=== PATIENT | male | born 1950 | race Caucasian/White ===

== ENCOUNTER → 2025-04-18 | Outpatient (CLI) | payer MEDICARE, MEDICAID, SELFPAY ==
--- NOTE | 2025-04-18 09:42 | MRI_ITS ---
PROCEDURE: BRAIN W/WO CONTRAST 04/18/2025 REASON FOR EXAM: SMALL LESION SEEN ON CT SIM Head neck neoplasm. TECHNIQUE: Procedure Code: [id number] Modality: MR Procedure: BRAIN W/WO CONTRAST Multiplanar and multisequence images were obtained. CONTRAST: Clariscan VOLUME: 15 mL COMPARISON: Prior PET-CT. FINDINGS: Diffusion-weighted images:Negative. ADC map: Negative. Gradient images: Negative. Cerebrum: Moderate loss of cerebral volume. Negative for mass the frontal, parietal, temporal and occipital lobes otherwise negative. White matter: Moderate periventricular white matter changes. Occasional T2 lesions in the centrum semiovale and licona radiata. Cerebellum: Negative for acute infarction. Otherwise negative cerebellum. CSF pathways and ventricles: Negative. Negative for ventricular dilatation or obstruction. 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 Brainstem: Ischemic changes in the eliceo. Midbrain, eliceo and medulla otherwise negative. Midline structures: The corpus callosum, pituitary fossa and cerebellar tonsils are negative. Limbic system: Medial temporal lobes and limbic system negative. Extra-axial spaces: Negative. Negative for subarachnoid, subdural or epidural hemorrhage. Orbital structures: Globes negative. Extraocular muscles negative. Paranasal sinuses: Slight mucosal disease in the ethmoid sinuses. Remainder of the sinuses negative. Vascular structures: Normal intracranial flow voids including the superior sagittal sinus. Other: No abnormal enhancement. Remainder of exam negative. 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 Atrophy and small-vessel disease upper limits of normal for age. Negative for intracranial metastatic disease. Reading Location: [id number]
== END | disposition home or self-care (01) ==
LOC: MRI 09:36
PROVIDERS: PCP Family Medicine; Referring Provider Student in an Organized Health Care Education/Training Program; Visit Provider Student in an Organized Health Care Education/Training Program
DX: C32.1 Malignant neoplasm of supraglottis (principal)
CPT/HCPCS: 70553; A9575; A4216

== ENCOUNTER 2025-04-25 07:49 | Day surgery (SDC) | payer MEDICARE, MEDICAID, SELFPAY ==
--- NOTE | 2025-04-17 18:09 | PAT.ANESEVAL ---
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 When Was Last Pacemaker Check QUESTION #4 FULL TEXT: You/Your Family Experience fever (hyperthermia) with Anesthesia Last Oral Intake Last Oral intake: Last Oral Intake NPO since Meds taken in AM with sips of water? Meds patient instructed to take am of surgery PONV PONV - fiscal accounting clerk: PONV - fiscal accounting clerk Female No 04/17/25 11:01 HX of Motion Sickness No 04/17/25 11:01 HX of N/V After Surgery No 04/17/25 11:01 Non-Smoker No 04/17/25 11:01 Duration of Surgery greater No 04/17/25 11:01 than 60 minutes Number of Risk Factors PONV Score Height & Weight Height & Weight: Anesthesia: Height & Weight Height 5 ft 9 in 04/15/25 14:43 Respiratory Assessment Respiratory Assessment - fiscal accounting clerk: Respiratory Tract Infection Hx - fiscal accounting clerk Hx Respiratory Tract Infection No 04/17/25 11:01 STOP Sleep Apnea STOP Sleep Apnea - fiscal accounting clerk: STOP Sleep Apnea - fiscal accounting clerk Hx Hypertension Yes: CONTROLLED WITH MED 04/17/25 11:01 Hx Sleep Apnea No 04/17/25 11:01 CPAP BIPAP Do you snore loudly (louder No 04/17/25 11:01 than talking or can be heard Do you often feel tired/ No 04/17/25 11:01 fatigued/ sleepy during daytime? Has anyone observed you stop No 04/17/25 11:01 breathing during sleep? STOP Results Negative 04/17/25 11:01 QUESTION #5 FULL TEXT : Do you snore loudly (louder than talking or can be heard through closed doors)? 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 Specify any problems Hx of Preganancy in last 3 N/A 04/17/25 11:01 Months Nurse Filling Out Transfusion NBUCHER 04/17/25 11:01 & Questions: Date: 04/17/25 04/17/25 11:01 Time: 11:03 04/17/25 11:01 Patient unable to answer at this time (ie. confused, unrespo /Reproduction History /Reproductive History - fiscal accounting clerk: /Reproductive Hx- fiscal accounting clerk Hx Now No 04/17/25 11:01 Gestational Age (in weeks): EDC: Hx Hx Para Hx Section SAB No 04/17/25 11:01 [facility] Medical History (Updated 04/17/25 @ 11:30 by Erin Marquez) Type 2 diabetes mellitus PVD (peripheral vascular disease) History of pleural effusion Depression CKD stage 3 due to type 2 diabetes mellitus CAD (coronary artery disease) Wears glasses Wears dentures Cancer Marijuana use Arthritis Difficulty swallowing Heartburn Gastric reflux Shortness of breath on exertion Chronic cough Smoker Cardiology follow-up encounter COPD (chronic obstructive pulmonary disease) Acid reflux High cholesterol Hypertension Diabetes Blindness of right eye Home Medications ?Medication ?Instructions ?Recorded ?Last Taken ?Type amlodipine 5 mg tablet 5 mg PO QDAY 04/07/25 Unknown History atorvastatin 40 mg tablet (Lipitor) 40 mg PO QHS 04/07/25 Unknown History brimonidine 0.2 % eye drops 1 drp ophthalmic (eye) TID 04/07/25 Unknown History carvedilol 25 mg tablet 25 mg PO BID 04/07/25 Unknown History dorzolamide 22.3 mg-timolol 6.8 1 drp ophthalmic (eye) BID 04/07/25 Unknown History mg/mL eye drops (Cosopt) famotidine 20 mg tablet 20 mg PO QDAY 04/07/25 Unknown History losartan 50 mg tablet 50 mg PO BID 04/07/25 Unknown History metformin 500 mg tablet 500 mg PO BID 04/07/25 Unknown History umeclidinium 62.5 mcg-vilanterol 1 inh inhalation QDAY 04/07/25 Unknown History 25 mcg/actuation powdr for inhalation (Anoro Ellipta) Allergy/AdvReac Type Severity Reaction Status Date / Time No Known Allergies Allergy Verified 04/17/25 10:57 Family History Mother Diabetes Father Cirrhosis Brother COPD (chronic obstructive pulmonary disease) Surgical History (Updated 04/17/25 @ 11:30 by Erin Marquez) History of colonoscopy History of vascular surgery History of cardiac catheterization History of artificial lens replacement History of coronary artery bypass graft x 3 S/P triple vessel bypass Social History Smoking Status: Current every day smoker tobacco type: cigarettes Tobacco: How many years used: 40 alcohol intake: never substance use type: marijuana Audit: Pertinent Findings Pertinent Findings EKG Perinent findings: 08/30/2021 sinus rhythm. LVH. Echo (EF%) pertinent findings: EF is 65 to 70%. Peak gradient of 22 mmHg with Valsalva and outflow and mid LV. No obvious evidence of HCM. Heart catheterization pertinent findings: 08/23/2021. Severe CAD. Left main has 70% stenosis at the bifurcation. Prior stent in the proximal LAD is patent. Mild disease in the mid to distal LAD. Left circumflex has 80% stenosis at the bifurcation. Proximally there is a 70% stenosis. RCA has mild diffuse disease. EF of 40 to 45%. Consult pertinent findings: 09/05/2023. [employer]. 1. Lower extremity edema?stable. 2. CAD in [place] arteries?stable. Status post CABG on 08/26/2021 with TENA to the LAD and SVG to the obtuse marginal and mid posterior descending artery. No angina symptoms noted. Continue current meds. 3. Hypertension?controlled Recommendation Anesthesia Recommendation Anesthesia recommendation: OPTIMIZED for anesthesia
[2025-04-25] VITALS (12 sets, daily range): BP systolic 182–227; BP diastolic 66–87; PULSE 66–74; RESP 16–20; TEMP 35.8–37.2; O2SAT 93–98; BMI 29.6
--- OUTSIDE RECORDS SUMMARY | 2025-04-25 08:01 | XMS RPT_ITS | CCD ---
Author Organization [facility] Care Team Providers Care Crnp Name Role Phone REBECCA DO, DR FRANKLIN A Primary Care Physician [phone] SYED DALLAS, RACHAEL Mendez Attending Unavail able REBECCA DO, DR NOEMI Tidwell Primary Care Unavailabl e REBECCA DO, DR NOEMI Tidwell Attending Unavailabl e REBECCA DO, DR NOEMI Tidwell Primary Care Unavailabl e REBECCA DO, DR NOEMI Tidwell Attending Unavailabl e REBECCA DO, DR NOEMI Tidwell Primary Care Unavailabl e Unavailable Primary Care Provider Unavailabl e JUD, GLENDY Referring Unavailable JUD, GLENDY Attending Unavailable SELF Referring Unavailable JUD, GLENDY Attending Unavailable Unavailable Primary Care Provider Unavailabl e REBECCA DO, DR NOEMI Tidwell Primary Care Unavailabl e YANET YAÑEZ MD Attending Unavailable REBECCA DO, DR NOEMI Tidwell Primary Care Unavailabl e RIDER DO, DR RANDAL Reardon Attending Unavailable PROVIDER, UNKNOWN Admitting Unavailable PROVIDER, UNKNOWN Attending Unavailable JOSEPHINE GUERRERO Referring Unavailable TENISHA, MARGARITA Admitting Unavailable TENISHA, MARGARITA Attending Unavailable TENISHA, MARGARITA Referring Unavailable CLEVELAND LI Referring Unavailable PROVIDER, UNKNOWN Admitting Unavailable TENISHA, MARGARITA Attending Unavailable PROVIDER, UNKNOWN Admitting Unavailable PROVIDER, UNKNOWN Attending Unavailable PROVIDER, UNKNOWN Admitting Unavailable ERNESTINA LEE Attending Unavailable TENISHA, MARGARITA Referring Unavailable PROVIDER, UNKNOWN Admitting Unavailable TENISHA, MARGARITA Attending Unavailable Howie Perez Attending Unavailable Rebecca, Noemi Primary Care Unavailable Howie Perez Attending Unavailable Rebecca, Noemi Primary Care Unavailable Rebecca, Noemi Referring Unavailable Tenisha, Margarita Referring Unavailable Rebecca, Noemi Primary Care Unavailable Anshul Pereira Attending Unavailable Rebecca, Noemi Primary Care Unavailable Anshul Preeira Attending Unavailable Lisbeth Sapp Attending Unavailable Rebecca, Noemi Primary Care Unavailable Anshul Pereira Referring Unavailable Stevie Dallas Attending Unavailable Noemi Fernandez Primary Care Unavailable Margarita Steven Attending Unavailable Tenisha, Margarita Referring Unavailable Noemi Fernandez Primary Care Unavailable Anshul Pereira Attending Unavailable Anshul Pereira Referring Unavailable Rebecca, Noemi Primary Care Unavailable Anshul Pereira Referring Unavailable Noemi Fernandez Primary Care Unavailable Anshul Pereira Attending Unavailable Rebecca SEYMOUR, Dr. Franklin Primary Care Physician Lisbeth Sapp LPN Attending Physician Unavaila ble Kelli SEYMOUR, Dr. Landers Attending Physician Dr. Margarita Steven MD Referring Provider Rebecca SEYMOUR, Dr. Franklin Referring Provider [phone] Dr. Howie Perez MD Attending Physician Burt DALLAS, Dr. Hubbard Attending Physician Kelli SEYMOUR, Dr. Landers Referring Provider Allergies Allergy Classification Reported Allergen(s) Allergy Type Date of Onset Reaction(s) Facility (16 sources) hydroCHLOROthiaz daya; Translations: [hydrochlorothia zide] Drug Allergy 5 Other: See Comments, [facility] (16 sources) Lisinopril; Translations: [lisinopril] Drug Allergy 5 [facility] (1 source) Unable to Assess Drug allergy (disorder) 5 [facility] Repository Medications Current Medications Medication Drug Class(es) Dates Sig (Normalized) Sig (Original) acetaminophen 650 mg oral tablet (11 sources) Start: 08-31-2021 acetaminophen Dose : 650 mg = 2 tab(s), Oral, q4h, PRN Pain, scale 1-3, 0 Refill(s) Start Date: 08/31/21 Status: Ordered Repeat number: 1 [id number] 200 actuat albuterol 0.09 mg/actuat metered dose inhaler (6 sources) beta2-Adrenergic Agonist Start: 07-18-2024 take 2 puff(s) by inhalation every four hours as needed for wheezing ProAir HFA MDI (90 mcg/inh) inhalation aerosol 2 puff(s), Inhalation, q4h, PRN as needed for wheezing, # 8.5 gram(s), 0 Refill(s), Pharmacy: [facility], COPD (chronic obstructive pulmonary disease), 174, cm, 03/22/24 9:19:00 EDT, Height, kg, 03/22/24 9:19:00 EDT, Dosing Weight Start Date: 07/18/24 Status: Ordered Quantity: 8.5 Unit: g Repeat number: 1 Indications: Chronic obstructive pulmonary disease, unspecified; Start: 11-14-2022 take 2 puff(s) by in halation every four hours as needed for wheezing ProAir HFA MDI (90 mcg/inh) inhalation aerosol 2 puff(s), Inhalation, q4h, PRN as needed for wheezing, # 8.5 gram(s), 0 Refill(s), Pharmacy: [facility]/pharmacy #[id number], COPD (chronic obstructive pulmonary disease), 173, cm, 11/14/22 10:58:00 EDT, Height Start Date: 11/14/22 Status: Ordered amLODIPine 5 mg oral tablet (13 sources) Dihydropyridine Calcium Channel Ni Start: 04-07-2025 take 1 tablet by mouth once daily Start: 08-09-2023 take 1 tablet by tami th once daily amLODIPine (NORVASC) 5 mg tablet Take 5 mg by mouth once daily. 08/09/2023 Active Start: 08-09-2023 amLODIPine 5 m g oral tablet 1 tab(s), Oral, BID, Due for office vist with Mainor Xiao. Please call office to schedule, additional refills will be given at office visit., # 60 tab(s), 1 Refill(s), Pharmacy: [facility]/pharmacy #[id number], 172.3, cm, 02/24/23 15:32:00 EDT, Height, kg, 02/24/23 15:32:00 EDT, Dosing Weight Start Date: 08/09/23 Status: Ordered Quantity: 60.0 Unit: tab(s) Repeat number: 2 Start: 08-16-2022 Norvasc 5 mg o ral tablet Dose : 5 mg = 1 tab(s), Oral, BID, # 180 tab(s), 0 Refill(s), [id number], 175.3, cm, 11/17/21 14:16:00 EDT, Height, kg, 11/17/21 14:16:00 EDT, Dosing Weight Start Date: 08/16/22 Status: Ordered Start: 08-31-2021 Norvasc 5 mg o ral tablet Dose : 5 mg = 1 tab(s), Oral, BID, # 60 tab(s), 1 Refill(s), [id number], 175.3, cm, 08/23/21 6:48:00 EST, Height, kg, 08/31/21 4:27:00 EST, Dosing Weight Start Date: 08/31/21 Status: Ordered Anoro Ellipta 62.5 mcg-25 mcg/inh inhalation powder (12 sources) Start: 04-23-2024 take 1 dose by inhalation once daily Anoro Ellipta 62.5 mcg-25 mcg/inh inhalation powder Dose = 1 puff(s), Inhalation, qDay, # 30 EA, 11 Refill(s), Pharmacy: [facility], COPD (chronic obstructive pulmonary disease), 174, cm, 03/22/24 9:19:00 EDT, Height, kg, 03/22/24 9:19:00 EDT, Dosing Weight Start Date: 04/23/24 Status: Ordered Quantity: 30.0 Unit: EA Repeat number: 12 Indications: Chronic obstructive pulmonary disease, unspecified; Start: 11-14-2022 take 1 dose by inhal ation once daily Anoro Ellipta 62.5 mcg-25 mcg/inh inhalation powder Dose = 1 puff(s), Inhalation, qDay, # 30 EA, 11 Refill(s), Pharmacy: [facility]/pharmacy #[id number], COPD (chronic obstructive pulmonary disease), 173, cm, 11/14/22 10:58:00 EDT, Height, kg, 11/14/22 10:58:00 EDT, Dosing Weight Start Date: 11/14/22 Status: Ordered Start: 08-05-2021 take 1 dose by inhal ation once daily Anoro Ellipta 62.5 mcg-25 mcg/inh inhalation powder Dose = 1 puff(s), Inhalation, qDay, # 30 EA, 11 Refill(s), Pharmacy: [facility]/pharmacy #[id number], COPD (chronic obstructive pulmonary disease), 173, cm, 08/05/21 13:14:00 EST, Height, kg, 08/05/21 13:14:00 EST, Dosing Weight Start Date: 08/05/21 Status: Ordered aspirin 81 mg delayed release oral tablet (11 sources) Platelet Aggregation Inhibitor, Nonsteroidal Anti-inflammatory Drug Start: 08-31-2021 aspirin 81 mg ora l delayed release tablet Dose : 81 mg = 1 tab(s), Oral, qDayM, 0 Refill(s) Start Date: 08/31/21 Status: Ordered Repeat number: 1 Start: 08-31-2021 aspirin 81 mg oral delayed release tablet Dose : 81 mg = 1 tab(s), Oral, qDayM, 0 Refill(s) Start Date: 08/31/21 Status: Ordered atorvastatin 40 mg oral tablet (11 sources) HMG-CoA Reductase Inhibitor Start: 04-07-2025 take 1 tablet by mouth at bedtime Start: 11-28-2024 atorvastatin 4 0 mg oral tablet Dose : 40 mg = 1 tab(s), Oral, qDay, # 90 tab(s), 3 Refill(s), Pharmacy: [facility], CAD IN [place], 173.4, cm, 11/07/24 10:01:00 EDT, Height, kg, 11/07/24 10:01:00 EDT, Dosing Weight Start Date: 11/28/24 Status: Ordered Quantity: 90.0 Unit: tab(s) Repeat number: 4 Indications: Atherosclerotic heart disease of habematolel coronary artery without angina pectoris; Start: 08-31-2023 take 1 tablet by tami th once daily atorvastatin 40 mg oral tablet 1 tab(s), Oral, qDay, # 90 tab(s), 1 Refill(s), Pharmacy: [facility]/pharmacy #[id number], 173, cm, 08/31/23 8:06:00 EST, Height, kg, 08/31/23 8:06:00 EST, Dosing Weight Start Date: 08/31/23 Status: Ordered Start: 08-16-2022 atorvastatin 4 0 mg oral tablet Dose : 40 mg = 1 tab(s), Oral, qDay, # 90 tab(s), 0 Refill(s), [id number], 175.3, cm, 11/17/21 14:16:00 EDT, Height, kg, 11/17/21 14:16:00 EDT, Dosing Weight Start Date: 08/16/22 Status: Ordered Start: 08-31-2021 atorvastatin 4 0 mg oral tablet Dose : 40 mg = 1 tab(s), Oral, qDay, # 30 tab(s), 2 Refill(s), [id number], 175.3, cm, 08/23/21 6:48:00 EST, Height, kg, 08/31/21 4:27:00 EST, Dosing Weight Start Date: 08/31/21 Status: Ordered benoxinate hydrochloride 4 mg/ml / fluorescein sodium 3 mg/ml ophthalmic solution (2 sources) Diagnostic Dye Start: 01-14-2025 End: 01-15-2025 fluorescein-benoxinate 0.3-0.4 % 1 drop (FLURESS) Start: 12-13-2024 End: 12-14-2024 fluorescein-benoxinate 0.3-0 .4 % 1 drop (FLURESS) bimatoprost 0.1 mg/ml ophthalmic solution (6 sources) Prostaglandin Analog Start: 08-25-2021 Lumigan 0 .01% ophthalmic solution Dose = 1 drop(s), Eyes, both, qHS, 0 Refill(s) Start Date: 08/25/21 Status: Ordered Start: 08-25-2021 Lumigan 0.01% ophthalmic solution Dose = 1 drop(s), Eyes, both, qHS, 0 Refill(s) Start Date: 08/25/21 Status: Ordered Start: 06-22-2019 Lumigan 0.01% ophthalmic solution Dose = 1 drop(s), Eyes, both, qDay, 0 Refill(s) Start Date: 06/22/19 Status: Ordered brimonidine tartrate 2 mg/ml ophthalmic solution (3 sources) alpha-Adrenergic Agonist Start: 04-07-2025 Start: 12-12-2024 take 1 drop(s) into the eye(s) twice daily brimonidine (ALPHAGAN) 0.2 % ophthalmic solution Use 1 drop in the left eye two times a day. 12/12/2024 Active bromfenac 0.75 mg/ml ophthalmic solution (1 source) Nonsteroidal Anti-inflammatory Drug Start: 09-20-2022 BromSite 0.075% ophthalmic solution 0 Refill(s) Start Date: 09/20/22 Status: Ordered carvedilol 25 mg oral tablet (9 sources) alpha-Adrenergic Ni, beta-Adrenergic Ni Start: 04-07-2025 take 1 tablet by mouth twice daily at mealtime Start: 11-28-2024 carvedilol 25 mg oral tablet Dose : 25 mg = 1 tab(s), Oral, BID, # 180 tab(s), 0 Refill(s) Start Date: 01/27/25 Status: Ordered Quantity: 180.0 Unit: tab(s) Repeat number: 1 Start: 08-31-2023 take 1 tablet by tami th twice daily carvedilol 25 mg oral tablet 1 tab(s), Oral, BID, # 180 tab(s), 0 Refill(s), [id number], 173, cm, 08/31/23 8:06:00 EST, Height, kg, 08/31/23 8:06:00 EST, Dosing Weight Start Date: 08/31/23 Status: Ordered Start: 10-12-2022 take 1 tablet by tami twice daily carvedilol 25 mg oral tablet 1 tab(s), Oral, BID, # 60 tab(s), 3 Refill(s), Pharmacy: [facility] [id number], 175.3, cm, 09/20/22 12:54:00 EST, Height, kg, 09/20/22 12:54:00 EST, Dosing Weight Start Date: 10/12/22 Status: Ordered Start: 09-20-2022 carvedilol 25 mg oral tablet Dose : 25 mg = 1 tab(s), Oral, BID, # 60 tab(s), 3 Refill(s), Pharmacy: [facility]/pharmacy #[id number], 175.3, cm, 09/20/22 12:54:00 EST, Height Start Date: 09/20/22 Status: Ordered Cepacol Sore Throat Max Numb mucous membrane lozenge (1 source) Start: 02-15-2025 End: 02-20-2025 take 1 dose by mouth every two hours as needed Cepacol Sore Throat Max Numb mucous membrane lozenge Dose = 1 lozenge(s), Oral, q2h, PRN Sore throat, X 5 day(s), # 50 lozenge(s), 0 Refill(s) Start Date: 02/15/25 Stop Date: 02/20/25 Status: Ordered Quantity: 50.0 Unit: lozenge(s) Repeat number: 1 cetirizine hydrochloride 10 mg oral tablet (2 sources) Histamine-1 Receptor Antagonist Start: 08-31-2023 cetirizine 10 mg oral tablet Dose : 10 mg = 1 tab(s), Oral, qDay, # 30 tab(s), 0 Refill(s), Pharmacy: [facility]/pharmacy #[id number], 173, cm, 08/31/23 8:06:00 EST, Height, kg, 08/31/23 8:06:00 EST, Dosing Weight Start Date: 08/31/23 Status: Ordered dorzolamide 20 mg/ml ophthalmic solution (12 sources) Carbonic Anhydrase Inhibitor Start: 04-07-2025 End: 04-17-2025 Dorzolamide 2 % drops Discontinued 1 NMA OPHTHALMIC TWICE A DAY April 07, 2025 12:00am April 17, 2025 10:58am Start: 11-06-2023 take 1 drop(s) into the eye(s) twice daily dorzolamide (TRUSOPT) 2 % ophthalmic solution Use 1 drop in the left eye two times a day. 11/06/2023 Active Start: 11-06-2023 take 1 dose into the eye(s) twice daily dorzolamide 2% ophthalmic solution Dose = 1 drop(s), Eyes, both, BID, 0 Refill(s) Start Date: 11/06/23 Status: Ordered Repeat number: 1 Start: 08-25-2021 take 1 dose into the eye(s) twice daily dorzolamide 2% ophthalmic solution Dose = 1 drop(s), Eyes, both, BID, # 10 mL, 0 Refill(s) Start Date: 08/25/21 Status: Ordered Start: 08-25-2021 take 1 dose into the eye(s) twice daily dorzolamide 2% ophthalmic solution Dose = 1 drop(s), Eyes, both, BID, # 10 mL, 0 Refill(s) Start Date: 08/25/21 Status: Ordered dorzolamide 20 mg/ml / timol ol 5 mg/ml ophthalmic solution (2 sources) Carbonic Anhydrase Inhibitor, beta-Adrenergic Ni Start: 04-07-2025 Start: 01-14-2025 take 1 drop(s) into the eye(s) twice daily dorzolamide-timolol (COSOPT) 22.3-6.8 mg/mL ophthalmic solution Use 1 drop in both eyes two times a day. 10 mL 5 01/14/2025 Active famotidine 20 mg oral tablet (13 sources) Histamine-2 Receptor Antagonist Start: 04-07-2025 take 1 tablet by mouth once daily Start: 04-23-2024 Pepcid 20 mg o ral tablet Dose : 20 mg = 1 tab(s), Oral, BID, # 180 tab(s), 11 Refill(s), Pharmacy: [facility], Constipation Abdominal pain, 174, cm, 03/22/24 9:19:00 EDT, Height, kg, 03/22/24 9:19:00 EDT, Dosing Weight Start Date: 04/23/24 Status: Ordered Quantity: 180.0 Unit: tab(s) Repeat number: 12 Indications: Unspecified abdominal pain; Constipation, unspecified; Start: 08-31-2023 Pepcid 20 mg o ral tablet Dose : 20 mg = 1 tab(s), Oral, BID, # 180 tab(s), 11 Refill(s), Pharmacy: [facility]/pharmacy #[id number], Abdominal pain Constipation, 173, cm, 08/31/23 8:06:00 EST, Height, kg, 08/31/23 8:06:00 EST, Dosing Weight Start Date: 08/31/23 Status: Ordered Start: 08-05-2021 Pepcid 20 mg o ral tablet Dose : 20 mg = 1 tab(s), Oral, qHS, # 30 tab(s), 11 Refill(s), Pharmacy: [facility]/pharmacy #[id number], Abdominal pain Constipation, 173, cm, 08/05/21 13:14:00 EST, Height, kg, 08/05/21 13:14:00 EST, Dosing Weight Start Date: 08/05/21 Status: Ordered fluticasone propionate 0.05 mg/actuat metered dose nasal spray (2 sources) Corticosteroid Start: 08-31-2023 take 50 ug nasal route twice daily fluticasone proprionate NASAL 50 mcg/ spray 50 mcg Dose = 1 spray(s), Nostril, each, BID, # 16 gram(s), 0 Refill(s), [id number], 173, cm, 08/31/23 8:06:00 EST, Height, kg, 08/31/23 8:06:00 EST, Dosing Weight Start Date: 08/31/23 Status: Ordered furosemide 20 mg oral tablet (2 sources) Loop Diuretic Start: 09-07-2021 End: 09-14-2021 Lasix 20 mg oral tablet Dose : 20 mg = 1 tab(s), Oral, qDay, # 14 tab(s), 0 Refill(s), [id number], 175.3, cm, 09/07/21 8:47:00 EST, Height, kg, 09/07/21 8:47:00 EST, Dosing Weight Start Date: 09/07/21 Stop Date: 09/14/21 Status: Ordered 24 hr isosorbide mononitrate 30 mg extended release oral tablet (1 source) Nitrate Vasodilator Start: 08-04-2021 isosorbide mononitrate 30 mg oral tablet, extended release Dose : 30 mg = 1 tab(s), Oral, qAM, # 30 tab(s), 1 Refill(s), [id number], 173, cm, 08/04/21 14:55:00 EST, Height, kg, 08/04/21 14:55:00 EST, Dosing Weight Start Date: 08/04/21 Status: Ordered losartan potassium 50 mg oral tablet (14 sources) Angiotensin 2 Receptor Ni Start: 04-07-2025 take 1 tablet by mouth twice daily Start: 08-31-2021 take 1 tablet by tami th twice daily losartan 50 mg oral tablet 1 tab(s), Oral, BID, # 180 tab(s), 3 Refill(s), Pharmacy: [facility], 173.4, cm, 11/07/24 10:01:00 EDT, Height, kg, 11/07/24 10:01:00 EDT, Dosing Weight Start Date: 12/04/24 Status: Ordered Quantity: 180.0 Unit: tab(s) Repeat number: 4 metFORMIN hydrochloride 500 mg oral tablet (13 sources) Biguanide Start: 04-07-2025 take 1 tablet by tami th twice daily Start: 04-23-2024 metFORMIN 500 mg oral tablet (IR) Dose : 500 mg = 1 tab(s), Oral, BID, # 180 tab(s), 11 Refill(s), Pharmacy: [facility], 174, cm, 03/22/24 9:19:00 EDT, Height, kg, 03/22/24 9:19:00 EDT, Dosing Weight Start Date: 04/23/24 Status: Ordered Quantity: 180.0 Unit: tab(s) Repeat number: 12 Start: 08-31-2023 metFORMIN 500 mg oral tablet (IR) Dose : 500 mg = 1 tab(s), Oral, BID, # 180 tab(s), 11 Refill(s), [id number], 173, cm, 08/31/23 8:06:00 EST, Height, kg, 08/31/23 8:06:00 EST, Dosing Weight Start Date: 08/31/23 Status: Ordered Start: 09-20-2022 metFORMIN 500 mg oral tablet (IR) Dose : 500 mg = 1 tab(s), Oral, BID, # 60 tab(s), 11 Refill(s), [id number], 175.3, cm, 09/20/22 12:54:00 EST, Height, kg, 09/20/22 12:54:00 EST, Dosing Weight Start Date: 09/20/22 Status: Ordered Start: 08-05-2021 metFORMIN 500 mg oral tablet (IR) Dose : 500 mg = 1 tab(s), Oral, BID, # 60 tab(s), 11 Refill(s), Pharmacy: [facility]/pharmacy #[id number], 173, cm, 08/05/21 13:14:00 EST, Height, kg, 08/05/21 13:14:00 EST, Dosing Weight Start Date: 08/05/21 Status: Ordered metoprolol tartrate 100 mg oral tablet (5 sources) beta-Adrenergic Ni Start: 08-31-2021 Lopres sor 100 mg oral tablet Dose : 100 mg = 1 tab(s), Oral, BIDM, # 60 tab(s), 2 Refill(s), Pharmacy: [facility]/pharmacy #[id number], 175.3, cm, 08/23/21 6:48:00 EST, Height, kg, 08/31/21 4:27:00 EST, Dosing Weight Start Date: 08/31/21 Status: Ordered Start: 08-04-2021 metoprolol tar trate 50 mg oral tablet Dose : 50 mg = 1 tab(s), Oral, BID, # 60 tab(s), 3 Refill(s), Pharmacy: [facility]/pharmacy #[id number], 173, cm, 08/04/21 14:55:00 EST, Height, kg, 08/04/21 14:55:00 EST, Dosing Weight Start Date: 08/04/21 Status: Ordered Multivitamin preparation (12 sources) Start: 07-04-2016 take 1 tablet by mouth once daily Multivitamin Dose = 1 tab(s), Oral, Daily, 0 Refill(s) Start Date: 07/04/16 Status: Ordered Repeat number: 1 Start: 07-04-2016 [facility]amin Dose = 1 tab(s), Oral, Daily, 0 Refill(s) Start Date: 07/04/16 Status: Ordered ofloxacin 3 mg/ml ophthalmic solution (2 sources) Quinolone Antimicrobial Start: 09-20-2022 ofloxacin 0.3% ophthalmic solution 0 Refill(s) Start Date: 09/20/22 Status: Ordered Lizella-3 oral capsule (12 sources) Start: 07-04-2016 take 1 capsule by mouth once daily Lizella-3 oral capsule 1,200 mg, Oral, Daily, 0 Refill(s) Start Date: 07/04/16 Status: Ordered Repeat number: 1 Start: 07-04-2016 take 1 capsule by [facility] once daily Lizella-3 oral capsule 1,200 mg, Oral, Daily, 0 Refill(s) Start Date: 07/04/16 Status: Ordered prednisoLONE acetate 10 mg/ml ophthalmic suspension (4 sources) Corticosteroid Start: 09-20-2022 take 1 drop(s) into the eye(s) four times daily prednisoLONE acetate 1% ophthalmic suspension 1 drop in right eye 4 times daily, 0 Refill(s) Start Date: 09/20/22 Status: Ordered Start: 09-20-2022 prednisoLONE a cetate 1% ophthalmic suspension 0 Refill(s) Start Date: 09/20/22 Status: Ordered traMADol hydrochloride 50 mg oral tablet (2 sources) Opioid Agonist Start: 04-07-2025 End: 04-17-2025 take 1 tablet by mouth every six hours as needed Tramadol 50 mg tablet Discontinued 50 mg PO EVERY 6 HOURS as needed April 07, 2025 12:00am April 17, 2025 11:00am Start: 03-19-2024 End: 03-24-2024 take 1 tablet by mouth once daily traMADol 25 mg oral tablet Dose : 25 mg = 1 tab(s), Oral, q8h, PRN as needed for pain, not to exceed 400 mg/day, X 5 day(s), # 18 tab(s), 0 Refill(s), 03/24/24 5:26:00 PM EDT, Injury of shoulder region, 95.5 Start Date: 03/19/24 Stop Date: 03/24/24 Status: Ordered Umeclidinium-Vilanterol (1 source) Anticholinergic, beta2-Adrenergic Agonist Start: 04-07-2025 Completed/Discontinued Medications Medication Drug Class(es) Dates Sig (Normalized) Sig (Original) acetaminophen 325 mg / HYDROcodone bitartrate 5 mg oral tablet (2 sources) Opioid Agonist Start: 04-07-2025 End: 04-10-2025 Hydrocodone-Acetami nophen 5-325 mg tablet Discontinued 1 {tbl} PO THREE TIMES A DAY 0 April 07, 2025 12:00am April 10, 2025 2:41pm Start: 02-15-2025 End: 02-18-2025 take 1 tablet by mouth three times daily Weston 325- 5 mg oral tablet Dose = 1 tab(s), Oral, TID, X 3 day(s), # 9 tab(s), 0 Refill(s), Throat cancer, 97.2 Start Date: 02/15/25 Stop Date: 02/18/25 Status: Ordered Quantity: 9.0 Unit: tab(s) Repeat number: 1 Indications: Malignant neoplasm of pharynx, unspecified; 12 hr timolol 5 mg/ml ophthalmic solution (1 source) beta-Adrenergic Ni Start: 04-07-2025 End: 04-10-2025 take 0.5 drop(s) into the eye(s) twice daily Timolol 0.5 % drops Discontinued 1 NMA OPHTHALMIC TWICE A DAY April 07, 2025 12:00am April 10, 2025 2:41pm left eye Problems Problem Classification Problem Date Documented Date Episodic/Chronic Cancer of head and neck (14 sources) Malignant tumor of pharynx; 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 Chemotherapy can be with Weekly Cisplatin or weekly Taxol and Carboplatin. Cataract (3 sources) Nuclear senile cataract; Translations: [Age-related nuclear cataract, bilateral] Onset: 01-14-2025 12-18-2024 Chronic Chronic kidney disease (2 sources) Chronic kidney disease stage 3A 11-07-2024 Chronic Chronic obstructive pulmonary disease and bronchiectasis (12 sources) Chronic obstructive lung disease 04-25-2019 Chronic Coronary atherosclerosis and other heart disease (15 sources) Coronary arteriosclerosis; Translations: [Coronary atherosclerosis] 04-25-2019 Chronic Comment on above: 2014 in [place] : Normal LV function. EF 65%. No regional wall motion abnormality. No mitral regurgitation. CAD as noted: left main 0% stenosis; LAD proximal 0%; mid - 90%. circumflex 0%. RCA(dominant) 0%. The patient presents with unstable coronary syndrome, class III a ngina and obvious culprit lesion in the mid LAD. Successful PCI for treatment of symptomatic CAD Diabetes mellitus with complications (14 sources) Chronic kidney disease stage 3 due to type 2 diabetes mellitus; Translations: [Hyperlipidemia due to type 2 diabetes mellitus] Onset: 03-13-2025 02-24-2023 Chronic Diabetes mellitus without complication (12 sources) Type 2 diabetes mellitus 08-05-2021 Chronic Disorders of lipid metabolism (15 sources) Hyperlipidemia 08-02-2021 Chronic Esophageal disorders (12 sources) Gastroesophageal reflux disease without esophagitis 08-05-2021 Chronic Essential hypertension (15 sources) Benign essential hypertension; Translations: [Hypertensive disorder] 04-25-2019 Chronic Glaucoma (4 sources) Primary open-angle glaucoma, left eye, indeterminate stage; Translations: [Primary open angle glaucoma] Onset: 12-13-2024 12-13-2024 Chronic Mood disorders (12 sources) Recurrent major depression in full remission 08-05-2021 Chronic Nonspecific chest pain (15 sources) Chest pain 08-02-2021 Episodic Osteoarthritis (12 sources) Osteoarthritis 07-07-2016 Chronic Other injuries and conditions due to external causes (1 source) Injury of upper extremity; Translations: [Unspecified injury of shoulder and upper arm, unspecified arm, initial encounter] Onset: 03-19-2024 Episodic Other nutritional; endocrine; and metabolic disorders (12 sources) Body mass index 30+ - obesity 08-02-2021 Chronic Other nutritional; endocrine; and metabolic disorders (1 source) Body mass index (BMI) 29.0-29.9, adult; Translations: [Body mass index (BMI) 29.0-29.9, adult] Onset: 03-13-2025 Episodic Other skin disorders (2 sources) Lesion of larynx; Translations: [Other diseases of larynx] 01-27-2025 Episodic Other upper respiratory disease (5 sources) Seasonal allergic rhinitis 08-31-2023 Chronic Other upper respiratory disease (1 source) Disorder of the larynx; Translations: [Other diseases of larynx] Onset: 01-21-2025 Episodic Other upper respiratory disease (2 sources) Other diseases of larynx; Translations: [Other diseases of larynx] Onset: 01-21-2025 Episodic Peripheral and visceral atherosclerosis (12 sources) Peripheral vascular disease 08-02-2021 Chronic Comment on above: s/p Bilateral CEA 20 11 Pleurisy; pneumothorax; pulmonary collapse (11 sources) Pleural effusion 09-07-2021 Episodic Residual codes; unclassified (12 sources) Sign 08-02-2021 Episodic Retinal detachments; defects; vascular occlusion; and retinopathy (4 sources) Bilateral epiretinal membrane of eyes; Translations: [Puckering of macula, bilateral] Onset: 12-13-2024 12-13-2024 Chronic Rheumatoid arthritis and related disease (7 sources) Rheumatoid arthritis 08-02-2021 Chronic Spondylosis; intervertebral disc disorders; other back problems (5 sources) Cervical spondylosis 11-25-2022 Chronic Unclassified (4 sources) 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 Noemi Fernandez DO Status: REG CLI Study: Brain W/WO Contrast Date of Exam: 04/18/25 Exam# [id number] Ordering Dr: Anshul Pereira DO PROCEDURE: BRAIN W/WO CONTRAST 04/18/2025 REASON FOR EXAM: SMALL LESION SEEN ON CT SIM Head neck neoplasm. TECHNIQUE: Procedure Code: MRIBRWW Modality: MR Procedure: BRAIN W/WO CONTRAST Multiplanar and multisequence images were obtained. CONTRAST: Clariscan VOLUME: 15 mL COMPARISON: Prior PET-CT. FINDINGS: Diffusion-weighted images:Negative. ADC map: Negative. Gradient images: Negative. Cerebrum: Moderate loss of cerebral volume. Negative for mass the frontal, parietal, temporal and occipital lobes otherwise negative. White matter: Moderate periventricular white matter changes. Occasional T2 lesions in the centrum semiovale and licona radiata. Cerebellum: Negative for acute infarction. Otherwise negative cerebellum. CSF pathways and ventricles: Negative. Negative for ventricular dilatation or obstruction. 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 Brainstem: Ischemic changes in the eliceo. Midbrain, eliceo and medulla otherwise negative. Midline structures: The corpus callosum, pituitary fossa and cerebellar tonsils are negative. Limbic system: Medial temporal lobes and limbic system negative. Extra-axial spaces: Negative. Negative for subarachnoid, subdural or epidural hemorrhage. Orbital structures: Globes negative. Extraocular muscles negative. Paranasal sinuses: Slight mucosal disease in the ethmoid sinuses. Remainder of the sinuses negative. Vascular structures: Normal intracranial flow voids including the superior sagittal sinus. Other: No abnormal enhancement. Remainder of exam negative. 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 Atrophy and small-vessel disease upper limits of normal for age. Negative for intracranial metastatic disease. Reading Location: [facility] CC: Dr. Noemi Fernandez, DO; Dr. Anshul Pereira, DO Communications Controller: Signed Normal [facility] Absolute lymphocyte countOrd ered By: Stevie Armendariz on 04-17-2025 Lymphocytes Auto (Unsp spec) [#/Vol] 1.48 10*3/uL 0.83-4.51 [facility] Absolute neutrophil countOrd ered By: [facility] on 04-17-2025 Neutrophils (Bld) [#/Vol] 5.2 10*3/uL 2.0-7.7 [facility] Anion gap in Serum or Plasma Ordered By: [facility] on 04-17-2025 Anion gap [Moles/Vol] 10 mmol/L 5- [facility] Automated lymphocyte count a s percentage of total leukocytesOrdered By: [facility] on 04-17-2025 Lymphocytes/100 WBC Auto (Unsp spec) 19.7 % 19- [facility] BUN/creatinine ratioOrdered By: [facility] on 04-17-2025 Urea nitrogen/Creatinine [Mass ratio] 17.2 mg/mg 10-20 [facility] Basophil percentageOrdered B y: [facility] on 04-17-2025 Basophils/100 WBC (Bld) 0.7 % 0-1 [facility] Bilirubin, totalOrdered By: [facility] on 04-17-2025 Bilirubin [Mass/Vol] 0.25 mg/dL 0.00-1.30 [facility] CBC W/Diff, Automatedon 03-25 Absolute Lymph 1.48 X10 3/uL Normal 0.83-4.51 [facility] Comment on above: Performed By: #### L 501.9520, L504.2610, L500.4050, L506.0400, L100.0100 #### [facility] [address] [place], [address] Absolute Neut 5.2 X10 3/uL Normal 2.0-7.7 [facility] Comment on above: Performed By: #### L [id number], L504.2610, L500.4050, L506.0400, L100.0100 #### [facility] [address] [place], [address] Basophils/100 WBC (Bld) 0.7 % Normal 0-1 [facility] Comment on above: Performed By: #### L [id number], L504.2610, L500.4050, L506.0400, L100.0100 #### [facility] [address] [place], [address] Eosinophils/100 WBC (Bld) 2.7 % Normal 0-5 [facility] Comment on above: Performed By: #### L 501.9520, L504.2610, L500.4050, L506.0400, L100.0100 #### [facility] [address] [place], [address] Erythrocyte distribution width (RBC) [Ratio] 13.4 % Normal 11.6-14.6 [facility] Comment on above: Performed By: #### L 501.9520, L504.2610, L500.4050, L506.0400, L100.0100 #### [facility] [address] [place], [address] Hematocrit (Bld) [Volume fraction] 40.8 % Normal 40-54 [facility] Comment on above: Performed By: #### L 501.9520, L504.2610, L500.4050, L506.0400, L100.0100 #### [facility] [address] [place], [address] Hemoglobin (Bld) [Mass/Vol] 13.9 g/dL Normal 13.0-16.5 [facility] Comment on above: Performed By: #### L 501.9520, L504.2610, L500.4050, L506.0400, L100.0100 #### [facility] [address] [place], [address] IG% 0.300 Normal 0.0-0.9 [facility] Comment on above: Result Comment: IG% - Immature Granulocytes (promyelocytes, myelocytes and metamyelocytes) > 1% indicates that a LEFT SHIFT is Present. Performed By: #### L 501.9520, L504.2610, L500.4050, L506.0400, L100.0100 #### [facility] [address] [place], [address] Lymphocytes/100 WBC (Bld) 19.7 % Normal 19-41 [facility] Comment on above: Performed By: #### L 501.9520, L504.2610, L500.4050, L506.0400, L100.0100 #### [facility] [address] [place], [address] MCH (RBC) [Entitic mass] 29.0 pg Normal 27.0-32.0 [facility] Comment on above: Performed By: #### L 501.9520, L504.2610, L500.4050, L506.0400, L100.0100 #### [facility] [address] [place], [address] MCHC (RBC) [Mass/Vol] 34.1 g/dL Normal 32-36 [facility] Comment on above: Performed By: #### L 501.9520, L504.2610, L500.4050, L506.0400, L100.0100 #### [facility] [address] [place], [address] MCV (RBC) [Entitic vol] 85.2 fL Normal 80-94 [facility] Comment on above: Performed By: #### L 501.9520, L504.2610, L500.4050, L506.0400, L100.0100 #### [facility] [address] [place], [address] Monocytes/100 WBC (Bld) 7.5 % Normal 0-10 [facility] Comment on above: Performed By: #### L 501.9520, L504.2610, L500.4050, L506.0400, L100.0100 #### [facility] [address] [place], [address] Neutrophils/100 WBC (Bld) 69.1 % Normal 47-70 [facility] Comment on above: Performed By: #### L 501.9520, L504.2610, L500.4050, L506.0400, L100.0100 #### [facility] [address] [place], [address] Nucleated RBC (Bld) [#/Vol] 0 10*3/uL Normal 0-5 [facility] Comment on above: Performed By: #### L 501.9520, L504.2610, L500.4050, L506.0400, L100.0100 #### [facility] [address] [place], [address] Platelet mean volume (Bld) [Entitic vol] 11.5 fL Normal 6.2-12.0 [facility] Comment on above: Performed By: #### L 501.9520, L504.2610, L500.4050, L506.0400, L100.0100 #### [facility] [address] [place], [address] Platelets (Bld) [#/Vol] 170 10*3/uL Normal 150-450 [facility] Comment on above: Performed By: #### L 501.9520, L504.2610, L500.4050, L506.0400, L100.0100 #### [facility] [address] [place], [address] RBC (Bld) [#/Vol] 4.79 10*6/uL Normal 4.6-6.2 [facility] Comment on above: Performed By: #### L 501.9520, L504.2610, L500.4050, L506.0400, L100.0100 #### [facility] [address] [place], [address] RDW SD 42.0 fl Normal 35.1-43.9 [facility] Comment on above: Performed By: #### L 501.9520, L504.2610, L500.4050, L506.0400, L100.0100 #### [facility] [address] [place], [address] WBC (Bld) [#/Vol] 7.5 10*3/uL Normal 4.4-11.0 [facility] Comment on above: Performed By: #### L 501.9520, L504.2610, L500.4050, L506.0400, L100.0100 #### [facility] [address] [place], [address] CREATININE FINGERSTICKon Creatinine [Mass/Vol] 1.4 mg/dL High 0.70-1.30 [facility] Comment on above: Performed By: #### L 9100.0200 #### [facility] [address] [place], [address] GFR/1.73 sq M.predicted among non-blacks MDRD (S/P/Bld) [Vol rate/Area] 52.0000 mL/min/{1.73_m2} Low >60 [facility] Comment on above: Performed By: #### L 9100.0200 #### [facility] [address] [place], [address] Carbon dioxide, total [Moles /volume] in Central venous bloodOrdered By: Stevie Dallas on 04-17-2025 CO2 [Moles/Vol] 23.0 mmol/L 21.0-32.0 [facility] Chloride assayOrdered By: Fina Dallas on 04-17-2025 Chloride [Moles/Vol] 102 mmol/L 98-108 [facility] Comprehensive Metabolic Prof ilon 04-17-2025 Albumin [Mass/Vol] 4.1 g/dL Normal 3.4-4.8 [facility] Comment on above: Performed By: #### L 501.9520, L504.2610, L500.4050, L506.0400, L100.0100 #### [facility] [address] [place], [address] Albumin/Globulin [Mass ratio] 1.6 {ratio} Normal 0.9-2.4 [facility] Comment on above: Performed By: #### L 501.9520, L504.2610, L500.4050, L506.0400, L100.0100 #### [facility] [address] [place], [address] ALK PHOS 83 U/L Normal 40-129 [facility] Comment on above: Performed By: #### L 501.9520, L504.2610, L500.4050, L506.0400, L100.0100 #### [facility] [address] [place], [address] ALT [Catalytic activity/Vol] 15 U/L Normal <=46 [facility] Comment on above: Performed By: #### L 501.9520, L504.2610, L500.4050, L506.0400, L100.0100 #### [facility] [address] [place], [address] AST [Catalytic activity/Vol] 22 U/L Normal <=37 [facility] Comment on above: Performed By: #### L 501.9520, L504.2610, L500.4050, L506.0400, L100.0100 #### [facility] [address] [place], [address] Bilirubin [Mass/Vol] 0.25 mg/dL Normal 0.00-1.30 [facility] Comment on above: Performed By: #### L 501.9520, L504.2610, L500.4050, L506.0400, L100.0100 #### [facility] [address] [place], [address] BUN/CRE 17.2 RATIO Normal 10-20 [facility] Comment on above: Performed By: #### L 501.9520, L504.2610, L500.4050, L506.0400, L100.0100 #### [facility] [address] [place], [address] Calcium [Mass/Vol] 9.3 mg/dL Normal 7.6-11.0 [facility] Comment on above: Performed By: #### L 501.9520, L504.2610, L500.4050, L506.0400, L100.0100 #### [facility] [address] [place], [address] Chloride [Moles/Vol] 102 mmol/L Normal 98-108 [facility] Comment on above: Performed By: #### L 501.9520, L504.2610, L500.4050, L506.0400, L100.0100 #### [facility] [address] [place], [address] CO2 [Moles/Vol] 23.0 mmol/L Normal 21.0-32.0 [facility] Comment on above: Performed By: #### L 501.9520, L504.2610, L500.4050, L506.0400, L100.0100 #### [facility] [address] [place], [address] Creatinine [Mass/Vol] 1.11 mg/dL Normal 0.70-1.20 [facility] Comment on above: Performed By: #### L 501.9520, L504.2610, L500.4050, L506.0400, L100.0100 #### [facility] [address] [place], [address] GAP 10 Normal 5-15 [facility] Comment on above: Performed By: #### L 501.9520, L504.2610, L500.4050, L506.0400, L100.0100 #### [facility] [address] [place], [address] GFR/1.73 sq M.predicted among non-blacks MDRD (S/P/Bld) [Vol rate/Area] 70 mL/min/{1.73_m2} Normal >60 [facility] Comment on above: Result Comment: mL/m in/1.73m2 CKD-EPI Creatinine Equation (2020) Performed By: #### L 501.9520, L504.2610, L500.4050, L506.0400, L100.0100 #### [facility] [address] [place], [address] Globulin (S) [Mass/Vol] 2.5 g/dL Normal 2.2-4.2 [facility] Comment on above: Performed By: #### L 501.9520, L504.2610, L500.4050, L506.0400, L100.0100 #### [facility] [address] [place], [address] Glucose [Mass/Vol] 207 mg/dL High 70-99 [facility] Comment on above: Performed By: #### L 501.9520, L504.2610, L500.4050, L506.0400, L100.0100 #### [facility] [address] [place], [address] Potassium [Moles/Vol] 4.1 mmol/L Normal 3.3-5.1 [facility] Comment on above: Performed By: #### L 501.9520, L504.2610, L500.4050, L506.0400, L100.0100 #### [facility] [address] [place], [address] Sodium [Moles/Vol] 135 mmol/L Normal 133-145 [facility] Comment on above: Performed By: #### L 501.9520, L504.2610, L500.4050, L506.0400, L100.0100 #### [facility] [address] [place], [address] T PROT 6.6 g/dL Normal 5.9-8.4 [facility] Comment on above: Performed By: #### L 501.9520, L504.2610, L500.4050, L506.0400, L100.0100 #### [facility] [address] [place], [address] Urea nitrogen [Mass/Vol] 19 mg/dL Normal 4-19 [facility] Comment on above: Performed By: #### L 501.9520, L504.2610, L500.4050, L506.0400, L100.0100 #### [facility] [address] [place], [address] Creatinine measurement at dsideOrdered By: Anshul Pereira on 04-17-2025 Creatinine [Mass/Vol] 1.4 mg/dL High 0.70-1.30 [facility] EGFROrdered By: Anshul king on 04-17-2025 GFR/1.73 sq M.predicted among non-blacks MDRD (S/P/Bld) [Vol rate/Area] 52.0000 mL/min/{1.73_m2} Low >60 [facility] Eosinophil percentageOrdered By: Stevie Dallas on 04-17-2025 Eosinophils/100 WBC (Bld) 2.7 % 0-5 [facility] Erythrocyte distribution wid th ratioOrdered By: Stevie Dallas on 04-17-2025 Erythrocyte distribution width (RBC) [Ratio] 13.4 % 11.6-14.6 [facility] Erythrocyte distribution wid th standard deviationOrdered By: Stevie Dallas on 04-17-2025 Erythrocyte distribution width (RBC) [Ratio] 42.0 fl 35.1-43.9 [facility] Glomerular filtration rate ( GFR) estimation/1.73 sq m using serum, plasma, or whole bOrdered By: Stevie Dallas on 04-17-2025 GFR/1.73 sq M.predicted among non-blacks MDRD (S/P/Bld) [Vol rate/Area] 70 mL/min/{1.73_m2} >60 [facility] Comment on above: mL/min/1.73m2 CKD-EP I Creatinine Equation (2020) Hematocrit Auto (Bld) [Volum e fraction]Ordered By: Stevie Dallas on 04-17-2025 Hematocrit (Bld) [Volume fraction] 40.8 % 40-54 [facility] Hemoglobin measurementOrdere d By: Stevie Dallas on 04-17-2025 Hemoglobin (Bld) [Mass/Vol] 13.9 g/dL 13.0-16.5 [facility] Immature granulocytes/100 WB C Auto (Bld)Ordered By: Stevie Dallas on 04-17-2025 Immature granulocytes/100 WBC (Bld) 0.300 % 0.0-0.9 [facility] Comment on above: IG% - Immature Granu locytes (promyelocytes, myelocytes and metamyelocytes) > 1% indicates that a LEFT SHIFT is Present. LDHon 04-17-2025 LDH 161 U/L Normal 87-241 [facility] Comment on above: Order Comment: 1 Performed By: #### L 501.9520, L504.2610, L500.4050, L506.0400, L100.0100 #### [facility] [address] [place], [address] Laboratory - Chemistry and C hemistry - challengeOrdered By: Stevie Dallas on 04-17-2025 AST [Catalytic activity/Vol] 22 U/L <38 [facility] Lactate dehydrogenase (LDH) measurementOrdered By: Stevie Dallas on 04-17-2025 LDH [Catalytic activity/Vol] 161 U/L 87-241 [facility] MCV (mean corpuscular volume ) determinationOrdered By: Stevie Dallas on 04-17-2025 MCV (RBC) [Entitic vol] 85.2 fL 80-94 [facility] MR/PAT.ANEon 04-17-2025 MR/PAT.ANE [facility] Medical Records Department [address] [place] [address] PAT - Anesthesia 04/17/25 1809 MR#: [id number] Acct: [id number] Name: BERNARD MERAZ Rep #: [id number] : 1950 74 From: Harvey Montgomery MD PCP: Dr. Noemi Feranndez, DO Status:PRE SDC Y Race: C Location: [place] Pre-Assessment Diagnosis/Proposed Procedure Planned Operative Procedure(s): (L) Insertion, Vascular Port PEG tube placement in OR Anesthesia History Anesthesia History - process lead: Anesthesia History - process lead Hx Hospitalization No 04/17/25 11:01 Any Problems With Anesthesia No 04/17/25 11:01 Cholinesterase deficiency No 04/17/25 11:01 You/Your Family Experience No 04/17/25 11:01 fever (hyperthermia) with Relationship Recent Exposure to Contagious Disease Does patient have nerve No 04/17/25 11:01 stimulator Patient instructed to have device shut off --Does patient have Pacemaker or ICD? When Was Last Pacemaker Check QUESTION #4 FULL TEXT: You/Your Family Experience fever (hyperthermia) with Anesthesia Last Oral Intake Last Oral intake: Last Oral Intake NPO since Meds taken in AM with sips of water? Meds patient instructed to take am of surgery PONV PONV - process lead: PONV - process lead Female No 04/17/25 11:01 HX of Motion Sickness No 04/17/25 11:01 HX of N/V After Surgery No 04/17/25 11:01 Non-Smoker No 04/17/25 11:01 Duration of Surgery greater No 04/17/25 11:01 than 60 minutes Number of Risk Factors PONV Score Height Weight Height Weight: Anesthesia: Height Weight Height 5 ft 9 in 04/15/25 14:43 Respiratory Assessment Respiratory Assessment - process lead: Respiratory Tract Infection Hx - process lead Hx Respiratory Tract Infection No 04/17/25 11:01 STOP Sleep Apnea STOP Sleep Apnea - process lead: STOP Sleep Apnea - process lead Hx Hypertension Yes: CONTROLLED WITH MED 04/17/25 11:01 Hx Sleep Apnea No 04/17/25 11:01 CPAP BIPAP Do you snore loudly (louder No 04/17/25 11:01 than talking or can be heard Do you often feel tired/ No 04/17/25 11:01 fatigued/ sleepy during daytime? Has anyone observed you stop No 04/17/25 11:01 breathing during sleep? STOP Results Negative 04/17/25 11:01 QUESTION #5 FULL TEXT : Do you snore loudly (louder than talking or can be heard through closed doors)? 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 Specify any problems Hx of Preganancy in last 3 N/A 04/17/25 11:01 Months Nurse Filling Out Transfusion NBUCHER 04/17/25 11:01 Questions: Date: 04/17/25 04/17/25 11:01 Time: 11:03 04/17/25 11:01 Patient unable to answer at this time (ie. confused, unrespo /Reproduction History /Reproductive History - process lead: /Reproductive Hx- process lead Hx Now No 04/17/25 11:01 Gestational Age (in weeks): EDC: Hx Hx Para Hx Section SAB No 04/17/25 11:01 PFSH Medical History (Updated 04/17/25 @ 11:30 by Erin Marquez) Type 2 diabetes mellitus PVD (peripheral vascular disease) History of pleural effusion Depression CKD stage 3 due to type 2 diabetes mellitus CAD (coronary artery disease) Wears glasses Wears dentures Cancer Marijuana use Arthritis Difficulty swallowing Heartburn Gastric reflux Shortness of breath on exertion Chronic cough Smoker Cardiology follow-up encounter COPD (chronic obstructive pulmonary disease) Acid reflux High cholesterol Hypertension Diabetes Blindness of right eye Home Medications ???Medication ???Instructions ???Recorded ???Last Taken ???Type amlodipine 5 mg tablet 5 mg PO QDAY 04/07/25 Unknown Hist ory atorvastatin 40 mg tablet (Lipitor) 40 mg PO QHS 04/07/25 Unknown H istory brimonidine 0.2 % eye drops 1 drp ophthalmic (eye) TID 5 Unknown History carvedilol 25 mg tablet 25 mg PO BID 04/07 (more content not included)... Normal [facility] Mean corpuscular hemoglobin (MCH) determinationOrdered By: Stevie Dallas on 04-17-2025 MCH (RBC) [Entitic mass] 29.0 pg 27.0-32.0 [facility] Mean corpuscular hemoglobin concentration (MCHC) determinationOrdered By: Stevie Dallas on 04-17-2025 MCHC (RBC) [Mass/Vol] 34.1 g/dL 32-36 [facility] Mean platelet volume determi nationOrdered By: Stevie Dallas on 04-17-2025 Platelet mean volume (Bld) [Entitic vol] 11.5 fL 6.2-12.0 [facility] Monocyte percentageOrdered B y: Stevie Dallas on 04-17-2025 Monocytes/100 WBC (Bld) 7.5 % 0-10 [facility] Neutrophil percentageOrdered By: Stevie Dallas on 04-17-2025 Neutrophils/100 WBC (Bld) 69.1 % 47-70 [facility] Nucleated red blood cell per centageOrdered By: Stevie Dallas on 04-17-2025 Nucleated RBC/100 WBC (Bld) [Ratio] 0 % 0-5 [facility] Platelet countOrdered By: Fina Dallas on 04-17-2025 Platelets (Bld) [#/Vol] 170 10*3/uL 150-450 [facility] Potassium measurement (mass/ volume)Ordered By: Stevie Dallas on 04-17-2025 Potassium (Unsp spec) [Mass/Vol] 4.1 mmol/L 3.3-5.1 [facility] RBC Auto (Bld) [#/Vol]Ordere d By: Stevie Dallas on 04-17-2025 RBC (Bld) [#/Vol] 4.79 10*6/uL 4.6-6.2 [facility] Serum creatinine measurement (mass/volume)Ordered By: Stevie Dallas on 04-17-2025 Creatinine [Mass/Vol] 1.11 mg/dL 0.70-1.20 [facility] Serum globulin measurementOr dered By: Stevie Dallas on 04-17-2025 Globulin (S) [Mass/Vol] 2.5 g/dL 2.2-4.2 [facility] Serum glucose measurement (m ass/volume)Ordered By: Stevie Dallas on 04-17-2025 Glucose [Mass/Vol] 207 mg/dL High 70-99 [facility] Serum or plasma alanine simpson otransferase (ALT) measurementOrdered By: Stevie Dallas on 04-17-2025 ALT [Catalytic activity/Vol] 15 U/L <47 [facility] Serum or plasma albumin ishan urement (mass/volume)Ordered By: Stevie Dallas on 04-17-2025 Albumin [Mass/Vol] 4.1 g/dL 3.4-4.8 [facility] Serum or plasma albumin/glob ulin mass ratioOrdered By: Stevie Dallas on 04-17-2025 Albumin/Globulin [Mass ratio] 1.6 {ratio} 0.9-2.4 [facility] Serum or plasma alkaline rubio sphatase measurementOrdered By: Stevie Dallas on 04-17-2025 ALP [Catalytic activity/Vol] 83 U/L 40-129 [facility] Serum or plasma calcium ishan urement (mass/volume)Ordered By: Stevie Dallas on 04-17-2025 Calcium [Mass/Vol] 9.3 mg/dL 7.6-11.0 [facility] Serum or plasma urea nitroge n measurement (mass/volume)Ordered By: Stevie Dallas on 04-17-2025 Urea nitrogen [Mass/Vol] 19 mg/dL 4-19 [facility] Sodium levelOrdered By: Justo Dallas on 04-17-2025 Sodium [Moles/Vol] 135 mmol/L 133-145 [facility] T4 Free Directon 04-17-2025 T4 FREE DIRECT 1.20 ng/dL Normal 0.76-1.46 [facility] Comment on above: Performed By: #### L 501.9520, L504.2610, L500.4050, L506.0400, L100.0100 ####[facility] [id number] [place], [address] T4 freeOrdered By: Stevie andrews on 04-17-2025 Free T4 [Mass/Vol] 1.20 ng/dL 0.76-1.46 [facility] TSH DL <= 0.005 mIU/L QnOrde red By: Stevie Dallas on 04-17-2025 TSH Qn 1.690 uIU/mL 0.300-4.20 0 [facility] Thyroid Stim Hormone (TSH)on 04-17-2025 TSH 1.690 uIU/mL Normal 0.300-4.20 0 [facility] Comment on above: Performed By: #### L 501.9520, L504.2610, L500.4050, L506.0400, L100.0100 #### [facility] [address] [place], [address] Total proteinOrdered By: Tushar Dallas on 04-17-2025 Protein [Mass/Vol] 6.6 g/dL 5.9-8.4 [facility] White blood cell (WBC) count Ordered By: Stevie Dallas on 04-17-2025 WBC (Bld) [#/Vol] 7.5 10*3/uL 4.4-11.0 [facility] PET/CT Tumor Base -Thigh Ini ton 04-15-2025 PET/CT Tumor Base -Thigh Init [facility] Imaging Services [address] [place] [address] PET/CT Tumor Base -Thigh Init MR#: [id number] Acct: [id number] Name: BERNARD MERAZ Rep #: [id number] : 1950 M 74 From: Samuel Pretty MD PCP: Dr. 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 The noncontrast helical CT imaging was performed without breath hold, for attenuation correction of PET images and anatomic correlation, but not for primary interpretation, as it is not of the standard diagnostic quality. Images were reviewed in the axial, coronal and sagittal planes. RADIATION DOSE SUMMARY: Effective Dose: Approximately 7 mSv for a standard whole-body PET scan Organ Doses: Varies by organ, with higher doses typically to the bladder, liver, and brain CTDI: 9.72 mGy. DLP: 1088.66 mGy cm. COMPARISON: COMPARISON FROM CT, PET OR OTHER PERTINENT EXAMS: None. FINDINGS: Physiologic uptake: There may be expected metabolic uptake within the brain, tongue and floor of the mouth and larynx/vocal cords, heart, velasquez (many normal individuals have hilar uptake in less than 3 nodes with mildly avid hilar nodes less than 2.7 SUV), liver and spleen, system, and GI tract and symmetric muscle uptake. FDG AVID AND NON-AVID LESIONS. Reported avid SUV values (g/mL) are maximum SUV. Head and neck: There is a supraglottic mass measuring 3.7 x 2.9 x 2.2 cm, demonstrating hypermetabolic activity, max SUV 11.6. The mass extends from the epiglottis and aryepiglottic folds inferiorly to the level of the true vocal folds at the anterior commissure. There is a photopenic area in the right frontal lobe, at the vertex, which may be a calcified meningioma. There is a normal distribution of FDG activity in the remaining brain parenchyma. There is calcific vascular disease of the intracranial portion of both internal carotid arteries. There is calcific vascular disease of both carotid bifurcations. Chest: There is no abnormal activity in the pulmonary parenchyma. There are no pleural effusions. The heart size is normal. There is no pericardial effusion. There is significant calcific vascular disease of the coronary arteries and thoracic aorta. Status post CABG surgery. There is no hypermetabolic mediastinal, hilar or axillary lymphadenopathy. There is bilateral gynecomastia. Abdomen and pelvis: There is calcific vascular disease of the abdominal aorta. There are benign cortical cysts in both kidneys. There is a normal distribution of FDG activity within the gastrointestinal and genitourinary tract. There is no hypermetabolic lymphadenopathy identified. Musculoskeletal: Status post median sternotomy. There are no suspicious hypermetabolic osteolytic or osteosclerotic lesions. Uptake time: 60 minutes. Mediastinal blood pool: Max SUV, 2.9 Blood glucose (mg/dL): 126 BMI: 35.9 PET/PET/CT Tumor Base -Thigh Init IMPRESSION: 1. Hypermetabolic mass extending from the supraglottic airway inferiorly to the level of the true vocal folds, as described. 2. There is no evidence of lymphatic metastatic disease or direct invasion through the laryngeal cartilages. 3. Other findings as noted. Reading Location: [id number] CC: Margarita Steven MD; Dr. Noemi Fernandez DO Communications Controller: Signed Normal [facility] Surgery Visit Reporton 04-15 Surgery Visit Report [facility] [address] [place] [address] OFFICE VISIT Date of Service: 04/15/25 MR#: [id number] Acct: [id number] Name: BERNARD MERAZ Rep #: [id number] : 1950 Provider: Dr. Howie sharp MD Age/Sex: 74/M Location: [facility] Status: Signed Intake Vital Signs 04/10/25 14:48 04/15/25 14:43 Height 5 ft 9 in 5 ft 9 in Weight: 199 lb 3 oz 198 lb 8 oz BMI 29.4 29.2 BP 130/74 H 165/82 H Blood Pressure Location Rt brachial Rt brachial Position Sitting Sitting Respiration 18 18 Pulse 63 84 Pulse Source Monitor Monitor Temp 97.1 F L 97.8 F Temp Source Temporal Pulse Oximetry (%) 94 96 Oxygen Delivery Method room air room air Intake Visit Reasons: PORT AND PEG Chief Complaint: Port and peg Accompanied by: Son Is patient in pain?: Yes Allergies No Known Allergies Allergy (Unverified 04/15/25 14:45) Medications ???Medication ???Instructions ???Recorded ???Confirmed ???Type amlodipine 5 mg tablet 5 mg PO QDAY 04/07/25 04/15/25 His tory atorvastatin 40 mg tablet (Lipitor) 40 mg PO QHS 04/07/25 04/15/25 History brimonidine 0.2 % eye drops 1 drp ophthalmic (eye) TID 5 04/15/25 History carvedilol 25 mg tablet 25 mg PO BID 04/07/25 04/15/25 His tory dorzolamide 2 % eye drops 1 drp ophthalmic (eye) BID 5 04/15/25 History dorzolamide 22.3 mg-timolol 6.8 1 drp ophthalmic (eye) BID 5 04/15/25 History mg/mL eye drops (Cosopt) famotidine 20 mg tablet 20 mg PO QDAY 04/07/25 04/15/25 Hi story losartan 50 mg tablet 50 mg PO BID 04/07/25 04/15/25 His tory metformin 500 mg tablet 500 mg PO BID 04/07/25 04/15/25 Hi story tramadol 50 mg tablet 50 mg PO Q6H PRN 04/07/25 04/15/25 History umeclidinium 62.5 mcg-vilanterol 1 inh inhalation QDAY 04/07/25 History 25 mcg/actuation powdr for inhalation (Anoro Ellipta) Have you fallen in the past year?: No PFSH Medical History COPD (chronic obstructive pulmonary disease) Acid reflux High cholesterol Hypertension Diabetes Blindness of right eye Surgical History S/P triple vessel bypass Family History Mother Diabetes Father Cirrhosis Brother COPD (chronic obstructive pulmonary disease) Social History (Updated 04/15/25 @ 14:43 by Flor Toscano LPN) Smoking Status: Current every day smoker tobacco type: cigarettes Smoking packs per day: 1 Smoking cigarettes per day: 20.0 Tobacco: How many years used: 40 alcohol intake: never substance use type: marijuana HPI HPI HPI: The patient is a 74-year-old male who is being seen today to schedule a port placement and PEG tube placement. He was recently diagnosed with head neck cancer. He is scheduled to undergo chemotherapy and radiation therapy in the near future. His treating oncologist have recommended port and PEG placement. ROS General General: Yes weight change (loss) and fatigue; No appetite, colon cancer, breast cancer or weakness HEENT HEENT: Yes difficulty swallowing and eye surgery; No eye injury, swollen glands or hoarseness Endo Endocrine: Yes diabetes mellitus; No thyroid disease, thyroid cancer, Hair loss, heat intolerance or cold intolerance Skin Skin: No rash or changing moles Musc Musculoskeletal: Yes arthritis; No back problems, rheumatoid arthritis, gout or joint pain Cardio Cardiovascular: Yes heart disease and heart stent; No murmur, pacemaker, atrial fibrillation, high blood pressure, heart attack, palpitations, shortness of breath with exertion or chest pain Psych Psychiatric: Yes depression; No anxiety or hearing voices Resp Respiratory: Yes shortness of breath, No sleep apnea, Yes cough, Yes COPD, No asthma, No emphysema and No wheezing Gastro Gastrointestinal: No abdominal pain, No nausea or vomiting, No diarrhea, No constipation, No blood in stool, Yes acid reflux, No hemorrhoids, No ulcers, No gallbladder problem and No black,tarry stools Gamaliel Hematologic: No blood thinners, No blood disorders, No bleeding, No anemia and No blood clots Neuro Neurologic: No numbness, No tingling and No weakness Exam Const General: cooperative HENMT Head: normal to inspection Eyes General: appearance normal, both eyes and all related structures Neck Neck: normal visual inspection Resp Effort Inspection: normal respiratory effort Assessment and Plan Assessment and Plan (1) Squamous cell carcinoma of larynx: Status: Acute Plan: The patient is a 74-year-old male with a head neck cancer. I have offered him [facility] (more content not included)... Normal [facility] Radiation Oncology Visiton 0 04-10-2025 Radiation Oncology Visit [facility] [address] [place] [address] OFFICE VISIT Date of Service: 04/10/25 1427 MR#: [id number] Acct: [id number] Name: BERNARD MERAZ Rep #: [id number] : 1950 From: Anshul Pereira DO Age/Sex: 74/M Location: [facility] Status: Signed Intake Vital Signs 04/10/25 14:48 Height 5 ft 9 in Weight: 199 lb 3 oz BMI 29.4 BP 130/74 H Blood Pressure Location Rt brachial Position Sitting Respiration 18 Pulse 63 Pulse Source Monitor Temp 97.1 F L Temperature Source Temporal Artery Pulse Oximetry (%) 94 Oxygen Delivery Method room air Intake Is patient in pain?: Yes Allergies Unable to Assess Allergy (Unverified 04/10/25 14:38) Medications ???Medication ???Instructions ???Recorded ???Confirmed ???Type amlodipine 5 mg tablet 5 mg PO QDAY 04/07/25 04/10/25 His tory atorvastatin 40 mg tablet (Lipitor) 40 mg PO QHS 04/07/25 04/10/25 History brimonidine 0.2 % eye drops 1 drp ophthalmic (eye) TID 5 04/10/25 History carvedilol 25 mg tablet 25 mg PO BID 04/07/25 04/10/25 His tory dorzolamide 2 % eye drops 1 drp ophthalmic (eye) BID 5 04/10/25 History dorzolamide 22.3 mg-timolol 6.8 1 drp ophthalmic (eye) BID 5 04/10/25 History mg/mL eye drops (Cosopt) famotidine 20 mg tablet 20 mg PO QDAY 04/07/25 04/10/25 Hi story losartan 50 mg tablet 50 mg PO BID 04/07/25 04/10/25 His tory metformin 500 mg tablet 500 mg PO BID 04/07/25 04/10/25 Hi story tramadol 50 mg tablet 50 mg PO Q6H PRN 04/07/25 04/10/25 History umeclidinium 62.5 mcg-vilanterol 1 inh inhalation QDAY 04/07/25 History 25 mcg/actuation powdr for inhalation (Anoro Ellipta) Have you fallen in the past year?: No PFSH PFSH Medical History (Updated 04/10/25 @ 14:47 by Lidia Pereira LPN) COPD (chronic obstructive pulmonary disease) Acid reflux High cholesterol Hypertension Diabetes Blindness of right eye Home Medications ???Medication ???Instructions ???Recorded ???Last Taken ???Type amlodipine 5 mg tablet 5 mg PO QDAY 04/07/25 Unknown Hist ory atorvastatin 40 mg tablet (Lipitor) 40 mg PO QHS 04/07/25 Unknown H istory brimonidine 0.2 % eye drops 1 drp ophthalmic (eye) TID 5 Unknown History carvedilol 25 mg tablet 25 mg PO BID 04/07/25 Unknown Hist ory dorzolamide 2 % eye drops 1 drp ophthalmic (eye) BID 5 Unknown History dorzolamide 22.3 mg-timolol 6.8 1 drp ophthalmic (eye) BID 5 Unknown History mg/mL eye drops (Cosopt) famotidine 20 mg tablet 20 mg PO QDAY 04/07/25 Unknown His tory losartan 50 mg tablet 50 mg PO BID 04/07/25 Unknown Hist ory metformin 500 mg tablet 500 mg PO BID 04/07/25 Unknown His tory tramadol 50 mg tablet 50 mg PO Q6H PRN 04/07/25 Unknown History umeclidinium 62.5 mcg-vilanterol 1 inh inhalation QDAY 04/07/25 Unk nown History 25 mcg/actuation powdr for inhalation (Anoro Ellipta) Allergy/AdvReac Type Severity Reaction Status Date / Time Unable to Assess Allergy Unverified 04/10/25 14:38 Family History (Updated 04/10/25 @ 14:47 by Lidia Pereira LPN) Mother Diabetes Father Cirrhosis Brother COPD (chronic obstructive pulmonary disease) Surgical History (Updated 04/10/25 @ 14:43 by Lidia Pereira LPN) S/P triple vessel bypass Social History (Updated 04/10/25 @ 14:48 by Lidia Pereira LPN) Smoking Status: Current every day smoker Tobacco: How many years used: 40 alcohol intake: never substance use type: marijuana Referring Provider: Margarita Steven MD Diagnosis: Bernard Meraz is a 74 year-old male diagnosed with clinical stage III (cT3 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 History of Present Illness: 01/21/2025: Patient completed CT neck with contrast.??? This demonstrated avidly enhancing supraglottic mass measuring 2.1 x 3.6 x 3.8 cm involving the epiglottis, AE folds, bilateral false cords, anterior commissure, and anterior most bilateral vocal cords.??? No significant airway narrowing is noted.??? There is prominence of the central and right central nasopharyngeal soft tissues without discrete mass probably lymphoid hypertrophy.??? No enlarged lymph nodes were noted.??? No evidence of metastatic disease is appreciated. 03/17/2025: Patient completed direct laryngoscopy with biopsy.??? This demonstrated right asymmetric submucosal fullness within the nasopharynx, no ulceration granularity or exophytic appearance.??? Biopsy was performed.??? There is a slightly exophyt (more content not included)... Normal [facility] Addendum Noteon 04-03-2025 Accounting Officer Authentication Interface Message Text Addended by: MARGARITA STEVEN on: 04/03/2025 12:52 PM Modules accepted: Orders Normal [facility] Accounting Officer Authentication Interface Message Text Addended by: COLETTE PETE on: 04/03/2025 08:00 AM Modules accepted: Orders Normal [facility] Addendum Noteon 04-02-2025 Accounting Officer Authentication Interface Message Text Addended by: COLETTE PETE on: 04/02/2025 05:29 PM Modules accepted: Orders Normal [facility] Telephone Encounteron 2024 Accounting Officer Authentication Interface Message Text Updated PET order with ICD 10 codes faxed to [place] [facility] ([place]'s PET provider). Colette Pete RN Normal [facility] Telephone Encounteron 2024 Accounting Officer Authentication Interface Message Text Bisnhu from [facility] called to say that the patients PET scan needs a medicare approved diagnosis code. The original document did not meet this requirement. Please update and resend the paperwork. Thank you. Phone [phone] option 2 Normal [facility] Addendum Noteon 03-31-2025 Accounting Officer Authentication Interface Message Text Addended by: COLETTE PETE on: 03/31/2025 10:35 AM Modules accepted: Orders Normal [facility] Telephone Encounteron 2024 Accounting Officer Authentication Interface Message Text Brief ENT Telephone Note Called patient to discuss recent biopsy results, which showed invasive squamous cell carcinoma of the supraglottis. This information was not available at the time of his visit. I was unable to reach him by phone but discussed with his niece who is 1 of his healthcare proxies. I reviewed the treatment plan with her and have already reached out to Dr. Pereira (radiation oncology in [place]). All questions answered and pt verbalized understanding of the plan. Margarita Steven MD Otolaryngology - Head and Neck Surgery [facility] Pager: [phone] Normal [facility] Progress Noteson 03-28-2025 Accounting Officer Authentication Interface Message Text Subjective The patient verbally consented to recording. Ambient listening technology generated portions of this note. History of Present Illness Bernard Meraz is a 74 year old male who presents for follow-up of a newly diagnosed supraglottic mass. He underwent a direct laryngoscopy with biopsy on March 17, 2025, and is currently awaiting final pathology results. A CT scan of the neck from January 21, 2025, showed an enhancing supraglottic mass with extension into the preepiglottic and paraglottic fat, but no evidence of cartilaginous erosion. He experiences significant pain and discomfort, particularly noting soreness in his ear and headaches following the biopsy. Initially, he felt better post-procedure, but symptoms have since worsened. He is able to eat and drink but experiences frequent choking, which he attributes to the tumor's interference with swallowing. No current breathing difficulties, but he is concerned about potential future complications. He is a current smoker, which is relevant to his condition. He has expressed a strong preference against undergoing surgery to remove the voice box, stating he would rather 'not do anything' than have the surgery. Objective Temp 97.3 ???F (36.3 ???C) (Temporal) Physical Exam HEENT: Oral cavity moist, no lesions or masses. Oropharynx clear. NECK: No cervical lymphadenopathy. No overlying skin changes. Larynx mobile. Results RADIOLOGY CT neck: Enhancing supraglottic mass along the laryngeal surface of the epiglottis with extension into the preepiglottic and paraglottic fat. No evidence of cartilaginous erosion. (01/21/2025) Final Diagnosis A. Nasopharynx, Biopsy: Polypoid fragment of respiratory mucosa with stromal marked chronic inflammation, hemorrhage, and fibrosis. Negative for malignancy. B. Mouth, Supraglottic mass, Biopsy: INVASIVE MODERATELY DIFFERENTIATED SQUAMOUS CELL CARCINOMA in a background of squamous epithelial dysplasia. Detached fragments of necrotic cartilage identified. 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 Meraz has laryngeal carcinoma involving supraglottic region which I would stage as T3N0 lesion based on radiographic findings of pre-epiglottic invasion. I discussed options: surgery vs primary chemoradiotherapy vs palliative treatment/no treatment. I do not think his condition is amenable to endoscopic management or partial laryngectomy. Surgery hence, if elected, would likely involve total laryngectomy. I described the impact of this with permanent breathing stoma as well as loss of natural voice although swallowing is typically quite good and vocal rehabilitation can be accomplished in a large majority via TE speech although again this is not guaranteed. Additional risks and outcomes relating to total laryngectomy were reviewed potential for salivary fistula, swallowing dysfunction, pharyngeal/esophageal stricture and potential for inability to achieve vocal rehabilitation via measures such as tracheoesophageal speech. Referral to radiation oncology and medical oncology was offered should he wish to be considered for non-surgical measures (i.e. chemoradiation) which would also be a reasonable oncologic option which may allow for organ preservation although oncologic/functional outcome is not guaranteed. I would defer feasibility and specifics of this type of management to medical/radiation oncology. Finally, I discussed the option of no treatment, however I did not recommend this and explained the risks of no treatment including likelihood of disease progression, increasing symptoms, and ultimately even life-threatening consequences including . I explained and Mr. Pinto understands that no matter which treatment type, outcome from an oncologic, cosmetic and functional perspective is not guaranteed. After review of the various options, Mr. Meraz has opted against surgical measures (i.e. laryngectomy). He would prefer to be evaluated for non-surgical measures which is not unreasonable for his condition. I believe that Mr. Meraz has a good understanding of the issues involved and I answered all of his questions. -The case was discussed at a multidisciplinary tumor board, and the recommendation was for chemotherapy and radiation, given his preference to avoid surgical intervention. - Refer to medical and radiation oncology in [place], [place]. - Order PET scan to assess for metastasis. - Will coordinate with Dr. Pereira for treatment planning in [place] - Discuss potential placement of a temporary feeding tube with him. - We discussed potential role for tracheostomy tube if needed during treatment but would like to avoid Will plan follow up in 4 months with me Margarita Steven MD Acid Conditioner, Head AND Neck Oncology and Microvascular Reconstructive Surgery Department of Otolaryngology - Head and Neck [place] (more content not included)... Normal [facility] Tumor Board Noteon Accounting Officer Authentication Interface Message Text Cancer Type: General Tumor Board Note Provided by Ty Rogers MD on 03/18/2025 Diagnosis: [id number] if SCC - PATH PENDING Tumor Board Type: ENT Brief Clinical Summary: 74 yo M who was referred to ENT with a several month history of neck pain, cough, and hemoptysis in the setting of significant weight loss. (Current smoker). Exam did not reveal any palpable LAD, but there was a sessile lesion (2.1x3cm) along the laryngeal surface of the epiglottis towards the petiole and false cord without extension onto the TVC. Vocal fold motion intact bilaterally. There was noted to also be an area of asymmetric fullness in within the nasopharynx. CTN with supraglottic mass along the laryngeal surface of the epiglottis with extension into the pre-epiglottic and paraglottic fat. He went to the OR on 03/17 for DL with biopsy, nasal endoscopy, and esophagoscopy (findings below). Pathology pending OR 03/17 INTRAOPERATIVE FINDINGS: 1. Right asymmetric submucosal fullness within the nasopharynx. No ulceration, granularity or exophytic appearance Soft to palpation. Biopsy performed and copious thick murky cystic contents obtained. Cultures and biopsies performed 2. Slightly exophytic, granular, friable mass of supraglottis involving laryngeal surface of epiglottis, petiole, bilateral AE folds, and right false cord. Not obstructive No involvement of ventricle, true cords, arytenoids, lingual surface of the epiglottis, vallecula pyriforms. Biopsies performed and mild debulking 3. Normal rigid endoscopy General Information Patient name Bernard Meraz Date of / Age 904/20/1950 74 year old Staging Information Clinical Staging Discussed Yes Pathologic Staging Discussed Yes Genetics Genetics Referral: No Genetic Testing Eligibility: Not applicable Treatment Recommendations Plan Surgery No Chemotherapy Yes Radiation Therapy Yes Options and Eligibility for Supportive Care Services Discussed Yes [employer] Clinical Trial Eligibility Discussed NA Treatment Plan CXRT Multidisciplinary Team in Attendance at Tumor Board Radiology - Yes Medical Oncology- Yes Pathology- Yes Radiation Oncology- Yes Surgery- Yes Tumor Board Recommendations Surgery (TL) vs CXRT (favored by patient) NCCN Requirement NCCN Requirement Fulfilled? Yes The above recommendations were based on NCCN guidelines, as well as consideration of current national standards and review of the literature. Normal [facility] AEROBIC WOUND CULTUREon 02-22 AEROBIC WOUND CULTURE C PYOG: Normal Oral teto isolated GRAM STAIN: 3+ Polymorphonuclear Leukocytes No Squamous Epithelial Cells seen No organisms seen Normal [facility] Comment on above: Performed By: #### C PYOG ####[facility] [id number] [facility] [place], [place] ANAEROBIC CULTURE, MISCon ANAEROBIC CULTURE, MISC C ANRBC: No Anaerobes isolated Normal [facility] Comment on above: Performed By: #### C ANRBC #### [facility] [address] [facility] [place], [place] [address] Anesthesia Postprocedure Rosalie luationon 03-17-2025 Accounting Officer Authentication Interface Message Text Anesthesia Postoperative Assessment: Vital Signs (most recent): BP 147/76 (BP Location: right arm) Pulse 72 Temp 37.1 ???C (98.7 ???F) (Oral) Resp 18 SpO2 93% Anesthesia Post Evaluation Level of consciousness: awake Post-procedure exam normal. Body temperature, hydration status, PONV and pain evaluated and addressed. Pain management: adequate Hydration status: normal PONV:No nausea/vomiting reported Cardiopulmonary status stable Respiratory status: acceptable Cardiovascular status: acceptable ANESTHESIA NOTABLE EVENTS: No notable events documented. Normal [facility] Anesthesia Preprocedure Esmer painter 03-17-2025 Accounting Officer Authentication Interface Message Text -- Attestation signed by Noman Colin DO at 03/21/2025 3:26 PM Teaching Physician Note: I saw and evaluated the patient. I personally obtained the west and critical portions of the history and physical exam. I reviewed the resident's documentation and discussed the patient with the resident. I agree with the resident's medical decision making as documented in the resident's note. Noman Colin DO -- ASA: 3 No history of anesthetic complications NPO status: Greater than 8 hours Past Medical History and Review of Systems Pulmonary (+) COPD, a smoker (- smoker: 1/ ppd * 50yrs) Dental Endo (+) diabetes mellitus (A1c 7) type 2 well controlled, obesity Neuro/Psych (+) CVA (TIA around 2009) Comment: - glaucoma, R eye blindness, - Yamilex HL (Yamilex hearing aids) Cardiovascular (+) exercise intolerance 4-10 METs, hypertension, CAD, coronary artery bypass graft (CABG 2021), Surgical risk: intermediate; Cardiac condition: stable, hyperlipidemia ECG reviewed Comment: - EKG: NSR, no echo GI/Hepatic/Renal (+) renal disease (CKD (Cr 1.33, eGFR 56)) CRI Heme/Other Other ROS: * neck CT: 2.1*3.6*3.8 supraglottic mass involving epiglotism aryerpiglottic folds, Yamilex false cords, ant commissure and ant Yamilex vocal cords - s/p bilateral carotid endarterectomy - no airway hx available Physical Exam Airway Mallampati: II TM distance: Adequate Micrognathia: Not present Jaw opening: Adequate Neck flexion: Adequate Dental PE (+) edentulous Pulmonary Decreased breath sounds Cardiovascular - cardiovascular exam normal Comment: RRR with S1S2; no murmurs, gallops, or rubs Neuro - neurological exam normal Comment: Awake, alert, oriented, No motor deficits and sensation grossly intact Plan Anesthesia plan: general; (ETT) Anesthesia risks / alternatives discussed pre-op Questions answered / anesthesia plan accepted Past medical history, surgical history, allergies, and medications reviewed. Pertinent laboratory tests, EKG, imaging, and consults reviewed and I have personally seen and evaluated the patient, repeating west portions of the history and physical examination. Attestation: Anesthesia options were discussed with the patient and/or legal sales representatives. The risks, benefits and alternatives were reviewed. Questions regarding anesthesia were answered. Patient and/or legal sales representatives knows such anesthetics and procedures may be performed by Resident physicians, Certified Anesthesiologist Assistants, or Certified Nurse Anesthetists under the supervision of a physician. The patient /or the patient's legal sales representatives agree with the plan for anesthesia. MHPATFORM Normal [facility] Anesthesia Transfer Of Careo n 03-17-2025 Accounting Officer Authentication Interface Message Text Patient taken to PACU. Patient was awake, comfortable, and stable on arrival. Anesthesia Transfer of Care Note Past Medical History: Medical History[1] Sleep Apnea/Positive STOP-BANG: Yes Problem List: Problem List[2] Past Surgical History: Review of patient's past surgical history indicates: CORONARY ARTERY BYPASS GRAFT, 3 VESSEL (2021) [place], [place] Allergies: Hydrochlorothiazide and Lisinopril Basic Operating Room Facts: Surgeon(s): Margarita Steven MD Anesthesiologist: Noman Colin DO Water Pollution Scientist: Chip Gayle MD; Diego Phillips DO LARYNGOSCOPY, DIRECT (Mouth) ESOPHAGOSCOPY RIGID (Mouth) ENDOSCOPY, NASAL with possible bioopsy (Mouth) Intraoperative Events: Hypertension ASA: 3 EBL: Not documented Urine Not documented Lactated Ringers and NaCl 0.9%: Fluid Totals (Filter: LR and NaCl 0.9% Medications Shown) Medication Calculated Total Lactated Ringers 0 mL / 1 bag Cell Saver: Not documented Blood Volume Values: Blood Products None MTP Blood: MTP PRBC: Not documented MTP FFP: Not documented MTP PLT: Not documented MTP Cryo: Not documented MTP Whole Blood: Not documented Current Vasoactive Medications: {Vasoactive Medications: None Lines, Drains, Airways Peripheral IV Access: 03/17/25 18 gauge Posterior;Right Hand (Active) Site Assessment WNL;Dressing intact 03/17/251457 Infusion Status Port #1 Patent;Positive blood return 03/17/25 1458 Airway Insertion Details [REMOVED] Advanced Airway: ETT, Oral;Cuffed #6.5 (Removed) 03/17/25 1630 Pre-Oxygenation/ Induction: Mask Rapid Sequence Induction?: Mask Ventilation: Difficult;Two-person;w/ora l airway Blade Type: Hyperangulated Blade Size: 4 Visualization: Airway Type: ETT, Oral;Cuffed Airway Size: #6.5 Post Insertion Assessment: Confirmation: Equal bilateral breath sounds, CO2 confirmed # Attempts >1: Special Equipment: Glidescope Present on Admission?: Previously Removed / Not Present: Removal Reason: Not Removed at Discharge: Removed 03/17/25 1738 Location (cm) 22 03/17/25 1647 Measured from: Lower Lip 03/17/25 1647 Secured via: Taped 03/17/25 1647 All non-working IVs have been removed: N/A Laboratory Data: CBC (last 3 years, up to 8 values) 03/13/2025 8:48 AM WBC 8.0 RBC 4.89 Hgb 14.1 Hct 42.5 MCV 87 RDW 15.4 Plt 166 BMP (last 3 years, up to 8 values) 03/13/2025 8:48 AM Na 141 K 4.8 Cl 105 CO2 26 Gap 15 Glu 104 BUN 21 Cr 1.33 Ca 9.2 eGFR 56 Basic Metabolic Panel No lab values to display. No results found for: INR No result for BNP LFT's (last 3 years, up to 8 values) No lab values to display. Arterial Blood Gases None Hand off Completed: Yes 1. The patient was identified. 2. Pertinent medical history was relayed. 3. A brief discussion was had about any pertinent surgical/ procedural issues. 4. Intraoperative/ anesthetic management issue and concerns were discussed. 5. Plans for the early post-operative period relayed. 6. An opportunity for questions and acknowledgment of understanding of the report was received. Diego Phillips DO [1] No past medical history on file. 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 The risks, benefits and alternatives were reviewed. Questions regarding blood transfusions were answered. The patient /or the patient's legal sales representatives agree with the plan for transfusion of blood and/or blood components. Normal [facility] FUNGAL CULTURE AND ERASTO PREPo n 03-17-2025 FUNGAL CULTURE AND ERASTO PREP C FUNGUS: No Growth ERASTO KARINA: No Yeast Or Fungal Elements Seen Normal [facility] Comment on above: Performed By: #### C FUNGUS #### [facility] [address] [place] [address] [place], [place] [address] GLUCOSE, FINGERSTICK-IN OFFI CEon 03-17-2025 Glucose [Mass/Vol] 133 mg/dL High 74-109 [facility] Comment on above: Performed By: #### 8 2948 #### NURSING GLUCOSE PROGRAM [address] [place] [address], [address] Glucose [Mass/Vol] 116 mg/dL High 74-109 [facility] Comment on above: Performed By: #### 8 2948 #### NURSING GLUCOSE PROGRAM [address] [place], [place] [address], [address] H AND Gabriel 03-17-2025 Accounting Officer Authentication Interface Message Text OTOLARYNGOLOGY HEAD AND NECK SURGERY FOLLOW UP PATIENT NOTE History of Present Illness 74 year old male here today for surgery. Patient reports no changes since last appointment on 03/07/25 10-point review of systems is otherwise negative. Past Medical History Medical History[1] Past Surgical History Review of patient's past surgical history indicates: CORONARY ARTERY BYPASS GRAFT, 3 VESSEL (2021) [place], [place] Family History Family History[2] Social History Social History Tobacco Use Smoking status: Every Day Types: Cigarettes Smokeless tobacco: Never Tobacco comments: 1 pack/ 3-4 days Substance Use Topics Alcohol use: Not Currently Medications Allergies Allergies[3] Physical Exam BP 147/76 (BP Location: right arm) Pulse 72 Temp 98.7 ???F (37.1 ???C) (Oral) Resp 18 SpO2 93% General: Lying in bed NAD, conversant, A AND Ox3 HEENT: Normocephalic and atraumatic without mass or lesion Respiratory: Equal inspiration and expiration without stridor Oral Cavity: Mucous membranes moist, no lesions. Relevant Labs Temperature: [98.7 ???F (37.1 ???C)] 98.7 ???F (37.1 ???C) Heart Rate: [72] 72 Respiratory Rate: [18] 18 BP: (147)/(76) 147/76 @[id number])@ Fluid Management (24hrs): Intake/Output last 3 shifts: @[id number]@ @CBCROUNDS@ @LYTESROUNDS@ @CHEMROUNDS@ Assessment and Plan Mr. Meraz is a 74 year old male - OR today for DLE with biopsy and nasal endoscopy with possible biopsy Margarita Steven MD [1] No past medical history on file. [2] No family history on file. [3] Allergies Allergen Reactions Hydrochlorothiazide Swelling Other Reaction(s): Other: See Comments Lisinopril Swelling Normal [facility] OP Noteon 03-17-2025 Accounting Officer Authentication Interface Message Text Operative Report DATE OF SERVICE: 03/17/25 PATIENT: Bernard Meraz PREOPERATIVE DIAGNOSIS: 1. Laryngeal mass 2. Nasopharyngeal asymmetry/fullness POSTOPERATIVE DIAGNOSIS: 1. Laryngeal mass 2. Nasopharyngeal asymmetry/fullnes PROCEDURE: Direct laryngoscopy with biopsy, CPT 23613 Rigid esophagoscopy, CPT 23915 Nasal endoscopy CPT 60106 SURGEON: Margarita Steven MD DATABASE MARKETING MANAGER: Cecilia Castellano MD ANESTHESIA: General ESTIMATED BLOOD LOSS: Minimal COMPLICATIONS: None SPECIMENS: 1. ID Type Source Tests Collected by Time Destination 1 : nasopharynx biopsy Tissue Pharynx SPECIMEN FOR SURGICAL PATH Margarita Steven MD 03/17/2025 1717 2 : supraglottic mass Tissue Mouth SPECIMEN FOR SURGICAL PATH Margarita Steven MD 03/17/2025 1704 A : nasal pharynx #2 Aspirate Pharynx TISSUE CULTURE, AEROBIC, ANAEROBIC CULTURE, MISC, FUNGAL CULTURE AND ERASTO PREP Margarita Steven MD 03/17/2025 1650 INTRAOPERATIVE FINDINGS: 1. Right asymmetric submucosal fullness within the nasopharynx. No ulceration, granularity or exophytic appearance Soft to palpation. Biopsy performed and copious thick murky cystic contents obtained. Cultures and biopsies performed 2. Slightly exophytic, granular, friable mass of supraglottis involving laryngeal surface of epiglottis, petiole, bilateral AE folds, and right false cord. Not obstructive No involvement of ventricle, true cords, arytenoids, lingual surface of the epiglottis, vallecula pyriforms. Biopsies performed and mild debulking 3. Normal rigid endoscopy INDICATIONS AND CONSENT: Bernard Meraz is a 74 year old male who presents with supraglottic mass with dysphagia and dysphonia and fullness of nasopharynx on imaging and scope. They were therefore offered the aforementioned procedures. After the risks, benefits, indications and alternatives were discussed with the patient, they elected to proceed. Informed consent was obtained DESCRIPTION OF PROCEDURE: On 03/17/25, the patient was identified in the preoperative area, consent confirmed, and transported to the OR. They were transferred to the OR table in a supine position. After induction of general anesthesia, a surgeon initiated time out was performed. The bed was rotated 90 degrees. The patient was then draped appropriately. The eyes were protected. Afrin soaked pledgets were placed in the bilateral nares. The 0 degree nasal endoscope was then used to examine the nasal cavity. The was noted to be fullness that was soft to palpation in the nasopharynx. A cups forceps was used to take a biopsy of the mass. There was thick acosta murky, cystic fluid within the structure. This was collected in the suction trap and sent for culture. The nasopharynx was then irrigated. We then proceeded with rigid esophagoscopy. The esophagoscope was atraumatically inserted to examine the entire length of the cervical esophagus. Examination revealed no evidence of masses, lesions, tears, injury or perforation. Then the oral cavity was examined and palpated. The laryngoscope was then atraumatically inserted into the oral cavity and examination of the oral cavity, oropharynx, hypopharynx and larynx was performed in a sequential manner at that time. Examination of these areas revealed mass of the supraglottis as described above. This was biopsied and sent for pathologic analysis. Cups forceps were used to debulk the tumor. Afrin soaked pledget was applied for hemostasis and removed prior to extubation. This concluded our procedure. The patient tolerated the procedure well without any apparent immediate post operative complications. The patient was rotated back to their original position, gently awakened from general anesthesia and taken to the PACU in stable condition. Dr. Steven was present for all critical portions of the procedure Cecilia Castellano MD Normal [facility] Telephone Encounteron 2024 Accounting Officer Authentication Interface Message Text Pt called and asked what time to be here on Monday at [facility]. I explained that his arrival time is 330pm and his surgery is located at [facility] off of . Pt verbalized understanding and that he would be here. Normal [facility] BASIC METABOLIC PANELon 02-22 Anion gap [Moles/Vol] 15 mmol/L Normal 10-20 [facility] Comment on above: Performed By: #### C H8 ####[facility] PATHOLOGY [id number] [place], [place], Calcium [Mass/Vol] 9.2 mg/dL Normal 8.6-10.3 [facility] Comment on above: Performed By: #### C H8 ####S PATHOLOGY [id number] [place], [place], Chloride [Moles/Vol] 105 mmol/L Normal 98-107 [facility] Comment on above: Performed By: #### C H8 ####S PATHOLOGY [id number] [place], [place], CO2 [Moles/Vol] 26 mmol/L Normal 21-31 [facility] Comment on above: Performed By: #### C H8 ####[facility] [id number] [place], [place], Creatinine [Mass/Vol] 1.33 mg/dL High 0.70-1.30 [facility] Comment on above: Performed By: #### C H8 ####[facility] PATHOLOGY [id number] [place], [place], ESTIMATED GFR (CKD-EPI) 56 mL/min/1.73sqm Low >=60 [facility] Comment on above: Result Comment: 2020 CKD EPI Equation using Creatinine without Race Comment: Estimated glomerular filtration rate (eGFR) is calculated without a race coefficient. Values should be interpreted in the context of the patient's full clinical presentation. Reference: 1. Juan Manuel C, Latosha M, Dee JUAREZ, et al.. A Unifying Approach for GFR Estimation: Recommendations of the NKF-ASN Task Force on Reassessing the Inclusion of Race in Diagnosing Kidney Disease. [place] Journal of Kidney Diseases 2021;79(2):268-88.e1. 2. N Engl J Med 1 Vol. 385 Issue 19 Pages 2315-0872 Performed By: #### C H8 ####[facility] PATHOLOGY [id number] [place], [place], Glucose [Mass/Vol] 104 mg/dL Normal 74-109 [facility] Comment on above: Performed By: #### C H8 ####S PATHOLOGY [id number] [place], [place], Potassium [Moles/Vol] 4.8 mmol/L Normal 3.5-5.0 [facility] Comment on above: Performed By: #### C H8 ####S PATHOLOGY [id number] [place], [place], Sodium [Moles/Vol] 141 mmol/L Normal 136-145 [facility] Comment on above: Performed By: #### C H8 ####S PATHOLOGY [id number] [place], [place], Urea nitrogen [Mass/Vol] 21 mg/dL Normal 7-25 [facility] Comment on above: Performed By: #### Domingo H8 ####S PATHOLOGY [id number] [place], [place], COMPLETE BLOOD COUNTon 03-13 Erythrocyte distribution width (RBC) [Ratio] 15.4 % High 11.5-14.5 [facility] Comment on above: Performed By: #### C BC #### [facility] PATHOLOGY LABORATORY [address] [place] [address], Hematocrit (Bld) [Volume fraction] 42.5 % Normal 41.0-53.0 [facility] Comment on above: Performed By: #### C BC #### [facility] PATHOLOGY LABORATORY [address] [place] [address], Hemoglobin (Bld) [Mass/Vol] 14.1 g/dL Normal 13.9-16.3 [facility] Comment on above: Performed By: #### C BC #### [facility] PATHOLOGY LABORATORY [address] [place] [address], MCH (RBC) [Entitic mass] 28.9 pg Normal 26.0-34.0 [facility] Comment on above: Performed By: #### C BC #### [facility] PATH[facility]Y LABORATORY [address] [place] [address], MCHC (RBC) [Mass/Vol] 33.2 g/dL Normal 32.0-35.9 [facility] Comment on above: Performed By: #### C BC #### [facility]Y LAB[facility]ORY [address] [place] [address], MCV (RBC) [Entitic vol] 87 fL Normal 80-100 [facility] Comment on above: Performed By: #### C BC #### [facility] PATHOLOGY LABORATORY [address] [place] [address], Platelet mean volume (Bld) [Entitic vol] 9.9 fL Normal 7.5-11.2 [facility] Comment on above: Performed By: #### C BC #### [facility] PATHOLOGY LABORATORY [address] [place] [address], Platelets (Bld) [#/Vol] 166 10*3/uL Normal 150-400 [facility] Comment on above: Performed By: #### C BC #### [facility] PATHOLOG[facility] LABORATORY [address] [place] [address], RBC (Bld) [#/Vol] 4.89 10*6/uL Normal 4.50-5.90 [facility] Comment on above: Performed By: #### C BC #### S PATHOLOGY LABORATORY [address] [place], [place], WBC (Bld) [#/Vol] 8.0 10*3/uL Normal 4.5-11.5 [facility] Comment on above: Performed By: #### C BC #### S PATHOLOGY LABORATORY [address] [place], [place], GLUCOSE, FINGERSTICK-IN OFFI CEon 03-13-2025 Glucose [Mass/Vol] 120 mg/dL High 74-109 [facility] Comment on above: Performed By: #### 8 2948 #### NURSING GLUCOSE PROGRAM [address] [place] [address], [address] HEMOGLOBIN A1Con 03-13-2025 Glucose [Mass/Vol] 154 mg/dL Normal [facility] Comment on above: Performed By: #### H B A1C #### [facility] LABORATORY [address] [place], [address] HbA1c (Bld) [Mass fraction] 7.0 % High 4.0-5.6 [facility] Comment on above: Performed By: #### H B A1C #### [facility] PATH[facility] LABORATORY [address] [place], [address] Patient Instructionson 03-13 Accounting Officer Authentication Interface Message Text On the morning of your surgery, please take only the following medications, with a small sip of water: famotidine (PEPCID) 20 MG tablet Anoro Ellipta 62.5-25 MCG/ACT AEPB inhalation powder dorzolamide-timolol (COSOPT) 22.3-6.8 mg/mL ophthalmic solution CARvedilol (COREG) 25 MG tablet dorzolamide (TRUSOPT) 2 % ophthalmic solution atorvastatin (LIPITOR) 40 mg tablet brimonidine (ALPHAGAN) 0.2 % ophthalmic solution Do not take any Aspirin 7 days before surgery Do not take any Ibuprofen, Aleve, or Motrin,Diclofenac, Naprosyn, Meloxicam, Indomethacin and any other NSAIDS after 3 days before surgery. May take over the counter Acetaminophen (Tylenol) as needed for pain Please hold all multivitamins, Vitamin E and herbal supplements e.g. Fish Oil,Lizella-3, CoQ10, Ginseng, Gingko Biloba, Turmeric)for 1 week prior to surgery. Do not take Losartan on the morning of surgery. Don't take any metformin the evening before and the morning of surgery. Do not take any diabetes medication on the morning of the surgery Please use this CHECKLIST to prepare for your surgery/procedure: Assume that any lab or testing done during your Pre-admission testing appointment is within normal limits unless otherwise contacted. Expect a call from [facility] one business day prior to surgery for surgery arrival time and location. Please plan to restart your medications the day after surgery unless otherwise explicitly instructed. Please contact your surgeon's/proceduralist's office for any surgical or recovery types of questions. CANCELLING YOUR SURGERY/PROCEDURE: If you get a cold, are not feeling well, or become , please call your surgeon's office as soon as possible. Refer to your Preparing for Your Surgery/Procedure booklet or [email or web address] if you have questions. Contact the Pre-Admission Testing department at [phone] or your surgeon's office with any questions that are not answered. Eating and drinking before surgery: Adult Patients: Plain water withOUT additives is acceptable up to 2 hours prior to surgery arrival time. No food or any other type of liquids for at least 8 hours prior to surgery arrival time. A sip of water with morning medications is acceptable. Enhanced Recovery After Surgery (ERAS), bariatric, and endoscopy/colonoscopy patients should follow their surgeon's/proceduralist's instructions for clear fluids prior to surgery. Pediatric Patients (under the age of 1212 years old): ??? Patients are not to have solid food for 8 hours prior to coming for surgery. ??? Patients can have infant formula or non-human milk (skim, 2%, whole, nut-milks, soy, etc.) 6 hours prior to coming for surgery. ??? Patients can have breast milk up to 4 hours prior to coming for surgery. ??? Patients can have clear liquids (water, flavored lester, Pedialyte) up to 2 hours prior to coming for surgery. ON THE DAY OF SURGERY: DO bring your ID, insurance card, medication list, and a small amount of gallo for filling prescriptions and any medical co-pays. Do NOT wear any jewelry including rings, earrings, or mouth, tongue, or body piercings. Metal jewelry could cause constriction, amputation, or swenson. Loose or bulky things in your mouth can be unsafe and result in breathing problems. DO bring glasses if you wear contacts and other assistance items such as oxygen, inhaler, cane, walker, etc. Do NOT bring valuables, credit cards, or large amounts of gallo. Do NOT wear lotion or strong-smelling fragrance (perfume, cologne, cream or lotion). ARRANGE FOR A RIDE: If you are scheduled to go home the same day of surgery, a responsible adult MUST drive or accompany you home in a car, cab, shared ride service, or Metro-van. You will not be allowed to drive yourself home or travel home alone. Your surgery may be cancelled if you do not have a ride. A responsible adult must stay with you after surgery. Please call [facility] if you need transportation assistance or have concerns about going home [phone]. PEDIATRIC or ADOLESCENTS: Parents or a legal guardian must remain at the hospital during surgery. You will need to make childcare arrangements for your other small children to remain at home or bring an adult with you who can supervise them in the waiting area while you are with your child. Please bring legal guardianship papers with you if applicable. Patients whose assigned sex at was female, and are starting puberty or beyond, will be urine tested for per hospital policy. SLEEP APNEA PATIENTS: Bring your sleep apnea machine and mask. PLEASE BE ON TIME. A late arrival may result in the cancellation/ delay of your surgery. A risk of anesthesia is nausea and/or vomiting (PONV). Certain patients are at higher risk than others. Talk to (more content not included)... Normal [facility] Telephone Encounteron 2024 Accounting Officer Authentication Interface Message Text What is the need: Situation: pt returning missed call Background: appt scheduled for 03/13/25 Assessment: n/a Recommendation: pt advised the call was reminding him of his appt on 03/13/25. Pt verbalized understanding. Abby Freed RN Normal [facility] Accounting Officer Authentication Interface Message Text Called patient to reschedule PAT no ans unable to LVM Needs in-person PAT Normal [facility] Progress Noteson 03-07-2025 Accounting Officer Authentication Interface Message Text Patient notified that provider is running behind Miley Khalil, VICKI Normal [facility] Accounting Officer Authentication Interface Message Text OTOLARYNGOLOGY - HEAD AND NECK SURGERY CLINIC NOTE CHIEF COMPLAINT: Chief Complaint Patient presents with New patient, to establish relationship Throat dryness, abnormal scan of throat HPI: Bernard Meraz is a 74 year old male with PMH significant for COPD, DMII, HTN, s/p CABG (3 yrs ago) who presents today, 03/07/2025, at [facility] at the request of Referring Provider: Cleveland Li for my opinion and further evaluation of supraglottic mass. Today, pt reports neck pain and soreness over the past couple months. Associated with coughing and hemoptysis. Reports difficulty swallowing and frequent choking. Reports significant voice changes for the past 1.5 months. . Denies fevers, chills, unintentionalweight loss, night sweats, or new lesions/masses. Associated about 35 lb loss. Denies history of radiation or previous of head/neck surgery s/p bilateral carotid endarterectomy. Denies history of cardiac or pulmonary issues. Able to walk/up downstairs without issues. Not currently on any anticoagulation or antiplatelet therapy. Current smoker (/ ppd x 50 yrs). Denies history of significant alcohol use. All other systems are negative except for that listed in the HPI. Past Medical/Surgical History: He has no past medical history on file. His has no past surgical history on file. Past Family/Social History: His family history is not on file. He reports that he has been smoking cigarettes. He has never used smokeless tobacco. Medications/Allergies/Immu nizations: His current medication(s) include: @CMEDLISTP@ Allergies: Hydrochlorothiazide and Lisinopril, Immunizations: There is no immunization history on file for this patient. PHYSICAL EXAM: Vital Signs: BP 153/59 (BP Location: left arm, BP position: sitting, Cuff Size: large adult ) Pulse 64 Temp 97.3 ???F (36.3 ???C) (Temporal) Wt 202 lb 9.6 oz (91.9 kg) SpO2 94% General: Well-developed, well-nourished. In no acute distress. Communication and Voice: Hoarse, raspy voice Respiratory effort: Equal inspiration and expiration without stridor Neuro: Appropriate mood and affect; Cranial nerves II-XII are intact Head and Face Inspection: Normocephalic and atraumatic without mass or lesion Palpation: Facial skeleton intact without bony stepoffs Facial Strength: Facial motility symmetric and full bilaterally Eyes: No nystagmus with normal extraocular motion bilaterally ENT External nose: No scar or anatomic deformity TMJ: No pain to palpation with full mobility Salivary Glands: No mass or tenderness Lips: No lesion. Oral cavity: Edentulous Moist mucosa. No mass or lesion. Oropharynx: No mass or lesion. Tonsillar fossa symmetric. Base of tongue soft without mass or induration on palpation Larynx: Unable to fully visualize larynx on indirect mirror laryngoscopy due to gag reflex Neck Trachea: Midline trachea. Thyroid: No mass or nodularity. Lymphatics: No palpable cervical lymphadenopathy. Procedure: Procedure: Flexible fiberoptic nasopharyngolaryngoscopy Indications: Need for detailed exam, hyperactive gag reflex, inadequate mirror visualization Surgeon: Margarita Steven MD was present for the entirety of the procedure Procedure: After informed discussion of the risks, benefits, and alternatives, fiberoptic nasopharyngolaryngsocopy was recommended for the above indications, and the patient consented without further questions. Next, a flexible scope was easily advanced into the naris. Nasal cavities were unremarkable. Nasopharynx including Eustachian tubes AND fossae of Rosenmuller was unremarkable except for moderate fullness and submucosal asymmetry in the left nasopharynx Oropharynx including base of tongue AND vallecula was unremarkable. There was a granular, sessile lesion (2.1 x 3 cm) along the laryngeal surface of the epiglottis extending towards the petiole and false folds but no direct extension onto thetrue vocal cords bilaterally. No evidence of vallecular or tongue base invasion. Hypopharynx clear Airway was patent AND vocal folds were mobile bilaterally. The scope was withdrawn atraumatically. The patient tolerated the procedure well without complications. Pathologic Review: N/a Radiologic Review: CT Neck from [facility], 01/21/25, personally reviewed today. Enhancing supraglottic mass along the laryngeal surface of the epiglottis with extension into the pre-epiglottic and paraglottic fat. 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 I discussed options: surgery vs primary ch (more content not included)... Normal [facility] .Auto Diffon 02-15-2025 Basophil, Absolute 0.0 10 3/mcL Normal 0.0-0.3 [facility] Comment on above: Performed By: #### A DIFF, ANEU, CBC, GFR, MDW, TROPHS, BMP #### [address] [address] Basophils/100 WBC (Bld) 0.4 % Normal 0.0-2.5 [facility] Comment on above: Performed By: #### A DIFF, ANEU, CBC, GFR, MDW, TROPHS, BMP #### [address] [place], [place] [address] Eosinophil, Absolute 0.3 10 3/mcL Normal 0.0-0.7 [facility] Comment on above: Performed By: #### A DIFF, ANEU, CBC, GFR, MDW, TROPHS, BMP #### [address] [place], [place] [address] Eosinophils/100 WBC (Bld) 3.0 % Normal 0.0-6.0 [facility] Comment on above: Performed By: #### A DIFF, ANEU, CBC, GFR, MDW, TROPHS, BMP #### [address] [address] Lymphocyte, Absolute 2.0 10 3/mcL Normal 0.9-4.3 [facility] Comment on above: Performed By: #### A DIFF, ANEU, CBC, GFR, MDW, TROPHS, BMP #### [address] [address] Lymphocytes/100 WBC (Bld) 23.0 % Normal 20.0-40.0 [facility] Comment on above: Performed By: #### A DIFF, ANEU, CBC, GFR, MDW, TROPHS, BMP #### [address] [address] Monocyte, Absolute 0.7 10 3/mcL Normal 0.1-1.4 [facility] Comment on above: Performed By: #### A DIFF, ANEU, CBC, GFR, MDW, TROPHS, BMP #### [address] [address] Monocytes/100 WBC (Bld) 7.6 % Normal 2.0-13.0 [facility] Comment on above: Performed By: #### A DIFF, ANEU, CBC, GFR, MDW, TROPHS, BMP #### [address] [address] Neutrophils/100 WBC (Bld) 66.0 % Normal 50.0-75.0 [facility] Comment on above: Performed By: #### A DIFF, ANEU, CBC, GFR, MDW, TROPHS, BMP #### [address] [address] .GFRon 02-15-2025 Estimated Glomerular Filtration Rate 67 ml/min/1.73sqm Normal [facility] Comment on above: Result Comment: Stages of Chronic Kidney Disease (CKD) Stage Description eGFR(ml/min/1.73 sq.m.) CKD 1 Normal kidney function or >=90 normal kindney function with possible kidney damage (ex. Proteinuria) CKD 2 Kidney damage with mild loss 60-89 of kidney function CKD 3a Mild to moderate loss of kidney 45-59 function CKD 3b Moderate to severe loss of 30-44 of kindey function CKD 4 Severe loss of kidney function 15-29 CKD 5 Kidney failure <15 Note: (go live 2024) the eGFR calculation was updated to the 2020 CKD-EPI creatinine equation without a race factor to calculate the eGFR results. Performed By: #### A DIFF, ANEU, CBC, GFR, MDW, TROPHS, BMP #### [address] [address] .MDWon 02-15-2025 Monocyte Distribution Width 24.40 High 0.00-20.00 [facility] Comment on above: Result Comment: For adults in ED, MDW>20.0 may be associated with a higher risk of sepsis during the first 12hrs of hospital admission Performed By: #### A DIFF, ANEU, CBC, GFR, MDW, TROPHS, BMP #### [address] [address] .NEUABSon 02-15-2025 Neutrophil, Absolute 5.8 10 3/mcL Normal 2.3-8.1 [facility] Comment on above: Performed By: #### A DIFF, ANEU, CBC, GFR, MDW, TROPHS, BMP #### [address] [address] BMPon 02-15-2025 BUN/Creatinine Ratio 25 ratio Normal 7-27 [facility] Comment on above: Performed By: #### A DIFF, ANEU, CBC, GFR, MDW, TROPHS, BMP #### [address] [address] Calcium [Mass/Vol] 9.3 mg/dL Normal 8.4-10.2 [facility] Comment on above: Performed By: #### A DIFF, ANEU, CBC, GFR, MDW, TROPHS, BMP #### [address] [address] Chloride [Moles/Vol] 104 mmol/L Normal 98-107 [facility] Comment on above: Performed By: #### A DIFF, ANEU, CBC, GFR, MDW, TROPHS, BMP #### [address] [address] CO2 [Moles/Vol] 28 mmol/L Normal 23-31 [facility] Comment on above: Performed By: #### A DIFF, ANEU, CBC, GFR, MDW, TROPHS, BMP #### [address] [address] Creatinine [Mass/Vol] 1.15 mg/dL Normal 0.67-1.17 [facility] Comment on above: Performed By: #### A DIFF, ANEU, CBC, GFR, MDW, TROPHS, BMP #### [address] [address] Electrolyte Balance 8.0 mEq/L Normal 4.0-15.0 [facility] Comment on above: Performed By: #### A DIFF, ANEU, CBC, GFR, MDW, TROPHS, BMP #### [address] [address] Glucose [Mass/Vol] 135 mg/dL High 83-110 [facility] Comment on above: Performed By: #### A DIFF, ANEU, CBC, GFR, MDW, TROPHS, BMP #### [address] [address] Potassium [Moles/Vol] 4.7 mmol/L Normal 3.5-5.1 [facility] Comment on above: Performed By: #### A DIFF, ANEU, CBC, GFR, MDW, TROPHS, BMP #### [address] [address] Sodium [Moles/Vol] 140 mmol/L Normal 136-145 [facility] Comment on above: Performed By: #### A DIFF, ANEU, CBC, GFR, MDW, TROPHS, BMP #### [address] [address] Urea nitrogen [Mass/Vol] 29 mg/dL High 7-18 [facility] Comment on above: Performed By: #### A DIFF, ANEU, CBC, GFR, MDW, TROPHS, BMP #### [address] [address] CBCon 02-15-2025 Erythrocyte distribution width (RBC) [Ratio] 14.9 % Normal 11.5-15.5 [facility] Comment on above: Performed By: #### A DIFF, ANEU, CBC, GFR, MDW, TROPHS, BMP #### [address] [address] Hematocrit (Bld) [Volume fraction] 44.3 % Normal 40.0-52.0 [facility] Comment on above: Performed By: #### A DIFF, ANEU, CBC, GFR, MDW, TROPHS, BMP #### [address] [address] Hgb 14.8 G/dL Normal 13.0-17.5 [facility] Comment on above: Performed By: #### A DIFF, ANEU, CBC, GFR, MDW, TROPHS, BMP #### [address] [address] MCH (RBC) [Entitic mass] 28.4 pg Normal 27.0-33.0 [facility] Comment on above: Performed By: #### A DIFF, ANEU, CBC, GFR, MDW, TROPHS, BMP #### [address] [address] MCHC 33.4 G/dL Normal 32.0-36.0 [facility] Comment on above: Performed By: #### A DIFF, ANEU, CBC, GFR, MDW, TROPHS, BMP #### [address] [address] MCV (RBC) [Entitic vol] 84.9 fL Normal 81.0-100.0 [facility] Comment on above: Performed By: #### A DIFF, ANEU, CBC, GFR, MDW, TROPHS, BMP #### [address] [address] Platelet 152 10 3/mcL Normal 150-450 [facility] Comment on above: Performed By: #### A DIFF, ANEU, CBC, GFR, MDW, TROPHS, BMP #### [address] [place], [place] [address] Platelet mean volume (Bld) [Entitic vol] 9.7 fL Normal 6.4-10.5 [facility] Comment on above: Performed By: #### A DIFF, ANEU, CBC, GFR, MDW, TROPHS, BMP #### [address] [address] RBC 5.22 10 6/mcL Normal 4.50-6.00 [facility] Comment on above: Performed By: #### A DIFF, ANEU, CBC, GFR, MDW, TROPHS, BMP #### [address] [place], [place] [address] WBC 8.7 10 3/mcL Normal 4.5-10.8 [facility] Comment on above: Performed By: #### A DIFF, ANEU, CBC, GFR, MDW, TROPHS, BMP #### [address] [address] LABORATORYOrdered By: SYSTEM SYSTEM on 02-15-2025 Basophils (Bld) [#/Vol] 0.0 103/mcL Normal 0.0 - 0.3 10^3/mcL AO Workflow SS Basophils/100 WBC (Bld) 0.4 % Normal 0.0 - 2.5 % AO Workflow SS Calcium [Mass/Vol] 9.3 mg/dL Normal 8.4 - 10. 2 mg/dL AO ADM SS Chloride [Moles/Vol] 104 mmol/L Normal 98 - 10 7 mmol/L AO ADM SS CO2 [Moles/Vol] 28 mmol/L Normal 23 - 31 mmol/L AO ADM SS Creatinine [Mass/Vol] 1.15 mg/dL Normal 0.67 - 1.17 mg/dL AO ADM SS Electrolyte Balance 8.0 mEq/L Normal 4.0 - 15 .0 mEq/L AO ADM SS Eosinophil, Absolute 0.3 103/mcL Normal 0.0 - 0 .7 10^3/mcL AO Workflow SS Eosinophils/100 WBC (Bld) 3.0 % Normal 0.0 - 6.0 % AO Workflow SS Erythrocyte distribution width (RBC) [Ratio] 14.9 % Normal 11.5 - 15.5 % AO Workflow SS Estimated Glomerular Filtration Rate 67 ml/min/1.73sqm Invalid Interpretation Code AO Chemistry S Comment on above: Interpretive Data: Stages of Chronic Kidney Disease (CKD) Stage Description eGFR(ml/min/1.73 sq.m.) CKD 1 Normal kidney function or >=90 normal kindney function with possible kidney damage (ex. Proteinuria) CKD 2 Kidney damage with mild loss 60-89 of kidney function CKD 3a Mild to moderate loss of kidney 45-59 function CKD 3b Moderate to severe loss of 30-44 of kindey function CKD 4 Severe loss of kidney function 15-29 CKD 5 Kidney failure <15 Note: (go live 2024) the eGFR calculation was updated to the 2020 CKD-EPI creatinine equation without a race factor to calculate the eGFR results. Glucose [Mass/Vol] 135 mg/dL High 83 - 110 mg/dL AO ADM SS Hematocrit (Bld) [Volume fraction] 44.3 % Normal 40.0 - 52.0 % AO Workflow SS Hemoglobin (Bld) [Mass/Vol] 14.8 G/dL Normal 13.0 - 17.5 G/dL AO Workflow SS Lymphocytes (Bld) [#/Vol] 2.0 103/mcL Normal 0.9 - 4.3 10^3/mcL AO Workflow SS Lymphocytes/100 WBC (Bld) 23.0 % Normal 20.0 - 40.0 % AO Workflow SS MCH (RBC) [Entitic mass] 28.4 pg Normal 27.0 - 33.0 pg AO Workflow SS MCHC 33.4 G/dL Normal 32.0 - 36.0 G/dL AO Workflow SS MCV (RBC) [Entitic vol] 84.9 fL Normal 81.0 - 100.0 fL AO Workflow SS Monocyte distribution width Auto (Bld) [Entitic vol] 24.40 1 High 0.00 - 20.00 AO Workflow SS Comment on above: Result Comment: For adults in ED, MDW>20.0 may be associated with a higher risk of sepsis during the first 12hrs of hospital admission Monocytes (Bld) [#/Vol] 0.7 103/mcL Normal 0.1 - 1.4 10^3/mcL AO Workflow SS Monocytes/100 WBC (Bld) 7.6 % Normal 2.0 - 13.0 % AO Workflow SS Neutrophils (Bld) [#/Vol] 5.8 103/mcL Normal 2.3 - 8.1 10^3/mcL AO Workflow SS Neutrophils/100 WBC (Bld) 66.0 % Normal 50.0 - 75.0 % AO Workflow SS Platelet mean volume (Bld) [Entitic vol] 9.7 fL Normal 6.4 - 10.5 fL AO Workflow SS Platelets (Bld) [#/Vol] 152 103/mcL Normal 150 - 450 10^3/mcL AO Workflow SS Potassium [Moles/Vol] 4.7 mmol/L Normal 3.5 - 5.1 mmol/L AO ADM SS RBC (Bld) [#/Vol] 5.22 106/mcL Normal 4.50 - 6.00 10^6/mcL AO Workflow SS Sodium [Moles/Vol] 140 mmol/L Normal 136 - 145 mmol/L AO ADM SS Troponin I.cardiac DL <= 0.01 ng/mL [Mass/Vol] 17 ng/L Normal 0 - 76 ng/L AO ADM SS Comment on above: Interpretive Data: H igh Sensitive Troponin I Reference Ranges: Female: 0-51 ng/L Male: 0-76 ng/L Testing performed on [employer] using a homogeneous sandwich chemiluminescent immunoassay based on Re-APP technology. Urea nitrogen [Mass/Vol] 29 mg/dL High 7 - 18 mg/dL AO ADM SS Urea nitrogen/Creatinine [Mass ratio] 25 ratio Normal 7 - 27 ratio AO ADM SS WBC (Bld) [#/Vol] 8.7 103/mcL Normal 4.5 - 10.8 10^3/mcL AO Workflow SS TROPHSon 02-15-2025 High Sensitivity Troponin I 17 ng/L Normal 0-76 [facility] Comment on above: Result Comment: High Sensitive Troponin I Reference Ranges: Female: 0-51 ng/L Male: 0-76 ng/L Testing performed on [employer] using a homogeneous sandwich chemiluminescent immunoassay based on Re-APP technology. Performed By: #### A DIFF, ANEU, CBC, GFR, MDW, TROPHS, BMP #### [address] [place], [place] [address] XR CHEST 2 VIEWSon XR CHEST 2 VIEWS ORIGINAL EXAMINATION: TWO XRAY VIEWS OF THE CHEST02/15/2025 1:30 pm COMPARISON: Chest radiograph 09/21/2021, 09/07/2021 HISTORY: ORDERING SYSTEM PROVIDED HISTORY: Reason for Exam: SOB, cough FINDINGS: Suboptimal evaluation due to positioning of lateral images. Stable cardiomediastinal silhouette. Trace left pleural effusion. No focal consolidation or significant pulmonary edema. No pneumothorax or pleural effusion. No acute bony abnormalities. Sternotomy wires. IMPRESSION: Trace left pleural effusion. Preliminary Report was Dictated by a Resident Interpreted by: Marvin Calderón Preliminary Report By: Radha Ford Electronically signed By Marvin Calderón Dictated Date: 02/15/2025 1:45:53 PM Prelim Date: 02/15/2025 1:48:35 PM Sign Date: 02/15/2025 2:04:47 PM Ordering Provider: RANDAL Dumont [facility] Telephone Encounteron 2024 Accounting Officer Authentication Interface Message Text Called again no answer unable to LVM. Also called [facility] for another phone # and they dont have any other # Normal [facility] Telephone Encounteron 2024 Accounting Officer Authentication Interface Message Text Called multiple times day no answer. Unable to LVM Normal [facility] .GFRon 01-21-2025 Estimated Glomerular Filtration Rate 60 ml/min/1.73sqm Normal [facility] Comment on above: Result Comment: Stages of Chronic Kidney Disease (CKD) Stage Description eGFR(ml/min/1.73 sq.m.) CKD 1 Normal kidney function or >=90 normal kindney function with possible kidney damage (ex. Proteinuria) CKD 2 Kidney damage with mild loss 60-89 of kidney function CKD 3a Mild to moderate loss of kidney 45-59 function CKD 3b Moderate to severe loss of 30-44 of kindey function CKD 4 Severe loss of kidney function 15-29 CKD 5 Kidney failure <15 Note: (go live 2024) the eGFR calculation was updated to the 2020 CKD-EPI creatinine equation without a race factor to calculate the eGFR results. Performed By: #### G , [facility] #### [address] [address]Brenden Ramos 01-21-2025 BUN/Creatinine Ratio 18 ratio Normal 7-27 [facility] Comment on above: Performed By: #### Subha SAGE, BMP ####[address] [place], [place] [address] Calcium [Mass/Vol] 9.0 mg/dL Normal 8.4-10.2 [facility] Comment on above: Performed By: #### Subha SAGE, BMP ####[address] [place], [place] [address] Chloride [Moles/Vol] 105 mmol/L Normal 98-107 [facility] Comment on above: Performed By: #### Subha SAGE, BMP ####[address] [place], [place] [address] CO2 [Moles/Vol] 31 mmol/L Normal 23-31 [facility] Comment on above: Performed By: #### Subha SAGE, BMP ####[address] [place], [place] [address] Creatinine [Mass/Vol] 1.25 mg/dL High 0.67-1.17 [facility] Comment on above: Performed By: #### Subha SAGE, BMP ####[address] [place], [place] [address] Electrolyte Balance 4.0 mEq/L Normal 4.0-15.0 [facility] Comment on above: Performed By: #### Subha SAGE, BMP ####[address] [place], [place] [address] Glucose [Mass/Vol] 214 mg/dL High 83-110 [facility] Comment on above: Performed By: #### Subha SAGE, BMP ####[address] [place], [place] [address] Potassium [Moles/Vol] 4.6 mmol/L Normal 3.5-5.1 [facility] Comment on above: Performed By: #### Subha SAGE, BMP ####[address] [place], [place] [address] Sodium [Moles/Vol] 140 mmol/L Normal 136-145 [facility] Comment on above: Performed By: #### G , BMP ####[address] [place], [place] [address] Urea nitrogen [Mass/Vol] 23 mg/dL High 7-18 [facility] Comment on above: Performed By: #### G , BMP ####[address] [place], [place] [address] CT SOFT TISSUE NECK W/ CONTR Daniela 01-21-2025 CT SOFT TISSUE NECK W/ CONTRAST ORIGINAL EXAMINATION: CT neck with intravenous contrast TECHNIQUE: CT of the neck was performed following the uneventful administration of intravenous contrast. Axial images were obtained through the neck with multiplanar reformats. Low dose CT acquisition technique included one of the following options: 1. Automated exposure control, 2. Adjustment of the MA and/or KV according to patient size, or 3. Use of iterative reconstruction. DICOM images are available. COMPARISON: None. HISTORY: ORDERING SYSTEM PROVIDED HISTORY: Reason for Exam: Pharyngitis FINDINGS: Soft tissues: No abscess or drainable fluid collection. Aerodigestive tract: The central and right central nasopharyngeal soft tissues are prominent measuring 16 mm in AP diameter without a discrete mass. The oropharynx is unremarkable. An avidly enhancing supraglottic mass measures 2.1 x 3.6 x 3.8 cm (AP X TRV X CC), involves the epiglottis, aryepiglottic folds, bilateral false cords, anterior commissure, and anterior-most bilateral vocal cords. No significant narrowing of the airway is present. The upper trachea is unremarkable. Salivary glands: Unremarkable. Thyroid: Unremarkable. Lymph nodes : There are non-specific scattered sub-centimeter lymph nodes in the neck bilaterally. No pathologically enlarged or morphologically suspicious adenopathy. Vessels: Unremarkable. Bones: No acute osseous pathology or aggressive osseous lesion. Severe spondylotic change involves C6-C7, C7-T1 and to a lesser extent C5-C6. Visualized lung apices: Clear. Visualized brain parenchyma: No acute pathology. Paranasal sinuses: Mild opacification of the bilateral ethmoid sinuses. IMPRESSION: 1. 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 No significant narrowing of the airway. Findings are favored to represent malignancy. Direct visualization is advised. 2. Prominence of the central and right central nasopharyngeal soft tissues without a discrete mass probably on the basis of lymphoid hypertrophy. 3. No pathologically enlarged or morphologically suspicious adenopathy. 4. Severe spondylotic change involves C6-C7, C7-T1 and to a lesser extent C5-C6. Interpreted by: Crow Hudson MD Preliminary Report By: Crow Hudson MD Electronically signed By Crow Hudson MD Dictated Date: 01/21/2025 3:41:34 PM Prelim Date: 01/21/2025 3:51:41 PM Sign Date: 01/21/2025 3:51:41 PM Ordering Provider: YANET YAÑEZ Interpreted by: Crow Hudson MD Preliminary Report By: Crow Hudson MD Electronically signed By Crow Hudson MD Dictated Date: 01/21/2025 3:41:34 PM Prelim Date: 01/21/2025 3:51:41 PM Sign Date: 01/21/2025 3:51:41 PM Ordering Provider: YANET YAÑEZ Normal [facility] LABORATORYOrdered By: SYSTEM SYSTEM on 01-21-2025 Calcium [Mass/Vol] 9.0 mg/dL Normal 8.4 - 10. 2 mg/dL AO ADM SS Chloride [Moles/Vol] 105 mmol/L Normal 98 - 10 7 mmol/L AO ADM SS CO2 [Moles/Vol] 31 mmol/L Normal 23 - 31 mmol/L AO ADM SS Creatinine [Mass/Vol] 1.25 mg/dL High 0.67 - 1.17 mg/dL AO ADM SS Electrolyte Balance 4.0 mEq/L Normal 4.0 - 15 .0 mEq/L AO ADM SS Estimated Glomerular Filtration Rate 60 ml/min/1.73sqm Invalid Interpretation Code AO Chemistry S Comment on above: Interpretive Data: Stages of Chronic Kidney Disease (CKD) Stage Description eGFR(ml/min/1.73 sq.m.) CKD 1 Normal kidney function or >=90 normal kindney function with possible kidney damage (ex. Proteinuria) CKD 2 Kidney damage with mild loss 60-89 of kidney function CKD 3a Mild to moderate loss of kidney 45-59 function CKD 3b Moderate to severe loss of 30-44 of kindey function CKD 4 Severe loss of kidney function 15-29 CKD 5 Kidney failure <15 Note: (go live 2024) the eGFR calculation was updated to the 2020 CKD-EPI creatinine equation without a race factor to calculate the eGFR results. Glucose [Mass/Vol] 214 mg/dL High 83 - 110 mg/dL AO ADM SS Potassium [Moles/Vol] 4.6 mmol/L Normal 3.5 - 5.1 mmol/L AO ADM SS Sodium [Moles/Vol] 140 mmol/L Normal 136 - 145 mmol/L AO ADM SS Urea nitrogen [Mass/Vol] 23 mg/dL High 7 - 18 mg/dL AO ADM SS LABORATORYOrdered By: Jerilyn Paige on 01-21-2025 Urea nitrogen/Creatinine [Mass ratio] 18 ratio Normal 7 - 27 ratio AO Chemistry S VISUAL FIELD 24-2 OS (LEFT E YE)on 01-14-2025 [facility] Radiology Study observation (narrative) [facility] OCT MACULA CIRRUS OU (BOTH E YES)on 12-27-2024 [facility] OCT OPTIC NERVE CIRRUS OU (B OTH EYES)on 12-27-2024 [facility] OCT MACULA CIRRUS OU (BOTH E YES)on 12-13-2024 Radiology Study observation (narrative) [facility] OCT OPTIC NERVE CIRRUS OU (B OTH EYES)on 12-13-2024 Radiology Study observation (narrative) [facility] XR SHOULDER MINIMUM 2 VIEWS LEFTon 03-19-2024 XR SHOULDER MINIMUM 2 VIEWS LEFT ORIGINAL EXAMINATION: TWO XRAY VIEWS OF THE LEFT SHOULDER03/19/2024 5:04 pm COMPARISON: Left shoulder radiographs 11/15/2022 HISTORY: ORDERING SYSTEM PROVIDED HISTORY: Reason for Exam: fall FINDINGS: No acute fracture, dislocation, or suspicious osseous lesion. There are overall mild degenerative changes of the shoulder joint. Acromioclavicular and coracoclavicular relationships appear maintained. The included thoracic structures are unremarkable. Prior sternotomy noted. IMPRESSION: No acute osseous abnormality. I have personally reviewed the images of this examination and agree with the resident's findings and interpretation. Interpreted by: Matt Rivera Preliminary Report By: Juan Alberto Langford Electronically signed By Matt Rivera Dictated Date: 03/19/2024 5:19:17 PM Prelim Date: 03/19/2024 5:22:41 PM Sign Date: 03/19/2024 5:24:50 PM Ordering Provider: RACHAEL LYNCH Normal [facility] ([place] PSAFon 10-25-2023 % Free PSA 26.0 % Normal [facility] ([place]) Comment on above: Result Comment: The table below lists the probability of prostate cancer for men with non-suspicious MANUEL results and total PSA between 4 and 10 ng/mL, by patient age (Erasmo et al, MONICA 1998, 279:[id number]). % Free PSA 50-64 yr 65-75 yr 0.00-10.00% 56% 55% 10.01-15.00% 24% 35% 15.01-20.00% 17% 23% 20.01-25.00% 10% 20% >25.00% 5% 9% Please note: Erasmo et al did not make specific recommendations regarding the use of percent free PSA for any other population of men. Performed At: [address] [id number] Carolyn Le PhD Ph:[phone] Performed By: #### [id number] #### [place] [address] PSA Free 0.52 ng/mL Normal N/A [facility] ([place]) Comment on above: Result Comment: Sherly PRESTON methodology. Performed By: #### [id number] #### [place] [address] .GFRon 09-01-2023 GFR 59 ml/min/1.73sqm Normal [facility] ([place]) Comment on above: Result Comment: GFR Population mean for , Non- Americans Ages 20-29 = 116 mL/min/1.73 sq.m. Ages 30-39 = 107 mL/min/1.73 sq.m. Ages 40-49 = 99 mL/min/1.73 sq.m. Ages 50-59 = 93 mL/min/1.73 sq.m. Ages 60-69 = 85 mL/min/1.73 sq.m. Ages 70+ = 75 mL/min/1.73 sq.m. Chronic Kidney Disease: Less than 60 mL/min/1.73 square meters End Stage Renal Disease: Less than 15 mL/min/1.73 square meters Performed By: #### L IPID, A1C, GFR, CMP, PSA #### [address] [address] GFR Non- 48 ml/min/1.73sqm Normal [facility] ([place]) Comment on above: Result Comment: GFR Population mean for , Non- Americans Ages 20-29 = 116 mL/min/1.73 sq.m. Ages 30-39 = 107 mL/min/1.73 sq.m. Ages 40-49 = 99 mL/min/1.73 sq.m. Ages 50-59 = 93 mL/min/1.73 sq.m. Ages 60-69 = 85 mL/min/1.73 sq.m. Ages 70+ = 75 mL/min/1.73 sq.m. Chronic Kidney Disease: Less than 60 mL/min/1.73 square meters End Stage Renal Disease: Less than 15 mL/min/1.73 square meters Performed By: #### L IPID, A1C, GFR, CMP, PSA #### [address] [address] A1Con 09-01-2023 HbA1c (Bld) [Mass fraction] 6.3 % Normal 4.3-6.4 [facility] ([place]) Comment on above: Performed By: #### L IPID, A1C, GFR, CMP, PSA #### [address] [address] CMPon 09-01-2023 Albumin Level 3.2 G/dL Low 3.4-4.8 [facility] ([place]) Comment on above: Performed By: #### L IPID, A1C, GFR, CMP, PSA #### [address] [address] Albumin/Globulin [Mass ratio] 1.0 {ratio} Low 1.1-2.5 [facility] ([place]) Comment on above: Performed By: #### L IPID, A1C, GFR, CMP, PSA #### [address] [address] ALP [Catalytic activity/Vol] 119 U/L Normal 40-135 [facility] ([place]) Comment on above: Performed By: #### L IPID, A1C, GFR, CMP, PSA #### [address] [address] ALT [Catalytic activity/Vol] 18 U/L Normal 16-63 [facility] ([place]) Comment on above: Performed By: #### L IPID, A1C, GFR, CMP, PSA #### [address] [address] AST [Catalytic activity/Vol] 13 U/L Normal 10-40 [facility] ([place]) Comment on above: Performed By: #### L IPID, A1C, GFR, CMP, PSA #### [address] [address] Bili Total 0.2 mg/dL Normal 0.2-1.0 [facility] ([place]) Comment on above: Result Comment: Use of this assay is not recommended for patients undergoing treatment with eltrombopag due to the potential for falsely elevated results. Performed By: #### L IPID, A1C, GFR, CMP, PSA #### [address] [address] BUN/Creatinine Ratio 14 ratio Normal 7-27 [facility] ([place]) Comment on above: Performed By: #### L IPID, A1C, GFR, CMP, PSA #### [address] [address] Calcium [Mass/Vol] 9.9 mg/dL Normal 8.4-10.2 [facility] ([place]) Comment on above: Performed By: #### L IPID, A1C, GFR, CMP, PSA #### [address] [address] Chloride [Moles/Vol] 103 mmol/L Normal 98-107 [facility] ([place]) Comment on above: Performed By: #### L IPID, A1C, GFR, CMP, PSA #### [address] [address] CO2 [Moles/Vol] 33 mmol/L High 23-31 [facility] ([place]) Comment on above: Performed By: #### L IPID, A1C, GFR, CMP, PSA #### [address] [address] Creatinine [Mass/Vol] 1.43 mg/dL High 0.70-1.30 [facility] ([place]) Comment on above: Performed By: #### L IPID, A1C, GFR, CMP, PSA #### [address] [address] Electrolyte Balance 9.0 mEq/L Normal 4.0-15.0 [facility] ([place]) Comment on above: Performed By: #### L IPID, A1C, GFR, CMP, PSA #### [address] [address] Globulin 3.3 G/dL Normal [facility] ([place]) Comment on above: Performed By: #### L IPID, A1C, GFR, CMP, PSA #### [address] [address] Glucose [Mass/Vol] 194 mg/dL High 83-110 [facility] ([place]) Comment on above: Performed By: #### L IPID, A1C, GFR, CMP, PSA #### [address] [address] Potassium [Moles/Vol] 5.4 mmol/L High 3.5-5.1 [facility] ([place]) Comment on above: Performed By: #### L IPID, A1C, GFR, CMP, PSA #### [address] [address] Sodium [Moles/Vol] 145 mmol/L Normal 136-145 [facility] ([place]) Comment on above: Performed By: #### L IPID, A1C, GFR, CMP, PSA #### [address] [address] Total Protein 6.5 G/dL Normal 6.4-8.2 [facility] ([place]) Comment on above: Performed By: #### L IPID, A1C, GFR, CMP, PSA #### [facility] [address] [place], [place] [address] Urea nitrogen [Mass/Vol] 20 mg/dL High 7-18 [facility] ([place]) Comment on above: Performed By: #### L IPID, A1C, GFR, CMP, PSA #### [facility] [address] [place], [place] [address] LABORATORYOrdered By: SYSTEM SYSTEM on 09-01-2023 Albumin BCP dye [Mass/Vol] 3.2 G/dL Low 3.4 - 4.8 G/dL AO ADM SS Albumin/Globulin [Mass ratio] 1.0 {ratio} Low 1.1 - 2.5 ratio AO ADM SS ALP [Catalytic activity/Vol] 119 U/L Normal 40 - 135 U/L AO ADM SS ALT With P-5'-P [Catalytic activity/Vol] 18 U/L Normal 16 - 63 U/L AO ADM SS AST With P-5'-P [Catalytic activity/Vol] 13 U/L Normal 10 - 40 U/L AO ADM SS Bilirubin [Mass/Vol] 0.2 mg/dL Normal 0.2 - 1 .0 mg/dL AO ADM SS Comment on above: Interpretive Data: U se of this assay is not recommended for patients undergoing treatment with eltrombopag due to the potential for falsely elevated results. Calcium [Mass/Vol] 9.9 mg/dL Normal 8.4 - 10. 2 mg/dL AO ADM SS Chloride [Moles/Vol] 103 mmol/L Normal 98 - 10 7 mmol/L AO ADM SS CO2 [Moles/Vol] 33 mmol/L High 23 - 31 mmol/L AO ADM SS Creatinine [Mass/Vol] 1.43 mg/dL High 0.70 - 1.30 mg/dL AO ADM SS Electrolyte Balance 9.0 mEq/L Normal 4.0 - 15 .0 mEq/L AO ADM SS GFR/1.73 sq M.predicted among blacks MDRD (S/P/Bld) [Vol rate/Area] 59 ml/min/1.73sqm Invalid Interpretation Code AO Chemistry S Comment on above: Interpretive Data: GFR Population mean for , Non- Americans Ages 20-29 = 116 mL/min/1.73 sq.m. Ages 30-39 = 107 mL/min/1.73 sq.m. Ages 40-49 = 99 mL/min/1.73 sq.m. Ages 50-59 = 93 mL/min/1.73 sq.m. Ages 60-69 = 85 mL/min/1.73 sq.m. Ages 70+ = 75 mL/min/1.73 sq.m. Chronic Kidney Disease: Less than 60 mL/min/1.73 square meters End Stage Renal Disease: Less than 15 mL/min/1.73 square meters GFR/1.73 sq M.predicted among non-blacks MDRD (S/P/Bld) [Vol rate/Area] 48 ml/min/1.73sqm Invalid Interpretation Code AO Chemistry S Comment on above: Interpretive Data: GFR Population mean for , Non- Americans Ages 20-29 = 116 mL/min/1.73 sq.m. Ages 30-39 = 107 mL/min/1.73 sq.m. Ages 40-49 = 99 mL/min/1.73 sq.m. Ages 50-59 = 93 mL/min/1.73 sq.m. Ages 60-69 = 85 mL/min/1.73 sq.m. Ages 70+ = 75 mL/min/1.73 sq.m. Chronic Kidney Disease: Less than 60 mL/min/1.73 square meters End Stage Renal Disease: Less than 15 mL/min/1.73 square meters Globulin 3.3 G/dL Invalid Interpretation Code AO ADM SS Glucose [Mass/Vol] 194 mg/dL High 83 - 110 mg/dL AO ADM SS HbA1c (Bld) [Mass fraction] 6.3 % Normal 4.3 - 6.4 % AO ADM SS Potassium [Moles/Vol] 5.4 mmol/L High 3.5 - 5.1 mmol/L AO ADM SS Prostate specific Ag [Mass/Vol] 4.51 ng/mL High 0.00 - 4.00 ng/mL AO ADM SS Protein [Mass/Vol] 6.5 G/dL Normal 6.4 - 8.2 G/dL AO ADM SS Sodium [Moles/Vol] 145 mmol/L Normal 136 - 145 mmol/L AO ADM SS Urea nitrogen [Mass/Vol] 20 mg/dL High 7 - 18 mg/dL AO ADM SS Urea nitrogen/Creatinine [Mass ratio] 14 ratio Normal 7 - 27 ratio AO ADM SS LABORATORYOrdered By: Zackery Paris on 09-01-2023 Cholesterol [Mass/Vol] 135 mg/dL Normal 0 - 2 00 mg/dL AO ADM SS Comment on above: Interpretive Data: C holesterol Reference Interval: Less than 200 Desirable 200-239 Borderline high risk 240 and above High risk Cholesterol in HDL [Mass/Vol] 39 mg/dL Low 40 - 60 mg/dL AO ADM SS Cholesterol in LDL [Mass/Vol] 59 mg/dL Normal 0 - 130 mg/dL AO ADM SS Triglyceride [Mass/Vol] 185 mg/dL High 0 - 150 mg/dL AO ADM SS Comment on above: Interpretive Data: T riglyceride Reference Interval: Less than 150 Normal 150-199 Borderline high risk 200-499 High risk 500 or higher Very high risk LIPIDon 09-01-2023 Cholesterol [Mass/Vol] 135 mg/dL Normal 0-200 [facility] ([place]) Comment on above: Result Comment: Chol esterol Reference Interval: Less than 200 Desirable 200-239 Borderline high risk 240 and above High risk Performed By: #### L IPID, A1C, GFR, CMP, PSA #### [address] [address] Cholesterol in HDL [Mass/Vol] 39 mg/dL Low 40-60 [facility] ([place]) Comment on above: Performed By: #### L IPID, A1C, GFR, CMP, PSA #### [address] [address] Cholesterol in LDL [Mass/Vol] 59 mg/dL Normal 0-130 [facility] ([place]) Comment on above: Performed By: #### L IPID, A1C, GFR, CMP, PSA #### [address] [address] Triglyceride [Mass/Vol] 185 mg/dL High 0-150 [facility] ([place]) Comment on above: Result Comment: Trig lyceride Reference Interval: Less than 150 Normal 150-199 Borderline high risk 200-499 High risk 500 or higher Very high risk Performed By: #### L IPID, A1C, GFR, CMP, PSA #### [facility] [address] [place], [place] [address] PSAon 09-01-2023 Prostate Specific Antigen 4.51 ng/mL High 0.00-4.00 [facility] ([place]) Comment on above: Performed By: #### L IPID, A1C, GFR, CMP, PSA #### [facility] [address] [place], [place] [address] LABORATORYOrdered By: SYSTEM SYSTEM on 09-20-2022 Albumin BCP dye [Mass/Vol] 3.6 G/dL Invalid Interpretation Code 3.4 - 4.8 G/dL AO ADM SS Albumin/Globulin [Mass ratio] 1.2 {ratio} Invalid Interpretation Code 1.1 - 2.5 ratio AO ADM SS ALP [Catalytic activity/Vol] 106 U/L Invalid Interpretation Code 40 - 135 U/L AO ADM SS ALT With P-5'-P [Catalytic activity/Vol] 24 U/L Invalid Interpretation Code 16 - 63 U/L AO ADM SS AST With P-5'-P [Catalytic activity/Vol] 18 U/L Invalid Interpretation Code 10 - 40 U/L AO ADM SS Bilirubin [Mass/Vol] 0.3 mg/dL Invalid Interpretation Code 0.2 - 1.0 mg/dL AO ADM SS Calcium [Mass/Vol] 9.0 mg/dL Invalid Interpretation Code 8.4 - 10.2 mg/dL AO ADM SS Chloride [Moles/Vol] 105 mmol/L Invalid Interpretation Code 98 - 107 mmol/L AO ADM SS CO2 [Moles/Vol] 33 mmol/L Invalid Interpretation Code 23 - 31 mmol/L AO ADM SS Creatinine [Mass/Vol] 1.51 mg/dL Invalid Interpretation Code 0.70 - 1.30 mg/dL AO ADM SS Electrolyte Balance 5.0 mEq/L Invalid Interpretation Code 4.0 - 15.0 mEq/L AO ADM SS GFR 55 ml/min/1.73sqm Invalid Interpretation Code AO Chemistry S GFR Non- 46 ml/min/1.73sqm Invalid Interpretation Code AO Chemistry S Globulin 3.0 G/dL Invalid Interpretation Code AO ADM SS Glucose [Mass/Vol] 110 mg/dL Invalid Interpretation Code 83 - 110 mg/dL AO ADM SS Natriuretic peptide.B prohormone N-Terminal [Mass/Vol] 179 pg/mL Invalid Interpretation Code 0 - 125 pg/mL AO ADM SS Potassium [Moles/Vol] 4.7 mmol/L Invalid Interpretation Code 3.5 - 5.1 mmol/L AO ADM SS Protein [Mass/Vol] 6.6 G/dL Invalid Interpretation Code 6.4 - 8.2 G/dL AO ADM SS Sodium [Moles/Vol] 143 mmol/L Invalid Interpretation Code 136 - 145 mmol/L AO ADM SS Urea nitrogen [Mass/Vol] 18 mg/dL Invalid Interpretation Code 7 - 18 mg/dL AO ADM SS Urea nitrogen/Creatinine [Mass ratio] 12 ratio Invalid Interpretation Code 7 - 27 ratio AO ADM SS LABORATORYOrdered By: Carolina Larsen on 09-20-2022 Basophil, Absolute 0.0 103/mcL Invalid Interpretation Code 0.0 - 0.2 10^3/mcL AO Workflow SS Basophils/100 WBC (Bld) 0.5 % Invalid Interpretation Code 0.0 - 2.5 % AO Workflow SS Eosinophil, Absolute 0.2 103/mcL Invalid Interpretation Code 0.0 - 0.4 10^3/mcL AO Workflow SS Eosinophils/100 WBC (Bld) 2.2 % Invalid Interpretation Code 0.0 - 7.0 % AO Workflow SS Erythrocyte distribution width (RBC) [Ratio] 14.7 % Invalid Interpretation Code 11.5 - 14.5 % AO Workflow SS Hematocrit (Bld) [Volume fraction] 42.0 % Invalid Interpretation Code 42.0 - 52.0 % AO Workflow SS Hemoglobin (Bld) [Mass/Vol] 14.3 G/dL Invalid Interpretation Code 14.0 - 18.0 G/dL AO Workflow SS Lymphocyte, Absolute 1.5 103/mcL Invalid Interpretation Code 0.8 - 3.9 10^3/mcL AO Workflow SS Lymphocytes/100 WBC (Bld) 17.2 % Invalid Interpretation Code 10.0 - 50.0 % AO Workflow SS MCH (RBC) [Entitic mass] 29.9 pg Invalid Interpretation Code 27.0 - 31.2 pg AO Workflow SS MCHC 34.2 G/dL Invalid Interpretation Code 31.8 - 35.4 G/dL AO Workflow SS MCV (RBC) [Entitic vol] 87.5 fL Invalid Interpretation Code 80.0 - 94.0 fL AO Workflow SS Monocyte, Absolute 0.7 103/mcL Invalid Interpretation Code 0.2 - 1.0 10^3/mcL AO Workflow SS Monocytes/100 WBC (Bld) 7.7 % Invalid Interpretation Code 1.7 - 13.0 % AO Workflow SS Neutrophil, Absolute 6.3 103/mcL Invalid Interpretation Code 2.9 - 6.2 10^3/mcL AO Workflow SS Neutrophils/100 WBC (Bld) 72.4 % Invalid Interpretation Code 37.0 - 80.0 % AO Workflow SS Platelet mean volume (Bld) [Entitic vol] 9.3 fL Invalid Interpretation Code 7.4 - 10.4 fL AO Workflow SS Platelets (Bld) [#/Vol] 211 103/mcL Invalid Interpretation Code 130 - 400 10^3/mcL AO Workflow SS RBC (Bld) [#/Vol] 4.80 106/mcL Invalid Interpretation Code 4.04 - 6.13 10^6/mcL AO Workflow SS WBC (Bld) [#/Vol] 8.7 103/mcL Invalid Interpretation Code 4.6 - 10.8 10^3/mcL AO Workflow SS LABORATORYOrdered By: Samantha Solomon on 09-20-2022 Cholesterol [Mass/Vol] 142 mg/dL Invalid Interpretation Code 0 - 200 mg/dL AO ADM SS Cholesterol in HDL [Mass/Vol] 36 mg/dL Invalid Interpretation Code 40 - 60 mg/dL AO ADM SS Cholesterol in LDL [Mass/Vol] 45 mg/dL Invalid Interpretation Code 0 - 130 mg/dL AO ADM SS Triglyceride [Mass/Vol] 306 mg/dL Invalid Interpretation Code 0 - 150 mg/dL AO ADM SS LABORATORYOrdered By: Samantha Solomon on 09-20-2021 Calcium [Mass/Vol] 9.4 mg/dL Invalid Interpretation Code 8.4 - 10.2 mg/dL AO ADM SS Chloride [Moles/Vol] 105 mmol/L Invalid Interpretation Code 98 - 107 mmol/L AO ADM SS CO2 [Moles/Vol] 29 mmol/L Invalid Interpretation Code 23 - 31 mmol/L AO ADM SS Creatinine [Mass/Vol] 1.22 mg/dL Invalid Interpretation Code 0.70 - 1.30 mg/dL AO ADM SS Electrolyte Balance 8.0 mEq/L Invalid Interpretation Code 4.0 - 15.0 mEq/L AO ADM SS Glucose [Mass/Vol] 112 mg/dL Invalid Interpretation Code 83 - 110 mg/dL AO ADM SS Potassium [Moles/Vol] 5.2 mmol/L Invalid Interpretation Code 3.5 - 5.1 mmol/L AO ADM SS Sodium [Moles/Vol] 142 mmol/L Invalid Interpretation Code 136 - 145 mmol/L AO ADM SS Urea nitrogen [Mass/Vol] 21 mg/dL Invalid Interpretation Code 7 - 18 mg/dL AO ADM SS Urea nitrogen/Creatinine [Mass ratio] 17 ratio Invalid Interpretation Code 7 - 27 ratio AO ADM SS LABORATORYOrdered By: SYSTEM SYSTEM on 09-20-2021 GFR 71 ml/min/1.73sqm Invalid Interpretation Code AO Chemistry S GFR Non- 59 ml/min/1.73sqm Invalid Interpretation Code AO Chemistry S LABORATORYOrdered By: Zackery Paris on 09-06-2021 Calcium [Mass/Vol] 9.1 mg/dL Invalid Interpretation Code 8.4 - 10.2 mg/dL AO ADM SS Chloride [Moles/Vol] 101 mmol/L Invalid Interpretation Code 98 - 107 mmol/L AO ADM SS CO2 [Moles/Vol] 26 mmol/L Invalid Interpretation Code 23 - 31 mmol/L AO ADM SS Creatinine [Mass/Vol] 1.46 mg/dL Invalid Interpretation Code 0.70 - 1.30 mg/dL AO ADM SS Electrolyte Balance 12.0 mEq/L Invalid Interpretation Code 4.0 - 15.0 mEq/L AO ADM SS Glucose [Mass/Vol] 181 mg/dL Invalid Interpretation Code 83 - 110 mg/dL AO ADM SS Potassium [Moles/Vol] 5.4 mmol/L Invalid Interpretation Code 3.5 - 5.1 mmol/L AO ADM SS Sodium [Moles/Vol] 139 mmol/L Invalid Interpretation Code 136 - 145 mmol/L AO ADM SS Urea nitrogen [Mass/Vol] 27 mg/dL Invalid Interpretation Code 7 - 18 mg/dL AO ADM SS Urea nitrogen/Creatinine [Mass ratio] 18 ratio Invalid Interpretation Code 7 - 27 ratio AO ADM SS LABORATORYOrdered By: SYSTEM SYSTEM on 09-06-2021 GFR 58 ml/min/1.73sqm Invalid Interpretation Code AO Chemistry S GFR Non- 48 ml/min/1.73sqm Invalid Interpretation Code AO Chemistry S Vital Signs Date Time Vital Sign Value Performing Clinician Facility 04-17-2025 09:18-0400 Body height 175.[address] Noemi Fernandez DO Work Phone: [facility] 04-17-2025 09:18-0400 Body mass index (BMI) [Ratio] 29.1 kg/m2 Dr. Noemi Fernandez DO Work Phone: [facility] 04-17-2025 09:18-0400 Body temperature 96.8 [degF] Dr. Noemi Fernandez DO Work Phone: [facility] 04-17-2025 09:18-0400 Body weight 89.[address] Noemi Fernandez DO Work Phone: [facility] 04-17-2025 09:18-0400 Diastolic blood pressure 83 mm[Hg] Dr. Noemi Fernandez DO Work Phone: [facility] 04-17-2025 09:18-0400 Heart rate 81 /min Dr. Noemi Fernandez DO Work Phone: [facility] 04-17-2025 09:18-0400 Respiratory rate 18 /min Dr. Noemi Fernandez DO Work Phone: [facility] 04-17-2025 09:18-0400 SaO2% (BldA) [Mass fraction] 93 % Dr. Noemi Fernandez DO Work Phone: [facility] 04-17-2025 09:18-0400 Systolic blood pressure 157 mm[Hg] Dr. Noemi Fernandez DO Work Phone: [facility] 04-15-2025 14:43-0400 Body mass index (BMI) [Ratio] 29.2 kg/m2 Dr. Noemi Fernandez DO Work Phone: [facility] 04-15-2025 14:43-0400 Body temperature 97.8 [degF] Dr. Noemi Fernandez DO Work Phone: [facility] 04-15-2025 14:43-0400 Body weight 90.[address] Noemi Fernandez DO Work Phone: [facility] 04-15-2025 14:43-0400 Diastolic blood pressure 82 mm[Hg] Dr. Noemi Fernandez DO Work Phone: [facility] 04-15-2025 14:43-0400 Heart rate 84 /min Dr. Noemi Fernandez DO Work Phone: [facility] 04-15-2025 14:43-0400 Respiratory rate 18 /min Dr. Noemi Fernandez DO Work Phone: [facility] 04-15-2025 14:43-0400 SaO2% (BldA) [Mass fraction] 96 % Dr. Noemi Fernandez DO Work Phone: [facility] 04-15-2025 14:43-0400 Systolic blood pressure 165 mm[Hg] Dr. Noemi Fernandez DO Work Phone: [facility] 04-10-2025 14:48-0400 Body mass index (BMI) [Ratio] 29.4 kg/m2 Dr. Noemi Fernandez DO Work Phone: [facility] 04-10-2025 14:48-0400 Body temperature 97.1 [degF] Dr. Noemi Fernandez DO Work Phone: [facility] 04-10-2025 14:48-0400 Body weight 90.[address] Noemi Fernandez DO Work Phone: [facility] 04-10-2025 14:48-0400 Diastolic blood pressure 74 mm[Hg] Dr. Noemi Fernandez DO Work Phone: [facility] 04-10-2025 14:48-0400 Heart rate 63 /min Dr. Noemi Fernandez DO Work Phone: [facility] 04-10-2025 14:48-0400 Respiratory rate 18 /min Dr. Noemi Fernandez DO Work Phone: [facility] 04-10-2025 14:48-0400 SaO2% (BldA) [Mass fraction] 94 % Dr. Noemi Fernandez DO Work Phone: [facility] 04-10-2025 14:48-0400 Systolic blood pressure 130 mm[Hg] Dr. Noemi Fernandez DO Work Phone: [facility] 03-19-2024 16:13-0400 Blood Pressure Cuff Size RACHAEL LYNCH MD [facility] 03-19-2024 16:13-0400 Blood Pressure Location RACHAEL LYNCH MD [facility] 03-19-2024 16:13-0400 Blood Pressure Method RACHAEL LYNCH MD [facility] 03-19-2024 16:13-0400 Body height 162.6 cm RACHAEL LYNCH MD [facility] 03-19-2024 16:13-0400 Body temperature 97.16 [degF] RACHAEL LYNCH MD [facility] 03-19-2024 16:13-0400 Body weight 95.5 kg RACHAEL LYNCH MD [facility] 03-19-2024 16:13-0400 Diastolic Blood Pressure Non-Invasive 74 mm[Hg] RACHAEL LYNCH MD [facility] 03-19-2024 16:13-0400 Heart rate 64 /min RACHAEL LYNCH MD [facility] 03-19-2024 16:13-0400 Reason For Taking VItal Signs RACHAEL LYNCH MD [facility] 03-19-2024 16:13-0400 Respiratory rate 18 /min RACHAEL LYNCH MD [facility] 03-19-2024 16:13-0400 Systolic Blood Pressure Non-Invasive 132 mm[Hg] RACHAEL LYNCH MD [facility] Encounters Encounter Date Encounter Type Care Provider Facility Start: 04-25-2025 ambulatory Howie A Ana Facility :[facility] Start: 04-18-2025 ambulatory Anshul Kelli [facility]: [facility] [facility] Start: 04-17-2025 ambulatory Noemi Rebecca [facility] Start: 04-17-2025 End: 04-17-2025 ambulatory Anshul Kelli Facility:[facility] Start: 04-15-2025 End: 04-15-2025 ambulatory Howie Perez Facility:[facility] Start: 04-15-2025 ambulatory [facility] Facility:[facility] Start: 04-10-2025 End: 04-10-[address] Anshul Pereira DO -[facility] Work Phone: Start: 04-10-2025 End: 04-10-2025 ambulatory Margaritalaury Steven Facility:[facility] Start: 04-07-2025 Non-patient / Non-visit Lisbeth Drake liz [facility] Work Phone: Start: 04-07-2025 ambulatory Lisbeth Sapp Facility :[facility] Start: 03-28-2025 End: 03-28-2025 ambulatory UNKNOWN PROVIDER Facility:[facility] Start: 03-17-2025 End: 03-17-2025 ambulatory MARGARITA STEVEN Facility:[facility] Start: 03-13-2025 End: 03-15-2025 ambulatory UNKNOWN PROVIDER Facility:[facility] Start: 03-13-2025 Encounter for other preprocedural examination ERNESTINA LEE [facility] Start: 03-11-2025 ambulatory UNKNOWN PROVIDER Facili ty:[facility] Start: 03-07-2025 End: 03-07-2025 ambulatory CLEVELAND LI Facility:[facility] Start: 02-20-2025 End: 02-20-2025 ambulatory UNKNOWN PROVIDER Facility:[facility] Start: 02-15-2025 End: 02-15-2025 Emergency department patient visit DR RANDAL DOS SANTOS DO [facility] Start: 02-12-2025 End: 02-12-2025 Telephone encounter Josephine Guerrero MD Work Phone: [facility] Otolaryngology (ENT) Comment on above: ENT Appointment Start: 01-21-2025 End: 01-21-2025 Emergency department patient visit YANET YAÑEZ MD 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, left, severe stage (Primary Dx); Cataract, nuclear sclerotic senile, left; Blind hypertensive eye, right Start: 01-14-2025 End: 01-14-2025 ambulatory GLENDY RENNER Facility:[facility] Start: 12-13-2024 End: 12-13-2024 Patient encounter procedure Mylene Wood MD Work Phone: Ophthalmology Comment on above: Epiretinal membrane (ERM) of both eyes (Primary Dx); Primary open angle glaucoma (POAG) of left eye, indeterminate stage; Cataract, nuclear sclerotic senile, bilateral Start: 12-13-2024 End: 12-13-2024 ambulatory SELF Facility:[facility] Start: 03-19-2024 End: 03-19-2024 Emergency department patient visit RACHAEL LYNCH MD [facility] Start: 10-24-2023 End: 10-24-[address] NOEMI FERNANDEZ DO Facility:[facility] Start: 10-24-2023 End: 10-24-[address] NOEMI FERNANDEZ DO [facility] Start: 09-01-2023 End: 09-01-[address] NOEMI A REBECCA DO Facility:[facility] Start: 09-01-2023 End: 09-01-[address] NOEMI FERNANDEZ DO [facility] Start: 11-15-2022 End: 11-15-[address] NOEMI MALIKR DO [facility] Start: 09-20-2022 End: 09-20-2022 Patient encounter procedure JEWELL XIAO ACCOUNTS SPECIALIST-SALES DIRECTOR [facility] Start: 09-21-2021 End: 09-21-2021 Patient encounter procedure LANG Ghotra RACHELLE ACCOUNTS SPECIALIST-SALES DIRECTOR [facility] Start: 09-20-2021 End: 09-24-2021 Outreach Lab JOSEPHINE ECHOLS MD [facility] Start: 09-07-2021 End: 09-07-2021 Patient encounter procedure LANG Ghotra RACHELLE ACCOUNTS SPECIALIST-SALES DIRECTOR [facility] Start: 09-06-2021 End: 09-10-2021 Outreach Lab JOSEPHINE ECHOLS MD [facility] Start: 08-10-2021 End: 08-10-2021 Patient encounter procedure JEWELL XIAO ACCOUNTS SPECIALIST-SALES DIRECTOR [facility] Procedures Date Procedure Procedure Detail Performing Clinician Start: 01-14-2025 Visual field xm uni/ bi w/interp extended exam Glendy Renner MD Work Phone: Start: 12-13-2024 End: 12-13-2024 Computerized ophthalmic imaging retina Lana Palomo OD Work Phone: Start: 10-25-2023 PSA screening RACHALE WHALEN MD Comment on above: Result Comment: Sherly PRESTON methodology. According to the [employer], Serum PSA should decrease and remain at undetectable levels after radical prostatectomy. The AUA defines biochemical recurrence as an initial PSA value 0.2 ng/mL or greater followed by a subsequent confirmatory PSA value 0.2 ng/mL or greater. Values obtained with different assay methods or kits cannot be used interchangeably. Results cannot be interpreted as absolute evidence of the presence or absence of malignant disease. 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 ) LANG RACHELLE ACCOUNTS SPECIALISTVelti Removal implant superficial separate procedure JEWELL XIAO ACCOUNTS SPECIALISTVelti Vascular stent (phys ical object) JEWELL XIAO ACCOUNTS SPECIALISTVelti Plan of Treatment Date Care Activity Detail Author Start: 01-29-2026 End: 07-08-2026 CORNEAL TOPOGRAPHY ATLAS OU (BOTH EYES) CORNEAL TOPOGRAPHY ATLAS OU (BOTH EYES) [facility] Imaging Routine 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, left, severe stage Cataract, nuclear sclerotic senile, left Expected: 01/29/2026, Expires: 07/08/2026 [facility] Comment on above: Expected: 01/29/2026 , Expires: 07/08/2026 Start: 01-29-2026 End: 07-08-2026 IOL BIOMETRY W/ IOL CALC OU (BOTH EYES) IOL BIOMETRY W/ IOL CALC OU (BOTH EYES) [facility] Imaging Routine 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, left, severe stage Cataract, nuclear sclerotic senile, left Expected: 01/29/2026, Expires: 07/08/2026 [facility] Work Phone: Comment on above: Expected: 01/29/2026 , Expires: 07/08/2026 Start: 01-29-2026 End: 07-08-2026 OCT MACULA CIRRUS OU (BOTH EYES) OCT MACULA CIRRUS OU (BOTH EYES) [facility] Imaging Routine 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, left, severe stage Cataract, nuclear sclerotic senile, left Expected: 01/29/2026, Expires: 07/08/2026 [facility] Comment on above: Expected: 01/29/2026 , Expires: 07/08/2026 Start: 04-23-2025 Influenza vaccination Influenza Vacc ine (#1) [facility] Start: 2025 RSV Vaccine (1 - 1-dose 75+ series) RSV Vaccine (1 - 1-dose 75+ series) [facility] Start: 2025 RSV vaccine (adult) (1 - 1-dose 75+ series) RSV vaccine (adult) (1 - 1-dose 75+ series) [facility] Start: 04-18-2025 MRI of brain with contrast Brain W/WO Contrast [facility] Start: 04-18-2025 Patient encounter procedure Registered Clinical -MRI - [facility] Work Phone: Start: 04-17-2025 Non-patient / Non-visit Non-patient / Non-visit -[facility] Start: 04-17-2025 Registered Recurring Registered Recu rring -Radiation Oncology Start: 04-17-2025 End: 04-17-2025 Patient encounter procedure Cancer of supraglottis -[facility] Work Phone: Start: 04-15-2025 End: 04-15-2025 Patient encounter procedure Squamous cell carcinoma of larynx -[facility] Work Phone: Start: 04-15-2025 Positron emission tomography with computed tomography [facility] Start: 03-24-2025 Influenza vaccination Influenz a Vaccine (Season Ended) [facility] Start: 02-11-2025 End: 02-11-2025 Patient encounter procedure 02/11/2025 2:15 PM EDT Office Visit [facility] Ophthalmology [address] [address] Glendy Renner MD [address] [address] 4 wks Intraocular pressure check with Intraocular lens calcs MAY OVERBOOK OR PUT ON ANTHONY schedule on a Jud/ day. Ophthalmology Comment on above: 4 wks Intraocular pr essure check with Intraocular lens calcs MAY OVERBOOK OR PUT ON ANTHONY schedule on a Jud/ day. Start: 01-21-2025 Welcome to Medicare Visit (G0402) Welcome to Medicare Visit (G0402) [facility] Start: 01-14-2025 End: 01-14-2025 Patient encounter procedure 01/14/2025 12:45 PM EDT Office Visit [facility] Ophthalmology [address] [address] Glendy Renner MD [address] [address] Return to clinic [address] Renner [facility] Ophthalmology Comment on above: Return to clinic [address] Renner [facility] Start: 07-24-2024 Advance Directive Discussion Advance Directive Discussion [facility] Start: 07-24-2024 Medicare Advantage Annual Wellness Visit Medicare Advantage Annual Wellness Visit [facility] Start: 03-24-2024 COVID-19 Vaccine ( season) COVID-19 Vaccine ( season) [facility] Start: 03-24-2024 Covid-19 Vaccine ( season) Covid-19 Vaccine ( season) [facility] Start: 02-09-2021 Pneumococcal Vaccine : 50+ (3 of 3 - PCV20 or PCV21) Pneumococcal Vaccine: 50+ (3 of 3 - PCV20 or PCV21) [facility] Start: 09-18-2014 Shingrix Vaccine (2 of 3) Shingrix Vaccine (2 of 3) [facility] Start: 07-25-2013 Urine microalbumin profile DTaP,Tdap,Td Vaccine (1 - Tdap) [facility] Start: 2010 Hepatitis B (HBV) Vaccine (optional start 60+ years) Hepatitis B (HBV) Vaccine (optional start 60+ years) [facility] Start: 2000 Pneumococcal vaccination Pneumococcal Vaccine(s) (50+ yrs) (1 of 1 - PCV) [facility] Start: 2000 Shingles (RZV) Vacci ne (1 of 2) Shingles (RZV) Vaccine (1 of 2) [facility] Start: 1995 Diabetes Screening Diabetes Screenin g [facility] Start: 1995 Screening for malignant neoplasm of colon [facility] Start: 1985 Lipid panel [facility] Start: 1969 Hepatitis A (HAV) Vaccine (optional start 19+ years) Hepatitis A (HAV) Vaccine (optional start 19+ years) [facility] Start: 1968 Anxiety Screening Anxiety Screening [facility] Start: 1968 Depression Screening Depression Scre ening [facility] Start: 1968 Hepatitis C screening C [facility] Start: 1968 Tdap Booster Tdap Booster [facility] Start: 1950 Abdominal aortic aneurysm screening Abdominal Aortic Aneurysm Screening [facility] Start: 1950 Screening for malignant neoplasm of colon Colonoscopy [facility] Immunizations Immunization Date Immunization Notes Care Provider Geraldine martinez 03-04-2021 SARS-CoV-2 mRNA (tozinameran) vaccine JEWELL XIAO ACCOUNTS SPECIALIST-SALES DIRECTOR [facility] 02-05-2021 SARS-CoV-2 mRNA (tozinameran) vaccine JEWELL XIAO ACCOUNTS SPECIALIST-SALES DIRECTOR [facility] 04-30-2018 influenza virus vacc ine, unspecified formulation RACHAEL LYNCH MD [facility] 08-01-2017 influenza virus vacc ine, unspecified formulation RACHAEL LYNCH MD [facility] 05-16-2016 influenza virus vacc ine, unspecified formulation RACHAEL LYNCH MD [facility] 02-10-2016 pneumococcal conjuga te vaccine, 13 valent JEWELL XIAO ACCOUNTS SPECIALIST-SALES DIRECTOR [facility] 07-24-2014 pneumococcal polysaccharide vaccine, 23 valent JEWELL XIAO ACCOUNTS SPECIALIST-SALES DIRECTOR [facility] 07-24-2014 zoster vaccine, live JEWELL XIAO ACCOUNTS SPECIALIST-SALES DIRECTOR [facility] 07-24-2013 tetanus and diphther ia toxoids, adsorbed, preservative free, for adult use (5 Lf of tetanus toxoid and 2 Lf of diphtheria toxoid) JEWELL XIAO ACCOUNTS SPECIALIST-SALES DIRECTOR [facility] Payers Date Payer Category Payer Self-pay [id number] 2024 Medicare (Managed Care) [id number]. [id number] 2024 Unknown [id number] 2024 Medicaid [id number] 2024 Private Health Insurance [id number] 2023 Private Health Insurance [id number] 2023 Private Health Insurance [id number] 2023 Unknown [id number] 2022 Private Health Insurance [facility] [id number] 2021 Medicare [id number] 2016 Private Health Insurance [id number] 1950 Unknown [id number] 2.16.8 [id number] 1950 Unknown [id number] 2.16.8 40.1.131292.3.579.2.627 1950 Unknown [id number] 2.16.8 40.1.017446.3.579.2.627 1950 Unknown [id number] 2.16. 840.1.179463.3.579.2.627 1950 Unknown [id number] 2.16. 840.1.928165.3.579.2.627 1950 Unknown [id number] 2.16. 840.1.847246.3.579.2.732 1950 Unknown [id number] 2.16. 840.1.731128.3.579.2.732 1950 Unknown [id number] 2.16. 840.1.680860.3.579.2.732 1950 Unknown [id number] 2.16. 840.1.882940.3.579.2.732 1950 Unknown [id number] 2.16. 840.1.205414.3.579.2.732 1950 Unknown [id number] 2.16. 840.1.267380.3.579.2.732 Unknown [id number] 2.16.8 40.1.332033.3.579.2.462 Unknown [id number] 2.16.8 40.1.359847.3.579.2.462 Unknown [id number] 2.16.8 40.1.758816.3.579.2.462 Unknown [id number] 2.16.8 40.1.436663.3.579.2.462 Unknown [id number] 2.16.8 40.1.541635.3.579.2.462 Unknown [id number] 2.16.8 40.1.625340.3.579.2.462 Unknown [id number] 2.16.8 40.1.372582.3.579.2.462 Unknown [id number] 2.16.8 40.1.272635.3.579.2.462 Unknown [id number] 2.16.8 40.1.562183.3.579.2.462 Social History Date Type Detail Facility Start: 04-25-2019 End: 09-05-2023 Heavy tobacco smoker (finding) [facility] Comment on above: Daily Tobacco/Smoke Exposure Start: 1950 Sex Assigned At Male A [facility] Start: 11-06-2023 Tobacco smoking status Light t obacco smoker (finding) [facility] Comment on above: Daily Tobacco/Smoke Exposure Start: 12-13-2024 [facility]as[facility] tobacco smoker [facility] History of tobacco use Cigarette Smoker C [facility] Start: 12-13-2024 Tobacco use and exposure Former smokeless tobacco user [facility] Start: 12-17-2024 End: 01-14-2025 History of Social function [facility] Start: 12-17-2024 End: 01-14-2025 Tobacco use panel [facility] Start: 1950 Sex assigned at Not on file C [facility] National Score (1-10 0), lower number is lower risk 54 [facility] Sexual Orientation [facility] ospital [facility] Start: 01-16-2019 End: 02-12-2025 Sex Male (finding) [facility] Tobacco smoking consumption unknown [facility] Start: 04-17-2025 Tobacco [facility] Smokes tobacco daily (finding) [facility] Medical Equipment Procedure Code Equipment Code Equipment Origin al Text Equipment Identifier Dates See Instructions , check blood sugar once daily. E11.9. change to brand covered by insurance, # 50 EA, 11 Refill(s), Pharmacy: [facility], 173.4, cm, 11/07/24 10:01:00 EDT, Height, 95.2, kg, 11/07/24 10:01:00 EDT, Dosing Weight Start: 11-07-2024 See Instructions , check blood sugar once daily. E11.9. change to brand covered by insurance, # 100 EA, 3 Refill(s), Pharmacy: [facility], 173.4, cm, 11/07/24 10:01:00 EDT, Height, 95.2, kg, 11/07/24 10:01:00 EDT, Dosing Weight Start: 11-07-2024 See Instructions , check blood sugar once daily. E11.9. change to brand covered by insurance, # 50 EA, 11 Refill(s), Pharmacy: [facility], 173.4, cm, 11/07/24 10:01:00 EDT, Height, 95.2, kg, 11/07/24 10:01:00 EDT, Dosing Weight Start: 11-07-2024 See Instructions , check blood sugar once daily. E11.9. change to brand covered by insurance, # 100 EA, 3 Refill(s), Pharmacy: [facility], 173.4, cm, 11/07/24 10:01:00 EDT, Height, 95.2, kg, 11/07/24 10:01:00 EDT, Dosing Weight Start: 11-07-2024 Functional Status Date Assessment Result Facility 03-19-2024 Functional Status Awake, Resting [facility] Mental Status Date Assessment Result Facility 03-19-2024 Mental Status Orientation Oriented x 4 [facility] Clinical Notes 11-15-2022 to 04-10-2025 Note Date & Type Note Facility 04-10-2025 Progress note Note Date/Time April 10, 2025 3:44pm [facility] [address] [place], [place] [address] [address] OFFICE VISIT Date of Service: 04/10/25 1427 MR#: [id number] Acct: [id number] Name: BERNARD MERAZ #: [id number] : 1950 From: Anshul Tory king DO Age/Sex: 74/M Location[place] [facility] Status: Signed Intake Vital Signs 04/10/25 14:48 Height 5 ft 9 in Weight: 199 lb 3 oz BMI 29.4 BP 130/74 H Blood Pressure Location Rt brachial Position Sitting Respiration 18 Pulse 63 Pulse Source Monitor Temp 97.1 F L Temperature Source Temporal Artery Pulse Oximetry (%) 94 Oxygen Delivery Method room air Intake Is patient in pain?: Yes Allergies Unable to Assess Allergy (Unverified 04/10/25 14:38) Medications ?Medication ?Instructions ?Recorded ?Confirmed ?Type amlodipine 5 mg tablet 5 mg PO QDAY 04/07/25 History atorvastatin 40 mg tablet (Lipitor) 40 mg PO QHS 04/0704/10/25 History brimonidine 0.2 % eye drops 1 drp ophthalmic (eye) TID 04/07/25 04/10/25 History carvedilol 25 mg tablet 25 mg PO BID 04/07/25 History dorzolamide 2 % eye drops 1 drp ophthalmic (eye) BID 0 04/07/25 04/10/25 History dorzolamide 22.3 mg-timolol 6.8 1 drp ophthalmic (eye) BID 04/07/25 04/10/25 History mg/mL eye drops (Cosopt) famotidine 20 mg tablet 20 mg PO QDAY 04/07/2504/10 History losartan 50 mg tablet 50 mg PO BID 04/07/25 History metformin 500 mg tablet 500 mg PO BID 04/07/2504/10 History tramadol 50 mg tablet 50 mg PO Q6H PRN 04/07/25 History umeclidinium 62.5 mcg-vilanterol 1 inh inhalation QDAY 04/07/25 04/10/25 History 25 mcg/actuation powdr for inhalation (Anoro Ellipta) Have you fallen in the past year?: No PFSH PFSH Medical History (Updated 04/10/25 @ 14:47 by Lidia Pereira LPN) COPD (chronic obstructive pulmonary disease) Acid reflux High cholesterol Hypertension Diabetes Blindness of right eye Home Medications ?Medication ?Instructions ?Recorded ?Last Taken ?Type amlodipine 5 mg tablet 5 mg PO QDAY 04/07/25 Unknow n History atorvastatin 40 mg tablet (Lipitor) 40 mg PO QHS 04/07 Unknown History brimonidine 0.2 % eye drops 1 drp ophthalmic (eye) TID 04/07/25 Unknown History carvedilol 25 mg tablet 25 mg PO BID 04/07/25 Unknow n History dorzolamide 2 % eye drops 1 drp ophthalmic (eye) BID 0 04/07/25 Unknown History dorzolamide 22.3 mg-timolol 6.8 1 drp ophthalmic (eye) BID 04/07/25 Unknown History mg/mL eye drops (Cosopt) famotidine 20 mg tablet 20 mg PO QDAY 04/07/25 Unkno wn History losartan 50 mg tablet 50 mg PO BID 04/07/25 Unknow n History metformin 500 mg tablet 500 mg PO BID 04/07/25 Unkno wn History tramadol 50 mg tablet 50 mg PO Q6H PRN 04/07/25 Un known History umeclidinium 62.5 mcg-vilanterol 1 inh inhalation QDAY 04/07/25 Unknown History 25 mcg/actuation powdr for inhalation (Anoro Ellipta) Allergy/AdvReac Type Severity Reaction Status Date / Time Unable to Assess Allergy Unverified 04/10/25 14:38 Family History (Updated 04/10/25 @ 14:47 by Lidia Pereira LPN) Mother Diabetes Father Cirrhosis Brother COPD (chronic obstructive pulmonary disease) Surgical History (Updated 04/10/25 @ 14:43 by Lidia Pereira LPN) S/P triple vessel bypass Social History (Updated 04/10/25 @ 14:48 by Lidia Pereira LPN) Smoking Status: Current every day smoker Tobacco: How many years used: 40 alcohol intake: never substance use type: marijuana Referring Provider: Margarita Steven MD Diagnosis: Bernard Meraz is a 74 year-old male diagnosed with clinical stage III (cT3 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 History of Present Illness: 01/21/2025: Patient completed CT neck with contrast.? This demonstrated avidly enhancing supraglottic mass measuring 2.1 x 3.6 x 3.8 cm involving the epiglottis, AE folds, bilateral false cords, anterior commissure, and anterior most bilateral vocal cords.? No significant airway narrowing is noted.? There isprominence of the central and right central nasopharyngeal soft tissues without discrete mass probably lymphoid hypertrophy.? No enlarged lymph nodes were noted.? No evidence of metastatic disease is appreciated. 03/17/2025: Patient completed direct laryngoscopy with biopsy.? This demonstratedright asymmetric submucosal fullness within the nasopharynx, no ulceration granularity or exophytic appearance.? Biopsy was performed.? There is a slightlyexophytic, granular, friable mass of the supraglottis involving the laryngeal surface of the epiglottis, petiole, bilateral AE folds, right false cord.? No obstruction, no involvement of the ventricle, true cords, arytenoids, lingual surface of the epiglottis, vallecula.? Biopsies performed and mild debulking.? Pathology was consistent with invasive moderately differentiated squamous cell carcinoma.? Biopsy of the nasopharynx was negative for malignancy. 03/18/2025: Patient was reviewed by [facility] tumor board and recommended surgery versus chemoradiation. 03/28/2025: Patient was seen by ENT at [facility].? Discussed that he is clinically staged as a T3 N0 lesion based on radiographic findings of preepiglottic invasion, discussed surgery and chemoradiation.? Patient desired to proceed withchemoradiation. Radiation Treatment History: No prior history of radiation therapy. No pacemaker. No diagnosis of radiosensitizing comorbidity. Interval History: Patient presents for initial consultation. He does report symptoms including discomfort while swallowing which is mild to moderate. He has lost about 30 pounds over the last 6 months which he believes is related to less intake but hedoes think he has a good appetite. Over the last 2 months he has had some increased hoarseness which has progressively worsened as well as bilateral ear pain. He is edentulous without oral cavity pain or new problems. He denies drymouth or taste changes. He does have a history of about 20 to 30 years of 1 pack/day smoking and is now down to 1/4 pack/day trying to quit. 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 He does have some shortness of breath with exertion and uses an inhaler a couple times per week when he is out of breath, he denies daily inhaler use and does not use oxygen. He denies a cough or hemoptysis. He does report some difficulty with swallowing including some coughing or choking at times. He reports having low energy. He denies headache, nausea/vomiting, bone pain. He does live alone but his son lives next-door. He can complete ADLs without much difficulty and denies having otherproblems or concerns at this time. Review of Systems: A 12-point review of systems was completed and was negative except for what is noted in the HPI/Interval History and by the nurse. Physical Exam: Weight: 199 lbs 3 oz ECO KARNOFSKY SCORE: 60% CONSTITUTIONAL: Well-developed, well-nourished, and in no apparent distress. HEENT: Mucous membranes moist. No evidence of thrush or lesions within the visualized oropharynx or oral cavity. No trismus. Edentulous. Pupils are equal, round, and reactive to light and accommodation. Extraocular movements are intact. Sclerae are anicteric. NECK: Supple, no thyromegaly, and non-tender. Trachea midline. No cervical or supraclavicular adenopathy noted CARDIAC: Regular rate and rhythm. Normal S1, S2. No murmurs, rubs, or gallops. PULMONARY/CHEST: Lungs are clear to auscultation and percussion bilaterally. No wheezes, rhonchi, or crackles noted. No increased work of breathing. EXTREMITIES: Full range of motion in all four extremities. No evidence of edema. PSYCHIATRIC: Appropriate mood and affect for the clinical situation. Imaging: As per HPI Laboratory Data: None Assessment & Plan Assessment/Plan (1) Squamous cell carcinoma of larynx: PLAN: Plan Assessment: Bernard Meraz is a 74 year-old male diagnosed with clinical stage III (cT3 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 Plan: Patient presents for initial consultation. He does have a fairly good performance status but does also have multiple medical comorbidities. He has symptoms of disease including hoarseness, bilateral ear pain, weight loss, some difficulty with swallowing. We did review recommendation for smoking cessation which she is trying to do. I had a detailed discussion with the patient regarding the diagnosis of clinical stage III invasive moderately differentiatedsquamous cell carcinoma of the supraglottic larynx.? We reviewed the findings ofthe CT which demonstrated disease involving supraglottic region including the epiglottis, bilateral AE fold and right false cord, there is also preepiglottic fat space invasion.? No evidence of adenopathy.? Good vocalization.? We did review the use of definitive chemoradiation.? He was seen at ENT at [facility] [place] and also discussed at the [facility] [place] tumor board and recommendation was to proceed with chemoradiation.? PET scan will be completed next week to finalize staging.? We reviewed the need to have consultation with medical oncology to discuss concurrent chemotherapy, he is scheduled next week. We also reviewed the benefitof a port and PEG and will refer to surgery to discuss this further. We also reviewed the need to have a consultation with our speech therapist and dietitianduring treatment. I discussed the logistics of external beam radiation therapy including CT simulation for radiation therapy planning followed by daily treatment for approximately 6.5 weeks. I explained the importance of coming to all radiation appointments and not prolonging the course of therapy.? The risks, benefits, andalternatives to radiation therapy were reviewed and all questions were addressed.? I discussed potential toxicity from radiation therapy which includesbut is not limited to, acute side effects in the form of skin reactions (rednessor darkening or desquamation), irritation/sores in the mouth and throat causing pain while swallowing, loss of neck/facial hair, hoarseness, dryness of mouth, loss of taste sensation and late side effects in the form of persistent dryness of the mouth, loss of taste sensation, fibrosis/ thickening of the skin in the treated area, decrease in jaw mobility, damage to neck blood vessels, damage to brachial plexus resulting in arm weakness/numbness, radionecrosis, dental complications, difficulty healing after future surgery, hearing decrease and rare chance of spinal cord damage, were also explained to the patient. ?I reviewed use of a PEG tube to provide nutritional support and explained the prosand cons of inserting the PEG tube up front.? I would recommend PEG tube insertion given the disease location and likely toxicity precluding normal swallowing.? He was advised about toxicity management during treatment includinglotion use, recommended gargling solutions, avoidance of shaving, and hand outs were provided to further explain possible toxicity and management.? He was in agreement with my recommendations and did desire to proceed with chemoradiation.Will complete PET scan to ensure no metastatic disease and will have him return for CT simulation in the near future and he was instructed to call with any further questions or concerns in the interim. Thank you for allowing me to participate in the management and care of your patient. If I may answer any questions in the interim, please do not hesitate tocontact me at any time. Anshul Pereira DO, MS Acid Conditioner, Department of Radiation Oncology [facility] Coding Level of Care Code Off vis,new,level 5 Diagnoses Squamous cell carcinoma of larynx C32.9 04/10/25 1544 <Electronically signed by Anshul Pereira DO> Date _ [facility] Signature: Date (if applicable) CC: Margarita Steven MD; Dr. Noemi Fernandez DO ~ [facility] Work Phone: 1(390) 537-660309-18-2025 Evaluation note* Diagnosis Onset Date Resolution Status Admit Date Squamous cell carcinoma of larynx acute April 10, 2025 2:21pm Squamous cell carcinoma of larynx acute April 15, 2025 2:09pm Cancer of supraglottis acute 2024 9:14am [facility] Work Phone: 1(516) 942-301409-18-2025 [facility] [address] [place] [address] OFFICE VISIT Date of Service: 04/10/25 1427 MR#: [id number] Acct: [id number] Name: BERNARD MERAZ #: [id number] : 1950 From: Anshul king DO Age/Sex: 74/M Location[place] [facility] [place] Status: Signed Intake Vital Signs 04/10/25 14:48 Height 5 ft 9 in Weight: 199 lb 3 oz BMI 29.4 BP 130/74 H Blood Pressure Location Rt brachial Position Sitting Respiration 18 Pulse 63 Pulse Source Monitor Temp 97.1 F L Temperature Source Temporal Artery Pulse Oximetry (%) 94 Oxygen Delivery Method room air Intake Is patient in pain?: Yes Allergies Unable to Assess Allergy (Unverified 04/10/25 14:38) Medications ?Medication ?Instructions ?Recorded ?Confirmed ?Type amlodipine 5 mg tablet 5 mg PO QDAY 04/07/25 History atorvastatin 40 mg tablet (Lipitor) 40 mg PO QHS 04/0704/10/25 History brimonidine 0.2 % eye drops 1 drp ophthalmic (eye) TID 04/07/25 04/10/25 History carvedilol 25 mg tablet 25 mg PO BID 04/07/25 History dorzolamide 2 % eye drops 1 drp ophthalmic (eye) BID 0 04/07/25 04/10/25 History dorzolamide 22.3 mg-timolol 6.8 1 drp ophthalmic (eye) BID 04/07/25 04/10/25 History mg/mL eye drops (Cosopt) famotidine 20 mg tablet 20 mg PO QDAY 04/07/2504/10 History losartan 50 mg tablet 50 mg PO BID 04/07/25 History metformin 500 mg tablet 500 mg PO BID 04/07/2504/10 History tramadol 50 mg tablet 50 mg PO Q6H PRN 04/07/25 History umeclidinium 62.5 mcg-vilanterol 1 inh inhalation QDAY 04/07/25 04/10/25 History 25 mcg/actuation powdr for inhalation (Anoro Ellipta) Have you fallen in the past year?: No PFSH PFSH Medical History (Updated 04/10/25 @ 14:47 by Lidia Pereira LPN) COPD (chronic obstructive pulmonary disease) Acid reflux High cholesterol Hypertension Diabetes Blindness of right eye Home Medications ?Medication ?Instructions ?Recorded ?Last Taken ?Type amlodipine 5 mg tablet 5 mg PO QDAY 04/07/25 Unknow n History atorvastatin 40 mg tablet (Lipitor) 40 mg PO QHS 04/07 Unknown History brimonidine 0.2 % eye drops 1 drp ophthalmic (eye) TID 04/07/25 Unknown History carvedilol 25 mg tablet 25 mg PO BID 04/07/25 Unknow n History dorzolamide 2 % eye drops 1 drp ophthalmic (eye) BID 0 04/07/25 Unknown History dorzolamide 22.3 mg-timolol 6.8 1 drp ophthalmic (eye) BID 04/07/25 Unknown History mg/mL eye drops (Cosopt) famotidine 20 mg tablet 20 mg PO QDAY 04/07/25 Unkno wn History losartan 50 mg tablet 50 mg PO BID 04/07/25 Unknow n History metformin 500 mg tablet 500 mg PO BID 04/07/25 Unkno wn History tramadol 50 mg tablet 50 mg PO Q6H PRN 04/07/25 Un known History umeclidinium 62.5 mcg-vilanterol 1 inh inhalation QDAY 04/07/25 Unknown History 25 mcg/actuation powdr for inhalation (Anoro Ellipta) Allergy/AdvReac Type Severity Reaction Status Date / Time Unable to Assess Allergy Unverified 04/10/25 14:38 Family History (Updated 04/10/25 @ 14:47 by Lidia Pereira LPN) Mother Diabetes Father Cirrhosis Brother COPD (chronic obstructive pulmonary disease) Surgical History (Updated 04/10/25 @ 14:43 by Lidia Pereira LPN) S/P triple vessel bypass Social History (Updated 04/10/25 @ 14:48 by Lidia Pereira LPN) Smoking Status: Current every day smoker Tobacco: How many years used: 40 alcohol intake: never substance use type: marijuana Referring Provider: Margarita Steven MD Diagnosis: Bernard Meraz is a 74 year-old male diagnosed with clinical stage III (cT3 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 History of Present Illness: 01/21/2025: Patient completed CT neck with contrast.? This demonstrated avidly enhancing supraglotticmass measuring 2.1 x 3.6 x 3.8 cm involving the epiglottis, AE folds, bilateral false cords, anterior commissure, and anterior most bilateral vocal cords.? No significant airway narrowing is noted.? There isprominence of the central and right central nasopharyngeal soft tissues without discrete mass probably lymphoid hypertrophy.? No enlarged lymph nodes were noted.? No evidence of metastatic disease is appreciated. 03/17/2025: Patient completed direct laryngoscopy with biopsy.? This demonstratedright asymmetric submucosal fullness within the nasopharynx, no ulceration granularity or exophytic appearance.? Biopsywas performed.? There is a slightlyexophytic, granular, friable mass of the supraglottis involving the laryngeal surface of the epiglottis, petiole, bilateral AE folds, right false cord.? No obstruction, no involvement of the ventricle, true cords, arytenoids, lingual surface of the epiglottis, vallecula.? Biopsies performed and mild debulking.? Pathology was consistent with invasive moderately differentiated squamous cell carcinoma.? Biopsy of the nasopharynx was negative for malignancy. 03/18/2025: Patient was reviewed by [facility] [place] tumor board and recommended surgery versus chemoradiation. 03/28/2025: Patient was seen by ENT at [facility] [place].? Discussed that he is clinically staged as a T3 N0 lesion based on radiographic findings of preepiglottic invasion, discussed surgery and chemoradiation.? Patient desired to proceed withchemoradiation. Radiation Treatment History: No prior history of radiation therapy. No pacemaker. No diagnosis of radiosensitizing comorbidity. Interval History: Patient presents for initial consultation. He does report symptoms including discomfort while swallowing which is mild to moderate. He has lost about 30 pounds over the last 6 months which he believes is related to less intake but hedoes think he has a good appetite. Over the last 2 months he has had some increased hoarseness which has progressively worsened as well as bilateral ear pain. He is edentulous without oral cavity pain or new problems. He denies drymouth or taste changes. He does have a history of about 20 to 30 years of 1 pack/day smoking and is now down to 1/4 pack/day trying to quit. 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 He does have some shortness of breath with exertion and uses an inhaler a couple times per week when he is out of breath, he denies daily inhaler use and does not use oxygen. He denies a cough or hemoptysis. He does report some difficulty with swallowing including some coughing or choking at times. He reports having low energy. He denies headache, nausea/vomiting, bone pain. He does live alone but his son lives next-door. He can complete ADLswithout much difficulty and denies having otherproblems or concerns at this time. Review of Systems: A 12-point review of systems was completed and was negative except for what is noted in the HPI/Interval History and by the nurse. Physical Exam: Weight: 199 lbs 3 oz ECO KARNOFSKY SCORE: 60% CONSTITUTIONAL: Well-developed, well-nourished, and in no apparent distress. HEENT: Mucous membranes moist. No evidence of thrush or lesions within the visualized oropharynx ororal cavity. No trismus. Edentulous. Pupils are equal, round, and reactive to light and accommodation. Extraocular movements are intact. Sclerae are anicteric. NECK: Supple, no thyromegaly, and non-tender. Trachea midline. No cervical or supraclavicular adenopathy noted CARDIAC: Regular rate and rhythm. Normal S1, S2. No murmurs, rubs, or gallops. PULMONARY/CHEST: Lungs are clear to auscultation and percussion bilaterally. No wheezes, rhonchi, or crackles noted. No increased work of breathing. EXTREMITIES: Full range of motion in all four extremities. No evidence of edema. PSYCHIATRIC: Appropriate mood and affect for the clinical situation. Imaging: As per HPI Laboratory Data: None Assessment & Plan Assessment/Plan (1) Squamous cell carcinoma of larynx: PLAN: Plan Assessment: Bernard Meraz is a 74 year-old male diagnosed with clinical stage III (cT3 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 Plan: Patient presents for initial consultation. He does have a fairly good performance status but does also have multiple medical comorbidities. He has symptoms of disease including hoarseness, bilateral ear pain, weight loss, some difficulty with swallowing. We did review recommendation for smoking cessation which she is trying to do. I had a detailed discussion with the patient regarding the diagnosis of clinical stage III invasive moderately differentiatedsquamous cell carcinoma of the supraglottic larynx.? We reviewed the findings ofthe CT which demonstrated disease involving supraglottic region including the epiglottis, bilateral AE fold and right false cord, there is also preepiglottic fatspace invasion.? No evidence of adenopathy.? Good vocalization.? We did review the use of definitive chemoradiation.? He was seen at ENT at [facility] [place] and also discussed at the [facility] [place] tumor board and recommendation was to proceed with chemoradiation.? PET scan will be completed next week to finalize staging.? We reviewed the need to have consultation with medical oncology to discuss concurrent chemotherapy, he is scheduled next week. We also reviewed the benefitof a port and PEG and will refer to surgery to discuss this further. We also reviewed the need to have a consultation with our speech therap ist and dietitianduring treatment. I discussed the logistics of external beam radiation therapy including CT simulation for radiation therapy planning followed by daily treatment for approximately 6.5 weeks. I explained the importanceof coming to all radiation appointments and not prolonging the course of therapy.? The risks, benefits, andalternatives to radiation therapy were reviewed and all questions were addressed.? I discussed potential toxicity from radiation therapy which includesbut is not limited to, acute side effectsin the form of skin reactions (rednessor darkening or desquamation), irritation/sores in the mouth and throat causing pain while swallowing, loss of neck/facial hair, hoarseness, dryness of mouth, loss of taste sensation and late side effects in the form of persistent dryness of the mouth, loss of taste sensation, fibrosis/ thickening of the skin in the treated area, decrease in jaw mobility, damage to neck blood vessels, damage to brachial plexus resulting in arm weakness/numbness, radionecrosis, dental complications, difficulty healing after future surgery, hearing decrease and rare chance of spinal cord damage, were also explained to the patient. ?I reviewed use of a PEG tube to provide nutritional support and explained the prosand cons of inserting the PEG tube up front.? I would recommend PEG tube insertion given the disease location and likely toxicity precluding normal swallowing.? He was advised about toxicity management during treatment includinglotion use, recommended gargling solutions, avoidance of shaving, and hand outs were provided to further explain possible toxicityand management.? He was in agreement with my recommendations and did desire to proceed with chemorad iation.Will complete PET scan to ensure no metastatic disease and will have him return for CT simulation in the near future and he was instructed to call with any further questions or concerns in theinterim. Thank you for allowing me to participate in the management and care of your patient. If I may answer any questions in the interim, please do not hesitate tocontact me at any time. Anshul Pereira DO, MS Acid Conditioner, Department of Radiation Oncology [facility] Coding Level of Care Code Off vis,new,level 5 Diagnoses Squamous cell carcinoma of larynx C32.9 04/10/25 1544 DO> Date _ Anshul Pereira DO [facility] Signature: Date (if applicable) CC: Margarita Steven MD; Dr. Noemi Fernandez DO ~ [facility]09-09-2025 [facility] called to request referral [facility] [id number] NoteMedical Oncology, Radiation Oncology, and PET scan referral faxed to [facility]. Colette Pete RNThe [facility] NotePre-Admission Testing Consultation Bernard Meraz, [id number] 74 year old Male 03/14/2025 Consult placed to PAT by Dr. Steven due to significant PMH of COPD, DM II, HTN, CABG PAT Triage Risk Score Total Score: 5 3 Patient last BP greater than 160/110. 2 Patient is on more than 2 antihypertension medications. Bernard Meraz is scheduled for LARYNGOSCOPY, DIRECT, ESOPHAGOSCOPY RIGID, ENDOSCOPY, NASAL with possible bioopsy on 03/17/2025. Pre-Op diagnosis of: Pre-Op Diagnosis Codes: Supraglottic mass [J38.7] Tobacco use disorder [F17.200] HISTORY OF PRESENT ILLNESS: Bernard Meraz is a 74 year old male pt who presents with supraglottic mass and history of tobacco used disorder. Reports of neck pain and soreness over the pass couple months. Reports of coughing , hemoptysis, difficulty swallowing and frequent choking. Currently denies fever and chills, new cough, SOB or CP.Patient is here for pre-admission optimization and education prior to surgery. RECENT ILLNESS: Serious illness or hospitalization within the last six months. No STOP BANG: STOP-BANG Row Name 03/13/25 0915 History of sleep apnea? No Snoring No Tired/Fatigued No Observed Apnea No Pressure: Hypertension Yes BMI greater than 35 0 Age greater than 50 1 Neck circ greater than 40cm (15.75) No Gender male? 1 Score 3 The patient either has diagnosed sleep apnea or is a STOP-BANG score >/=3. If +STOP-BANG, the patient was educated that sleep apnea may mean that they do not breathe well when they sleep and that there is no way to know for sure without testing. The patient was educated in lay terms that there is an increased risk of hypertension, coronary artery disease, stroke, and with sleep apnea. They may also have decreased cognition, quality of life, and more motor vehicle and work accidents. They were encouraged to discuss the topic further with their primary care provider if they had one. Any patient questions were addressed ALLERGIES: Allergies[1] Problem List[2] SOCIAL HISTORY: reports current drug use. 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 Cardiovascular (+) 4-10 METs, hypertension, CAD, coronary artery bypass graft (CABG 2021), hyperlipidemia (-) angina, HOBSON, PND, orthopnea Comment: Denies chest pain, SOB, HOBSON, dizziness, syncope and palpitations. GI/Hepatic/Renal (+) GERD Comment: Nocturia- 4-5x Heme/Other - negative ROS (-) no DVT Other ROS: Supraglottic mass Glaucoma, right eye blindness Hearing deficit- wears bilateral hearing aids PREVIOUS ANESTHETIC COMPLICATIONS: no history of difficult intubation , adverse effects of anesthetic agents, or family history of anesthesia-related problems, nor malignant hyperthermia CURRENT MEDICATION LIST: Current Outpatient Medications Medication Sig Dispense Refill famotidine (PEPCID) 20 MG tablet 20 mg. Anoro Ellipta 62.5-25 MCG/ACT AEPB inhalation powder timolol (TIMOPTIC) 0.5 % ophthalmic solution INSTILL 1 DROP INTO LEFT EYE TWICE A DAY (Patient not taking: Reported on 03/13/2025) losartan (COZAAR) 50 MG tablet Take 50 mg by mouth 2 times daily. metFORMIN (GLUCOPHAGE) 500 MG tablet Take 500 mg by mouth 2 times daily. HYDROcodone-Acetaminophen (NORCO) 5-325 mg per tablet TAKE 1 TABLET BY MOUTH 3 TIMES A DAY FOR 3 DAYS dorzolamide-timolol (COSOPT) 22.3-6.8 mg/mL ophthalmic solution 1 Drop by Ophthalmic route 2 times daily. CARvedilol (COREG) 25 MG tablet Take 25 mg by mouth 2 times daily. dorzolamide (TRUSOPT) 2 % ophthalmic solution 1 Drop by Ophthalmic route 2 times daily. atorvastatin (LIPITOR) 40 mg tablet brimonidine (ALPHAGAN) 0.2 % ophthalmic solution INSTILL 1 DROP INTO LEFT EYE 3 TIMES A DAY amLODIPine (NORVASC) 5 MG tablet Take 5 mg by mouth daily. (Patient not taking: Reported on 03/13/2025) No current facility-administered medications for this visit. HEIGHT: 5' 9 WEIGHT: Weight was 91.9 kg on 03/07/2025 BMI: 29.59 VITAL SIGNS: BP 165/80 Comment: manual Pulse 74 Temp 97.9 ???F (36.6 ???C) (Temporal) Resp 18 Ht 1.753 m (5' 9) Wt 90.9 kg (200 lb 6.4 oz) SpO2 98% BMI 29.59 kg/m??? PAIN ASSESSMENT: Severity: 3 Location: neck AIRWAY EXAM: Mallampati score: 2 TMD: Adequate Neck Extension/ Flexion: Adequate Mouth Opening: Adequate Dentition: Partials and Missing teeth Micrognathia/Overbite: No FUNCTIONAL CAPACITY: > 4 mets, can wlak 1 block, can walk around the grocery store, does moderate housework PHYSICAL EXAM: Eyes: Wears glasses, right eye blindness ENT: Neck suppl (more content not included)...[employer]07-31-2025 NotePatient scheduled for 03/07 PARWILLY. [facility] Referral in Media.[employer] [facility]07-26-2025 Hospital Discharge instructions Patient Education 02/15/2025 14:23:02 Mouth and Throat Tumors Mouth and Throat Tumors Finding out you have a tumor is scary. You may wonder what effect it will have on your life. As youand your doctors decide on your treatment, some of your concerns will be resolved. And moving forward, your healthcare team can help you learn ways to help yourself. What is a tumor? A tumor is a mass of abnormal cells. It is either benign (slow growing, not cancerous) or malignant(fast growing, cancerous). Some tumors, especially cancerous ones, can be life-threatening. But most tumors can be treated. Risk factors for a cancerous tumor You are more likely to get a tumor of the mouth or throat if you: Smoke cigarettes, pipes, or cigars Use chewing tobacco or snuff Drink alcohol Take poor care of your teeth Are exposed to certain industrial chemicals Had a mouth or throat tumor in the past Have a human papillomavirus (HPV) infection Signs and symptoms of a tumor in the mouth If you have a mouth tumor, you or your doctor may have noticed one or more of the following: White or red patches on tissues or gums Pain that doesn t go away A sore that doesn t heal in a week or two Bleeding that doesn t stop after a few days A swelling or lump that doesn t go away Problems with your teeth, dentures, or chewing Signs and symptoms of a tumor in the throat If you have a throat tumor, you or your doctor may have noticed one or more of the following: Hoarseness that doesn t go away Trouble swallowing A lump in your neck Pain that doesn t go away Aching, pain, or pressure in your ear Persistent coughing with or without bloody sputum [id number] [employer] [place] [address]. All rights reserved. This information is not intended as a substitute for professional medical care. Always follow yourhealthcare professional's instructions. Follow Up Care 02/15/2025 12:29:57 With:NOEMI FERNANDEZ DO Address: [place] [address]- [phone] When:2-4 days [facility] 07-26-2025 Emergency department Discharge summary Discharge Instructions Thank you for allowing [facility] to assist you with your healthcare needs. The following is importantdischarge information regarding your hospital visit. Diagnosis from Today's Visit Throat cancer What to Do Next Instructions from Your Care Team No qualifying data available. Post Acute Orders No qualifying data available. You Need to Schedule the Following Appointments Follow Up with NOEMI FERNANDEZ DO When:Within 2-4 days Where:[place] [address]- [phone] Allergies hydroCHLOROthiazide Unknown lisinopril Medications Please ask your primary doctor or pharmacist before taking any other medication not listed, including over the counter drugs, herbal medications, vitamins and or supplements as they may interact withyour home medications. What How Much When Why Instructions Last Dose New acetaminophen-hydrocodone (Weston 325- 5 mg oral tablet) 1 tab(s) by mouth Three (3) times a day Throat cancer Duration: 3 Days Printed Prescription New menthol topical (Cepacol Sore Throat Max Numb mucous membrane lozenge) 1 lozenge(s) by mouth Every 2 hours as needed for Sore throat Duration: 5 Days Printed Prescription Unchanged acetaminophen 650 Milligram by mouth Every 4 hours as needed for Pain, scale 1-3 Unchanged albuterol (ProAir HFA MDI (90 mcg/ inh) inhalation aerosol) 2 puff(s) by inhalation Every 4 hours as needed for as needed for wheezing COPD (chronic obstructive pulmonary disease) Unchanged amLODIPine (amLODIPine 5 mg oral tablet) 1 tab(s) by mouth Two (2) times a day Due for office vist with Mainor Xiao. Please call office to schedule, additional refills will be given at office visit. Unchanged aspirin (aspirin 81 mg oral delayed release tablet) 1 tab(s) by mouth Once a day with a meal Unchanged atorvastatin (atorvastatin 40 mg oral tablet) 1 tab(s) by mouth Once a day CAD IN [place] ARTERY Unchanged carvedilol (carvedilol 25 mg oral tablet) 1 tab(s) by mouth Two (2) times a day Unchanged carvedilol (carvedilol 25 mg oral tablet) 1 tab(s) by mouth Two (2) times a day Unchanged DME (Blood Glucose Test Strips) See instructions check blood sugar once daily. E11.9. change to brand covered by insurance Unchanged DME (Lancets) See instructions check blood sugar once daily. E11.9. change to brand covered by insurance Unchanged dorzolamide ophthalmic (dorzolamide 2% ophthalmic solution) 1 Drops Both eyes Two (2) times a day Unchanged famotidine (Pepcid 20 mg oral tablet) 1 tab(s) by mouth Two (2) times a day Constipation Abdominal pain Unchanged losartan (losartan 50 mg oral tablet) 1 tab(s) by mouth Two (2) times a day Unchanged metFORMIN (metFORMIN 500 mg oral tablet (IR)) 1 tab(s) by mouth Two (2) times a day Unchanged multivitamin (Multivitamin) 1 tab(s) by mouth Every day Unchanged omega-3 polyunsaturated fatty acids (Lizella-3 oral capsule) 1,200 Milligram by mouth Every day Unchanged umeclidinium-vilanterol (Anoro Ellipta 62.5 mcg-25 mcg/ inh inhalation powder) 1 puff(s) by inhalation Once a day COPD (chronic obstructive pulmonary disease) Please take this list to your next doctor s visit. Bring all medications you take, including over the counter medications, herbals and other supplements with you to your doctor s visit. Patients and families are reminded to discard old lists and to update any records with all medication providers or retail pharmacies. Education Materials Mouth and Throat Tumors Finding out you have a tumor is scary. You may wonder what effect it will have on your life. As youand your doctors decide on your treatment, some of your concerns will be resolved. And moving forward, your healthcare team can help you learn ways to help yourself. What is a tumor? A tumor is a mass of abnormal cells. It is either benign (slow growing, not cancerous) or malignant(fast growing, cancerous). Some tumors, especially cancerous ones, can be life-threatening. But most tumors can be treated. Risk factors for a cancerous tumor You are more likely to get a tumor of the mouth or throat if you: Smoke cigarettes, pipes, or cigars Use chewing tobacco or snuff Drink alcohol Take poor care of your teeth Are exposed to certain industrial chemicals Had a mouth or throat tumor in the past Have a human papillomavirus (HPV) infection Signs and symptoms of a tumor in the mouth If you have a mouth tumor, you or your doctor may have noticed one or more of the following: White or red patches on tissues or gums Pain that doesn t go away A sore that doesn t heal in a week or two Bleeding that doesn t stop after a few days A swelling or lump that doesn t go away Problems with your teeth, dentures, or chewing Signs and symptoms of a tumor in the throat If you have a throat tumor, you or your doctor may have noticed one or more of the following: Hoarseness that doesn t go away Trouble swallowing A lump in your neck Pain that doesn t go away Aching, pain, or pressure in your ear Persistent coughing with or without bloody sputum [id number] [employer] [place] [address]. All rights reserved. This information is not intended as a substitute for professional medical care. Always follow yourhealthcare professional's instructions. Additional Information VACCINATE! IT SAVES LIVES! Members of the community who have not yet received the COVID-19 vaccine and would like to receive it can visit one of [facility] vaccine clinics. There are many vaccine clinic locations within the [facility]. For locations and available times, please visit www.gettheshot.coronavirus.[place].gov/. It is important to note that some COVID mobile vaccine clinics are held outdoors and may be canceled in rainy or stormy conditions. To learn more about pediatric vaccinations (ages 5-11), we invite you to visit the [facility] webpage. https://www.[facility].org/pages/7379-Uixmw-Kxqrxhggwka-Exzbhjiuyf-Bciob-Rig stions.htmlTo learn more about the COVID-19 vaccine, we invite you to visit the CDC website for a list of frequently asked questions. https://www.cdc.gov/coronavirus/2019-ncov/vaccines/faq.html [facility] Patient Portal Access Instructions: Stay connected with your healthcare team and access your personal medical information anytime with the [facility] Patient Portal. If you would like a full copy of your medical records please contact the [facility] Medical Records Department Monday through Monday between 8a.m. and 4:30p.m. Please follow the directions below to access the portal: 1.Access the email account you provided upon registration to the [facility].2.Look for an invitation email from [facility].3.Open the email and access the invitation link: Accept Invitation to [facility]4.Fill in the required jeffery to create your account. Sign into www.[employer] with your username and password that you created in the above steps to stay up to date. You can then view a summary of results, a summary of your visits, and the ability to download your summaries to your computer or send the information securely to a physician. Remember that your healthcare information is confidential, so carefully consider who you will allow to register on the [facility] Patient Portal for access to your information. You can also access the [facility] Patient Portal on the [employer]. Simply click on Health Records under [employer] and then click on the [employer] logo. HOW TO SAFELY DISPOSE OF PRESCRIPTION MEDICATIONS Please use one of the following methods to safely dispose of your unused medications. 1.Use a drug disposal kit: the drug disposal pouch allows you to safely discard your old and unuseddrugs. Ask your nurse to give you one when you are discharged.2.Visit a local take-back location: Many local pharmacies and police departments have programs that collect old and unwanted prescriptiondrugs. Call your local pharmacy or go to http://bit.Zipdial/6F5Nx4v to find one close to you.3.Make use of household items: Use cat litter or old coffee grounds to dispose medications if other options arenot available. Mix your drugs with these household products, seal them in an airtight container andthrow it into the garbage. Call [facility]: [phone] to be sure your drugs can be disposed of in this way. Some medicines may require a different approach.4.Never flush your medications down the toilet. IF YOU HAVE BEEN PRESCRIBED AN OPIOIDS FOR PAIN If you have been prescribed an opioid (such as hydrocodone, oxycodone or morphine), it is critical to understand the possible side effects and risks of opioid pain medications. Even when taken as directed, opioids can have several side effects including: Tolerance, meaning you might need to take more of a medication for the same pain relief. Nausea, vomiting and/or constipation. Sleepiness, dizziness, dry mouth, confusion, depression or itching. Physical dependence, meaning you have withdrawal symptoms when a medication is stopped ? this can develop within a few days. KNOW YOUR RESPONSIBILITIES It is important to know exactly how much and how often to take the opioid pain medications you are prescribed. Never take opioids in higher amounts or more often than prescribed. Do not combine opioids with alcohol or other drugs that cause drowsiness, such as benzodiazepines, also known as benzos,including diazepam and alprazolam, muscle relaxants or sleep aids. Never sell or share prescriptionopioids. This is illegal. Store opioids in a secure place and out of reach of others (including children, family, friends and visitors). The last page(s) of this document has been signed and retained as a CHART COPY Signatures Patient Education Materials Mouth and Throat Tumors Medication Leaflets My discharge plan and instructions have been reviewed and explained to me and IKT HENRY W understand my current condition and have read and understand these discharge instructions. I have received a written copy of the plan/instructions. If I have questions, I am aware that I should contact my doctor. Patient/Air [employer]ore Signature: Date/Time: Relationship to Patient: Witness Name/Signature: Date/Time: [facility]07-26-2025 Note* Exam Date Time Procedure Performing Provider Status 02/15/25 1:30 PM XR Chest 2 Views MARVIN CALDERÓN MD; [facility] (Verified) [id number] ORIGINAL EXAMINATION: TWO XRAY VIEWS OF THE CHEST02/15/2025 1:30 pm COMPARISON: Chest radiograph 09/21/2021, 09/07/2021 HISTORY: ORDERING SYSTEM PROVIDED HISTORY: Reason for Exam: SOB, cough FINDINGS: Suboptimal evaluation due to positioning of lateral images. Stable cardiomediastinal silhouette. Trace left pleural effusion. No focal consolidation or significant pulmonary edema. No pneumothorax or pleural effusion. No acute bony abnormalities. Sternotomy wires. IMPRESSION: Trace left pleural effusion. Preliminary Report was Dictated by a Resident Interpreted by: Marvin Calderón Preliminary Report By: Radha Ford Electronically signed By Marvin Calderón Dictated Date: 02/15/2025 1:45:53 PM Prelim Date: 02/15/2025 1:48:35 PM Sign Date: 02/15/2025 2:04:47 PM Ordering Provider: RANDAL DOS SANTOS [facility]07-26-2025 Note* Exam Date Time Procedure Performing Provider Status 02/15/25 1:09 PM EKG [ED [facility]] - CV RANDAL DOS SANTOS DO; [facility] (Verified) ECG Final Report Sinus rhythm Nonspecific T abnormalities, lateral leads Minimal ST elevation, anterior leads Electronic Signature: RANDAL DOS SANTOS DO 02/15/2025 13:45:43 [facility]07-24-2025 Telephone encounter Note* Telephone Encounter - Paige Whitaker - 02/13/2025 3:50 PM EDT Called again no answer unable to LVM. Also called [facility] for another phone # and they dont have any other # [id number] Miscellaneous Notes* Telephone Encounter - Paige Whitaker - 02/13/2025 3:50 PM EDT Called again no answer unable to LVM. Also called [facility] for another phone # and they dont have any other # * Telephone Encounter - Paige Whitaker - 02/12/2025 2:50 PM EDT Called multiple times day no answer. Unable to LVM * Telephone Encounter - Paige Whitaker - 02/12/2025 10:31 AM EDT Appointment With [facility]. Called patient to schedule an appointment with [facility], received referral from [facility]. Called patient no answer unable to LVM. documented in this [id number] Telephone encounter Note* Telephone Encounter - Paige Whitaker - 02/12/2025 2:50 PM EDT Called multiple times day no answer. Unable to LVM [id number] Miscellaneous Notes* Telephone Encounter - Paige Whitaker - 02/12/2025 2:50 PM EDT Called multiple times day no answer. Unable to LVM * Telephone Encounter - Paige Whitaker - 02/12/2025 10:31 AM EDT Appointment With [facility]. Called patient to schedule an appointment with [facility], received referral from [facility]. Called patient no answer unable to LVM. documented in this [id number] NoteAppointment With Viji. Called patient to schedule an appointment with [facility], received referral from [facility]. Called patient no answer [facility] LVM.[facility] [id number] Telephone encounter Note* Telephone Encounter - Sherman Paige - 02/12/2025 10:31 AM EDT Appointment With [facility]. Called patient to schedule an appointment with [facility], received referral from [facility]. Called patient no answer unable to LVM. [id number] Hospital Discharge instructions Patient Education 01/21/2025 16:14:57 Mouth and Throat Tumors Mouth and Throat Tumors Finding out you have a tumor is scary. You may wonder what effect it will have on your life. As youand your doctors decide on your treatment, some of your concerns will be resolved. And moving forward, your healthcare team can help you learn ways to help yourself. What is a tumor? A tumor is a mass of abnormal cells. It is either benign (slow growing, not cancerous) or malignant(fast growing, cancerous). Some tumors, especially cancerous ones, can be life-threatening. But most tumors can be treated. Risk factors for a cancerous tumor You are more likely to get a tumor of the mouth or throat if you: Smoke cigarettes, pipes, or cigars Use chewing tobacco or snuff Drink alcohol Take poor care of your teeth Are exposed to certain industrial chemicals Had a mouth or throat tumor in the past Have a human papillomavirus (HPV) infection Signs and symptoms of a tumor in the mouth If you have a mouth tumor, you or your doctor may have noticed one or more of the following: White or red patches on tissues or gums Pain that doesn t go away A sore that doesn t heal in a week or two Bleeding that doesn t stop after a few days A swelling or lump that doesn t go away Problems with your teeth, dentures, or chewing Signs and symptoms of a tumor in the throat If you have a throat tumor, you or your doctor may have noticed one or more of the following: Hoarseness that doesn t go away Trouble swallowing A lump in your neck Pain that doesn t go away Aching, pain, or pressure in your ear Persistent coughing with or without bloody sputum [id number] [employer]. [address] [place] [address]. All rights reserved. This information is not intended as a substitute for professional medical care. Always follow yourhealthcare professional's instructions. Follow Up Care 01/21/2025 13:10:25 With:HEATHER COLIN MD Address: [address] [place] [address]- When:2-4 days With:LAURA LEO DO Address: [address] [place] [phone] [phone] When:2-4 days [facility] 07-01-2025 Note Discharge Instructions Thank you for allowing [facility] to assist you with your healthcare needs. The following is importantdischarge information regarding your hospital visit. 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 Post Acute Orders No qualifying data available. You Need to Schedule the Following Appointments Follow Up with HEATHER COLIN MD When:Within 2-4 days Where:[address] [place] [address]- Follow Up with LAURA LEO DO When:Within 2-4 days [facility] [phone] Allergies hydroCHLOROthiazide Unknown lisinopril Medications Please ask your primary doctor or pharmacist before taking any other medication not listed, including over the counter drugs, herbal medications, vitamins and or supplements as they may interact withyour home medications. What How Much When Why Instructions Last Dose Unchanged acetaminophen 650 Milligram by mouth Every 4 hours as needed for Pain, scale 1-3 Unchanged albuterol (ProAir HFA MDI (90 mcg/ inh) inhalation aerosol) 2 puff(s) by inhalation Every 4 hours as needed for as needed for wheezing COPD (chronic obstructive pulmonary disease) Unchanged amLODIPine (amLODIPine 5 mg oral tablet) 1 tab(s) by mouth Two (2) times a day Due for office vist with [facility] Xiao. Please call office to schedule, additional refills will be given at office visit. Unchanged aspirin (aspirin 81 mg oral delayed release tablet) 1 tab(s) by mouth Once a day with a meal Unchanged atorvastatin (atorvastatin 40 mg oral tablet) 1 tab(s) by mouth Once a day CAD IN [place] ARTERY Unchanged carvedilol (carvedilol 25 mg oral tablet) 1 tab(s) by mouth Two (2) times a day Unchanged DME (Blood Glucose Test Strips) See instructions check blood sugar once daily. E11.9. change to brand covered by insurance Unchanged DME (Lancets) See instructions check blood sugar once daily. E11.9. change to brand covered by insurance Unchanged dorzolamide ophthalmic (dorzolamide 2% ophthalmic solution) 1 Drops Both eyes Two (2) times a day Unchanged famotidine (Pepcid 20 mg oral tablet) 1 tab(s) by mouth Two (2) times a day Constipation Abdominal pain Unchanged losartan (losartan 50 mg oral tablet) 1 tab(s) by mouth Two (2) times a day Unchanged metFORMIN (metFORMIN 500 mg oral tablet (IR)) 1 tab(s) by mouth Two (2) times a day Unchanged multivitamin (Multivitamin) 1 tab(s) by mouth Every day Unchanged omega-3 polyunsaturated fatty acids (Lizella-3 oral capsule) 1,200 Milligram by mouth Every day Unchanged umeclidinium-vilanterol (Anoro Ellipta 62.5 mcg-25 mcg/ inh inhalation powder) 1 puff(s) by inhalation Once a day COPD (chronic obstructive pulmonary disease) Please take this list to your next doctor s visit. Bring all medications you take, including over the counter medications, herbals and other supplements with you to your doctor s visit. Patients and families are reminded to discard old lists and to update any records with all medication providers or retail pharmacies. Education Materials Mouth and Throat Tumors Finding out you have a tumor is scary. You may wonder what effect it will have on your life. As youand your doctors decide on your treatment, some of your concerns will be resolved. And moving forward, your healthcare team can help you learn ways to help yourself. What is a tumor? A tumor is a mass of abnormal cells. It is either benign (slow growing, not cancerous) or malignant(fast growing, cancerous). Some tumors, especially cancerous ones, can be life-threatening. But most tumors can be treated. Risk factors for a cancerous tumor You are more likely to get a tumor of the mouth or throat if you: Smoke cigarettes, pipes, or cigars Use chewing tobacco or snuff Drink alcohol Take poor care of your teeth Are exposed to certain industrial chemicals Had a mouth or throat tumor in the past Have a human papillomavirus (HPV) infection Signs and symptoms of a tumor in the mouth If you have a mouth tumor, you or your doctor may have noticed one or more of the following: White or red patches on tissues or gums Pain that doesn t go away A sore that doesn t heal in a week or two Bleeding that doesn t stop after a few days A swelling or lump that doesn t go away Problems with your teeth, dentures, or chewing Signs and symptoms of a tumor in the throat If you have a throat tumor, you or your doctor may have noticed one or more of the following: Hoarseness that doesn t go away Trouble swallowing A lump in your neck Pain that doesn t go away Aching, pain, or pressure in your ear Persistent coughing with or without bloody sputum [phone] [employer] [place] [address]. All rights reserved. This information is not intended as a substitute for professional medical care. Always follow yourhealthcare professional's instructions. Additional Information VACCINATE! IT SAVES LIVES! Members of the community who have not yet received the COVID-19 vaccine and would like to receive it can visit one of [facility] vaccine clinics. There are many vaccine clinic locations within the [facility]. For locations and available times, please visit www.gettheshot.coronavirus.[place].gov/. It is important to note that some COVID mobile vaccine clinics are held outdoors and may be canceled in rainy or stormy conditions. To learn more about pediatric vaccinations (ages 5-11), we invite you to visit the [facility] webpage. https://www.[facility].org/pages/8424-Gqxlo-Xpcrxchclwi-Wwiwmzjkmm-Dbyxb-Ydf stions.htmlTo learn more about the COVID-19 vaccine, we invite you to visit the CDC website for a list of frequently asked questions. https://www.cdc.gov/coronavirus/2019-ncov/vaccines/faq.html [facility] Patient Portal Access Instructions: Stay connected with your healthcare team and access your personal medical information anytime with the [facility] Patient Portal. If you would like a full copy of your medical records please contact the [facility] Medical Records Department Monday through Monday between 8a.m. and 4:30p.m. Please follow the directions below to access the portal: 1.Access the email account you provided upon registration to the [facility].2.Look for an invitation email from [facility].3.Open the email and access the invitation link: Accept [facility]itation to [facility]4.Fill in the required jeffery to create your account. Sign into www.[employer] with your username and password that you created in the above steps to stay up to date. You can then view a summary of results, a summary of your visits, and the ability to download your summaries to your computer or send the information securely to a physician. Remember that your healthcare information is confidential, so carefully consider who you will allow to register on the [facility] Patient Portal for access to your information. You can also access the [facility] Patient Portal on the [employer]ba. Simply click on Health Records under [employer] and then click on the Ian logo. HOW TO SAFELY DISPOSE OF PRESCRIPTION MEDICATIONS Please use one of the following methods to safely dispose of your unused medications. 1.Use a drug disposal kit: the drug disposal pouch allows you to safely discard your old and unuseddrugs. Ask your nurse to give you one when you are discharged.2.Visit a local take-back location: Many local pharmacies and police departments have programs that collect old and unwanted prescriptiondrugs. Call your local pharmacy or go to [email or web address] Maps.Zipdial/2W8We4l to find one close to you.3.Make use of household items: Use cat litter or old coffee grounds to dispose medications if other options arenot available. Mix your drugs with these household products, seal them in an airtight container andthrow it into the garbage. Call [facility]: [phone] to be sure your drugs can be disposed of in this way. Some medicines may require a different approach.4.Never flush your medications down the toilet. IF YOU HAVE BEEN PRESCRIBED AN OPIOIDS FOR PAIN If you have been prescribed an opioid (such as hydrocodone, oxycodone or morphine), it is critical to understand the possible side effects and risks of opioid pain medications. Even when taken as directed, opioids can have several side effects including: Tolerance, meaning you might need to take more of a medication for the same pain relief. Nausea, vomiting and/or constipation. Sleepiness, dizziness, dry mouth, confusion, depression or itching. Physical dependence, meaning you have withdrawal symptoms when a medication is stopped ? this can develop within a few days. KNOW YOUR RESPONSIBILITIES It is important to know exactly how much and how often to take the opioid pain medications you are prescribed. Never take opioids in higher amounts or more often than prescribed. Do not combine opioids with alcohol or other drugs that cause drowsiness, such as benzodiazepines, also known as benzos,including diazepam and alprazolam, muscle relaxants or sleep aids. Never sell or share prescriptionopioids. This is illegal. Store opioids in a secure place and out of reach of others (including children, family, friends and visitors). The last page(s) of this document has been signed and retained as a CHART COPY Signatures Patient Education Materials Mouth and Throat Tumors Medication Leaflets My discharge plan and instructions have been reviewed and explained to me and I,BERNARD MERAZ understand my current condition and have read and understand these discharge instructions. I have received a written copy of the plan/instructions. If I have questions, I am aware that I should contact my doctor. 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 Axial images were obtained through the neck with multiplanar reformats. Low dose CT acquisition technique included one of the following options: 1. Automated exposure control, 2. Adjustment of the MA and/or KV according to patient size, or 3. Use of iterative reconstruction. DICOM images are available. COMPARISON: None. HISTORY: ORDERING SYSTEM PROVIDED HISTORY: Reason for Exam: Pharyngitis FINDINGS: Soft tissues: No abscess or drainable fluid collection. Aerodigestive tract: The central and right central nasopharyngeal soft tissues are prominent measuring 16 mm in AP diameter without a discrete mass. The oropharynx is unremarkable. An avidly enhancing supraglottic mass measures 2.1 x 3.6 x 3.8 cm (AP X TRV X CC), involves the epiglottis, aryepiglottic folds, bilateral false cords, anterior commissure, and anterior-most bilateral vocal cords. No significant narrowing of the airway is present. The upper trachea is unremarkable. Salivary glands: Unremarkable. Thyroid: Unremarkable. Lymph nodes : There are non-specific scattered sub-centimeter lymph nodes in the neck bilaterally. No pathologically enlarged or morphologically suspicious adenopathy. Vessels: Unremarkable. Bones: No acute osseous pathology or aggressive osseous lesion. Severe spondylotic change involves C6-C7, C7-T1 and to a lesser extent C5-C6. Visualized lung apices: Clear. Visualized brain parenchyma: No acute pathology. Paranasal sinuses: Mild opacification of the bilateral ethmoid sinuses. IMPRESSION: 1. 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 No significant narrowing of the airway. Findings are favored to represent malignancy. Direct visualization is advised. 2. Prominence of the central and right central nasopharyngeal soft tissues without a discrete mass probably on the basis of lymphoid hypertrophy. 3. No pathologically enlarged or morphologically suspicious adenopathy. 4. Severe spondylotic change involves C6-C7, C7-T1 and to a lesser extent C5-C6. Interpreted by: Crow Hudson MD Preliminary Report By: Crow Hudson MD Electronically signed By Crow Hudson MD Dictated Date: 01/21/2025 3:41:34 PM Prelim Date: 01/21/2025 3:51:41 PM Sign Date: 01/21/2025 3:51:41 PM Ordering Provider: YANET YAÑEZ Interpreted by: Crow Hudson MD Preliminary Report By: Crow Hudson MD Electronically signed By Crow Hudson MD Dictated Date: 01/21/2025 3:41:34 PM Prelim Date: 01/21/2025 3:51:41 PM Sign Date: 01/21/2025 3:51:41 PM Ordering Provider: YANET YAÑEZ [facility]06-24-2025 Instructions* Patient Instructions* Glendy Renner MD - 01/14/2025 2:29 PM EDT MEDICATION BREAKFAST LUNCH DINNER BEDTIME XALATAN/LATANOPROST/TRAVATAN LUMIGAN/ZIOPTAN Green/Blue Cap BOTH TIMOLOL/BETOPTIC/BETIMOL TIMOPTIC Yellow Cap AZOPT/TRUSOPT/DORZOLOAMIDE [place] Cap ALPHAGAN/BRIMONIDINE Purple Cap BOTH BOTH COMBIGAN Blue Cap COSOPT (DORZOLAMIDE/TIMOLOL) BLUE cap BOTH BOTH RHOPRESSA WHITE CAP PREDNISOLONE ACETATE/DUREZOL LOTEMAX PINK OR WHITE CAP KETOROLAC/PROLENSA MCKEE CAP LOWER THE EYELID AND PLACE ONE DROP IN THE POCKET THEN CLOSE EYE AND APPLY PRESSURE TO THE INNER CORNER OF THE EYE FOR ONE MINUTE. PLACE TISSUE UNDER LID WHILE APPLYING DROP TO AVOID CONTACT WITH LID. documented in [facility] NoteDate of Procedure 01/14/2025. Interpretation Depressed mean deviation, Arcuate defect, Defect within both hemifields. Interval Change Initial.[id number] NoteHNO ID: [id number] Author: GLENDY RENNER MD Service: ? 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 Lasers and Surgeries: OD: CEIOL ~2 years ago OS: Selected laser trabeculoplasty (SLT)? Ocular Medication Intol and Non-efficacy: N/A Current Ophthalmic Meds: Latanoprost at bedtime OU Brimonidine BID OU Cosopt BID OU Imaging: Fermin visual field 12/2024 dense IAD >> SAD -OCT RNFL 12/13/2024 OD: unable OS: vertical thinning -OCT Mac 12/13/2024 OD: unable OS: normal foveal contour Assessment and Plan: - History: - blind in the right eye for 2 years - FH: denies - Steroids: none - Trauma: none - Gonio: OD unable OS: Grade 2/3 light pigment - Pachy: OD: unable OS: 550 - Tmax: 37/27 - IOP today: 37/ - Plan: Poor compliance with drops Missed brimonidine today and latanoprost last night - Needs Bscan OU (for possible optic nerve drusen OS and to rule out any masses OD) RECOMMEND ALLOFLO WITH CANALOPLASTY AND Cataract extraction/Intraocular lens PT ON ANTI-COAG - will d/w cardiology ok to hold and length to hold Pt reluctant for surgery Stressed compliance with drops to prevent of progression of glaucoma with drops and need for close follow up. Stressed risk of blindness Son to help with drops Blind hypertensive eye Right eye - drops as above Cataract OS monocular Visually significant cataract Right eye < OS - Discussed R/B/I/A including not limited to bleeding, infection, RD, retinal complications, Cystoid macular edema, loss of vision possible need for further surgery. Pt understands and would like to proceed with surgery. Dilates well, no PXE/guttata/alpha-ni use Discussed option of mono/mulitfocal/toric lens - Will target for plano with monofocal lens. PT NERVOUS ABOUT SURGERY DUE TO MONOCULAR STATUS NEED OLD RECORDS, PER PT VISION DECLINE POST Cataract extraction/Intraocular lens Right eye GET Intraocular lens CALCS IN 4 WKS Cataract Presurgical Documentation Cataract: Left eye (OS) Current Visual Acuity: Left Eye Distance SC 20/40 Glare Testing: Left Eye Off 20/40 Left Eye Medium 20/60 Left Eye High 20/70 Visual Function: Bernard Meraz states that the decline in vision from the cataract impedes his abilities as listed in the HPI, as well as other activities of daily living. Bernard Meraz has confirmed that he is no longer able to function adequately on a day-to-day basis because of his current visual condition. Further, it is my medical opinion that the cataract is the primary cause, or at least a significantly contributory cause of his visual dysfunction. With uncomplicated cataract surgery and lens implantation, it is my expectation that his visual function and quality of life will improve, significantly. The risks, benefits, alternatives, personnel and complications of cataract surgery with lens implantation were discussed with Bernard Meraz in detail. he appeared to understand and asked that I proceed with plans for surgery. I have confirmed and edited as necessary the relevant HPI, ophthalmic history, ROS, and the neuro exam findings as obtained by others. I have seen and examined Bernard Meraz. I have discussed the case and the management of this patient's care with the Resident/Fellow, if applicable. 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 Lasers and Surgeries: OD: CEIOL ~2 years ago OS: Selected laser trabeculoplasty (SLT)? Ocular Medication Intol and Non-efficacy: N/A Current Ophthalmic Meds: Latanoprost at bedtime OU Brimonidine BID OU Cosopt BID OU Imaging: Fermin visual field 12/2024 dense IAD >> SAD -OCT RNFL 12/13/2024 OD: unable OS: vertical thinning -OCT Mac 12/13/2024 OD: unable OS: normal foveal contour Assessment and Plan: - History: - blind in the right eye for 2 years - FH: denies - Steroids: none - Trauma: none - Gonio: OD unable OS: Grade 2/3 light pigment - Pachy: OD: unable OS: 550 - Tmax: - IOP today: 37/27 - Plan: Poor compliance with drops Missed brimonidine today and latanoprost last night - Needs Bscan OU (for possible optic nerve drusen OS and to rule out any masses OD) RECOMMEND ALLOFLO WITH CANALOPLASTY AND Cataract extraction/Intraocular lens PT ON ANTI-COAG - will d/w cardiology ok to hold and length to hold Pt reluctant for surgery Stressed compliance with drops to prevent of progression of glaucoma with drops and need for close follow up. Stressed risk of blindness Son to help with drops Blind hypertensive eye Right eye - drops as above Cataract OS monocular Visually significant cataract Right eye < OS - Discussed R/B/I/A including not limited to bleeding, infection, RD, retinal complications, Cystoid macular edema, loss of vision possible need for further surgery. Pt understands and would like to proceed with surgery. Dilates well, no PXE/guttata/alpha-ni use Discussed option of mono/mulitfocal/toric lens - Will target for plano with monofocal lens. PT NERVOUS ABOUT SURGERY DUE TO MONOCULAR STATUS NEED OLD RECORDS, PER PT VISION DECLINE POST Cataract extraction/Intraocular lens Right eye GET Intraocular lens CALCS IN 4 WKS Cataract Presurgical Documentation Cataract: Left eye (OS) Current Visual Acuity: Left Eye Distance SC 20/40 Glare Testing: Left Eye Off 20/40 Left Eye Medium 20/60 Left Eye High 20/70 Visual Function: Bernard Meraz states that the decline in vision from the cataract impedes his abilities as listed in the HPI, as well as other activities of daily living. Bernard Meraz has confirmed that he is no longer able to function adequately on a day-to-day basis because of his current visual condition. Further, it is my medical opinion that the cataract is the primary cause, or at least a significantly contributory cause of his visual dysfunction. With uncomplicated cataract surgery and lens implantation, it is my expectation that his visual function and quality of life will improve, significantly. The risks, benefits, alternatives, personnel and complications of cataract surgery with lens implantation were discussed with Bernard Meraz in detail. he appeared to understand and asked that I proceed with plans for surgery. I have confirmed and edited as necessary the relevant HPI, ophthalmic history, ROS, and the neuro exam findings as obtained by others. I have seen and examined Bernard Meraz. I have discussed the case and the management of this patient's care with the Resident/Fellow, if applicable. I also have reviewed and agree with the assessment and plan as stated above and agree withall of its relevant components. documented in this encounterMer[facility] NoteDate of Procedure 12/13/2024. Oil Rigger Information Start time: 3:10 PM. OCT Macula Interpretation Left Eye Normal without fluid. Findings include Epiretinal membrane. Interval Change Left Eye Initial.[id number] NoteDate of Procedure 12/13/2024. Oil Rigger Information Start time: 3:10 PM. Quality Left Eye Borderline. NFL Interpretation Left Eye Superior loss, Inferior loss. Ganglion Cell Layer Thickness Left Eye Other ocular pathology influencing GCL interpretation. Interval Change Left Eye Initial. Notes Os: possible disc [id number] Instructions* Patient Instructions* Mylene Winn MD - 12/13/2024 4:13 PM EDT [address] [place] [address] (Planning to go 12/31/2024 in the morning for ultrasound in both eyes) Medication Eye # times daily Latanoprost (green cap) BOTH 1x daily (bedtime) Cosopt or dorzolamide + timolol (dark navy blue cap) BOTH 2x daily Brimonidine (purple cap) BOTH 2x daily *please remember to wait at least 3 minutes between different drops in the same eye. 12/13/24 documented in this encounterMer[facility]05-23-2025 NoteHNO ID: [id number] Author: MYLENE WINN MD Service: ? Author Type: Fellow Type: Progress Notes Filed: 12/27/2024 13:33 Note Text: Referred on 12/13/2024 for glaucoma evaluation. Lasers and Surgeries: OD: CEIOL ~2 years ago OS: Selected laser trabeculoplasty (SLT)? Ocular Medication Intol and Non-efficacy: N/A Current Ophthalmic Meds: Latanoprost at bedtime OU Brimonidine BID OU Cosopt BID OU Imaging: -OCT RNFL 12/13/2024 OD: unable OS: vertical thinning -OCT Mac 12/13/2024 OD: unable OS: normal foveal contour Assessment and Plan: #Primary open angle glaucoma, indeterminate stage, left eye (rule out optic disc drusen OS) - History: - blind in the right eye for 2 years - FH: denies - Steroids: none - Trauma: none - Gonio: OD unable OS: open superiorly rest appears closed. (Poor cooperation) - Pachy: OD: unable OS: 550 - Tmax: - IOP today: - Plan: - Start latanoprost at bedtime ou, brimonidine BID OU and cosopt BID OU (he has the drops but wasn't using for the past few months) - return to clinic 4 weeks for IOP check and fermin visual field (HVF) 24-2 - Needs Bscan OU (for possible optic nerve drusen OS and to rule out any masses OD) Address given [address] [facility] [place] [address] (Planning to go 12/31/2024) Return 4 weeks or sooner prn Patient was seen with fellow and left before evaluation with attending Cataract OS - possibly visually significant will evaluate next appointment I have confirmed and edited as necessary the relevant HPI, ophthalmic history, ROS, and the neuro exam findings as obtained by others. I have seen and examined Bernard Meraz. I have discussed the case and the management of this patient's care. I also have reviewed and agree with the assessment and plan as stated above and agree with all of its relevant components.[facility]05-[facility] History of Present illness Narrative* Mylene Winn MD - 12/13/2024 3:11 PM EDT Referred on 12/13/2024 for glaucoma evaluation. Lasers and Surgeries: OD: CEIOL ~2 years ago OS: Selected laser trabeculoplasty (SLT)? Ocular Medication Intol and Non-efficacy: N/A Current Ophthalmic Meds: Latanoprost at bedtime OU Brimonidine BID OU Cosopt BID OU Imaging: -OCT RNFL 12/13/2024 OD: unable OS: vertical thinning -OCT Mac 12/13/2024 OD: unable OS: normal foveal contour Assessment and Plan: #Primary open angle glaucoma, indeterminate stage, left eye (rule out optic disc drusen OS) - History: - blind in the right eye for 2 years - FH: denies - Steroids: none - Trauma: none - Gonio: OD unable OS: open superiorly rest appears closed. (Poor cooperation) - Pachy: OD: unable OS: 550 - Tmax: - IOP today: - Plan: - Start latanoprost at bedtime ou, brimonidine BID OU and cosopt BID OU (he has the drops but wasn't using for the past few months) - return to clinic 4 weeks for IOP check and fermin visual field (HVF) 24-2 - Needs Bscan OU (for possible optic nerve drusen OS and to rule out any masses OD) Address given [address] [facility] , [place] [id number] (Planning to go 12/31/2024) Return 4 weeks or sooner prn Patient was seen with fellow and left before evaluation with attending Cataract OS - possibly visually significant will evaluate next appointment I have confirmed and edited as necessary the relevant HPI, ophthalmic history, ROS, and the neuro exam findings as obtained by others. I have seen and examined Bernard Meraz. I have discussed the caseand the management of this patient's care. I also have reviewed and agree with the assessment and plan as stated above and agree with all of its relevant components. documented in this encounterMer[facility]04-17-2025 Evaluation + Plan note Future Scheduled Tests Laboratory* Prostate Specific Antigen 11/07/24 * Thyroid Stimulating Hormone 03/22/24 * A1C Hemoglobin 05/07/24 * Complete Blood Count 03/22/24 * Lipid Profile 03/22/24 * Lipid Profile 05/07/24 * Lipid Profile 11/07/24 * Albumin/Creatinine Ratio, Random Urine 11/07/24 * Complete Metabolic Panel 03/22/24 * Complete Metabolic Panel 05/07/24 * Complete Metabolic Panel 11/07/24 [facility] 08-27-2024 Hospital Discharge instructions Patient Education 03/19/2024 17:27:24 AC Joint Sprain (Adult) AC Joint Sprain (Adult) The AC or acromioclavicular joint is at the end of the collar bone, or clavicle, near the shoulder.The AC joint is made of 4 ligaments that hold the collar bone to the shoulder blade, or scapula. With an AC joint sprain, these ligaments may be partly or fully torn. In both cases, this causes pain and swelling at the end of the collar bone. If the ligaments are completely torn, the collar bone will rise up. AC joint sprains are given a grade depending on whether they are mild, moderate, or severe: Grade 1. A mild sprain, with minor damage to the ligaments. The collar bone stays in place. Grade 2. A moderate sprain. The ligaments are partly torn. The collar bone is moved out of place. The injured shoulder may look lower and flatter than the other shoulder. Grade 3. The most severe kind of sprain. The ligaments are completely torn. The collar bone is no longer joined to the shoulder blade. The collar bone rises up. This creates a bump on top of the shoulder. The ligaments heal in this position, so the bump does not go away. It is possible to have surgery to correct the bump. But normal shoulder function will usually return even without surgery. An AC sprain will take up to 6 weeks or longer to heal, depending on how severe it is. It is often treated with a sling. Or a sling and an elastic wrap around the chest may be used. Physical therapy may be needed to help the shoulder keep full range of motion. Once healed, you can usually expect full recovery of shoulder function. Home care Your provider may prescribe medicines for pain. Or you may use [id number]-[id number] pain medicines. Talk with your provider before taking medicines if you have chronic liver or kidney disease, or have ever had a stomach ulcer or gastrointestinal bleeding. Make an appointment right away to see your provider or an orthopedic or bone doctor, for further evaluation and treatment of the injury. Use the injured area as little as possible. This will help decrease pain and swelling and allow thearea to heal. Place an ice pack over the injured area for 15 minutes. Do this every 4 to 6 hours for the first 24to 48 hours, or as directed. Keep using ice packs to ease pain and swelling as directed by your provider or the orthopedic doctor. To make an ice pack, put ice cubes in a plastic bag that seals at the top. Wrap the bag in a clean,thin towel or cloth. Never put ice or an ice pack directly on the skin. The ice pack can be put right on the wrap or sling. As the ice melts, be careful to not get the wrap or sling wet. A sling alone is often enough. Sometime a sling and a wrap around the chest may be used to help ease pain, if needed. This also helps keep your injured arm from moving. Use these devices as advised until you are seen by your healthcare provider or the orthopedic doctor. Always ask when the wrap should be worn. Always ask when the wrap can be removed. Wear the sling while awake or as advised, until you are scheduled to see your healthcare provider or an orthopedic doctor. You may remove the sling to sleep. You may remove the sling to bathe. Make sure the sling is comfortable and keeps your arm raised, as advised by the provider. Follow the provider s instructions on how to use the sling. Always ask when you should wear the sling. Always ask when the sling can be removed. Shoulder joints become stiff if they are kept still for too long. Talk with your healthcare provider or the orthopedic doctor about range of motion exercises and possible physical therapy. Follow-up care Follow up with your healthcare provider, or as advised. Your provider may refer you to a specialistsuch as an orthopedic, or bone, doctor. If X-rays were taken, you will be told of any new findings that may affect your care. When to seek medical advice Call your healthcare provider right away if any of these occur: Your shoulder looks off-balance You have increased pain, swelling, or bruising You have increased pain even after using prescribed pain medicine You have continuing pain Your hand or arm becomes cold, blue, numb, or tingly You have trouble moving your shoulder, wrist, or elbow due to stiffness [id number] [employer]. [address] [place] [address], [place] [address]. All rights reserved. This information is not intended as a substitute for professional medical care. Always follow yourhealthcare professional's instructions. Follow Up Care 03/19/2024 16:12:52 With:NIURKA ROCKWELL MD, Orthopedic Address: [address] [place] [address], [address] [facility] [place] [address] [phone] When:2-4 days With:NOEMI FERNANDEZ DO Address: [address] [place] [address]- [phone] When:2-4 days [facility] 08-27-2024 Note Discharge Instructions Thank you for allowing [facility] to assist you with your healthcare needs. The following is importantdischarge information regarding your hospital visit. Diagnosis from Today's Visit Injury of shoulder region What to Do Next Instructions from Your Care Team No qualifying data available. Post Acute Orders No qualifying data available. You Need to Schedule the Following Appointments Follow Up with NIURKA ROCKWELL MD, Orthopedic When:Within 2-4 days Where:[facility] [address] [facility] [place], [place] [id number]- [phone] Follow Up with NOEMI FERNANDEZ DO When:Within 2-4 days Where:[address] [place] [address] [id number] Allergies hydroCHLOROthiazide Unknown lisinopril Medications Please ask your primary doctor or pharmacist before taking any other medication not listed, including over the counter drugs, herbal medications, vitamins and or supplements as they may interact withur home medications. What How Much When Why Instructions Last Dose New traMADol (traMADol 25 mg oral tablet) 1 tab(s) by mouth Every 8 hours as needed for as needed for pain Injury of shoulder region Duration: 5 Days not to exceed 400 mg/ day Printed Prescription Unchanged acetaminophen 650 Milligram by mouth Every 4 hours as needed for Pain, scale 1-3 Unchanged albuterol (ProAir HFA MDI (90 mcg/ inh) inhalation aerosol) 2 puff(s) by inhalation Every 4 hours as needed for as needed for wheezing COPD (chronic obstructive pulmonary disease) Unchanged amLODIPine (amLODIPine 5 mg oral tablet) 1 tab(s) by mouth Two (2) times a day Due for office vist with Main[facility] Xiao. Please call office to schedule, additional refills will be given at office visit. Unchanged aspirin (aspirin 81 mg oral delayed release tablet) 1 tab(s) by mouth Once a day with a meal Unchanged carvedilol (carvedilol 25 mg oral tablet) 1 tab(s) by mouth Two (2) times a day Unchanged dorzolamide ophthalmic (dorzolamide 2% ophthalmic solution) 1 Drops Both eyes Two (2) times a day Unchanged famotidine (Pepcid 20 mg oral tablet) 1 tab(s) by mouth Two (2) times a day Abdominal pain Constipation Unchanged losartan (losartan 50 mg oral tablet) 1 tab(s) by mouth Two (2) times a day Unchanged metFORMIN (metFORMIN 500 mg oral tablet (IR)) 1 tab(s) by mouth Two (2) times a day Unchanged multivitamin (Multivitamin) 1 tab(s) by mouth Every day Unchanged omega-3 polyunsaturated fatty acids (Lizella-3 oral capsule) 1,200 Milligram by mouth Every day Unchanged umeclidinium-vilanterol (Anoro Ellipta 62.5 mcg-25 mcg/ inh inhalation powder) 1 puff(s) by inhalation Once a day COPD (chronic obstructive pulmonary disease) Please take this list to your next doctor s visit. Bring all medications you take, including over the counter medications, herbals and other supplements with you to your doctor s visit. Patients and families are reminded to discard old lists and to update any records with all medication providers or retail pharmacies. Medication Leaflets tramadol (TRAM a dol) Nguyen, Qdolo, TraMADol Hydrochloride ER (Eqv-Ryzolt), TraMADol Hydrochloride ER (Eqv-Ultram ER), Ultram What is the most important information I should know about tramadol? MISUSE OF OPIOID MEDICINE CAN CAUSE ADDICTION, OVERDOSE, OR . Keep this medicine where others cannot get to it. Fatal side effects may occur if you use also use alcohol or other drugs that cause drowsiness or slow breathing. What is tramadol? Tramadol is used to treat moderate to severe pain. The extended-release form of tramadol is for [id number] treatment of severe pain and follows a daily dosing schedule. This form of tramadol is not for use on an as-needed basis. Tramadol may also be used for purposes not listed in this medication guide. What should I discuss with my healthcare provider before taking tramadol? You should not take tramadol if you are allergic to it, or if you have: severe asthma or breathing problems, a stomach or bowel obstruction (including paralytic ileus); if you have recently used alcohol, sedatives, tranquilizers, or narcotic medications; or if you have used an MAO inhibitor in the past 14 days, such as isocarboxazid, linezolid, methylene blue injection, phenelzine, or tranylcypromine. Tramadol should not be given to a child younger than 12 years old. Ultram ER should not be given toanyone younger than 18 years old. Do not give tramadol to anyone between 12 and 18 years old who have a risk of breathing problems such as obstructive sleep apnea, obesity, or lung problems. Do not give tramadol to anyone younger than 18 years old who recently had surgery to remove the tonsils or adenoids. Seizures have occurred in some people taking tramadol. Your seizure risk may be higher if you have ever had: depression, a mental illness, head injury, epilepsy or other seizure disorder; an opioid overdose, or a drug or alcohol addiction; or a metabolic disorder. Tell your doctor if you have or have ever had: urination, gallbladder, pancreas, or thyroid problems; a stomach disorder; breathing problems, sleep apnea, mental illness, or suicide attempt; or liver or kidney disease. May harm an unborn baby. Tell your doctor if you are or plan to become . If you use tramadol during , your baby could be born with life-threatening withdrawal symptoms, and may need medical treatment for several weeks. Do not breastfeed. Tramadol in breast milk can cause life-threatening side effects in a nursing baby. Long-term tramadol may affect fertility in men or women. could be harder to achieve whileeither parent is using this medicine. How should I take tramadol? Follow the directions on your prescription label and read all medication guides or instruction sheets. Never use tramadol in larger amounts, or for longer than prescribed. Tell your doctor if you feel an increased urge to use more of this medicine. Never share tramadol with another person, especially someone with a history of drug addiction. MISUSE CAN CAUSE ADDICTION, OVERDOSE, OR . Keep the medicine where others cannot get to it. Sellingor giving away this medicine is against the law. Do not change your dose or stop using tramadol without your doctor's advice. Ask a doctor before using any other opioid medications to treat or manage pain. Tramadol can be taken with or without food, but take it the same way each time. Swallow the capsule or tablet whole to avoid exposure to a potentially fatal overdose. Do not crush, chew, break, open, or dissolve. Measure liquid medicine with the supplied measuring device (not a kitchen spoon). Never crush or break a tramadol pill to inhale the powder or mix it into a liquid to inject the drug into your vein. This practice has resulted in . You may have withdrawal symptoms if you stop using tramadol suddenly. Ask your doctor before stopping the medicine. Store at room temperature away from moisture and heat. Keep your medicine in a place where no one can use it improperly. Do not keep leftover medicine. Just one dose can cause in someone using it accidentally or improperly. Ask your pharmacist about a drug take-back program. You may also mix the leftover medicinewith cat litter or coffee grounds in a sealed plastic bag and throw the bag in the trash. What happens if I miss a dose? Since tramadol is used for pain, you are not likely to miss a dose. Skip any missed dose if it is almost time for your next dose. Do not use two doses at one time. What happens if I overdose? Seek emergency medical attention or call the Poison Help line at . An overdose can befatal, especially in a child or other person using this medicine without a prescription. Overdose symptoms may include severe drowsiness, pinpoint pupils, slow breathing, or no breathing. Your doctor may recommend you get naloxone (a medicine to reverse an opioid overdose) and keep it with you at all times. A person caring for you can give the naloxone if you stop breathing or don't wake up. Your caregiver must still get emergency medical help and may need to perform CPR (cardiopulmonary resuscitation) on you while waiting for help to arrive. Anyone can buy naloxone from a pharmacy or local health department. Make sure any person caring foryou knows where you keep naloxone and how to use it. What should I avoid while taking tramadol? Do not drink alcohol or any products that contain alcohol. Dangerous side effects or could occur. Avoid driving or hazardous activity until you know how this medicine will affect you. Dizziness or drowsiness can cause falls, accidents, or severe injuries. Also avoid getting up too fast from a sitting or lying position, or you may feel dizzy. What are the possible side effects of tramadol? Get emergency medical help if you have signs of an allergic reaction (hives, difficult breathing, swelling in your face or throat) or a severe skin reaction (fever, sore throat, burning eyes, skin pain, red or purple skin rash with blistering and peeling). Tramadol can slow or stop your breathing, and may occur, especially if you drink alcohol or use other drugs that cause drowsiness or slow breathing. A person caring for you should give naloxoneand/or seek emergency medical attention if you have slow breathing with long pauses, blue colored lips, or if you are hard to wake up. Call your doctor at once if you have: headache, hunger, weakness, sweating, irritability, dizziness, fast heart rate, or feeling jittery; increased sensitivity to pain or if your pain gets worse; seizure (convulsions), confusion, problems with thinking or memory, weakness, feeling unsteady; noisy breathing, sighing, shallow breathing, breathing that stops during sleep, a slow heart rate or weak pulse, a light-headed feeling, like you might pass out; or low cortisol levels--nausea, vomiting, loss of appetite, dizziness, worsening tiredness or weakness. Serious breathing problems may be more likely in older adults and people who are debilitated or have wasting syndrome or chronic breathing disorders. Seek medical attention right away if you have symptoms of serotonin syndrome, such as: agitation, hallucinations, fever, sweating, shivering, fast heart rate, muscle stiffness, twitching, loss of coordination, nausea, vomiting, or diarrhea. Common side effects may include: itching, constipation, nausea, vomiting, stomach pain; or dizziness, drowsiness, tiredness, headache. This is not a complete list of side effects and others may occur. Call your doctor for medical advice about side effects. You may report side effects to FDA at 6-104-CHS-1736. What other drugs will affect tramadol? You may have breathing problems or withdrawal symptoms if you start or stop taking certain other medicines. Tell your doctor if you also use an antibiotic, antifungal medication, heart or blood pressure medication, seizure medication, or medicine to treat HIV or hepatitis C. Many other drugs can be dangerous when used with tramadol. Tell your doctor if you also use: medicine for allergies, asthma, blood pressure, motion sickness, irritable bowel, or overactive bladder; a benzodiazepine sedative like Valium, Klonopin, or Xanax; other opioid medicines, sleep medicine, muscle relaxers, or other drugs that make you drowsy; or drugs that affect serotonin, such as antidepressants, stimulants, or medicine for migraines or Parkinson's disease. This list is not complete. Many other drugs may affect tramadol. This includes prescription and iqqk-bvk-kvmkrux medicines, vitamins, and herbal products. Not all possible drug interactions are listed here. Where can I get more information? Your doctor or pharmacist can provide more information about tramadol. Remember, keep this and all other medicines out of the reach of children, never share your medicines with others, and use this medication only for the indication prescribed. Every effort has been made to ensure that the information provided by [employer]. ('[employer]') is accurate, up-to-date, and complete, but no guarantee is made to that effect. Drug information contained herein may be time sensitive. [employer] information has been compiled for use by healthcare practitioners and consumers in the [place] and therefore [employer] does not warrant that uses outside of the [place] are appropriate, unless specifically indicated otherwise. [employer] drug information does not endorse drugs, diagnose patients or recommend therapy. [employer] drug information isan informational resource designed to assist licensed healthcare practitioners in caring for their p atients and/or to serve consumers viewing this service as a supplement to, and not a substitute for, the expertise, skill, knowledge and judgment of healthcare practitioners. The absence of a warningfor a given drug or drug combination in no way should be construed to indicate that the drug or drug combination is safe, effective or appropriate for any given patient. [employer] does not assume any responsibility for any aspect of healthcare administered with the aid of information [employer] provides. The information contained herein is not intended to cover all possible uses, directions, precautions, warnings, drug interactions, allergic reactions, or adverse effects. If you have questions about the drugs you are taking, check with your doctor, nurse or pharmacist. Copyright 2920-1718 [employer] Version: 24.02. Revision Date: 08/28/2023. Education Materials AC Joint Sprain (Adult) The AC or acromioclavicular joint is at the end of the collar bone, or clavicle, near the shoulder.The AC joint is made of 4 ligaments that hold the collar bone to the shoulder blade, or scapula. With an AC joint sprain, these ligaments may be partly or fully torn. In both cases, this causes pain and swelling at the end of the collar bone. If the ligaments are completely torn, the collar bone will rise up. AC joint sprains are given a grade depending on whether they are mild, moderate, or severe: Grade 1. A mild sprain, with minor damage to the ligaments. The collar bone stays in place. Grade 2. A moderate sprain. The ligaments are partly torn. The collar bone is moved out of place. The injured shoulder may look lower and flatter than the other shoulder. Grade 3. The most severe kind of sprain. The ligaments are completely torn. The collar bone is no longer joined to the shoulder blade. The collar bone rises up. This creates a bump on top of the shoulder. The ligaments heal in this position, so the bump does not go away. It is possible to have surgery to correct the bump. But normal shoulder function will usually return even without surgery. An AC sprain will take up to 6 weeks or longer to heal, depending on how severe it is. It is often treated with a sling. Or a sling and an elastic wrap around the chest may be used. Physical therapy may be needed to help the shoulder keep full range of motion. Once healed, you can usually expect full recovery of shoulder function. Home care Your provider may prescribe medicines for pain. Or you may use pmmr-sqx-aheomtz pain medicines. Talk with your provider before taking medicines if you have chronic liver or kidney disease, or have ever had a stomach ulcer or gastrointestinal bleeding. Make an appointment right away to see your provider or an orthopedic or bone doctor, for further evaluation and treatment of the injury. Use the injured area as little as possible. This will help decrease pain and swelling and allow thearea to heal. Place an ice pack over the injured area for 15 minutes. Do this every 4 to 6 hours for the first 24to 48 hours, or as directed. Keep using ice packs to ease pain and swelling as directed by your provider or the orthopedic doctor. To make an ice pack, put ice cubes in a plastic bag that seals at the top. Wrap the bag in a clean,thin towel or cloth. Never put ice or an ice pack directly on the skin. The ice pack can be put right on the wrap or sling. As the ice melts, be careful to not get the wrap or sling wet. A sling alone is often enough. Sometime a sling and a wrap around the chest may be used to help ease pain, if needed. This also helps keep your injured arm from moving. Use these devices as advised until you are seen by your healthcare provider or the orthopedic doctor. Always ask when the wrap should be worn. Always ask when the wrap can be removed. Wear the sling while awake or as advised, until you are scheduled to see your healthcare provider or an orthopedic doctor. You may remove the sling to sleep. You may remove the sling to bathe. Make sure the sling is comfortable and keeps your arm raised, as advised by the provider. Follow the provider s instructions on how to use the sling. Always ask when you should wear the sling. Always ask when the sling can be removed. Shoulder joints become stiff if they are kept still for too long. Talk with your healthcare provider or the orthopedic doctor about range of motion exercises and possible physical therapy. Follow-up care Follow up with your healthcare provider, or as advised. Your provider may refer you to a specialistsuch as an orthopedic, or bone, doctor. If X-rays were taken, you will be told of any new findings that may affect your care. When to seek medical advice Call your healthcare provider right away if any of these occur: Your shoulder looks off-balance You have increased pain, swelling, or bruising You have increased pain even after using prescribed pain medicine You have continuing pain Your hand or arm becomes cold, blue, numb, or tingly You have trouble moving your shoulder, wrist, or elbow due to stiffness [id number] [employer]. [address] [place] [address], [place] [address]. All rights reserved. This information is not intended as a substitute for professional medical care. Always follow yourhealthcare professional's instructions. Additional Information VACCINATE! IT SAVES LIVES! Members of the community who have not yet received the COVID-19 vaccine and would like to receive it can visit one of [facility] vaccine clinics. There are many vaccine clinic locations within the [facility]. For locations and available times, please visit www.gettheshot.coronavirus.[place].gov/. It is important to note that some COVID mobile vaccine clinics are held outdoors and may be canceled in rainy or stormy conditions. To learn more about pediatric vaccinations (ages 5-11), we invite you to visit the [facility] webpage. https://www.[email or web address].org/pages/[email or web address]-Yavew-[email or web address]-Kbmhteiwdm-[email or web address]-Cbr stions.htmlTo learn more about the COVID-19 vaccine, we invite you to visit the CDC website for a list of frequently asked questions. https://www.cdc.gov/coronavirus/2019-ncov/vaccines/faq.html [facility] Patient Portal Access Instructions: Stay connected with your healthcare team and access your personal medical information anytime with the [facility] Patient Portal. If you would like a full copy of your medical records please contact the [facility] Medical Records Department Monday through Monday between 8a.m. and 4:30p.m. Please follow the directions below to access the portal: 1.Access the email account you provided upon registration to the [facility].2.Look for an invitation email from [facility].3.Open the email and access the invitation link: Accept Invitation to [facility]4.Fill in the required jeffery to create your account. Sign into www.[email or web address] with your username and password that you created in the above steps to stay up to date. You can then view a summary of results, a summary of your visits, and the ability to download your summaries to your computer or send the information securely to a physician. Remember that your healthcare information is confidential, so carefully consider who you will allow to register on the [facility] Patient Portal for access to your information. You can also access the [employer] Patient Portal on the [employer] sheba. Simply click on Health Records under [employer] and then click on the [employer] logo. HOW TO SAFELY DISPOSE OF PRESCRIPTION MEDICATIONS Please use one of the following methods to safely dispose of your unused medications. 1.Use a drug disposal kit: the drug disposal pouch allows you to safely discard your old and unuseddrugs. Ask your nurse to give you one when you are discharged.2.Visit a local take-back location: Many local pharmacies and police departments have programs that collect old and unwanted prescriptiondrugs. Call your local pharmacy or go to http://W[employer] Maps.Zipdial/8H0Ym0m to find one close to you.3.Make use of household items: Use cat litter or old coffee grounds to dispose medications if other options arenot available. Mix your drugs with these household products, seal them in an airtight container andthrow it into the garbage. Call [facility]: [phone] to be sure your drugs can be disposed of in this way. Some medicines may require a different approach.4.Never flush your medications down the toilet. IF YOU HAVE BEEN PRESCRIBED AN OPIOIDS FOR PAIN If you have been prescribed an opioid (such as hydrocodone, oxycodone or morphine), it is critical to understand the possible side effects and risks of opioid pain medications. Even when taken as directed, opioids can have several side effects including: Tolerance, meaning you might need to take more of a medication for the same pain relief. Nausea, vomiting and/or constipation. Sleepiness, dizziness, dry mouth, confusion, depression or itching. Physical dependence, meaning you have withdrawal symptoms when a medication is stopped ? this can develop within a few days. KNOW YOUR RESPONSIBILITIES It is important to know exactly how much and how often to take the opioid pain medications you are prescribed. Never take opioids in higher amounts or more often than prescribed. Do not combine opioids with alcohol or other drugs that cause drowsiness, such as benzodiazepines, also known as benzos,including diazepam and alprazolam, muscle relaxants or sleep aids. Never sell or share prescriptionopioids. This is illegal. Store opioids in a secure place and out of reach of others (including children, family, friends and visitors). The last page(s) of this document has been signed and retained as a CHART COPY Signatures Patient Education Materials AC Joint Sprain (Adult) Medication Leaflets tramadol My discharge plan and instructions have been reviewed and explained to me and I,BERNARD MERAZ understand my current condition and have read and understand these discharge instructions. I have received a written copy of the plan/instructions. If I have questions, I am aware that I should contact my doctor. Patient/[employer] Signature: Date/Time: Relationship to Patient: Witness Name/Signature: Date/Time: [facility]08-27-2024 Note ORIGINAL EXAMINATION: TWO XRAY VIEWS OF THE LEFT SHOULDER03/19/2024 5:04 pm COMPARISON: Left shoulder radiographs 11/15/2022 HISTORY: ORDERING SYSTEM PROVIDED HISTORY: Reason for Exam: fall FINDINGS: No acute fracture, dislocation, or suspicious osseous lesion. There are overall mild degenerative changes of the shoulder joint. Acromioclavicular and coracoclavicular relationships appear maintained. The included thoracic structures are unremarkable. Prior sternotomy noted. IMPRESSION: No acute osseous abnormality. I have personally reviewed the images of this examination and agree with the resident's findings and interpretation. Interpreted by: Matt Rivera Preliminary Report By: Juan Alberto Lanfgord Electronically signed By Matt Rivera Dictated Date: 03/19/2024 5:19:17 PM Prelim Date: 03/19/2024 5:22:41 PM Sign Date: 03/19/2024 5:24:50 PM [facility]ing [facility] Note ORIGINAL EXAMINATION: TWO XRAY VIEWS OF THE LEFT SHOULDER11/15/2022 12:37 pm SHOULDER 2 VIEWS LEFT XR left shoulder four views COMPARISON: None HISTORY: ORDERING SYSTEM PROVIDED HISTORY: Reason for Exam: left shoulder pain, FINDINGS: No acute fracture, dislocation, lytic process or periosteal reaction is seen in the visualized bones and joints. No erosive type of arthritis. There is some calcification superior to the greater tuberosity in the region of the rotator cuff. Subacromial space may be decreased. No significant degenerative change in the glenohumeral and AC joints. IMPRESSION: No acute skeletal abnormality is seen. . Rotator cuff calcific tendinitis. Interpreted by: Sudarshan Weiner MD Preliminary Report By: Sudarshan Weiner MD Electronically signed By Sudarshan Weiner MD Dictated Date: 11/16/2022 12:53:00 AM Prelim Date: 11/16/2022 12:54:08 AM Sign Date: 11/16/2022 12:54:08 AM Ordering Provider: NOEMI FERNANDEZ [facility]04-25-2023 Note ORIGINAL EXAMINATION: TWO XRAY VIEWS OF THE LEFT SHOULDER11/15/2022 12:37 pm SHOULDER 2 VIEWS LEFT XR left shoulder four views COMPARISON: None HISTORY: ORDERING SYSTEM PROVIDED HISTORY: Reason for Exam: left shoulder pain, FINDINGS: No acute fracture, dislocation, lytic process or periosteal reaction is seen in the visualized bones and joints. No erosive type of arthritis. There is some calcification superior to the greater tuberosity in the region of the rotator cuff. Subacromial space may be decreased. No significant degenerative change in the glenohumeral and AC joints. IMPRESSION: No acute skeletal abnormality is seen. . Rotator cuff calcific tendinitis. Interpreted by: Sudarshan Weiner MD Preliminary Report By: Sudarshan Weiner MD Electronically signed By Sudarshan Weiner MD Dictated Date: 11/16/2022 12:53:00 AM Prelim Date: 11/16/2022 12:54:08 AM Sign Date: 11/16/2022 12:54:08 AM [facility]ing [facility]ments Appointment Date:02/03/2022 10:30:00 AM Scheduled Provider:NOEMI FERNANDEZ DO Location:[facility] Appointment Type:PC Wellness Medicare Future Scheduled Tests Laboratory* Prostate Specific Antigen 02/02/22 * A1C Hemoglobin 02/02/22 * Lipid Profile 02/02/22 * Lipid Profile 10/05/20 * Complete Metabolic Panel 02/02/22 * Complete Metabolic Panel 10/05/20 [facility] Evaluation + Plan note Future Appointments Appointment Date:09/16/2021 03:00:00 PM Scheduled Provider:JEWELL XIAO Location:[facility] Appointment Type:CV OV Hospital Follow Up Appointment Date:09/21/2021 10:00:00 AM Scheduled Provider:LANG BUSH Location:[facility] Appointment Type:CTS OV Post Op Follow Up Appointment Date:02/03/2022 10:30:00 AM Scheduled Provider:NOEMI FERNANDEZ DO Location:[facility] Appointment Type: Wellness Medicare Future Scheduled Tests Laboratory* Basic Metabolic Panel 09/09/21 * Basic Metabolic Panel 09/06/21 * Prostate Specific Antigen 02/02/22 * A1C Hemoglobin 02/02/22 * Lipid Profile 02/02/22 * Lipid Profile 10/05/20 * Complete Metabolic Panel 02/02/22 * Complete Metabolic Panel 10/05/20 Radiology* XR Chest 2 Views (PA & Lateral) 09/21/21 [facility] Evaluation + Plan note Future Appointments Appointment Date:10/19/2021 10:30:00 AM Scheduled Provider:LANG BUSH Location:[facility] Appointment Type:CTS OV Post Op Follow Up Appointment Date:10/27/2021 02:15:00 PM Scheduled Provider:JEWELL XIAO Location:[facility] Appointment Type:CV OV Appointment Date:02/03/2022 10:30:00 AM Scheduled Provider:NOEMI FERNANDEZ DO Location:[facility] Appointment Type:PC Wellness Medicare Future Scheduled Tests Laboratory* Basic Metabolic Panel 09/09/21 * Basic Metabolic Panel 09/20/21 * Basic Metabolic Panel 09/06/21 * Prostate Specific Antigen 02/02/22 * A1C Hemoglobin 02/02/22 * Lipid Profile 02/02/22 * Lipid Profile 10/05/20 * Complete Metabolic Panel 02/02/22 * Complete Metabolic Panel 10/05/20 [facility] Evaluation + Plan note Future Appointments Appointment Date:09/29/2022 09:30:00 AM Scheduled Provider: Location:[facility] Appointment Type:CV Nurse BP Check Appointment Date:09/29/2022 10:00:00 AM Scheduled Provider: Location:[facility] Appointment Type:CV Procedure - AOH Echo Appointment Date:10/19/2022 10:30:00 AM Scheduled Provider:JEWELL XIAO Location:[facility] Appointment Type:CV OV Future Scheduled Tests Laboratory* Basic Metabolic Panel 09/20/21 * Prostate Specific Antigen 02/02/22 * A1C Hemoglobin 02/02/22 * Lipid Profile 02/02/22 * Complete Metabolic Panel 02/02/22 [facility] Evaluation + Plan note Future Appointments Appointment Date:11/25/2022 03:05:00 PM Scheduled Provider:NOEMI FERNANDEZ DO Location:[facility] Appointment Type:PC OV Future Scheduled Tests Laboratory* Prostate Specific Antigen 02/02/22 * A1C Hemoglobin 02/02/22 * Lipid Profile 02/02/22 * Complete Metabolic Panel 02/02/22 [facility] Evaluation + Plan note Future Appointments Appointment Date:09/05/2023 03:00:00 PM Scheduled Provider:JEWELL XIAO Location:[facility] Appointment Type:CV OV Appointment Date:02/29/2024 10:00:00 AM Scheduled Provider:NOEMI FERNANDEZ DO Location:[facility] Appointment Type:PC OV Future Scheduled Tests Laboratory* Prostate Specific Antigen 02/24/23 * Lipid Profile 02/24/23 * Complete Metabolic Panel 02/24/23 [facility] Evaluation + Plan note Future Appointments Appointment Date:11/03/2023 02:20:00 PM Scheduled Provider:NOEMI FERNANDEZ DO Location:[facility] Appointment Type:PC Wellness Medicare Appointment Date:02/29/2024 10:00:00 AM Scheduled Provider:NOEMI FERNANDEZ DO Location:[facility] Appointment Type:PC OV Appointment Date:09/05/2024 03:00:00 PM Scheduled Provider:JEWELL XIAO Location:[facility] Appointment Type:CV OV Diagnostic Tests Pending * PSA Total+% Free 10/24/23 Future Scheduled Tests Laboratory* Prostate Specific Antigen 02/24/23 * Lipid Profile 02/24/23 * Complete Metabolic Panel 02/24/23 [facility] Evaluation + Plan note Future Appointments Appointment Date:09/05/2024 03:00:00 PM Scheduled Provider:JEWELL XIAO Location:[facility] Appointment Type:CV OV Future Scheduled Tests Laboratory* A1C Hemoglobin 05/07/24 * Lipid Profile 05/07/24 * Complete Metabolic Panel 05/07/24 Radiology* CT Low Dose Lung Cancer Screening (LDCT) 11/06/23 * US Abdomen LTD/Aorta 11/06/23 [facility] Evaluation note* Diagnosis Epiretinal membrane (ERM) of both eyes- Primary Primary open angle glaucoma (POAG) of left eye, indeterminate stage Cataract, nuclear sclerotic senile, bilateral documented in this encounter [facility] note* Diagnosis 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, left, severe stage- Primary Cataract, nuclear sclerotic senile, left Blind hypertensive eye, right documented in this encounter [facility] course Narrative No data available for this section [facility] Hospital Discharge instructions No data available for this section [facility] Hospital Discharge instructionsAmbulatory Orders* General Surgery Location: None Selected * Nutrition Referral Location: None Selected * Oncology Location: None Selected * Speech Therapy Referral Location: None Selected [facility] Work Phone: Progress note No data available for this section [facility] Summary Purpose Family History Relationship Condition Age at Onset Recorded Date/T caridad mother Diabetes mellitus Unknown father Hepatic cirrhosis Unknown brother Chronic obstructive pulmonary disease Unk nown No Family History Records Found Advance Directives No Advanced Directives Records FoundNo Advanced Directives Records FoundNo Advanced Directives Records FoundNo Advanced Directives Records FoundNo Advanced Directives Records Found Chief Complaint and Reason for Visit Chief Complaint Admit Date Amb Documentation April 07, 2025 9:17am SUPRAGLOTTIC SQUAMOUS CELL March 2:21pm PORT AND PEG April 15, 2025 2:09pm SQUAMOUS CELL LARYNS April 17 9:14am . 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 Noemi Fernandez DO Primary care physician Active Team Status: Active Member Role/Relationship Status Dates Dr. Noemi Fernandez DO Primary care physician Active Start: April 07, 2025 Lisbeth Sapp LPN Attending physician Active Start: April 07, 2025 Team Status: Inactive Member Role/Relationship Status Dates Dr. Noemi Fernandez DO Primary care physician Active Start: April 10, 2025 End: April 10, 2025 Dr. Anshul Pereira DO Attending physician Active Start: April 10, 2025 End: April 10, 2025 Dr. Margarita Steven MD Referring Provider Active St art: April 10, 2025 End: April 10, 2025 Team Status: Inactive Member Role/Relationship Status Dates Dr. Noemi Fernandez DO Primary care physician Active Start: April 15, 2025 End: April 15, 2025 Dr. Noemi Fernandez DO Referring Provider Active Start: April 15, 2025 End: April 15, 2025 Dr. Howie Perez MD Attending physician Active Start: April 15, 2025 End: April 15, 2025 Team Status: Inactive Member Role/Relationship Status Dates Dr. Noemi Fernandez DO Primary care physician Active Start: April 17, 2025 End: April 17, 2025 Dr. Stevie Dallas MD Attending physician Active Start: April 17, 2025 End: April 17, 2025 Dr. Anshul Pereira DO Referring Provider Active Start: April 17, 2025 End: April 17, 2025 Team Status: Active Member Role/Relationship Status Dates Dr. Noemi Fernandez DO Primary care physician Active Start: April 17, 2025 Dr. Anshul Pereira DO Attending physician Active Start: April 17, 2025 Dr. Anshul Pereira DO Referring Provider Active Start: April 17, 2025 Team Status: Active Member Role/Relationship Status Dates Dr. Noemi Fernandez DO Primary care physician Active Start: April 17, 2025 Dr. Anshul Pereira DO Attending physician Active Start: April 17, 2025 Team Status: Active Member Role/Relationship Status Dates Dr. Noemi Fernandez DO Primary care physician Active Start: April 18, 2025 Dr. Anshul Pereira DO Attending physician Active Start: April 18, 2025 Dr. Anshul Pereira DO Referring Provider Active Start: April 18, 2025 (unrecognized sect ion and content) No Status Records FoundNo Status Records FoundNo Status Records FoundNo Status Records FoundNo Status Records Found INFORMATION SOURCE (unrecogn ized section and content) DATE CREATED AUTHOR 03/21/2024 [facility] ([place]) DATE CREATED AUTHOR AUTHOR'S ORGANIZ ATION 01/15/2025 [facility] DATE CREATED AUTHOR AUTHOR'S ORGANIZ ATION 02/23/2025 [facility] DATE CREATED AUTHOR AUTHOR'S ORGANIZ ATION 04/15/2025 [facility] DATE CREATED AUTHOR AUTHOR'S ORGANIZ ATION 04/18/2025 [facility] Source Comments (unrecognize d section and content) In the event this informatio n is protected by the Federal Confidentiality of Alcohol and Drug Abuse Patient Records regulations: The Federal rules restrict any use of the information to criminally investigate or prosecute any alcohol or drug abuse patient.[facility] the event this information is protected by the Federal Confidentiality of Alcohol and Drug Abuse Patient Records regulations: The Federal rules restrict any use of the information to criminally investigate or prosecute any alcohol or drug abuse patient.[facility] Reason for Visit (unrecogniz ed section and content) Reason Comments Glaucoma Follow Up Reason Comments Primary Open Angle Glaucoma Follow Up Reason Onset Date Comments ENT Appointment 02/12/2025 Goals (unrecognized section and content) Goals may be documented in a n alternate section FOR RECORDS PERTAINING TO PATIENTS WHO ARE OR HAVE BEEN ENROLLED IN A CHEMICAL DEPENDENCY/SUBSTANCEABUSE PROGRAM, SOME INFORMATION MAY BE OMITTED. This clinical summary was aggregated from multiple sources. Caution should be exercised in using it in the provision of clinical care. This summary normalizes information from multiple sources, and as a consequence, information in this document may materially change the coding, format and clinical context of patient data. In addition, data may be omitted in some cases. CLINICAL DECISIONS SHOULD BE BASED ON THE PRIMARY CLINICAL RECORDS. [employer] provides no warranty or guarantee of the accuracy or completeness of information in this document.
--- NOTE | 2025-04-25 08:13 | PCM.PRE.AN2 ---
ASA Classification* ASA Classification ASA Classification: 3 Assessment & Plan Anesthesia* Anesthesia Assessment Anesthesia Assessment: Discussed sedation and/or anesthesia options, risks, benefits, and alternatives with patient/parents/legal guardian/POA. Questions invited. The patient/parents/legal guardian/POA seems to understand and agrees to proceed with anesthesia plan. Reviewed the physical assessment, medical history, allergy history and patient home medications list prior to surgery/procedure/anesthetic and documented any changes. Performed airway and anesthesia risk assessments. Anesthesia Type Anesthesia Type: MAC Anesthesia Focused Assessment* Airway Assessment Mouth opens: >3 cm Mallampati Score: II Labs Anesthesia Preop lab: CBC WBC, (4.4-11.0) 7.5 K/mm3 04/17/25, 10:35 RBC, (4.6-6.2) 4.79 M/mm3 04/17/25, 10:35 Hgb, (13.0-16.5) 13.9 g/dL 04/17/25, 10:35 Hct, (40-54) 40.8 % 04/17/25, 10:35 Plt Count, (150-450) 170 K/mm3 04/17/25, 10:35 CHEMISTRY Potassium, (3.3-5.1) 4.1 mmol/L 04/17/25, 10:35 Sodium, (133-145) 135 mmol/L 04/17/25, 10:35 BUN, (4-19) 19 mg/dL 04/17/25, 10:35 Creatinine, (0.70-1.20) 1.11 mg/dL 04/17/25, 10:35 Glucose, (70-99) 207 mg/dL H 04/17/25, 10:35 TSH, (0.300-4.200) 1.690 uIU/mL 04/17/25, 10:35 COAG Pre-Assessment Diagnosis/Proposed Procedure Planned Operative Procedure(s): (L) Insertion, Vascular Port & PEG tube placement in OR Anesthesia History Anesthesia History - speech pathologist assistant: Anesthesia History - speech pathologist assistant Hx Hospitalization No 04/17/25 11:01 Any Problems With Anesthesia No 04/17/25 11:01 Cholinesterase deficiency No 04/17/25 11:01 You/Your Family Experience No 04/17/25 11:01 fever (hyperthermia) with Relationship Recent Exposure to Contagious Disease Does patient have nerve No 04/17/25 11:01 stimulator Patient instructed to have device shut off --Does patient have Pacemaker or ICD? When Was Last Pacemaker Check QUESTION #4 FULL TEXT: You/Your Family Experience fever (hyperthermia) with Anesthesia Last Oral Intake Last Oral intake: Last Oral Intake NPO since Meds taken in AM with sips of water? Meds patient instructed to take am of surgery PONV PONV - speech pathologist assistant: PONV - speech pathologist assistant Female No 04/17/25 11:01 HX of Motion Sickness No 04/17/25 11:01 HX of N/V After Surgery No 04/17/25 11:01 Non-Smoker No 04/17/25 11:01 Duration of Surgery greater No 04/17/25 11:01 than 60 minutes Number of Risk Factors PONV Score Height & Weight Height & Weight: Anesthesia: Height & Weight Height 5 ft 9 in 04/23/25 14:55 Respiratory Assessment Respiratory Assessment - speech pathologist assistant: Respiratory Tract Infection Hx - speech pathologist assistant Hx Respiratory Tract Infection No 04/17/25 11:01 STOP Sleep Apnea STOP Sleep Apnea - speech pathologist assistant: STOP Sleep Apnea - speech pathologist assistant Hx Hypertension Yes: CONTROLLED WITH MED 04/17/25 11:01 Hx Sleep Apnea No 04/17/25 11:01 CPAP BIPAP Do you snore loudly (louder No 04/17/25 11:01 than talking or can be heard Do you often feel tired/ No 04/17/25 11:01 fatigued/ sleepy during daytime? Has anyone observed you stop No 04/17/25 11:01 breathing during sleep? STOP Results Negative 04/17/25 11:01 QUESTION #5 FULL TEXT : Do you snore loudly (louder than talking or can be heard through closed doors)? Tobacco Use History Tobacco Use History - speech pathologist assistant: Tobacco Use History - speech pathologist assistant Tobacco Use Smoking Status Current every day smoker 04/17/25 11:01 Hx Tobacco Use Yes 04/17/25 11:01 Years Smoking Packs Smoked per Day 0.25 04/17/25 11:01 Smoking Cessation Date was within the last 15 years Hx Smoking Cessation Date Hx Smoking Cessation Counseling Hematologic Medial History Hematologic Hx - speech pathologist assistant: Hematologic Medical Hx - physician executive Hx of Blood Transfusion No 04/17/25 11:01 Hx of Transfusion in last 3 No 04/17/25 11:01 Months Date of Last Transfusion (if within last 3 months) Ever experience any problems No 04/17/25 11:01 with transfusion(s)? Specify any problems Hx of Preganancy in last 3 N/A 04/17/25 11:01 Months Nurse Filling Out Transfusion NBUCHER 04/17/25 11:01 & Questions: Date: 04/17/25 04/17/25 11:01 Time: 11:03 04/17/25 11:01 Patient unable to answer at this time (ie. confused, unrespo /Reproduction History /Reproductive History - speech pathologist assistant: /Reproductive Hx- speech pathologist assistant Hx Now No 04/17/25 11:01 Gestational Age (in weeks): EDC: Hx Hx Para Hx Section SAB No 04/17/25 11:01 Active Medications Active Medications: Current Medications Generic Name Dose Route Start Last Admin Trade Name Freq PRN Reason Stop Dose Admin Cefazolin Sodium 2 gm/ Sodium 110 mls @ 200 mls/hr 04/25/25 09:45 Chloride IV 04/25/25 10:17 INTRAOP ONE [facility] Medical History Cancer related pain Encounter for education Type 2 diabetes mellitus PVD (peripheral vascular disease) History of pleural effusion Depression CKD stage 3 due to type 2 diabetes mellitus CAD (coronary artery disease) Wears glasses Wears dentures Cancer Marijuana use Arthritis Difficulty swallowing Heartburn Gastric reflux Shortness of breath on exertion Chronic cough Smoker Cardiology follow-up encounter COPD (chronic obstructive pulmonary disease) Acid reflux High cholesterol Hypertension Diabetes Blindness of right eye Home Medications ?Medication ?Instructions ?Recorded ?Last Taken ?Type atorvastatin 40 mg tablet (Lipitor) 40 mg PO QHS 04/07/25 Unknown History brimonidine 0.2 % eye drops 1 drp ophthalmic (eye) TID 04/07/25 Unknown History carvedilol 25 mg tablet 25 mg PO BID 04/07/25 Unknown History dorzolamide 22.3 mg-timolol 6.8 1 drp ophthalmic (eye) BID 04/07/25 Unknown History mg/mL eye drops (Cosopt) famotidine 20 mg tablet 20 mg PO QDAY 04/07/25 Unknown History losartan 50 mg tablet 50 mg PO BID 04/07/25 Unknown History metformin 500 mg tablet 500 mg PO BID 04/07/25 Unknown History umeclidinium 62.5 mcg-vilanterol 1 inh inhalation QDAY 04/07/25 Unknown History 25 mcg/actuation powdr for inhalation (Anoro Ellipta) MAGIC MOUTH WASH (BMX) 180 mL 15 ml PO .Q6HR #180 mL 04/23/25 Unknown Rx suspension lidocaine-prilocaine 2.5 %-2.5 % 1 applic topical ONCE PRN port 04/23/25 Unknown Rx topical cream access 30 days #30 grams ondansetron 8 mg disintegrating 8 mg PO Q8H PRN nausea and 04/23/25 Unknown Rx tablet vomiting #30 tabs Allergy/AdvReac Type Severity Reaction Status Date / Time No Known Allergies Allergy Verified 04/23/25 14:54 Family History Mother Diabetes Father Cirrhosis Brother COPD (chronic obstructive pulmonary disease) Surgical History History of colonoscopy History of vascular surgery History of cardiac catheterization History of artificial lens replacement History of coronary artery bypass graft x 3 S/P triple vessel bypass Social History Smoking Status: Current every day smoker tobacco type: cigarettes Tobacco: How many years used: 40 alcohol intake: never substance use type: marijuana Review of Systems (Anesthesia) ROS Narrative System reviewed and no additional complaints, except as documented.
[2025-04-25] MEDS: Lactated Ringers 1,000 ML 15 ML IV (08:55)
--- NOTE | 2025-04-25 09:12 | PCM.HP.STD ---
HPI - General General Date of Admission: 04/25/25 Date of Service: 04/25/25 Chief Complaint: Head and neck cancer HPI Narrative VERNON MERAZ, is a 75 M who presents for PEG and port placement as treatment for head neck cancer. [facility] Medical History Cancer related pain Encounter for education Type 2 diabetes mellitus PVD (peripheral vascular disease) History of pleural effusion Depression CKD stage 3 due to type 2 diabetes mellitus CAD (coronary artery disease) Wears glasses Wears dentures Cancer Marijuana use Arthritis Difficulty swallowing Heartburn Gastric reflux Shortness of breath on exertion Chronic cough Smoker Cardiology follow-up encounter COPD (chronic obstructive pulmonary disease) Acid reflux High cholesterol Hypertension Diabetes Blindness of right eye Home Medications ?Medication ?Instructions ?Recorded ?Last Taken ?Type atorvastatin 40 mg tablet (Lipitor) 40 mg PO QHS 04/07/25 04/24/25 History brimonidine 0.2 % eye drops 1 drp ophthalmic (eye) TID 04/07/25 04/24/25 History carvedilol 25 mg tablet 25 mg PO BID 04/07/25 04/24/25 History dorzolamide 22.3 mg-timolol 6.8 1 drp ophthalmic (eye) BID 04/07/25 04/24/25 History mg/mL eye drops (Cosopt) famotidine 20 mg tablet 20 mg PO QDAY 04/07/25 04/24/25 History losartan 50 mg tablet 50 mg PO BID 04/07/25 Unknown History metformin 500 mg tablet 500 mg PO BID 04/07/25 04/24/25 History umeclidinium 62.5 mcg-vilanterol 1 inh inhalation QDAY 04/07/25 04/22/25 History 25 mcg/actuation powdr for inhalation (Anoro Ellipta) MAGIC MOUTH WASH (BMX) 180 mL 15 ml PO .Q6HR #180 mL 04/23/25 04/24/25 Rx suspension lidocaine-prilocaine 2.5 %-2.5 % 1 applic topical ONCE PRN port 04/23/25 Unknown Rx topical cream access 30 days #30 grams ondansetron 8 mg disintegrating 8 mg PO Q8H PRN nausea and 04/23/25 Unknown Rx tablet vomiting #30 tabs Allergy/AdvReac Type Severity Reaction Status Date / Time No Known Allergies Allergy Verified 04/25/25 08:27 Family History Mother Diabetes Father Cirrhosis Brother COPD (chronic obstructive pulmonary disease) Surgical History History of colonoscopy History of vascular surgery History of cardiac catheterization History of artificial lens replacement History of coronary artery bypass graft x 3 S/P triple vessel bypass Social History Smoking Status: Current every day smoker tobacco type: cigarettes Tobacco: How many years used: 40 alcohol intake: never substance use type: marijuana Vital Signs Vital Signs Vital Signs: 04/25/25 08:30 04/25/25 08:30 Temperature 98.9 F Temperature Source Temporal Pulse Rate 66 Respiratory Rate 20 H Respiratory Pattern Normal Blood Pressure 182/66 H Blood Pressure Mean 104 Blood Pressure Source Monitor Blood Pressure Position Semi-Fowlers Blood Pressure Location Left Arm Pulse Ox 97 Oxygen Delivery Method Room Air Weight Weight: 200 lb 9.93 oz Body Mass Index (BMI) 29.6 Physical Exam Const alert, oriented x3 and no apparent distress Results Lab / Micro Data Labs: Laboratory Results - last 24 hr 04/25/25 08:33: POC Glucose 110 H Assessment & Plan Assessment/Plan (1) Cancer of supraglottis: PLAN: Plan PEG and port placement today
[2025-04-25] MEDS: Midazolam 2 MG/2 ML Syringe IV (10:54)
[2025-04-25] MEDS: Cefazolin 1 GM/5 ML Vial 2 GM IV (10:56)
[2025-04-25] MEDS: Lidocaine 1% /Epi 1:100 (20ml) 20 ML Vial (11:42)
[2025-04-25] MEDS: Lidocaine 1% (5 ml sdv) 5 ML Vial IV (11:54)
--- NOTE | 2025-04-25 12:15 | DCINST_ITS ---
Discharge Instructions Diet Discharge Diet: Light diet - advance as tolerated Activity Discharge Activity: Return to Normal Activity May shower in (days): 1 Dressing / Incision Call your doctor if your incision/area has: Continuous Slow Oozing, Sudden Increased Bleeding, Increased Pain/ Swelling, Increased Redness, Foul Smelling Discharge and Swelling at the incision site Call your doctor if you observe: Fever of 101 or Higher Remove Dressing in: 3 days Cleanse incision/area with: Soap & Water Follow Up Care Please Follow Up With: Howie Perez MD When: As needed. Please call office with any questions or concerns Test Results: Test results from this visit will be discussed in further detail at your follow- up appointment, if applicable. Discharge Plan Admission Primary Reason for Your Visit: Port and PEG insertion Attending Provider: Howie Perez Primary Care Provider: Pramod Fernandez Instructions Print Language: Yoruba Discharge Orders/Prescriptions Prescriptions: New oxycodone 5 mg tablet 5 mg PO Q8H PRN (Reason: pain) 3 Days Qty: 7 0RF Continued atorvastatin [Lipitor] 40 mg tablet 40 mg PO QHS brimonidine 0.2 % drops 1 drp ophthalmic (eye) TID Rx Instructions: left eye carvedilol 25 mg tablet 25 mg PO BID Rx Instructions: must administer with a meal/food dorzolamide-timolol [Cosopt] 22.3-6.8 mg/mL drops 1 drp ophthalmic (eye) BID famotidine 20 mg tablet 20 mg PO QDAY losartan 50 mg tablet 50 mg PO BID metformin 500 mg tablet 500 mg PO BID umeclidinium-vilanterol [Anoro Ellipta] 62.5-25 mcg/actuation blister with device 1 inh inhalation QDAY ondansetron 8 mg tablet,disintegrating 8 mg PO Q8H PRN (Reason: nausea and vomiting) Qty: 30 1RF lidocaine-prilocaine 2.5-2.5 % cream 1 applic topical ONCE PRN (Reason: port access) 30 Days Qty: 30 2RF MAGIC MOUTH WASH (BMX) 180 mL suspension 15 ml PO .Q6HR Qty: 180 5RF Rx Instructions: diphenhydramine 12.5 mg/5 mL oral liquid 60 mL; aluminum-mag hydroxide- simethicone 400 mg-400 mg-40 mg/5 mL oral susp 60 mL; Lidocaine Viscous 2 % mucosal solution 60 mL; Per 180 mL Referrals / Follow Up: Pramod Fernandez DO [Primary Care Provider, Family Practice] Disposition Disposition (needs filled in before D/C Order can be placed): Home, Self Care
--- NOTE | 2025-04-25 12:19 | OP.PCM_ITS ---
Procedures Digestive 40xxx-49xxx: [address] gastrostomy tube Multi Select Codes Respiratory/Cardiovascular Resp/Cardiovascular CPT Codes: 98682 Insert tunneled cv cath Operative Report (Standard) Operative Information Date of Procedure: 04/25/25 Pre-Operative Diagnosis: Head and neck cancer Post-Operative Diagnosis: Same Surgery/Procedure Performed: 1. Left internal jugular Mediport placement with C arm 2. EGD 3. Percutaneous endoscopic gastrostomy placement button breaker operator: No Type of Anesthesia: Local and MAC RN Documented Start/Stop Times: Operation Date: 04/25/25 10:45 Case Time Into Pre-Op 04/25/25 08:11 Out of Pre-Op 04/25/25 10:46 Procedure Start Time: 11:00 Procedure Stop Time: 12:15 Select all DRAINS/GRAFTS/IMPLANTS that apply: Prosthetic device Prosthetic device details: PEG tube; 12 Serbian port Special Medications: Preop Ancef Estimated Blood Loss: 10 mL Specimen collected: No Description of surgery: The patient is a 75-year-old male recently seen through the office with a recent diagnosis of a laryngeal cancer. His treating oncology team is recommending chemotherapy and radiation therapy. As result of a PEG and a port were requested. I offered him procedure to insert both. We discussed the details of the planned procedure including risks benefits and alternatives and he wished to proceed. He was brought to the operating today following informed consent. Preoperative antibiotics were given. He was placed supine on the operative table with arms comfortably tucked at his sides. MAC anesthesia was then induced. Once sedated axillary roll was placed to improve exposure for line placement. The neck and chest were prepped and draped in the usual sterile manner. I initially attempted placement via a left subclavian approach but this was quickly abandoned as I was unable to achieve the appropriate angle to gain access to the subclavian vein. At this point an ultrasound guided left internal jugular approach was performed. The vein was clearly visible. After several passes I was able to gain access and obtain a good blood return. The blood return was a dark red venous appearing nonpulsatile blood return. The guidewire was then inserted. C-arm was brought into confirm good positioning of the guidewire. Next a marking pen was used to indicate the site of planned insertion pocket for the port hub. Local anesthetic was then injected. A #15 blade was then used to make a skin incision. Bovie electrocautery was then used dissect down through the subcutaneous tissues down to the level of the chest wall. A subcutaneous pocket was then created. A #15 blade was also used to make a small skin incision at the entry point of the guidewire in the neck. The Mediport tubing was attached to the tunneling device and this was tunneled into the larger incision and up and out through the smaller incision. The tubing was then trimmed to about 29 cm. It was then affixed to the port hub. The hub was then sutured to the chest wall using Prolene suture x 2. Next the dilator and tear-away sheath were then easily advanced over the guidewire. This was performed under C arm. The wire and dilator were then removed, thus leaving the sheath in place. The free end of the tubing was then threaded down the sheath and the sheath was extracted while the tubing was advanced. Once the sheath was removed, the port was tested and flushed using injectable saline. It remedios and flushed easily with good blood return. It was then flushed with heparin. C arm was brought in a final time to confirm good positioning of the tubing and to make sure that there were no acute kinks or bends in the tubing itself. The incisions were then closed using 3-0 Vicryl and 4-0 Vicryl. Skin glue was then applied. OpSite's were then applied to both locations. A postprocedure chest x-ray will be performed. Next, the patient was positioned in preparation for the EGD/PEG. The abdomen is then prepped and draped in the usual sterile manner. EGD scope was then inserted via the mouth with the aid of a bite block. The scope was then advanced into the esophagus and then into the stomach. The scope was then briefly inserted into the duodenal bulb. There was no obvious areas of duodenitis. The stomach also appeared grossly normal without evidence of ulceration or gastritis. The stomach was then fully insufflated with insuffla tion gas. Transillumination was successful in the left upper quadrant. There was good 1-1 palpation of the abdomen. Local anesthetic was then injected. The injection needle was able to be passed into the stomach indicating a short distance between the stomach and the skin. A #11 blade was then used to make a 1 cm skin incision. The needle was then inserted. A snare was fed through the EGD scope and the needle and sheath were grasped using the snare. The needle was then extracted and the guidewire was then threaded through the sheath. The snare was then used to grasp the wire. While holding onto the wire the EGD scope was withdrawn. The wire was connected to the PEG tube. The tube was then lubricated and then pulled thus that the PEG tube went in the mouth and came out through the abdominal wall. The tubing was at 4 cm at the skin surface. The EGD scope was replaced and the bumper was visualized within the stomach body. There was no bleeding noted. The bumper was then attached to the PEG along with the clamp and additional hardware. The patient was then awakened anesthesia and taken to recovery in good condition. Surgical Findings: See operative note Complications Complications: No Admit VTE Documentation VTE Present on Admission: No VTE Mechan Device Prophylaxis: SCD's VTE Pharm Prophylaxis ordered?: No Reason prophylaxis not ordered: Treatment Not Indicated
--- NOTE | 2025-04-25 12:22 | PCM.POST.ANE ---
Anesthesia: Postop Eval I Current Vital Signs Temperature: 96.6 F Pulse Rate: 73 Blood Pressure: 227/82 Respiratory Rate: 16 Pulse Ox: 97 Oxygen Delivery Method: Room Air Assessment Airway patent: Yes Spontaneous unlabored respirations: Yes Mental status: Awake and Calm nausea: No Vomiting: No Anesthesia Complication: No Fluid Hydration Crystalloid volume administer (ml): 800 Total IV fluid infused: 800 Progress Note Anesthesia document: Postop Eval 1 completed: Yes
--- NOTE | 2025-04-25 12:37 | RAD_ITS ---
PROCEDURE: CXR FOR LINE PLACEMENT 04/25/2025 REASON FOR EXAM: PORT TECHNIQUE: Frontal view of the chest. COMPARISON: None FINDINGS: Hardware: Port overlying left chest wall with tip cavoatrial junction. Heart: The heart size is normal. Atherosclerotic calcification of aortic arch. Lungs: Bibasilar atelectasis. No large sizable pneumothorax. Bones: Degenerative changes of visualized spine. RAD/CXR for Line Placement IMPRESSION: Port overlying left chest wall with tip in cavoatrial junction. No large sizab le pneumothorax. Reading Location: [id number]
--- NOTE | 2025-04-25 13:19 | POSTOPAN2_ITS ---
Anesthesia Postop Eval I Sum Postop Eval Completion status Anesthesia document: Postop Eval 1 completed: Yes Anesthesia Postop Eval I Summary Anesthesia Postop Eval I Summary: Anesthesia Postop Eval I: Assessment Summary Airway patent Yes 04/25/25 12:28 COMMERCIAL OR INSTITUTIONAL [email or web address] Spontaneous unlabored Yes 04/25/25 12:28 COMMERCIAL OR INSTITUTIONAL CLEANER.JDEF respirations Mental status Awake,Calm 04/25/25 12:28 COMMERCIAL OR INSTITUTIONAL CLEANER.JDEF nausea No 04/25/25 12:28 COMMERCIAL OR INSTITUTIONAL CLEANER.JDEF Vomiting No 04/25/25 12:28 COMMERCIAL OR INSTITUTIONAL CLEANER.JDEF Anesthesia Postop Eval I: Fluid Summary Crystalloid volume administer 800 04/25/25 12:28 COMMERCIAL OR INSTITUTIONAL CLEANER.JDEF (ml) Colloids volume administered ( ml) Blood Product volume administered (ml) Total IV fluid infused 800 04/25/25 12:28 COMMERCIAL OR INSTITUTIONAL CLEANER.JDEF Anesthesia Postop Eval I: Summary Notes Anesthesia Complication No 04/25/25 12:28 COMMERCIAL OR INSTITUTIONAL CLEANER.JDEF Anesthesia Complication Comment: Post-operative progress note Anesthesia: Postop Eval II Evaluation Mental status: Awake Pain Level: 0 nausea: No Vomiting: No
--- NOTE | 2025-04-25 13:19 | PCM.POSTANE2 ---
Anesthesia Postop Eval I Sum Postop Eval Completion status Anesthesia document: Postop Eval 1 completed: Yes Anesthesia Postop Eval I Summary Anesthesia Postop Eval I Summary: Anesthesia Postop Eval I: Assessment Summary Airway patent Yes 04/25/25 12:28 SALES ACCOUNT [email or web address] Spontaneous unlabored Yes 04/25/25 12:28 SALES ACCOUNT [email or web address] respirations Mental status Awake,Calm 04/25/25 12:28 SALES ACCOUNT [email or web address] nausea No 04/25/25 12:28 SALES ACCOUNT [email or web address] Vomiting No 04/25/25 12:28 SALES ACCOUNT [email or web address] Anesthesia Postop Eval I: Fluid Summary Crystalloid volume administer 800 04/25/25 12:28 SALES ACCOUNT [email or web address] (ml) Colloids volume administered ( ml) Blood Product volume administered (ml) Total IV fluid infused 800 04/25/25 12:28 SALES ACCOUNT [email or web address] Anesthesia Postop Eval I: Summary Notes Anesthesia Complication No 04/25/25 12:28 SALES ACCOUNT [email or web address] Anesthesia Complication Comment: Post-operative progress note Anesthesia: Postop Eval II Evaluation Mental status: Awake Pain Level: 0 nausea: No Vomiting: No
--- NOTE | 2025-04-25 14:53 | POSTOPAN2_ITS ---
Anesthesia Postop Eval I Sum Postop Eval Completion status Anesthesia document: Postop Eval 1 completed: Yes Anesthesia Postop Eval I Summary Anesthesia Postop Eval I Summary: Anesthesia Postop Eval I: Assessment Summary Airway patent Yes 04/25/25 12:28 EARTH MOVING [email or web address] Spontaneous unlabored Yes 04/25/25 12:28 EARTH MOVING TECHNICIAN.[email or web address] respirations Mental status Awake 04/25/25 13:19 nausea No 04/25/25 13:19 Vomiting No 04/25/25 13:19 Anesthesia Postop Eval I: Fluid Summary Crystalloid volume administer 800 04/25/25 12:28 EARTH MOVING TECHNICIAN.CaronDEF (ml) Colloids volume administered ( ml) Blood Product volume administered (ml) Total IV fluid infused 800 04/25/25 12:28 EARTH MOVING TECHNICIAN.[email or web address] Anesthesia Postop Eval I: Summary Notes Anesthesia Complication No 04/25/25 12:28 EARTH MOVING TECHNICIAN.[email or web address] Anesthesia Complication Comment: Post-operative progress note Anesthesia: Postop Eval II Evaluation Mental status: Awake and Calm Pain Level: 0 nausea: No Vomiting: No Progress Note Post-operative progress note: Patient currently has slightly elevated systolic blood pressure. 208. He did not take his blood pressure medication this morning. He was given his 2 medications about an hour ago. The trend is that his blood pressure is improving. He does have doses to take this evening. Denies any symptoms from the elevated blood pressure such as blurred vision headache and seems to be doing fine. He also has blood pressure machine at home and will check it this evening to make sure that it is trending down. He says that is normal for him to have a blood pressure near 200 and this is chronic. If any issues he was told to call back to the anesthesia department or surgeon if any questions about his blood pressure when he checks it this evening.
== END 2025-04-25 15:14 | disposition home or self-care (01) ==
LOC: EN 07:52 → AC 07:53
PROVIDERS: PCP Family Medicine; Referring Provider Surgery; Visit Provider Surgery
PROC: (CPT 36561; principal; 2025-04-25 09:30)
PROC: 0DJ08ZZ Inspection of Upper Intestinal Tract, Via Natural or Artificial Opening Endoscopic (ICD-10-PCS; CPT 43235; principal; 2025-04-25 10:40)
DX: C32.1 Malignant neoplasm of supraglottis (principal); J44.9 Chronic obstructive pulmonary disease, unspecified; C76.0 Malignant neoplasm of head, face and neck; E11.22 Type 2 diabetes mellitus with diabetic chronic kidney disease; N18.30 Chronic kidney disease, stage 3 unspecified; E78.00 Pure hypercholesterolemia, unspecified; I25.10 Atherosclerotic heart disease of native coronary artery without angina pectoris; I12.9 Hypertensive chronic kidney disease with stage 1 through stage 4 chronic kidney disease, or unspecified chronic kidney disease; Z79.899 Other long term (current) drug therapy; K21.9 Gastro-esophageal reflux disease without esophagitis; Z79.84 Long term (current) use of oral hypoglycemic drugs; Z95.818 Presence of other cardiac implants and grafts; F17.210 Nicotine dependence, cigarettes, uncomplicated
CPT/HCPCS: 36561; 43246; 71045; 77001; 82962; C1788; J2405

== ENCOUNTER → 2025-05-02 | Outpatient (CLI) | payer MEDICARE, MEDICAID, SELFPAY | END | disposition home or self-care (01) | LOC: RAD 12:58 | PROVIDERS: PCP Family Medicine; Referring Provider Student in an Organized Health Care Education/Training Program; Visit Provider Student in an Organized Health Care Education/Training Program | DX: C32.1 Malignant neoplasm of supraglottis (principal) | CPT/HCPCS: 74230; 92611 ==

== ENCOUNTER → 2025-05-28 | Outpatient (CLI) | payer MEDICARE, MEDICAID, SELFPAY ==
--- NOTE | 2025-05-28 10:20 | CT_ITS ---
PROCEDURE: ABDOMEN/PELVIS W IV CONT ONLY 05/28/2025 REASON FOR EXAM: LARYNGEAL CA/ABDOMINAL PAIN TECHNIQUE: Procedure Code: [id number] Modality: CT Procedure: ABDOMEN/PELVIS W IV CONT ONLY Coronal and Sagittal reconstruction series were provided. CONTRAST: Isovue 370 VOLUME: 9 6 mL One or more dose reduction techniques were used (e.g., Automated exposure control, adjustment of the mA and/or kV according to patient size, use of iterative reconstruction technique. RADIATION DOSE SUMMARY: CTDlvol: 18.0 mGy DLP:1034.67 MGycm COMPARISON: None. FINDINGS: Lung bases: Clear. Atherosclerotic calcifications of the coronary arteries. Liver: Unremarkable. Gallbladder: Distended but otherwise unremarkable. No biliary dilation. Spleen: Unremarkable. Pancreas: Fatty infiltration. Otherwise unremarkable. Adrenals: Unremarkable. Kidneys: Bilateral simple kidney cysts with the largest measures 3.1 cm at the midpole of the left kidney. No hydronephrosis. No nephrolithiasis. Bladder: Normal. Reproductive Organs: Unremarkable. Bowel: No bowel wall thickening. No bowel obstruction. Appendix: Normal. Lymph nodes: No lymphadenopathy. Vasculature: No aneurysm. Atherosclerotic calcifications. Peritoneum / Retroperitoneum: No free air or free fluid. Bones: No acute or suspicious bony abnormalities. CT/Abdomen/Pelvis W IV Cont ONLY IMPRESSION: No acute abdominopelvic abnormalities. Reading Location: [facility]
== END | disposition home or self-care (01) ==
LOC: CT 10:15
PROVIDERS: PCP Family Medicine; Referring Provider Internal Medicine Medical Oncology; Visit Provider Internal Medicine Medical Oncology
DX: C32.1 Malignant neoplasm of supraglottis (principal)
CPT/HCPCS: 74177; Q9967

== ENCOUNTER 2025-06-04 15:37 | Emergency (ER) | payer MEDICARE, MEDICAID, SELFPAY ==
[2025-06-04 15:38] VITALS: BP 120/107; PULSE 105; RESP 16; TEMP 36.7; O2SAT 95
--- NOTE | 2025-06-04 16:18 | CT_ITS ---
PROCEDURE: CT SPINE CERVICAL WITHOUT CONTRAST 06/04/2025 REASON FOR EXAM: TRAUMA TECHNIQUE: Procedure Code: CTSPC Modality: CT Procedure: SPINE CERVICAL WITHOUT CONTRAS Coronal and Sagittal reconstruction series were provided. One or more dose reduction techniques were used (e.g., Automated exposure control, adjustment of the mA and/or kV according to patient size, use of iterative reconstruction technique. RADIATION DOSE SUMMARY: CTDlvol: 25.14 mGy DLP: 472.3 mGycm COMPARISON: CT neck 01/21/2025, PET-CT 04/15/2025. FINDINGS: No acute fracture or subluxation. Positional and/or degenerative straightening of the cervical lordosis. Multilevel spondylotic changes with varying degrees of disc space narrowing, multiple small Schmorl's nodes and/or subchondral cysts, anterior osteophytosis, uncovertebral spurring and hypertrophic facet arthropathy. No prevertebral soft tissue swelling. Mild atherosclerotic vascular calcifications, and evidence of prior carotid endarterectomy. Partially imaged left IJ central venous catheter. Partially imaged supraglottic mass, grossly unchanged from 04/15/2025. No suspicious cervical lymph node enlargement visualized. CT/Spine Cervical without Contras IMPRESSION: No acute fracture or subluxation. Degenerative changes as described. Redemonstrated supraglottic mass lesion not substantially changed since 025. See prior dedicated soft tissue neck and PET-CT reports for further details. Reading Location: [id number]
--- NOTE | 2025-06-04 16:18 | CT_ITS ---
PROCEDURE: BRAIN/HEAD WITHOUT CONTRAST 06/04/2025 REASON FOR EXAM: TRAUMA TECHNIQUE: Procedure Code: CTBR Modality: CT Procedure: BRAIN/HEAD WITHOUT CONTRAST Coronal and Sagittal reconstruction series were provided. One or more dose reduction techniques were used (e.g., Automated exposure control, adjustment of the mA and/or kV according to patient size, use of iterative reconstruction technique. COMPARISON: CT head 04/18/2025 FINDINGS: There is no extra-axial or intra-axial intracranial hemorrhage. No mass effect or midline shift is seen. Generalized intracranial volume loss and findings compatible with chronic microvascular white matter ischemia. Stable old left basal ganglia lacunar infarct. There is normal gastelum-white matter differentiation. The posterior fossa is grossly unremarkable. The skull is unremarkable. Visualized paranasal sinuses are clear. The mastoid air cells show normal translucency. CT/Brain/Head without Contrast IMPRESSION: 1. No intracranial hemorrhage. No mass effect or midline shift. 2. Chronic involutional and ischemic gliotic white matter changes. 3. Stable old left basal ganglia lacunar infarct. Reading Location: [facility]
--- NOTE | 2025-06-04 16:20 | EDS_ITS ---
HPI History of Present Illness Chief Complaint: Confusion Narrative Narrative: 75-year-old male past medical history of cancer of the supraglottis, has a PEG tube, presents with his son because of fall yesterday evening. Additionally, they state over the last 3 months he has been having intermittent hallucinations. His hallucinations caused him to fall yesterday. He states he was outside and fell on wet leaves. He sustained an injury to his right cheek, now states he has neck and bilateral knee pain. This fall was at 8 PM, almost 20 hours ago. He does not take blood thinners. He denies any loss of consciousness. He states he has been taking Tylenol without relief. He states that his bilateral knees hurt as well as his neck. He sustained some bruising and swelling to his right cheek as well. [facility] Medical History Encounter for chemotherapy management Constipation Cancer related pain Encounter for education Type 2 diabetes mellitus PVD (peripheral vascular disease) History of pleural effusion Depression CKD stage 3 due to type 2 diabetes mellitus CAD (coronary artery disease) Wears glasses Wears dentures Cancer Marijuana use Arthritis Difficulty swallowing Heartburn Gastric reflux Shortness of breath on exertion Chronic cough Smoker Cardiology follow-up encounter COPD (chronic obstructive pulmonary disease) Acid reflux High cholesterol Hypertension Diabetes Blindness of right eye Home Medications ?Medication ?Instructions ?Recorded ?Last Taken ?Type brimonidine 0.2 % eye drops 1 drp ophthalmic (eye) TID 04/07/25 04/24/25 History dorzolamide 22.3 mg-timolol 6.8 1 drp ophthalmic (eye) BID 04/07/25 04/24/25 History mg/mL eye drops (Cosopt) famotidine 20 mg tablet 20 mg PO QDAY 04/07/2504/24 History metformin 500 mg tablet 500 mg PO BID 04/07/2504/24 History Held on 06/04/25. Instructions: Ordered umeclidinium 62.5 mcg-vilanterol 1 inh inhalation QDAY 04/07/25 04/22/25 History 25 mcg/actuation powdr for inhalation (Anoro Ellipta) MAGIC MOUTH WASH (BMX) 180 mL 15 ml PO .Q6HR #180 mL 1 04/24/25 Rx suspension lidocaine-prilocaine 2.5 %-2.5 % 1 applic topical ONCE PRN port 04/23/25 Unknown Rx topical cream access 30 days #30 grams ondansetron 8 mg disintegrating 8 mg PO Q8H PRN nausea and 04/23/25 Unknown Rx tablet vomiting #30 tabs oxycodone 5 mg tablet 5 mg PO Q8H PRN pain 3 days #12 06/04/25 Unknown Rx tabs Allergy/AdvReac Type Severity Reaction Status Date / Time lisinopril Allergy Angioedema Verified 06/04/25 15:38 Family History Mother Diabetes Father Cirrhosis Brother COPD (chronic obstructive pulmonary disease) Surgical History S/P percutaneous endoscopic gastrostomy (PEG) tube placement History of colonoscopy History of vascular surgery History of cardiac catheterization History of artificial lens replacement History of coronary artery bypass graft x 3 S/P triple vessel bypass Social History Smoking Status: Current every day smoker tobacco type: cigarettes Tobacco: How many years used: 40 alcohol intake: never substance use type: marijuana ROS ROS ED ROS Narrative Review of systems positive for hallucinations for 3 months. Mechanical fall yesterday. Complains of neck pain, right cheek pain, and bilateral knee pain. Pain worse with movement. Taking Tylenol without relief. EXAM Physical Exam Narrative Exam Narrative: GCS 15. ABCs intact. Right corneal cloudiness. Positive swelling right cheek. Neck soft and supple. No vertebral point tenderness or bony step-off. Full range of motion. Cardiovascular examination reveals mild tachycardia. Lungs are clear to auscultation bilaterally with the exception of occasional rhonchi. Abdomen is soft. Noted PEG tube in place. No erythema around orifice. Able to raise bilateral legs off bed independently. Diffuse tenderness to palpation bilateral knees. Neurovascular intact distally. No tenderness to bilateral ankles. Small partial avulsion laceration less than 1 cm to IP joint of left first digit, no active bleeding, no fluctuance or purulent drainage. Const Vital Signs: 06/04/25 15:38 06/04/25 17:38 06/04/25 18:00 Temperature 98.1 F 99.5 F H Temperature Source Oral Oral Pulse Rate 105 H 104 H 103 H Respiratory Rate 16 22 H 16 Blood Pressure 120/107 H 153/86 H 138/74 H Blood Pressure Mean 111 108 95 Pulse Ox 95 94 95 Oxygen Delivery Method Room Air Room Air 06/04/25 20:10 Temperature Temperature Source Pulse Rate 96 Respiratory Rate 18 Blood Pressure 147/57 H Blood Pressure Mean 87 Pulse Ox 96 Oxygen Delivery Method Room Air MDM MDM MDM Narrative Medical decision making narrative: Differential diagnosis includes but not limited to intracranial hemorrhage versus closed head injury versus cervical spine fracture versus strain/sprain versus bilateral knee contusion versus fractures. Have low suspicion for any knee fractures as he has been able to ambulate. I do not think that he has quadriceps tendon ruptures as he is able to move both his legs. Regarding his intermittent hallucinations over the last 3 months, he may be dehydrated or have other electrolyte abnormality. CT imaging of the brain and C-spine were obtained as well as x-rays of the bilateral knees. CBC and BMP will be obtained as well. He will be given 50 mcg of fentanyl for analgesia. Urinalysis will be obtained and reviewed as well. I discussed with him if he is doing well at home taking care of himself, and he states that his son lives next-door. He does not want to be admitted currently for assisted facility placement. I reviewed his laboratory work and he has normal white count of 4.5 with hemoglobin stable at 10.7, platelet count 166. BMP grossly normal with the exception of BUN of 26 and creatinine 1.12, glucose 119, sodium 133 and potassium 4.0. I reviewed the radiology report of the CT of the brain and there is no acute hemorrhage there is no left basal ganglia infarct. CT of the cervical spine shows no acute fracture there are degenerative changes and redemonstrated supraglottic mass consistent with his carcinoma. X-rays of bilateral knees interpreted by myself independently shows no evidence of acute fracture, no dislocation. In inspection of his left thumb, this is a small wound and additionally I do not feel it requires suturing as it is more of an avulsion and it is greater then 20 hours old. This wound was cleansed by the RN and dressed with bacitracin and bandaged. Upon repeat examination, patient states that he does not want to be observed or admitted for placement. He feels well and can go home but is requesting pain medication. I wrote him a prescription for Percocet tablets for the next 3 days. He was told further narcotic should come from his primary care provider. Urinalysis obtained and on microanalysis 0-5 white cells. I do not feel he needs antibiotics. Return instructions to the emergency department were reviewed. Disposition is discharged home in stable condition. History & Record Review Discussion w/independent historian: Patient and Family Additional record(s) reviewed:: Prior ED visit (No prior ED visits) Lab Data Attestation: I reviewed the patient's lab results. Labs: Laboratory Results - last 24 hr 06/04/25 06/04/25 16:50 19:30 WBC 4.5 RBC 3.77 L Hgb 10.7 L Hct 32.0 L MCV 84.9 MCH 28.4 MCHC 33.4 RDW Std Deviation 45.3 H RDW Coeff of Tashia 14.9 H Plt Count 166 MPV 10.3 Immature Gran % (Auto) 0.200 Neut % (Auto) 79.2 H Lymph % (Auto) 7.1 L [place] % (Auto) 13.3 H Eos % (Auto) 0.0 Baso % (Auto) 0.2 Absolute Neuts (auto) 3.6 Absolute Lymphs (auto) 0.32 L Nucleated RBC % 0 Sodium 133 Potassium 4.0 Chloride 101 Carbon Dioxide 21.6 Anion Gap 11 BUN 26 H Creatinine 1.12 Estim Creat Clear Calc 65.50 Est GFR (MDRD) Non-Af 69 BUN/Creatinine Ratio 22.8 H Glucose 119 H Calcium 9.0 Urine Color Yellow Urine Clarity Sl. Cloudy Urine pH 5.0 Ur Specific [place] 1.020 Urine Protein 30 H Urine Glucose (UA) Normal Urine Ketones 15 H Urine Occult Blood 25 H Urine Nitrite Negative Urine Bilirubin Negative Urine Urobilinogen Normal Ur Leukocyte Esterase Negative Urine RBC 0-5 SEEN Urine WBC 0-5 SEEN Ur Squamous Epith Cells 0 SEEN Urine Bacteria 1+ Urine Mucus 0 SEEN Radiography Diagnostic Testing: Clinical Impression(s) from Imaging Studies Brain CT 06/04/25 16:18 IMPRESSION: 1. No intracranial hemorrhage. No mass effect or midline shift. 2. Chronic involutional and ischemic gliotic white matter changes. 3. Stable old left basal ganglia lacunar infarct. Reading Location: [facility] Cervical Spine CT 06/04/25 16:18 IMPRESSION: No acute fracture or subluxation. Degenerative changes as described. Redemonstrated supraglottic mass lesion not substantially changed since 04/15/2025. See prior dedicated soft tissue neck and PET-CT reports for further details. Reading Location: [facility] Knee X-Ray 06/04/25 17:20 IMPRESSION: No acute fracture or dislocations. mild degenerative changes with ch ondrocalcinosis. No large joint effusion. Mild diffuse soft tissue edema. no radiographic foreign body. Reading Location: [facility] Knee X-Ray 06/04/25 17:25 IMPRESSION: No acute fracture or dislocations. mild degenerative changes with chondrocalcinosis. Medial soft tissue adria. mild joint effusion. Mild soft tissue edema. Reading Location: [facility] Discharge Plan Triage Chief Complaint: Confusion ED Provider: [facility] Dx/Rx/DC Orders Clinical Impression: Fall, Cancer related pain, Cancer of supraglottis, Laceration of thumb, Acute bilateral knee pain, Contusion of face, Neck pain Instructions: ED Confusion, ED Facial Contusion, ED Laceration, Old: Not Sutured, ED Neck Pain Prescriptions: New oxycodone 5 mg tablet 5 mg PO Q8H PRN (Reason: pain) 3 Days Qty: 12 0RF No Action brimonidine 0.2 % drops 1 drp ophthalmic (eye) TID Rx Instructions: left eye dorzolamide-timolol [Cosopt] 22.3-6.8 mg/mL drops 1 drp ophthalmic (eye) BID famotidine 20 mg tablet 20 mg PO QDAY metformin 500 mg tablet 500 mg PO BID umeclidinium-vilanterol [Anoro Ellipta] 62.5-25 mcg/actuation blister with device 1 inh inhalation QDAY ondansetron 8 mg tablet,disintegrating 8 mg PO Q8H PRN (Reason: nausea and vomiting) Qty: 30 1RF lidocaine-prilocaine 2.5-2.5 % cream 1 applic topical ONCE PRN (Reason: port access) 30 Days Qty: 30 2RF MAGIC MOUTH WASH (BMX) 180 mL suspension 15 ml PO .Q6HR Qty: 180 5RF Rx Instructions: diphenhydramine 12.5 mg/5 mL oral liquid 60 mL; aluminum-mag hydroxide- simethicone 400 mg-400 mg-40 mg/5 mL oral susp 60 mL; Lidocaine Viscous 2 % mucosal solution 60 mL; Per 180 mL Primary Care Provider: Pramod Fernandez Referrals: Pramod Fernandez DO [Primary Care Provider, [facility]] - 3-5 Days if not improving Activity Restrictions/Additional Instructions: Follow-up with your primary care provider. Return with new or worsening symptoms. Print Language: [place]se Disposition Disposition: Home, Self Care D/C Safety Score for UGIB Assessment Moorcroft-Blatchford Bleeding Score (GBS): Stratifies upper GI bleeding patients who are low-risk and candidates for outpatient management. Hemoglobin, BUN, Recent Vital Signs: Hgb 10.7 g/dL (13.0-16.5) L 06/04/25 16:50 BUN 26 mg/dL (4-19) H 06/04/25 16:50 Pulse Rate 96 Blood Pressure 147/57 Score Interpretation: Score of 0: A GBS of 0 is a ?Low Risk? GI bleed, and is highly sensitive (99.6% in a 2007 retrospective study) for predicting which patients did not require any ?medical intervention?: blood transfusion, endoscopy, or surgery. This was confirmed in a 2009 [facility] study where patients with a score of 0 were actually discharged and had no GI bleeding mortality at 6 month followup Score above 0: A GBS greater than zero suggests a ?High Risk? GI bleed that is likely to require ?medical intervention?: transfusion, endoscopy, or surgery. A higher GBS also correlated with a higher likelihood of needing intervention Scores >/= 6 are associated with >50% risk of needing intervention D/C Safety Score for LGIB Assessment Assessment Tool: Readmission and adverse event risk in patients with acute lower GI bleeding. Hemoglobin and Recent Vital Signs: Hgb 10.7 g/dL (13.0-16.5) L 06/04/25 16:50 Pulse Rate 96 06/04/25 20:10 Blood Pressure 147/57 06/04/25 20:10 Score Interpretation: Probability Percentage of safe discharge (absence of rebleeding, blood transfusion, therapeutic intervention, 28 day readmission, or ) Score of 8 or below: Consider discharge, with appropriate precautions. Score of 9 or above: Discharge NOT recommended. Consider admission with further workup and resuscitation as necessary.
[2025-06-04] MEDS: 0.9% Normal Saline (1000mL) 1,000 ML 999 ML IV (17:12)
--- NOTE | 2025-06-04 17:20 | RAD_ITS ---
PROCEDURE: KNEE 1 OR 2 VIEWS 06/04/2025 REASON FOR EXAM: TRAUMA TECHNIQUE: Procedure Code: RADK Modality: DX Procedure: KNEE 1 OR 2 VIEWS Laterality: Right COMPARISON: none RAD/Knee 1 or 2 Views IMPRESSION: No acute fracture or dislocations. mild degenerative changes with chondrocalcin osis. No large joint effusion. Mild diffuse soft tissue edema. no radiographic foreign body. Reading Location: [facility]
--- NOTE | 2025-06-04 17:25 | RAD_ITS ---
PROCEDURE: KNEE 1 OR 2 VIEWS 06/04/2025 REASON FOR EXAM: FALL TECHNIQUE: Procedure Code: RADK Modality: DX Procedure: KNEE 1 OR 2 VIEWS Laterality: Left RAD/Knee 1 or 2 Views IMPRESSION: No acute fracture or dislocations. mild degenerative changes with chondrocalcin osis. Medial soft tissue adria. mild joint effusion. Mild soft tissue edema. Reading Location: [facility]
[2025-06-04] MEDS: fentaNYL 100 MCG/2 ML Ampul 50 MCG IV (17:35)
[2025-06-04 17:37] VITALS: BMI 31.6
[2025-06-04 17:38] VITALS: BP 153/86; PULSE 104; RESP 22; O2SAT 94
[2025-06-04 17:41] LABS: Anion Gap 11 (5-15); BUN 26 mg/dL (4-19); BUN/Creat Ratio 22.8 RATIO (10-20); Calcium,Total 9.0 mg/dL (7.6-11.0); Carbon Dioxide 21.6 mmol/L (21.0-32.0); Chloride 101 mmol/L (98-108); Estimated Creatinine Clearance 65.50 ml/min (50-250); Glucose 119 mg/dL (70-99); Potassium 4.0 mmol/L (3.3-5.1)
[2025-06-04 17:44] LABS: Hematocrit 32.0 % (40-54); Hemoglobin 10.7 g/dL (13.0-16.5); Immature Granulocytes Count 0.010 X10^3/uL (0.0-0.0); Mean Corp Hgb Conc 33.4 g/dL (32-36); Mean Corpuscular Volume 84.9 fL (80-94); Mean Platelet Vol. 10.3 fl (6.2-12.0); NRBC Flagged by Analyzer 0 % (0-5); POSITIVE DIFFERENTIAL YES; Platelet Count 166 K/mm3 (150-450); RBC Distribution Width CV 14.9 % (11.6-14.6); RBC Distribution Width SD 45.3 fl (35.1-43.9); Red Blood Count 3.77 M/mm3 (4.6-6.2); White Blood Count 4.5 K/mm3 (4.4-11.0)
[2025-06-04 18:00] VITALS: BP 138/74; PULSE 103; RESP 16; TEMP 37.5; O2SAT 95
[2025-06-04 19:37] LABS: Mucous, Urine 0 SEEN /hpf (<or=2+); Squamous Epithelial Cells - UA 0 SEEN /hpf (0-5)
[2025-06-04 20:10] VITALS: BP 147/57; PULSE 96; RESP 18; O2SAT 96
[2025-06-04 20:15] LABS: Color, Urine Yellow (Yellow); Glucose, Dipstick Normal (Normal); Ketone-Dipstick 15 mg/dl (Negative); Leukocyte Esterase-Dipstick Negative /ul (Negative); Nitrite-Dipstick Negative (Negative); Occult Blood-Urine 25 /ul (Negative); Protein-Dipstick 30 mg/dl (Negative); Specific Gravity, Urine 1.020 (1.002-1.030); Urine Bilirubin Dipstick Negative (Negative)
[2025-06-04 21:46] LABS: Red Blood Cells-Urine 0-5 SEEN /hpf (0-5)
[2025-06-04 22:24] VITALS: BP 156/79; PULSE 110; RESP 18; TEMP 36.7; O2SAT 96
== END 2025-06-04 22:25 | disposition home or self-care (01) ==
PROVIDERS: Emergency Provider Emergency Medicine; PCP Family Medicine; Visit Provider Emergency Medicine
DX: G89.3 Neoplasm related pain (acute) (chronic) (principal); Z93.1 Gastrostomy status; C32.1 Malignant neoplasm of supraglottis; J44.9 Chronic obstructive pulmonary disease, unspecified; E11.22 Type 2 diabetes mellitus with diabetic chronic kidney disease; N18.30 Chronic kidney disease, stage 3 unspecified; M25.562 Pain in left knee; M25.561 Pain in right knee; R44.3 Hallucinations, unspecified; E78.00 Pure hypercholesterolemia, unspecified; I25.10 Atherosclerotic heart disease of native coronary artery without angina pectoris; S00.83XA Contusion of other part of head, initial encounter; R41.0 Disorientation, unspecified; S61.019A Laceration without foreign body of unspecified thumb without damage to nail, initial encounter; I12.9 Hypertensive chronic kidney disease with stage 1 through stage 4 chronic kidney disease, or unspecified chronic kidney disease; M54.2 Cervicalgia; K21.9 Gastro-esophageal reflux disease without esophagitis; F17.210 Nicotine dependence, cigarettes, uncomplicated; W19.XXXA Unspecified fall, initial encounter
CPT/HCPCS: 36591; 70450; 72125; 73560; 80048; 81001; 85025; 96361; 96374; 99282; A4216

== ENCOUNTER → 2025-06-10 | Outpatient (CLI) | payer MEDICARE, MEDICAID, SELFPAY ==
--- NOTE | 2025-06-10 09:25 | RAD_ITS ---
PROCEDURE: CHEST PA AND LATERAL 06/10/2025 REASON FOR EXAM: COUGH-CANCER TECHNIQUE: Procedure Code: RADCXR Modality: DX Procedure: CHEST PA AND LATERAL COMPARISON: April 25, 2025 FINDINGS: Sternotomy wires are noted. There is a central access port on the left with its tip centrally located. Heart size and mediastinal configuration are within normal limits. There is no focal infiltrate or consolidation. There is no pneumothorax or effusion. There is no acute bony abnormality. Aortic calcifications are noted. RAD/Chest PA and Lateral IMPRESSION: No acute infiltrate or consolidation is identified. Reading Location: [facility]
== END | disposition home or self-care (01) ==
LOC: RAD 09:08
PROVIDERS: PCP Family Medicine; Referring Provider Internal Medicine Medical Oncology; Visit Provider Internal Medicine Medical Oncology
DX: C32.1 Malignant neoplasm of supraglottis (principal); R05.3 Chronic cough
CPT/HCPCS: 71046

== ENCOUNTER 2025-06-17 11:29 | Inpatient (IN) | payer MEDICARE, MEDICAID, SELFPAY ==
[2025-06-17] VITALS (11 sets, daily range): BP systolic 135–161; BP diastolic 56–80; PULSE 83–95; RESP 16–22; TEMP 37.1–38.4; O2SAT 86–98; BMI 26.9; BMI 26.5
--- NOTE | 2025-06-17 12:07 | EKG12_ITS ---
Test Reason : SOB Blood Pressure : */* mmHG Vent. Rate : 83 BPM Atrial Rate : 83 BPM P-R Int : 138 ms QRS Dur : 80 ms QT Int : 326 ms P-R-T Axes : 57 38 74 degrees QTcB Int : 383 ms Normal sinus rhythm Normal ECG Confirmed by WINDY DALLAS, YANETH ([id number]), general expeditor ASHLEY LEE ([id number]) on 06/18/2025 9:16:25 AM Referred By: Confirmed By: YANETH TEMPLE MD
--- NOTE | 2025-06-17 12:08 | EX.ED.DYSGE1 ---
HPI History of Present Illness Chief Complaint: General Illness Detail of Chief Complaint: Short of breath and not feeling well Informant: patient Narrative Narrative: Patient presents to the emergency department with complaint of shortness of breath and not feeling well. Patient states that he felt short of breath this morning. He is not been feeling well for about 2 days. He said a cough with some yellow phlegm. He just feels weak and no energy. States that he just finished chemo and radiation 5 days ago for throat cancer. He quit smoking a few days ago. Patient has history of COPD but does not wear home O2. He denies fever at home. [facility] Medical History Encounter for chemotherapy management Constipation Cancer related pain Encounter for education Type 2 diabetes mellitus PVD (peripheral vascular disease) History of pleural effusion Depression CKD stage 3 due to type 2 diabetes mellitus CAD (coronary artery disease) Wears glasses Wears dentures Cancer Marijuana use Arthritis Difficulty swallowing Heartburn Gastric reflux Shortness of breath on exertion Chronic cough Smoker Cardiology follow-up encounter COPD (chronic obstructive pulmonary disease) Acid reflux High cholesterol Hypertension Diabetes Blindness of right eye Home Medications ?Medication ?Instructions ?Recorded ?Last Taken ?Type brimonidine 0.2 % eye drops 1 drp ophthalmic (eye) TID 04/07/25 04/24/25 History dorzolamide 22.3 mg-timolol 6.8 1 drp ophthalmic (eye) BID 04/07/25 04/24/25 History mg/mL eye drops (Cosopt) famotidine 20 mg tablet 20 mg PO QDAY 04/07/25 04/24/25 History metformin 500 mg tablet 500 mg PO BID 04/07/25 04/24/25 History Held on 06/04/25. Instructions: MD Ordered umeclidinium 62.5 mcg-vilanterol 1 inh inhalation QDAY 04/07/25 04/22/25 History 25 mcg/actuation powdr for inhalation (Anoro Ellipta) MAGIC MOUTH WASH (BMX) 180 mL 15 ml PO .Q6HR #180 mL 04/23/25 04/24/25 Rx suspension lidocaine-prilocaine 2.5 %-2.5 % 1 applic topical ONCE PRN port 04/23/25 Unknown Rx topical cream access 30 days #30 grams ondansetron 8 mg disintegrating 8 mg PO Q8H PRN nausea and 04/23/25 Unknown Rx tablet vomiting #30 tabs oxycodone 5 mg tablet 5 mg PO Q8H PRN pain 3 days #12 06/04/25 Unknown Rx tabs diphenhydramine HCl 12.5 mg/5 mL 12.5 mg PO Q6H PRN mouth 06/17/25 Unknown History oral liquid Allergy/AdvReac Type Severity Reaction Status Date / Time lisinopril Allergy Angioedema Verified 06/17/25 11:32 Family History Mother Diabetes Father Cirrhosis Brother COPD (chronic obstructive pulmonary disease) Surgical History S/P percutaneous endoscopic gastrostomy (PEG) tube placement History of colonoscopy History of vascular surgery History of cardiac catheterization History of artificial lens replacement History of coronary artery bypass graft x 3 S/P triple vessel bypass Social History Smoking Status: Former smoker Tobacco: How many years used: 40 alcohol intake: never substance use type: marijuana ROS ROS ED Review of Systems ROS Unobtainable: other Constitutional Constitutional ED: Reports lethargy; Denies chills, fever(s), sweats or weight loss Eyes Eyes: Denies blurry vision, change in vision or diplopia ENT ENT ED: Denies rhinorrhea or sore throat Cardiovascular Cardiovascular: Denies chest pain, orthopnea or racing heartbeat Respiratory/Chest Respiratory/Chest: Reports cough, dyspnea, dyspnea on exertion and sputum; Denies orthopnea Gastrointestinal Gastrointestinal: Denies abdominal pain, diarrhea, nausea or vomiting Genitourinary Genitourinary ED: Denies dysuria, hematuria or urinary frequency Musculoskeletal Musculoskeletal: Denies arthralgias, back pain, myalgias or neck pain Integumentary Denies abscess, Abrasions or rash Neurologic Neurologic: Denies headache(s) or weakness Psychiatric Psychiatric: Denies anxiety, depression or suicidal thoughts Endocrine Endocrinology: Denies polydipsia, polyphagia or polyuria Hematologic/Lymphatic Hematologic/Lymphatic: Denies easy bleeding, easy bruising or lymphadenopathy Allergic/Immunologic Allergic/Immunologic ED: Denies mouth swelling, tongue swelling or urticaria EXAM Physical Exam Const Vital Signs: 06/17/25 11:29 06/17/25 11:47 06/17/25 11:48 Temperature 99.1 F Temperature Source Oral Pulse Rate 92 86 Respiratory Rate 16 20 H Respiratory Pattern Blood Pressure 161/70 H 144/56 H Blood Pressure Mean 100 85 Pulse Ox 94 86 94 Oxygen Delivery Method Room Air Room Air Room Air Oxygen Flow Rate (L/min) 06/17/25 11:54 06/17/25 12:25 06/17/25 12:25 Temperature Temperature Source Pulse Rate 84 Respiratory Rate 22 H Respiratory Pattern Tachypnea Blood Pressure Blood Pressure Mean Pulse Ox 97 97 Oxygen Delivery Method Nasal Cannula Nasal Cannula Oxygen Flow Rate (L/min) 2 2 06/17/25 13:00 06/17/25 14:14 Temperature 101.1 F H 100.4 F H Temperature Source Oral Oral Pulse Rate 83 84 Respiratory Rate 16 18 Respiratory Pattern Blood Pressure 142/56 H 142/56 H Blood Pressure Mean 84 84 Pulse Ox 97 98 Oxygen Delivery Method Nasal Cannula Room Air Oxygen Flow Rate (L/min) 2 Positive well nourished and well developed General Appearance ED: well developed and NAD HEENT Reports TM's clear and moist mucous membranes normocephalic and atraumatic; Negative for trauma or tenderness Tympanic Membrane ED: Yes TM's clear Eyes PERRL and EOMs intact bilaterally General Eye ED: Negative for pale conjunctiva or scleral icterus Neck no lymphadenopathy, supple and no JVD General: Negative for tenderness Chest Wall inspection of chest normal and palpation of chest normal Chest: Negative for tenderness Resp normal respiratory effort and No clear to auscultation bilaterally Effort and Inspection: Negative for respiratory distress or pain with movement Auscultation: rhonchi and wheezes; Negative for diminished lung sounds Cardio regular rate, regular rhythm, S1 normal heart sound, S2 normal heart sound and no murmurs Peripheral Pulses: pulses 2+ throughout GI normal to inspection, nondistended, normoactive bowel sounds, soft to palpation, non-tender, non-distended and no masses Back/Spine no CVA tenderness and no thoracic nor lumbar tenderness Extremity normal to inspection General Extremety ED: Negative for edema General Extremity: Negative for edema Neuro oriented x3, CN's II-XII intact bilaterally, no sensory deficits noted and gait normal Sensorium / Orientation: awake, alert, oriented to person, oriented to place and oriented to time Motor Exam: strength 5/5 throughout and strength abnormal Psych mental status grossly normal Skin no rashes or lesions noted and no wounds MDM MDM MDM Narrative Medical decision making narrative: Patient presents with generalized weakness and cough and feeling short of breath. Bringing up yellow sputum. Recently received radiation and chemotherapy which she finished 5 days ago. Typically does not wear home O2. Established. Blood cultures ordered. CBC with differential obtained showed a depressed white count of 2.7 with hemoglobin 10.1 and platelet count of 168. Absolute neutrophil count was 1.8. D-dimer elevated 0.98. First troponin was normal at 17 and delta troponin was 12. 1 view chest x-ray obtained showed no acute process. CTA of the chest was obtained to rule out PE which was negative for PE but did show small airway disease left lower lobe which could represent pus or fluid or infectious etiology. Also noted was the gastrostomy tube in place however the balloon is pulled out and is located in the anterior abdominal wall at the level of the musculature. Patient started on Levaquin IV. Will discuss case with hospitalist to evaluate for admission. Patient had the gastrostomy tube placed by Dr. Bhatti and will need surgical consultation to review. Lab Data Attestation: I reviewed the patient's lab results. Labs: Laboratory Results - last 24 hr 06/17/25 06/17/25 12:20 14:10 WBC 2.7 L RBC 3.58 L Hgb 10.1 L Hct 31.4 L MCV 87.7 MCH 28.2 MCHC 32.2 RDW Std Deviation 47.7 H RDW Coeff of Tashia 15.2 H Plt Count 168 MPV 10.2 Immature Gran % (Auto) 0.400 Neut % (Auto) 67.4 Lymph % (Auto) 11.6 L [place] % (Auto) 20.2 H Eos % (Auto) 0.0 Baso % (Auto) 0.4 Absolute Neuts (auto) 1.8 L Absolute Lymphs (auto) 0.31 L Nucleated RBC % 0 D-Dimer Quant (PE/DVT) 0.98 H* Sodium 135 Potassium 4.7 Chloride 98 Carbon Dioxide 29.6 Anion Gap 8 BUN 20 H Creatinine 1.06 Estim Creat Clear Calc 60.21 Est GFR (MDRD) Non-Af 73 BUN/Creatinine Ratio 19.1 Glucose 181 H Calcium 9.2 Troponin T High Sens 14 Troponin T Hi Sens 2 Hr 12 Radiography Diagnostic Testing: Clinical Impression(s) from Imaging Studies Chest X-Ray 06/17/25 12:31 IMPRESSION: No acute cardiopulmonary process Reading Location: [facility] Chest CTA 06/17/25 14:23 IMPRESSION: 1. No evidence of acute or chronic pulmonary embolus. 2. Minimal small airways disease left lower lobe. This can represent areas of acinar filling with mucous, pus or fluid. Infectious etiologies include atypical organisms. 3. Prior median sternotomy and CABG. 4. Percutaneous gastrostomy tube in place. The balloon has pulled out and is located in the anterior abdominal wall at the level of the musculature. Recommend direct inspection and possible replacement. 5. Right gynecomastia. Reading Location: [facility] 1 view chest x-ray obtained interpreted by myself as no evidence of infiltrate or pneumothorax or acute disease process. Radiology in agreement. EKG Initial EKG: Attestation: I personally reviewed and interpreted this EKG as follows: Comments: Sinus rhythm with rate of 83 bpm with no acute ST segment changes Discharge Plan Dx/Rx/DC Orders Clinical Impression: Pneumonia, Weakness, History of throat cancer, Neutropenia Disposition Disposition: Acute Care [facility]
--- NOTE | 2025-06-17 12:31 | RAD_ITS ---
PROCEDURE: CHEST 1 VIEW (PORTABLE) 06/17/2025 REASON FOR EXAM: DYSPNEA TECHNIQUE: Frontal view of the chest. COMPARISON: June 10, 2025 FINDINGS: Hardware: Left-sided Port-A-Cath is in place. The tip is seen over the junction of the superior vena cava and right atrium. Heart: Normal-size status post median sternotomy Lungs: Clear Bones: Degenerative changes are identified within the thoracic spine. RAD/Chest 1 View (Portable) IMPRESSION: No acute cardiopulmonary process Reading Location: [id number]
[2025-06-17 12:32] LABS: Hematocrit 31.4 % (40-54); Hemoglobin 10.1 g/dL (13.0-16.5); Immature Granulocytes Count 0.010 X10^3/uL (0.0-0.0); Mean Corp Hgb Conc 32.2 g/dL (32-36); Mean Corpuscular Volume 87.7 fL (80-94); Mean Platelet Vol. 10.2 fl (6.2-12.0); NRBC Flagged by Analyzer 0 % (0-5); POSITIVE DIFFERENTIAL YES; Platelet Count 168 K/mm3 (150-450); RBC Distribution Width CV 15.2 % (11.6-14.6); RBC Distribution Width SD 47.7 fl (35.1-43.9); Red Blood Count 3.58 M/mm3 (4.6-6.2); White Blood Count 2.7 K/mm3 (4.4-11.0)
[2025-06-17] MEDS: 0.9% Normal Saline (1000mL) 1,000 ML 150 ML IV (12:33)
[2025-06-17 12:37] LABS: Differential Indicated SCAN CRITERIA MET
[2025-06-17 12:54] LABS: D-Dimer Quantitative (DVT/PE) 0.98 FEU/ug/m (0.27-0.49)
[2025-06-17 13:13] LABS: Anion Gap 8 (5-15); BUN 20 mg/dL (4-19); BUN/Creat Ratio 19.1 RATIO (10-20); Calcium,Total 9.2 mg/dL (7.6-11.0); Carbon Dioxide 29.6 mmol/L (21.0-32.0); Chloride 98 mmol/L (98-108); Estimated Creatinine Clearance 60.21 ml/min (50-250); Glucose 181 mg/dL (70-99); Potassium 4.7 mmol/L (3.3-5.1); Troponin T High Sensitivity 14 ng/L (<=22)
--- NOTE | 2025-06-17 14:23 | CT_ITS ---
PROCEDURE: CTA CHEST W/WO CONTRAST 06/17/2025 REASON FOR EXAM: DYSPNEA, ELEVATED D-DIMER TECHNIQUE: Procedure Code: [id number] Modality: CT Procedure: CTA CHEST W/WO CONTRAST Multiplanar Sagittal and Coronal images were obtained. 3D post processing was performed CONTRAST: Isovue 370 VOLUME: 90 mL One or more dose reduction techniques were used (e.g., Automated exposure control, adjustment of the mA and/or kV according to patient size, use of iterative reconstruction technique). RADIATION DOSE SUMMARY: CTDlvol: 25 mGy DLP: 422 mGycm COMPARISON: June 17, 2025, June 10, 2025 # of known CTs in the past 12 months: 7 # of known Cardiac Nuclear Medicine Studies in the past 12 months: 1 FINDINGS: Thoracic Aorta: The timing and quality of the contrast bolus is diagnostic. Moderate atherosclerotic plaque without aneurysm or dissection. Heart: Heart is normal-size status post median sternotomy and CABG. No pericardial effusion. Pulmonary Vessels: The timing and quality of the contrast bolus is diagnostic. There is no evidence of acute or chronic pulmonary embolus. Hardware: Left Port-A-Cath is in place. Lymph nodes: None appear enlarged Lungs and Airways: A few small acinar opacities are shown in the left lower lobe. Some scarring is seen at the posterior lower lobes, [id number]. Small amount of mucous is seen dependently in the right mainstem bronchus. Pleura: No pleural effusion or pneumothorax. Upper Abdomen: Percutaneous gastrostomy tube is in place. The balloon is outside of the stomach in the anterior abdominal wall. Cyst is seen left midpole measuring 23 mm that is benign. Bones: Degenerative changes of the thoracic spine. Chest wall: Right breast gynecomastia. CT/CTA Chest W/WO Contrast IMPRESSION: 1. No evidence of acute or chronic pulmonary embolus. 2. Minimal small airways disease left lower lobe. This can represent areas of acinar filling with mucous, pus or fluid. Infectious etiologies include atypical organisms. 3. Prior median sternotomy and CABG. 4. Percutaneous gastrostomy tube in place. The balloon has pulled out and is located in the anterior abdominal wall at the level of the musculature. Recommend direct inspection and possible replacement . 5. Right gynecomastia. Reading Location: [id number]
[2025-06-17 14:49] LABS: Troponin T High Sens 2 HR 12 ng/L (<=22)
--- NOTE | 2025-06-17 15:17 | PCM.HP.STD ---
HPI - General General Date of Admission: 06/17/25 Date of Service: 06/17/25 Chief Complaint: Fatigue, malaise, cough, dyspnea. 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 Workup in the ED included T101.1, heart rate 86, BP 144/56, respiratory rate 20, initially 86% on room air with most recent repeat vitals 100.4, heart rate 84, BP 142/56, respiratory rate 18, 98% on 2 L nasal cannula, CBC with WC 2.7, hemoglobin 10.1, MCV 87.7, platelet 168 with ANC 1.8 and lymphopenia, D-dimer 0.98, BMP with BUN/[place] 20/1.06, GFR 73, glucose 181, troponin initial 14 with repeat delta 12, chest x-ray with no acute cardiopulmonary findings, follow-up chest CTA with no acute or chronic pulmonary emboli, minimal small airway disease in the left lower lobe possibly [place] filling with mucus or fluid, infectious etiologies could certainly be atypical organisms, evidence of prior median sternotomy and CABG, percutaneous gastrostomy tube in place with the balloon pulled out and located in the anterior abdominal wall at the level of the musculature with recommendation for direct inspection and possible replacement, right gynecomastia, rapid SARS COVID/influenza/RSV PCR negative, blood culture x 2 pending per ED. In the ED patient ministered maintenance IV fluids, DuoNeb therapy, Toradol 50 mg IV x 1, Levaquin 7 and 50 mg IV x 1. [facility] Medical History Encounter for chemotherapy management Constipation Cancer related pain Encounter for education Type 2 diabetes mellitus PVD (peripheral vascular disease) History of pleural effusion Depression CKD stage 3 due to type 2 diabetes mellitus CAD (coronary artery disease) Wears glasses Wears dentures Cancer Marijuana use Arthritis Difficulty swallowing Heartburn Gastric reflux Shortness of breath on exertion Chronic cough Smoker Cardiology follow-up encounter COPD (chronic obstructive pulmonary disease) Acid reflux High cholesterol Hypertension Diabetes Blindness of right eye Home Medications ?Medication ?Instructions ?Recorded ?Last Taken ?Type brimonidine 0.2 % eye drops 1 drp ophthalmic (eye) TID 04/07/25 04/24/25 History dorzolamide 22.3 mg-timolol 6.8 1 drp ophthalmic (eye) BID 04/07/25 04/24/25 History mg/mL eye drops (Cosopt) famotidine 20 mg tablet 20 mg PO QDAY 04/07/25 04/24/25 History metformin 500 mg tablet 500 mg PO BID 04/07/25 04/24/25 History Held on 06/04/25. Instructions: MD Ordered umeclidinium 62.5 mcg-vilanterol 1 inh inhalation QDAY 04/07/25 04/22/25 History 25 mcg/actuation powdr for inhalation (Anoro Ellipta) MAGIC MOUTH WASH (BMX) 180 mL 15 ml PO .Q6HR #180 mL 04/23/25 04/24/25 Rx suspension lidocaine-prilocaine 2.5 %-2.5 % 1 applic topical ONCE PRN port 04/23/25 Unknown Rx topical cream access 30 days #30 grams ondansetron 8 mg disintegrating 8 mg PO Q8H PRN nausea and 04/23/25 Unknown Rx tablet vomiting #30 tabs oxycodone 5 mg tablet 5 mg PO Q8H PRN pain 3 days #12 06/04/25 Unknown Rx tabs diphenhydramine HCl 12.5 mg/5 mL 12.5 mg PO Q6H PRN mouth 06/17/25 Unknown History oral liquid Allergy/AdvReac Type Severity Reaction Status Date / Time lisinopril Allergy Angioedema Verified 06/17/25 11:32 Family History Mother Diabetes Father Cirrhosis Brother COPD (chronic obstructive pulmonary disease) Surgical History S/P percutaneous endoscopic gastrostomy (PEG) tube placement History of colonoscopy History of vascular surgery History of cardiac catheterization History of artificial lens replacement History of coronary artery bypass graft x 3 S/P triple vessel bypass Social History (Updated 06/17/25 @ 16:[address] Angelina Jordan MD) household members: none Smoking Status: Former smoker Tobacco: How many years used: 40 alcohol intake: never substance use type: marijuana ROS ROS Narrative Admission Review of Systems: CONSTITUTIONAL: No weight loss, fever, chills, + weakness or fatigue. HEENT: + History of supraglottic cancer with ongoing radiation therapy with associated skin changes. Eyes: No visual loss, blurred vision, double vision or yellow sclerae. Ears, Nose, Throat: No hearing loss, sneezing, congestion, runny nose or sore throat. SKIN: No rash or itching, lesions, wounds except + History of supraglottic cancer with ongoing radiation therapy with associated skin changes. CARDIOVASCULAR: No chest pain, chest pressure or chest discomfort, palpitations, edema, orthopnea, syncopal events. RESPIRATORY: + Dyspnea, cough with productive sputum. No wheezing, hemoptysis. GASTROINTESTINAL: No anorexia, nausea, vomiting or diarrhea, abdominal pain, melena, BRBPR. GENITOURINARY: No dysuria, frequency, urgency or retention. NEUROLOGICAL: No headache, dizziness, syncope, paralysis, ataxia, numbness or tingling in the extremities, focal weakness, change in bowel or bladder control, seizure. MUSCULOSKELETAL: + muscle, back pain, joint pain or stiffness. HEMATOLOGIC: + Chronic anemia, easy bleeding/bruising. LYMPHATICS: No enlarged nodes. No history of splenectomy. PSYCHIATRIC: No history of depression or anxiety. ENDOCRINOLOGIC: No reports of sweating, cold or heat intolerance. No polyuria or polydipsia. ALLERGIES: + History of angioedema. Vital Signs Vital Signs Vital Signs: 06/17/25 11:29 06/17/25 11:47 06/17/25 11:48 Temperature 99.1 F Temperature Source Oral Pulse Rate 92 86 Respiratory Rate 16 20 H Respiratory Pattern Blood Pressure 161/70 H 144/56 H Blood Pressure Mean 100 85 Pulse Ox 94 86 94 Oxygen Delivery Method Room Air Room Air Room Air Oxygen Flow Rate (L/min) 06/17/25 11:54 06/17/25 12:25 06/17/25 12:25 Temperature Temperature Source Pulse Rate 84 Respiratory Rate 22 H Respiratory Pattern Tachypnea Blood Pressure Blood Pressure Mean Pulse Ox 97 97 Oxygen Delivery Method Nasal Cannula Nasal Cannula Oxygen Flow Rate (L/min) 2 2 06/17/25 13:00 06/17/25 14:14 Temperature 101.1 F H 100.4 F H Temperature Source Oral Oral Pulse Rate 83 84 Respiratory Rate 16 18 Respiratory Pattern Blood Pressure 142/56 H 142/56 H Blood Pressure Mean 84 84 Pulse Ox 97 98 Oxygen Delivery Method Nasal Cannula Room Air Oxygen Flow Rate (L/min) 2 Weight Weight: 181 lb 14.102 oz Body Mass Index (BMI) 26.9 Physical Exam Narrative Physical Examination: General: Awake, alert, oriented x 3 and cooperative, seated upright in the ED bed, fatigued but no acute distress. Skin: Normal color, normal turgor, no icterus, no cyanosis except occasional stage ecchymoses, abrasion, venous stasis skin changes.. HEENT: AT/NC, EOMI, chronic right eye blindness with cloudy pupillary region, left pupil reactive, moderately dry MM, no carotid bruits or JVD noted. Lungs: Diminished, greater bases, left greater than right, mildly rhonchorous, no wheezing, no marked tachypnea or evidence of distress. . Heart: Regular rate and rhythm; no gallop, rub audible. Abdomen: Soft, PEG tube in place but per CT not in the correct position, no pain with palpation around the region, abdomen in general NTTP, no marked distention evident but does have mild tympany, hyperactive BS, no appreciated HSM. Extremities: No cyanosis, no clubbing, no significant distal pitting edema noted. olivier. Neurological: Patient awake, alert, oriented as noted, cognitive function intact; chronic right eye blindness with cloudy pupillary region/left pupil reactive, cranial nerves grossly normal aside from eye deficits as noted, moving all 4 extremities, no focal deficits, strength moderately globally decreased. Psychiatric: Affect appears fatigued, flat, no acute evidence of depressive or anxiety feelings. Results Lab / Micro Data 06/17/25 12:20 06/17/25 12:20 Labs: Laboratory Results - last 24 hr 06/17/25 12:20: WBC 2.7 L, RBC 3.58 L, Hgb 10.1 L, Hct 31.4 L, MCV 87.7, MCH 28.2, MCHC 32.2, RDW Std Deviation 47.7 H, RDW Coeff of Tashia 15.2 H, Plt Count 168, MPV 10.2, Immature Gran % (Auto) 0.400, Neut % (Auto) 67.4, Lymph % (Auto) 11.6 L, [place] % (Auto) 20.2 H, Eos % (Auto) 0.0, Baso % (Auto) 0.4, Absolute Neuts (auto) 1.8 L, Absolute Lymphs (auto) 0.31 L, Nucleated RBC % 0, D-Dimer Quant (PE/DVT) 0.98 H*, Sodium 135, Potassium 4.7, Chloride 98, Carbon Dioxide 29.6, Anion Gap 8, BUN 20 H, Creatinine 1.06, Estim Creat Clear Calc 60.21, Est GFR (MDRD) Non-Af 73, BUN/Creatinine Ratio 19.1, Glucose 181 H, Calcium 9.2, Troponin T High Sens 14 06/17/25 14:10: Troponin T Hi Sens 2 Hr 12 Micro: Microbiology 06/17/25 12:28 Mucosa - Nose SARS-CoV-2, Influenza & RSV (PCR) - Final Imaging Radiology Impression Chest X-Ray 06/17/25 12:31 IMPRESSION: No acute cardiopulmonary process Reading Location: [facility] Chest CTA 06/17/25 14:23 IMPRESSION: 1. No evidence of acute or chronic pulmonary embolus. 2. Minimal small airways disease left lower lobe. This can represent areas of acinar filling with mucous, pus or fluid. Infectious etiologies include atypical organisms. 3. Prior median sternotomy and CABG. 4. Percutaneous gastrostomy tube in place. The balloon has pulled out and is located in the anterior abdominal wall at the level of the musculature. Recommend direct inspection and possible replacement. 5. Right gynecomastia. 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 #1. Acute Hypoxia secondary to Acute LLL Pneumonia, Community Acquired however patient is immunosuppressed given ##3: Will admit to [place], maintain on oxygen with wean as tolerated to room air, ATC duonebs, PRN albuterol, maintain on IV Levaquin, HOB, IS parameters w/ pending sputum cultures, full respiratory panel, MRSA screen and urine antigens. Bld cx x 2 obtained in the ED. #2. Incidentally noted misplaced gastrostomy tube: Chest CTA with noted gastrostomy tube balloon pulled out and located in the anterior abdominal wall at the level of musculature, will request inspection and possible replacement if necessary. Will consult general surgery (placed per Dr. Perez) and avoid usage until evaluated and cleared. #3. 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 Dallas and most recently with radiation oncology 06/13/2025, mag and Phos levels requested, continue n.p.o. status, continue evaluation as noted above misplaced gastrostomy tube. #4. CAD: Status post CABG x 3, clarifying as regimen please previously as of 05/21/2025 included atorvastatin 40 mg, Coreg 25 mg, clarify. Clarifying also if ongoing baby aspirin therapy. Patient also had previously been recently listed on losartan but has a chart documented history of angioedema with lisinopril. #5. Hypertension: Continue home regimen including Coreg however clarifying as not currently listed but had been previously, PRN hydralazine. Also recently listed a fill for losartan however patient has angioedema with lisinopril. #6. Hyperlipidemia: Will continue home statin therapy however clarifying as not currently listed but had been previously. #7. Diabetes mellitus type II: Hold oral home regimen, continue tube feeds with nutrition consultation, maintain accu checks w/ ISS. #8. Chronic COPD: Will maintain on oxygen with wean as tolerated to room air, will temporally hold home inhalers and will maintain on ATC duonebs, PRN albuterol, HOB, IS parameters. #9. Chronic Kidney Disease Stage II per GFR trending: Admission BUN/Cr 20/1.06, GFR 73, baseline renal function 0.8-1.1, repeat BMP in AM. #10. Anxiety and depression: Per current list does not appear to be on regimen, possibly situational given recent diagnosis, encourage continued follow-up as previously arranged. #11. Chronic normocytic anemia: Admission globin to 10.1, MCV 87.7, baseline hemoglobin more recently had been 10-12 range, stable, continue to trend. #12. Former tobacco use: Encourage continued tobacco cessation. #13. GERD: Will maintain on famotidine. #14. DVT prophylaxis: SCDs in case of procedure needs for PEG. #15. CODE status: Patient HCPOA and living will are not in place but he notes he want his sister to be his medical decision-maker if necessary. He does state he is interested in setting these items up thus encouraged him to talk with binder caser/social work following admission. Discussed CODE status at length including difference between FULL code, DNR-CCA and DNR-CC status. Following discussions about the differences in these status, requested Full Code status. Advanced Care Planning Face to Face Time: 16 minutes. Charges/Coding Visit Charges Inpatient E&M: 31989 Init Hosp L3 Procedures Hospitalists Procedures: 11275 Advncd Care Plan 30 Min
[2025-06-17] MEDS: levoFLOXacin IV 750 MG/150 ML BAG 100 MG IV (15:26)
[2025-06-17] MEDS: 0.9% Normal Saline (1000mL) 1,000 ML 100 ML IV (17:09)
[2025-06-17] MEDS: BMX LIQUID 180 ML 15 ML PO ×2 (17:31→22:37)
[2025-06-17 17:44] LABS: Magnesium 2.0 mg/dL (1.5-2.2)
[2025-06-17 18:56] LABS: Troponin T High Sens 4 HR 14 ng/L (<=22)
[2025-06-17] MEDS: BRIMONIDINE 0.2% 5ML BOTTLE 1 DRP OPHTHALMIC (22:36)
[2025-06-17] MEDS: Dorzolamide HCL/Timolol 10 ml Bottle 1 DRP OPHTHALMIC (22:36)
[2025-06-18] VITALS (13 sets, daily range): BP systolic 129–161; BP diastolic 54–71; PULSE 77–98; RESP 15–22; TEMP 36.1–37.3; O2SAT 94–100; BMI 26.6; BMI 26.5
[2025-06-18] MEDS: MELATONIN 3 MG TABLET PO ×2 (01:30→22:11)
[2025-06-18] MEDS: BRIMONIDINE 0.2% 5ML BOTTLE 1 DRP OPHTHALMIC ×3 (05:47→22:12)
[2025-06-18] MEDS: BMX LIQUID 180 ML 15 ML PO ×3 (05:52→16:57)
[2025-06-18 06:17] LABS: Hematocrit 29.0 % (40-54); Hemoglobin 9.7 g/dL (13.0-16.5); Immature Granulocytes Count 0.010 X10^3/uL (0.0-0.0); Mean Corp Hgb Conc 33.4 g/dL (32-36); Mean Corpuscular Volume 86.1 fL (80-94); Mean Platelet Vol. 10.2 fl (6.2-12.0); NRBC Flagged by Analyzer 0 % (0-5); POSITIVE DIFFERENTIAL YES; POSITIVE MORPHOLOGY YES; Platelet Count 145 K/mm3 (150-450); RBC Distribution Width CV 15.5 % (11.6-14.6); RBC Distribution Width SD 46.5 fl (35.1-43.9); Red Blood Count 3.37 M/mm3 (4.6-6.2); White Blood Count 2.3 K/mm3 (4.4-11.0)
[2025-06-18 06:21] LABS: Differential Indicated SCAN CRITERIA MET
[2025-06-18 06:44] LABS: AST(SGOT) 16 U/L (<=37); Alanine Aminotransfer ALT/SGPT 16 U/L (<=46); Albumin, Serum 3.1 g/dL (3.4-4.8); Alkaline Phosphatase 64 U/L (40-129); Anion Gap 8 (5-15); BUN 17 mg/dL (4-19); BUN/Creat Ratio 16.3 RATIO (10-20); Calcium,Total 9.0 mg/dL (7.6-11.0); Carbon Dioxide 26.2 mmol/L (21.0-32.0); Chloride 102 mmol/L (98-108); Estimated Creatinine Clearance 63.19 ml/min (50-250); Globulin 2.8 g/dL (2.2-4.2); Glucose 130 mg/dL (70-99); Potassium 4.5 mmol/L (3.3-5.1)
--- NOTE | 2025-06-18 07:38 | EX.PCM.CON.S ---
Assessment & Plan Assessment/Plan (1) History of throat cancer: PLAN: Patient had dislodgment of his PEG tube. The hub is in the subcutaneous tissue. I removed the PEG tube this morning. Dr. Perez plans to replace the PEG tube this morning. I explained endoscopy in detail to the patient. I explained the risks including but not limited to stroke or heart attack with anesthesia, perforation of the GI tract, bleeding, infection. I explained that any of these could necessitate further emergency surgery. The patient understands and all questions were answered sufficiently. The patient wishes to proceed with procedure. Geo Ly MD Pager: [facility] [address] [place] [address], [address] [place] [address] Office: HPI Consult Data Date of Consult: 06/18/25 HPI Narrative HPI Narrative: VERNON MERAZ, is a 75 M who presents with hypoxia. The patient had a CTA in the emergency room which showed that the PEG tube was in the subcutaneous tissue and not in the stomach. The patient notes that he has been having difficulty with tube feeds. [facility] Medical History Encounter for chemotherapy management Constipation Cancer related pain Encounter for education Type 2 diabetes mellitus PVD (peripheral vascular disease) History of pleural effusion Depression CKD stage 3 due to type 2 diabetes mellitus CAD (coronary artery disease) Wears glasses Wears dentures Cancer Marijuana use Arthritis Difficulty swallowing Heartburn Gastric reflux Shortness of breath on exertion Chronic cough Smoker Cardiology follow-up encounter COPD (chronic obstructive pulmonary disease) Acid reflux High cholesterol Hypertension Diabetes Blindness of right eye Home Medications ?Medication ?Instructions ?Recorded ?Last Taken ?Type brimonidine 0.2 % eye drops 1 drp ophthalmic (eye) TID 04/07/25 04/24/25 History dorzolamide 22.3 mg-timolol 6.8 1 drp ophthalmic (eye) BID 04/07/25 04/24/25 History mg/mL eye drops (Cosopt) famotidine 20 mg tablet 20 mg PO QDAY 04/07/25 04/24/25 History metformin 500 mg tablet 500 mg PO BID 04/07/25 04/24/25 History Held on 06/04/25. Instructions: Ordered umeclidinium 62.5 mcg-vilanterol 1 inh inhalation QDAY 04/07/25 04/22/25 History 25 mcg/actuation powdr for inhalation (Anoro Ellipta) MAGIC MOUTH WASH (BMX) 180 mL 15 ml PO .Q6HR #180 mL 04/23/25 04/24/25 Rx suspension lidocaine-prilocaine 2.5 %-2.5 % 1 applic topical ONCE PRN port 04/23/25 Unknown Rx topical cream access 30 days #30 grams ondansetron 8 mg disintegrating 8 mg PO Q8H PRN nausea and 04/23/25 Unknown Rx tablet vomiting #30 tabs oxycodone 5 mg tablet 5 mg PO Q8H PRN pain 3 days #12 06/04/25 Unknown Rx tabs diphenhydramine HCl 12.5 mg/5 mL 12.5 mg PO Q6H PRN mouth 06/17/25 Unknown History oral liquid Allergy/AdvReac Type Severity Reaction Status Date / Time lisinopril Allergy Angioedema Verified 06/17/25 11:32 Family History Mother Diabetes Father Cirrhosis Brother COPD (chronic obstructive pulmonary disease) Surgical History S/P percutaneous endoscopic gastrostomy (PEG) tube placement History of colonoscopy History of vascular surgery History of cardiac catheterization History of artificial lens replacement History of coronary artery bypass graft x 3 S/P triple vessel bypass Social History (Updated 06/17/25 @ 16:[address] Angelina Jordan MD) household members: none Smoking Status: Former smoker Tobacco: How many years used: 40 alcohol intake: never substance use type: marijuana ROS Constitutional Constitutional: Denies anorexia, chills or fatigue Eyes Eyes: Denies blurry vision ENT HEENT: Denies abnormal hearing Cardiovascular Cardiovascular: Denies chest pain Respiratory/Chest Respiratory/Chest: Reports cough, dyspnea and shortness of breath at rest Gastrointestinal Gastrointestinal: Reports abdominal pain; Denies nausea or vomiting Lab / Micro Data 06/18/25 05:48 06/18/25 05:48 Labs: Laboratory Results - last 24 hr 06/17/25 12:20: WBC 2.7 L, RBC 3.58 L, Hgb 10.1 L, Hct 31.4 L, MCV 87.7, MCH 28.2, MCHC 32.2, RDW Std Deviation 47.7 H, RDW Coeff of Tashia 15.2 H, Plt Count 168, MPV 10.2, Immature Gran % (Auto) 0.400, Neut % (Auto) 67.4, Lymph % (Auto) 11.6 L, [place] % (Auto) 20.2 H, Eos % (Auto) 0.0, Baso % (Auto) 0.4, Absolute Neuts (auto) 1.8 L, Absolute Lymphs (auto) 0.31 L, Nucleated RBC % 0, D-Dimer Quant (PE/DVT) 0.98 H*, Sodium 135, Potassium 4.7, Chloride 98, Carbon Dioxide 29.6, Anion Gap 8, BUN 20 H, Creatinine 1.06, Estim Creat Clear Calc 60.21, Est GFR (MDRD) Non-Af 73, BUN/Creatinine Ratio 19.1, Glucose 181 H, Calcium 9.2, Troponin T High Sens 14 06/17/25 14:10: Phosphorus 2.7, Magnesium 2.0, Troponin T Hi Sens 2 Hr 12 06/17/25 17:14: POC Glucose 136 H 06/17/25 17:35: Troponin T Hi Sens 4Hr 14 06/17/25 22:43: POC Glucose 128 H 06/18/25 05:48: WBC 2.3 L, RBC 3.37 L, Hgb 9.7 L, Hct 29.0 L, MCV 86.1, MCH 28.8, MCHC 33.4, RDW Std Deviation 46.5 H, RDW Coeff of Tashia 15.5 H, Plt Count 145 L, MPV 10.2, Immature Gran % (Auto) 0.400, Neut % (Auto) 65.4, Lymph % (Auto) 13.6 L, [place] % (Auto) 20.6 H, Eos % (Auto) 0.0, Baso % (Auto) 0.0, Absolute Neuts (auto) 1.5 L, Absolute Lymphs (auto) 0.31 L, Nucleated RBC % 0, Sodium 136, Potassium 4.5, Chloride 102, Carbon Dioxide 26.2, Anion Gap 8, BUN 17, Creatinine 1.01, Estim Creat Clear Calc 63.19, Est GFR (MDRD) Non-Af 78, BUN/Creatinine Ratio 16.3, Glucose 130 H, Calcium 9.0, Total Bilirubin 0.34, AST 16, ALT 16, Alkaline Phosphatase 64, Total Protein 6.0, Albumin 3.1 L, Globulin 2.8, Albumin/Globulin Ratio 1.1 06/18/25 05:49: POC Glucose 131 H Micro: Microbiology 06/17/25 19:00 Nasal Secretion MRSA (PCR) - Final 06/17/25 17:21 Mucosa - Nasopharyngeal Respiratory Panel (PCR) - Final 06/17/25 17:30 Urine, Clean Catch Legionella Antigen - Final 06/17/25 17:30 Urine, Clean Catch Streptococcus pneumoniae Antigen (M - Final 06/17/25 12:28 Mucosa - Nose SARS-CoV-2, Influenza & RSV (PCR) - Final Imaging Radiology Impression Chest X-Ray 06/17/25 12:31 IMPRESSION: No acute cardiopulmonary process Reading Location: [facility] Chest CTA 06/17/25 14:23 IMPRESSION: 1. No evidence of acute or chronic pulmonary embolus. 2. Minimal small airways disease left lower lobe. This can represent areas of acinar filling with mucous, pus or fluid. Infectious etiologies include atypical organisms. 3. Prior median sternotomy and CABG. 4. Percutaneous gastrostomy tube in place. The balloon has pulled out and is located in the anterior abdominal wall at the level of the musculature. Recommend direct inspection and possible replacement. 5. Right gynecomastia. Reading Location: [facility]
[2025-06-18] MEDS: Lactated Ringers 1,000 ML 15 ML IV (08:12)
--- NOTE | 2025-06-18 08:45 | PCM.RX.CS ---
Consult Antibiotic Management Pharmacy has been consulted to manage selected antibiotic: Vancomycin Type of Intervention Type of Consult: New start Suspected Infection Suspected Infection: Pneumonia Labs Labs: Sodium 136 mmol/L (133-145) 06/18/25 05:48 Potassium 4.5 mmol/L (3.3-5.1) 06/18/25 05:48 Chloride 102 mmol/L (98-108) 06/18/25 05:48 Carbon Dioxide 26.2 mmol/L (21.0-32.0) 06/18/25 05:48 Anion Gap 8 (5-15) 06/18/25 05:48 BUN 17 mg/dL (4-19) 06/18/25 05:48 Creatinine 1.01 mg/dL (0.70-1.20) 06/18/25 05:48 Est GFR (MDRD) Non-Af 78 (>60) 06/18/25 05:48 BUN/Creatinine Ratio 16.3 RATIO (10-20) 06/18/25 05:48 Glucose 130 mg/dL (70-99) H 06/18/25 05:48 Microbiology Microbiology: Microbiology 06/17/25 12:20 Blood Culture (Wb) - Anticubital Right Blood Culture - Preliminary 06/17/25 19:00 Nasal Secretion MRSA (PCR) - Final 06/17/25 17:21 Mucosa - Nasopharyngeal Respiratory Panel (PCR) - Final 06/17/25 17:30 Urine, Clean Catch Legionella Antigen - Final 06/17/25 17:30 Urine, Clean Catch Streptococcus pneumoniae Antigen (M - Final 06/17/25 12:28 Mucosa - Nose SARS-CoV-2, Influenza & RSV (PCR) - Final Dosing Weight Weight used for dosin.5 kg Estimated Creatinine Clearance Estimated Creatinine Clearance: 63.2 Goal Trough Goal Trough: 15-20 mcg/mL Pharmacy Plan for Drug Dosing Pharmacy Plan for Drug Dosing: Pharmacy Service will continue to monitor and adjust dosing as required. NEW START IV VANCOMYCIN Consulting Physician: Dr. Jackson Indication: PNA Goal Trough: 15-20 SrCr: 1.01 CrCl: 63.2 Comments: - MRSA nasal swab 06/17/25: NEGATIVE Vancomycin Dose: 1000 mg Q12H with first dose @ 2100 Pending Level: 06/19/25 @ 2029 Date/Time Labs Ordered Labs to be done on [date and time ordered]: 06/19/25 @ 2029
--- NOTE | 2025-06-18 08:58 | ECHOD_ITS ---
Reason For Study Reason For Study: BACTEREMIA Procedure This was a 2D Doppler, Color Flow transthoracic echocardiogram. The patient was scanned supine. Limited views were obtained. Patient had new peg tube placement, bandages and binder were covering subcostal window. Exam performed portable in patient room. Left Ventricle Normal LV size. Apical false tendon noted. The left ventricular ejection fraction is 65 %. Stage 1 diastolic dysfunction. No regional wall motion abnormalities noted. Right Ventricle Normal RV size. Normal systolic function. Atria Normal left atrium. Normal right atrium. Mitral Valve Normal mitral valve. Tricuspid Valve Normal tricuspid valve. Trivial tricuspid valve insufficiency. Aortic Valve Trisinus/trileaflet aortic valve. Mild focal aortic valve calcification. Pulmonic Valve Normal pulmonic valve. Great Vessels Normal aortic root. The pulmonary artery is normal size. Inferior vena cava collapse with respiration. Pericardium/Pleural No pericardial effusion. MMode/2D Measurements & Calculations LVIDd: 3.9 cm IVSd: 1.3 cm LVOT diam: 2.2 cm LVIDs: 2.3 cm LVPWd: 1.0 cm LVOT area: 3.6 cm2 RVDd: 3.9 cm FS: 39.8 % Ao root diam: 2.9 cm asc Aorta Diam: 3.2 cm LAV(MOD- bp): 31.1 ml LAV(MOD- bp) Indexed: 15.8 ml/m2 LAV(MOD- sp2): 31.7 ml LAV(MOD- sp4): 28.1 ml SV(MOD- sp4): 23.8 ml LVAd ap4: 18.9 cm2 LVAd ap2: 18.2 cm2 LVLd ap4: 7.8 cm LVLd ap2: 7.3 cm SI(MOD- sp4): 12.1 ml/m2 EDV(MOD-sp4): 37.5 ml EDV(MOD-sp2): 39.9 ml EDV(sp4-el): 38.7 ml EDV(sp2-el): 38.8 ml LVAs ap4: 9.9 cm2 LVAs ap2: 9.8 cm2 LVLs ap4: 6.4 cm LVLs ap2: 6.3 cm ESV(MOD-sp4): 13.7 ml ESV(MOD-sp2): 14.2 ml ESV(sp4-el): 13.1 ml ESV(sp2-el): 13.0 ml EF(MOD-sp4): 63.4 % EF(MOD-sp2): 64.4 % EF(sp4-el): 66.3 % SV(MOD-sp2): 25.7 ml SV(sp4-el): 25.6 ml Ao sinus diam: 3.1 cm SI(MOD-sp2): 13.0 ml/m2 Ao ST Junction: 2.3 cm LA dimension(2D): 3.8 cm LA A4 area: 13.6 cm2 TAPSE: 1.7 cm RA A4 area: 11.7 cm2 Time Measurements MV dec time: 0.28 sec Doppler Measurements & Calculations MV E max mario: 68.5 cm/sec Lat Peak E' Mario: 8.9 cm/sec Med Peak E' Mario: 8.8 cm/sec MV A max mario: 81.7 cm/sec E/E' lat: 7.7 E/E' med: 7.8 MV E/A: 0.84 MV dec slope: 240.9 cm/sec2 Ao V2 max: 174.7 cm/sec LV V1 max: 123.8 cm/sec Ao max P.2 mmHg LV V1 max P.1 mmHg Ao V2 mean: 119.9 cm/sec LV V1 mean P.1 mmHg Ao mean P.6 mmHg LV V1 mean: 99.4 cm/sec Ao V2 VTI: 39.0 cm LV V1 VTI: 22.1 cm AV (velocity ratio): 0.57 MAURO(I,D): 2.1 cm2 MAURO(V,D): 2.6 cm2 SV(LVOT): 80.5 ml PA V2 max: 106.5 cm/sec TR max mario: 181.7 cm/sec TR max P.2 mmHg ECHO/Echo Complete Interpretation Summary Normal LV size. The left ventricular ejection fraction is 65 %. Stage 1 diastolic dysfunction. Mild focal aortic valve calcification. Ordering Physician: Rylie Jackson Performed By: Rea Curtis RDCS
--- NOTE | 2025-06-18 10:40 | PCM.PRE.AN2 ---
ASA Classification* ASA Classification ASA Classification: 4 (CAD s/p CABG x 3, HTN, HLD, GERD, COPD, CKD2, T2DM, supragolltic cancer stage 3, chronic anemia) Assessment & Plan Anesthesia* Anesthesia Assessment Anesthesia Assessment: Discussed sedation and/or anesthesia options, risks, benefits, and alternatives with patient/parents/legal guardian/POA. Questions invited. The patient/parents/legal guardian/POA seems to understand and agrees to proceed with anesthesia plan. Reviewed the physical assessment, medical history, allergy history and patient home medications list prior to surgery/procedure/anesthetic and documented any changes. Performed airway and anesthesia risk assessments. Had BMX mouth wash around ~5 AM, so will hold anesthesia to 11 AM Discussed with patient risk factors that could lead to requiring intubation or prolonged intubation, including his baseline COPD and declining respiratory status most likely secondary to pneumonia. Patient verbalized understanding and has given informed consent for anesthesia knowing these risk factors. Anesthesia Type Anesthesia Type: MAC History Source History Obtained from:: Patient and Chart Anesthesia Focused Assessment* Temperature: 98.9 F Pulse Rate: 77 Blood Pressure: 144/64 Respiratory Rate: 20 Pulse Ox: 94 Oxygen Delivery Method: Nasal Cannula Oxygen Flow Rate (L/min): 2 Airway Assessment Mouth opens: >3 cm Mallampati Score: II Neck Range of motion (ROM): Full ROM Labs Anesthesia Preop lab: CBC WBC, (4.4-11.0) 2.3 K/mm3 L Today, 05:48 RBC, (4.6-6.2) 3.37 M/mm3 L Today, 05:48 Hgb, (13.0-16.5) 9.7 g/dL L Today, 05:48 Hct, (40-54) 29.0 % L Today, 05:48 Plt Count, (150-450) 145 K/mm3 L Today, 05:48 CHEMISTRY Potassium, (3.3-5.1) 4.5 mmol/L Today, 05:48 Sodium, (133-145) 136 mmol/L Today, 05:48 Magnesium, (1.5-2.2) 2.0 mg/dL 06/17/25, 14:10 Phosphorus, (2.7-4.5) 2.7 mg/dL 06/17/25, 14:10 BUN, (4-19) 17 mg/dL Today, 05:48 Creatinine, (0.70-1.20) 1.01 mg/dL Today, 05:48 Glucose, (70-99) 130 mg/dL H Today, 05:48 POC Glucose, (74-106) 131 mg/dL H Today, 05:49 TSH, (0.300-4.200) 1.690 uIU/mL 04/17/25, 10:35 COAG Pre-Assessment Diagnosis/Proposed Procedure Planned Operative Procedure(s): EGD / peg Anesthesia History 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 When Was Last Pacemaker Check QUESTION #4 FULL TEXT: You/Your Family Experience fever (hyperthermia) with Anesthesia Last Oral Intake Last Oral intake: Last Oral Intake NPO since 05:56 06/18/25 08:10 Meds taken in AM with sips of water? Meds patient instructed to take am of surgery PONV PONV - violin mechanic: PONV - violin mechanic Female HX of Motion Sickness HX of N/V After Surgery Non-Smoker Duration of Surgery greater than 60 minutes Number of Risk Factors PONV Score Height & Weight Height & Weight: Anesthesia: Height & Weight Height 5 ft 9 in 06/18/25 08:10 Weight: 81.5 kg 06/18/25 08:10 Body Mass Index (BMI) 26.5 06/18/25 08:10 Respiratory Assessment Respiratory Assessment - violin mechanic: Respiratory Tract Infection Hx - violin mechanic Hx Respiratory Tract Infection No 06/10/25 09:30 STOP Sleep Apnea STOP Sleep Apnea - violin mechanic: STOP Sleep Apnea - violin mechanic Hx Hypertension Yes 06/17/25 16:38 Hx Sleep Apnea No 06/17/25 16:38 CPAP BIPAP Do you snore loudly (louder No 06/17/25 16:38 than talking or can be heard Do you often feel tired/ No 06/17/25 16:38 fatigued/ sleepy during daytime? Has anyone observed you stop No 06/17/25 16:38 breathing during sleep? STOP Results Negative 06/17/25 16:38 QUESTION #5 FULL TEXT : Do you snore loudly (louder than talking or can be heard through closed doors)? 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 Specify any problems Hx of Preganancy in last 3 N/A 06/17/25 16:38 Months Nurse Filling Out Transfusion YEVGENIY 06/17/25 16:38 & Questions: Date: 06/17/25 06/17/25 16:38 Time: 16:56 06/17/25 16:38 Patient unable to answer at this time (ie. confused, unrespo /Reproduction History /Reproductive History - violin mechanic: /Reproductive Hx- violin mechanic Hx Now Gestational Age (in weeks): EDC: Hx Hx Para Hx Section SAB No 06/10/25 09:30 Does the father of the baby or his family experience fever w Father of the baby Malignant Hypertension history comment Active Medications Active Medications: Current Medications Generic Name Dose Route Start Last Admin Trade Name Freq PRN Reason Stop Dose Admin Acetaminophen 650 mg 06/17/25 16:38 Acetaminophen 325 Mg Tablet PO Q4H PRN PRN Fever, pain 1-1010 Al Hydroxide/Mg Hydroxide 30 ml 06/17/25 16:38 Mag Hydrox/Al Hydrox/Simeth 30 Ml Udc PO Q6H PRN PRN Gastric Burning Albuterol Sulfate 2.5 mg 06/17/25 16:38 Albuterol 2.5 Mg/3 Ml Vial.Neb. INHALATION Q2H PRN PRN Dyspnea, wheezing Albuterol/Ipratropium 3 ml 06/17/25 16:38 06/17/25 22:45 Ipratropium/Albuterol Sulfate 3 Ml Ampul.Neb INHALATION 3 ml Q4HWA.RT LEXII Administration Brimonidine Tartrate 1 drp 06/17/25 22:00 06/18/25 05:47 Brimonidine 0.2% 5ml Bottle OPHTHALMIC 1 drp TID LEXII Administration Diphenhydramine HCl 12.5 mg 06/17/25 16:52 Diphenhydramine 12.5 Mg/5 Ml Udc PO Q6H PRN mouth Dorzolamide/Timolol 1 drp 06/17/25 22:00 06/17/25 22:36 Dorzolamide Hcl/Timolol 10 Ml Bottle OPHTHALMIC 1 drp BID LEXII Administration Famotidine 20 mg 06/17/25 16:38 06/17/25 17:27 Famotidine 20 Mg Tablet PO 20 mg DAILY LEXII Administration Glucagon 1 mg 06/17/25 16:38 Glucagon 1 Mg/Ml Syringe IM X1 PRN Hypoglycemia Protocol Guaifenesin 20 ml 06/17/25 16:38 Guaifenesin 10 Ml Udc (200mg/10ml) PO Q4H PRN PRN COUGH Hydralazine HCl 10 mg 06/17/25 16:38 Hydralazine 20 Mg/Ml Vial IV Q4H PRN PRN SBP > 160 Protocol Levofloxacin 750 mg in 150 mls @ 100 mls/hr 06/18/25 10:00 Levaquin Iv IV 06/25/25 10:01 Q24 LEXII Dextrose 250 mls @ 0 mls/hr 06/17/25 16:38 Dextrose 10%-Water IV .Q0M PRN HYPOGLYCEMIA Protocol As Directed Sodium Chloride 250 mls @ 15 mls/hr 06/17/25 16:42 IV .[id number] PRN Saline Flush Lactated Ringer's 1,000 mls @ 15 mls/hr 06/18/25 08:00 06/18/25 08:12 IV 15 mls/hr .Q48H LEXII Administration Vancomycin IV-PHARMACY TO DOSE 500 mls @ 250 mls/hr 06/18/25 08:19 1 each/ Sodium Chloride IV X1 PRN Rx to Dose Protocol Vancomycin HCl 1,000 mg/ 270 mls @ 250 mls/hr 06/18/25 21:00 Sodium Chloride IV Q12H LEXII Vancomycin HCl 2,000 mg/ 540 mls @ 250 mls/hr 06/18/25 09:00 Sodium Chloride IV 06/18/25 11:09 X1 ONE Insulin Human Lispro 0 unit 06/17/25 16:38 06/18/25 05:49 Insulin Lispro 100 Unit/Ml Insuln.Pen SC Not Given ACHS LEXII Protocol Lidocaine/Diphenhydr/Alum/Mg/Simeth 15 ml 06/17/25 18:00 06/18/25 05:52 Bmx Liquid 180 Ml PO 15 ml Q6 LEXII Administration Lidocaine/Prilocaine 1 gm 06/17/25 16:38 Lidocaine/Prilocaine Hcl 5 Gm Tube TOPICAL X1 PRN PORT ACCESS Protocol Melatonin 3 mg 06/17/25 16:38 06/18/25 01:30 Melatonin 3 Mg Tablet PO 3 mg QHS PRN PRN Administration INSOMNIA Ondansetron HCl 4 mg 06/17/25 16:38 Ondansetron 4 Mg/2 Ml Vial IV Q8H PRN PRN NAUSEA/VOMITING Oxycodone HCl 5 mg 06/17/25 16:38 06/18/25 02:38 Oxycodone 5 Mg Tablet PO 5 mg Q8H PRN Administration Pain Score 1-10 Senna/Docusate Sodium 2 tablet 06/17/25 16:38 Senna/Docusate Sodium 1 Tablet PO BID PRN PRN Constipation Sodium Chloride 10 - 40 ml 06/17/25 16:42 0.9% Saline Lock 10 Ml Syringe IV UD PRN SALINE FLUSH Vancomycin Protocol 1 lab 06/19/25 19:30 Vancomycin Trough/Random Due [facility] 06/19/25 21:30 DAILY [facility] PFSH Medical History Encounter for chemotherapy management Constipation Cancer related pain Encounter for education Type 2 diabetes mellitus PVD (peripheral vascular disease) History of pleural effusion Depression CKD stage 3 due to type 2 diabetes mellitus CAD (coronary artery disease) Wears glasses Wears dentures Cancer Marijuana use Arthritis Difficulty swallowing Heartburn Gastric reflux Shortness of breath on exertion Chronic cough Smoker Cardiology follow-up encounter COPD (chronic obstructive pulmonary disease) Acid reflux High cholesterol Hypertension Diabetes Blindness of right eye Home Medications ?Medication ?Instructions ?Recorded ?Last Taken ?Type brimonidine 0.2 % eye drops 1 drp ophthalmic (eye) TID 04/07/25 04/24/25 History dorzolamide 22.3 mg-timolol 6.8 1 drp ophthalmic (eye) BID 04/07/25 04/24/25 History mg/mL eye drops (Cosopt) famotidine 20 mg tablet 20 mg PO QDAY 04/07/25 04/24/25 History metformin 500 mg tablet 500 mg PO BID 04/07/25 04/24/25 History Held on 06/04/25. Instructions: MD Ordered umeclidinium 62.5 mcg-vilanterol 1 inh inhalation QDAY 04/07/25 04/22/25 History 25 mcg/actuation powdr for inhalation (Anoro Ellipta) MAGIC MOUTH WASH (BMX) 180 mL 15 ml PO .Q6HR #180 mL 04/23/25 04/24/25 Rx suspension lidocaine-prilocaine 2.5 %-2.5 % 1 applic topical ONCE PRN port 04/23/25 Unknown Rx topical cream access 30 days #30 grams ondansetron 8 mg disintegrating 8 mg PO Q8H PRN nausea and 04/23/25 Unknown Rx tablet vomiting #30 tabs oxycodone 5 mg tablet 5 mg PO Q8H PRN pain 3 days #12 06/04/25 Unknown Rx tabs diphenhydramine HCl 12.5 mg/5 mL 12.5 mg PO Q6H PRN mouth 06/17/25 Unknown History oral liquid Allergy/AdvReac Type Severity Reaction Status Date / Time lisinopril Allergy Angioedema Verified 06/17/25 11:32 Family History Mother Diabetes Father Cirrhosis Brother COPD (chronic obstructive pulmonary disease) Surgical History S/P percutaneous endoscopic gastrostomy (PEG) tube placement History of colonoscopy History of vascular surgery History of cardiac catheterization History of artificial lens replacement History of coronary artery bypass graft x 3 S/P triple vessel bypass Social History (Updated 06/17/25 @ 16:[address] Angelina Jordan MD) household members: none Smoking Status: Former smoker Tobacco: How many years used: 40 alcohol intake: never substance use type: marijuana Review of Systems (Anesthesia) ROS Narrative System reviewed and no additional complaints, except as documented. Physical Exam Const alert, oriented x3 and average body habitus Resp normal respiratory effort and normal air movement Auscultation: rhonchi Cardio regular rate, regular rhythm and no murmurs; Negative for diaphoretic
--- NOTE | 2025-06-18 11:21 | PCM.PROGNOTE ---
Subjective Subjective Patient seen and examined with his nurse by his bedside. He had no active complaints. He denied any fever or chills, palpitations, dizziness, nausea or vomiting. His blood cultures are positive for gram-positive cocci in clusters. He has remained hemodynamically stable. Objective Data Objective Data Vital Signs: Vital Signs Temp Pulse Resp BP Pulse Ox O2 Del Method O2 Flow Rate 98.9 F 77 20 H 144/64 H 94 Nasal Cannula 2 06/18/25 10:43 06/18/25 10:43 06/18/25 10:43 06/18/25 10:43 06/18/25 10:43 06/18/25 10:43 06/18/25 10:43 Oxygen Flow Rate (L/min) 2 Oxygen Delivery Method Nasal Cannula Weight: 179 lb 10.828 oz Body Mass Index (BMI) 26.5 Intake & Output: Intake and Output for Last 24 Hours 06/16/25 06/17/25 06/18/25 23:59 23:59 23:59 Intake Total 1150 / 1550 1700 / 1700 Output Total 600 / 600 Balance 550 / 950 1700 / 1700 Lab / Micro Data 06/18/25 05:48 06/18/25 05:48 Labs: Laboratory Results - last 24 hr 06/17/25 12:20: WBC 2.7 L, RBC 3.58 L, Hgb 10.1 L, Hct 31.4 L, MCV 87.7, MCH 28.2, MCHC 32.2, RDW Std Deviation 47.7 H, RDW Coeff of Tashia 15.2 H, Plt Count 168, MPV 10.2, Immature Gran % (Auto) 0.400, Neut % (Auto) 67.4, Lymph % (Auto) 11.6 L, [place] % (Auto) 20.2 H, Eos % (Auto) 0.0, Baso % (Auto) 0.4, Absolute Neuts (auto) 1.8 L, Absolute Lymphs (auto) 0.31 L, Nucleated RBC % 0, D-Dimer Quant (PE/DVT) 0.98 H*, Sodium 135, Potassium 4.7, Chloride 98, Carbon Dioxide 29.6, Anion Gap 8, BUN 20 H, Creatinine 1.06, Estim Creat Clear Calc 60.21, Est GFR (MDRD) Non-Af 73, BUN/Creatinine Ratio 19.1, Glucose 181 H, Calcium 9.2, Troponin T High Sens 14 06/17/25 14:10: Phosphorus 2.7, Magnesium 2.0, Troponin T Hi Sens 2 Hr 12 06/17/25 17:14: POC Glucose 136 H 06/17/25 17:35: Troponin T Hi Sens 4Hr 14 06/17/25 22:43: POC Glucose 128 H 06/18/25 05:48: WBC 2.3 L, RBC 3.37 L, Hgb 9.7 L, Hct 29.0 L, MCV 86.1, MCH 28.8, MCHC 33.4, RDW Std Deviation 46.5 H, RDW Coeff of Tashia 15.5 H, Plt Count 145 L, MPV 10.2, Immature Gran % (Auto) 0.400, Neut % (Auto) 65.4, Lymph % (Auto) 13.6 L, [place] % (Auto) 20.6 H, Eos % (Auto) 0.0, Baso % (Auto) 0.0, Absolute Neuts (auto) 1.5 L, Absolute Lymphs (auto) 0.31 L, Nucleated RBC % 0, Sodium 136, Potassium 4.5, Chloride 102, Carbon Dioxide 26.2, Anion Gap 8, BUN 17, Creatinine 1.01, Estim Creat Clear Calc 63.19, Est GFR (MDRD) Non-Af 78, BUN/Creatinine Ratio 16.3, Glucose 130 H, Calcium 9.0, Total Bilirubin 0.34, AST 16, ALT 16, Alkaline Phosphatase 64, Total Protein 6.0, Albumin 3.1 L, Globulin 2.8, Albumin/Globulin Ratio 1.1 06/18/25 05:49: POC Glucose 131 H Micro: Microbiology 06/17/25 12:20 Blood Culture (Wb) - Anticubital Right Blood Culture - Preliminary 06/17/25 19:00 Nasal Secretion MRSA (PCR) - Final 06/17/25 17:21 Mucosa - Nasopharyngeal Respiratory Panel (PCR) - Final 06/17/25 17:30 Urine, Clean Catch Legionella Antigen - Final 06/17/25 17:30 Urine, Clean Catch Streptococcus pneumoniae Antigen (M - Final 06/17/25 12:28 Mucosa - Nose SARS-CoV-2, Influenza & RSV (PCR) - Final Radiography Diagnostic Testing: Radiology Impression Chest X-Ray 06/17/25 12:31 IMPRESSION: No acute cardiopulmonary process Reading Location: [facility] Chest CTA 06/17/25 14:23 IMPRESSION: 1. No evidence of acute or chronic pulmonary embolus. 2. Minimal small airways disease left lower lobe. This can represent areas of acinar filling with mucous, pus or fluid. Infectious etiologies include atypical organisms. 3. Prior median sternotomy and CABG. 4. Percutaneous gastrostomy tube in place. The balloon has pulled out and is located in the anterior abdominal wall at the level of the musculature. Recommend direct inspection and possible replacement. 5. Right gynecomastia. Reading Location: [facility] Physical Exam Const alert, oriented x3 and no apparent distress General Appearance: cooperative HEENT normocephalic and head/scalp atraumatic Mouth: dry mucous membranes Eyes EOMs intact bilaterally Neck supple and no JVD Lymph Lymphatic: no lymphedema noted Resp Resp Narrative: Moderately diminished breath sounds bibasilarly. No wheezes or crackles. Cardio regular rate, regular rhythm, S1 normal heart sound, S2 normal heart sound and no murmurs GI normal to inspection, nondistended, normoactive bowel sounds and soft to palpation GI Narrative: PEG tube in situ Extremity normal capillary refill, no clubbing, cyanosis or edema and no calf tenderness General Extremity: no tenderness to palpation of joints or extremities Skin Skin Narrative: mild erythema with superficial ulceration over right side of neck. Neuro no focal motor deficits and no sensory deficits noted Motor Exam: general weakness Psych thought process normal and cooperative Appearance: appropriate Assessment & Plan Assessment/Plan (1) History of throat cancer: (2) Pneumonia: PLAN: Plan #Acute hypoxia due to acute left lower lobe pneumonia Patient has a history of supraglottic cancer and is undergoing chemotherapy and radiation. Chest imaging does show a right lower lobe infiltrate. He presented with acute on malaise and fatigue as well as worsening shortness of breath and productive cough. On IV Levaquin. Blood cultures however growing gram-positive cocci in clusters. IV vancomycin added on. ID consulted. Breathing treatments bronchodilators. Titrate oxygen to maintain saturation above 90%. #Gram-positive bacteremia: As above. ID consulted. 2D echo also consulted. IV vancomycin added on #Incidentally noted misplaced gastrostomy tube CT of the chest on admission done showed that the gastrostomy tube balloon was pulled out and located in the anterior abdominal wall at the level of the musculature. General surgery on board and patient is to have replacement of the tube later today. 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 follows with radiation oncology and oncology on outpatient basis #Pancytopenia: WBC is 2.3 with hemoglobin of 9.7 and platelets of 145. This is all likely due to the cancer for which he is undergoing chemotherapy. Will monitor. #CAD s/p CABG x 3 On atorvastatin and Coreg. Not clear if he is on baby aspirin. # Hypertension: On Coreg. IV hydralazine. Clarify #type 2 diabetes mellitus: On insulin sliding scale. ACT checks ACHS. #COPD: Not in exacerbation. #GERD: On PPI #DVT prophylaxis: On SCDs. Charges/Coding Visit Charges Inpatient E&M: 03598 Subs Hosp L2
[2025-06-18] MEDS: Cefazolin 1 GM/5 ML Vial 2 GM IV (11:26)
[2025-06-18] MEDS: Lidocaine 1% (5 ml sdv) 5 ML Vial 10 ML IV (11:33)
--- NOTE | 2025-06-18 12:07 | PCM.POST.ANE ---
Anesthesia: Postop Eval I Current Vital Signs Temperature: 97.0 F Pulse Rate: 92 Blood Pressure: 129/54 Respiratory Rate: 16 Pulse Ox: 100 Oxygen Delivery Method: Simple Mask Oxygen Flow Rate (L/min): 6 Assessment Airway patent: Yes Spontaneous unlabored respirations: Yes Mental status: Awake and Calm nausea: No Vomiting: No Anesthesia Complication: No Fluid Hydration Crystalloid volume administer (ml): 50 Total IV fluid infused: 50 Progress Note Anesthesia document: Postop Eval 1 completed: Yes
--- NOTE | 2025-06-18 12:08 | CHAPLAIN ---
Type of Pastoral Visit ___ Initial Visit ___ Follow-up Visit ___ On-call Visit ___ General Patient Visit ___ Spiritual Assessment ___ Family Conference ___ Bereavement ___ Rapid Response ___ Code Blue ___ Other (describe below) Pastoral Care Referral From ___ Patient ___ Family ___ Nurse ___ Physician ___ Consultant Education ___ Tile Machine Operator ___ Other (describe below) Sacrament/Intervention ___ Active listening ___ Anointing ___ Baptist ___ Bereavement ___ Communion ___ Genet exploration ___ ___ Life review ___ Prayer ___ Reconciliation ___ Sacrament of Sick ___ Supportive presence ___ Wedding ___ Other (describe below) Pastoral Comments patient is out of the room; calling card left
--- NOTE | 2025-06-18 12:15 | SUR.PHASEI ---
[facility] CALLED TO COME AND GIVE PATIENT HIS SCHEDULED DUONEB FOR WHEEZING.
--- NOTE | 2025-06-18 12:23 | OP.EGD_ITS ---
Patient Name: Bernard Lal Procedure Date: 06/18/2025 11:24 AM Date of : 1950 Age: 75 Procedure: Upper GI endoscopy Indications: Replace PEG tube due to malfunctioning gastrostomy tube Providers: Howie Perez MD Medicines: Monitored Anesthesia Care Patient Profile: Refer to note in patient chart for documentation of history and physical. Complications: No immediate complications. Estimated blood loss: Minimal. Procedure: Pre-Anesthesia Assessment: - Prior to the procedure, a History and Physical was performed, and patient medications and allergies were reviewed. The patient's tolerance of previous anesthesia was also reviewed. The risks and benefits of the procedure and the sedation options and risks were discussed with the patient. All questions were answered, and informed consent was obtained. Prior Anticoagulants: The patient has taken no anticoagulant or antiplatelet agents. ASA Grade Assessment: IV - A patient with severe systemic disease that is a constant threat to life. After reviewing the risks and benefits, the patient was deemed in satisfactory condition to undergo the procedure. After obtaining informed consent, the endoscope was passed under direct vision. Throughout the procedure, the patient's blood pressure, pulse, and oxygen saturations were monitored continuously. The Endoscope was introduced through the mouth, and advanced to the duodenal bulb. The upper GI endoscopy was accomplished without difficulty. The patient tolerated the procedure well. Moderate Sedation: See the other procedure note for documentation of moderate sedation with intraservice time. Scope In: 11:36:29 AM Scope Out: 11:50:51 AM Total Procedure Duration Time 0 hours 14 minutes 22 seconds Findings: The duodenal bulb was normal. No gross lesions were noted in the stomach. Placement of an externally removable PEG with no T-fasteners was successfully completed. The external bumper was at the 5.0 cm marking on the tube. Estimated blood loss was minimal. The examined esophagus was normal. The exam was otherwise without abnormality. Impression: - Normal duodenal bulb. - No gross lesions in the stomach. - Normal esophagus. - The examination was otherwise normal. - An externally removable PEG placement was successfully completed. - No specimens collected. Recommendation: - Return patient to [facility] for [facility] care. - Continue present medications. Procedure Code(s): --- Professional --- 01779, Esophagogastroduodenoscopy, flexible, transoral; with directed placement of percutaneous gastrostomy tube Diagnosis Code(s): --- Professional --- K94.23, Gastrostomy malfunction CPT copyright 2021 [employer]. All rights reserved. The codes documented in this report are preliminary and upon book sewing machine operator review may be revised to meet current compliance requirements. Howie Perez MD 06/18/2025 12:23:14 PM This report has been signed electronically. Number of Addenda: 0 Note Initiated On: 06/18/2025 11:24 AM
--- NOTE | 2025-06-18 12:29 | SUR.PHASEI ---
CEFAZOLIN FINISHED IN PACU AT THIS TIME.
--- NOTE | 2025-06-18 13:20 | CON.PCM.ID_ITS ---
Assessment & Plan Assessment/Plan (1) Pneumonia: PLAN: ANC trending down. On chemo and radiation. Now 1 of 2 bcx with GPC seen, pcr pending. Has L chest port in place, will order bcx from port. Sputum cx pending. Resp pcr panel neg, urine antigens neg. On levaquin for CAP coverage, vanc for possible bacteremia coverage. 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 Admitted here on levaquin. Surgery consulted for dislodged PEG tube, replaced today by Dr. Perez. Now vanc added due to (+) bcx. No issues with port. No n/v/d. Full ROS performed and neg except as noted above. [facility] Medical History Encounter for chemotherapy management Constipation Cancer related pain Encounter for education Type 2 diabetes mellitus PVD (peripheral vascular disease) History of pleural effusion Depression CKD stage 3 due to type 2 diabetes mellitus CAD (coronary artery disease) Wears glasses Wears dentures Cancer Marijuana use Arthritis Difficulty swallowing Heartburn Gastric reflux Shortness of breath on exertion Chronic cough Smoker Cardiology follow-up encounter COPD (chronic obstructive pulmonary disease) Acid reflux High cholesterol Hypertension Diabetes Blindness of right eye Home Medications ?Medication ?Instructions ?Recorded ?Last Taken ?Type brimonidine 0.2 % eye drops 1 drp ophthalmic (eye) TID 04/07/25 04/24/25 History dorzolamide 22.3 mg-timolol 6.8 1 drp ophthalmic (eye) BID 04/07/25 04/24/25 History mg/mL eye drops (Cosopt) famotidine 20 mg tablet 20 mg PO QDAY 04/07/2504/24 History metformin 500 mg tablet 500 mg PO BID 04/07/2504/24 History Held on 06/04/25. Instructions: Ordered umeclidinium 62.5 mcg-vilanterol 1 inh inhalation QDAY 04/07/25 04/22/25 History 25 mcg/actuation powdr for inhalation (Anoro Ellipta) MAGIC MOUTH WASH (BMX) 180 mL 15 ml PO .Q6HR #180 mL 1 04/24/25 Rx suspension lidocaine-prilocaine 2.5 %-2.5 % 1 applic topical ONCE PRN port 04/23/25 Unknown Rx topical cream access 30 days #30 grams ondansetron 8 mg disintegrating 8 mg PO Q8H PRN nausea and 04/23/25 Unknown Rx tablet vomiting #30 tabs oxycodone 5 mg tablet 5 mg PO Q8H PRN pain 3 days #12 06/04/25 Unknown Rx tabs diphenhydramine HCl 12.5 mg/5 mL 12.5 mg PO Q6H PRN mo uth 06/17/25 Unknown History oral liquid Allergy/AdvReac Type Severity Reaction Status Date / Time lisinopril Allergy Angioedema Verified 06/17/25 11:32 Family History Mother Diabetes Father Cirrhosis Brother COPD (chronic obstructive pulmonary disease) Surgical History S/P percutaneous endoscopic gastrostomy (PEG) tube placement History of colonoscopy History of vascular surgery History of cardiac catheterization History of artificial lens replacement History of coronary artery bypass graft x 3 S/P triple vessel bypass Social History household members: none Smoking Status: Former smoker Tobacco: How many years used: 40 alcohol intake: never substance use type: marijuana Physical Exam Const alert, oriented x3 and no apparent distress General Appearance: cooperative HEENT normocephalic and head/scalp atraumatic Eyes PERRL and EOMs intact bilaterally Neck supple and No nodes Resp Auscultation: rhonchi and wheezes Cardio regular rate and regular rhythm GI soft to palpation, non-tender and non-distended Extremity General Extremity: Negative for edema Skin Skin Narrative: Neck is red. No pain/swelling/drainage around L chest port. Neuro CN's II-XII intact bilaterally Lab / Micro Data Attestation: I reviewed the patient's lab results. 06/18/25 05:48 06/18/25 05:48 Labs: Laboratory Results - last 24 hr 06/17/25 14:10: Phosphorus 2.7, Magnesium 2.0, Troponin T Hi Sens 2 Hr 12 06/17/25 17:14: POC Glucose 136 H 06/17/25 17:35: Troponin T Hi Sens 4Hr 14 06/17/25 22:43: POC Glucose 128 H 06/18/25 05:48: WBC 2.3 L, RBC 3.37 L, Hgb 9.7 L, Hct 29.0 L, MCV 86.1, MCH 28.8, MCHC 33.4, RDW Std Deviation 46.5 H, RDW Coeff of Tashia 15.5 H, Plt Count 145 L, MPV 10.2, Immature Gran % (Auto) 0.400, Neut % (Auto) 65.4, Lymph % (Auto) 13.6 L, [place] % (Auto) 20.6 H, Eos % (Auto) 0.0, Baso % (Auto) 0.0, A bsolute Neuts (auto) 1.5 L, Absolute Lymphs (auto) 0.31 L, Nucleated RBC % 0, Sodium 136, Potassium 4.5, Chloride 102, Carbon Dioxide 26.2, Anion Gap 8, BUN 17, Creatinine 1.01, Estim Creat Clear Calc 63.19, Est GFR (MDRD) Non-Af 78, BUN/Creatinine Ratio 16.3, Glucose 130 H, Calcium 9.0, Total Bilirubin 0.34, AST 16, ALT 16, Alkaline Phosphatase 64, Total Protein 6.0, Albumin 3.1 L, Globulin 2.8, Albumin/Globulin Ratio 1.1 06/18/25 05:49: POC Glucose 131 H Micro: Microbiology 06/17/25 12:20 Blood Culture (Wb) - Anticubital Right Blood Culture - Preliminary 06/17/25 19:00 Nasal Secretion MRSA (PCR) - Final 06/17/25 17:21 Mucosa - Nasopharyngeal Respiratory Panel (PCR) - Final 06/17/25 17:30 Urine, Clean Catch Legionella Antigen - Final 06/17/25 17:30 Urine, Clean Catch Streptococcus pneumoniae Antigen (M - Final 06/17/25 12:28 Mucosa - Nose SARS-CoV-2, Influenza & RSV (PCR) - Final Imaging Radiology Impression Chest X-Ray 06/17/25 12:31 IMPRESSION: No acute cardiopulmonary process Reading Location: [facility] Chest CTA 06/17/25 14:23 IMPRESSION: 1. No evidence of acute or chronic pulmonary embolus. 2. Minimal small airways disease left lower lobe. This can represent areas of acinar filling with mucous, pus or fluid. Infectious etiologies include atypical organisms. 3. Prior median sternotomy and CABG. 4. Percutaneous gastrostomy tube in place. The balloon has pulled out and is located in the anterior abdominal wall at the level of the musculature. Recommend direct inspection and possible replacement. 5. Right gynecomastia. Reading Location: [facility]
[2025-06-18] MEDS: Vancomycin HCl 2,000 MG in 0.9% Normal Saline (500mL Bag) 500 ML 250 MG IV (13:22)
[2025-06-18] MEDS: levoFLOXacin IV 750 MG/150 ML BAG 100 MG IV (13:22)
[2025-06-18] MEDS: Dorzolamide HCL/Timolol 10 ml Bottle 1 DRP OPHTHALMIC ×2 (13:23→22:13)
--- NOTE | 2025-06-18 14:53 | CASEMGMT ---
RN JUDIE Face to Face with patient for initial transition planning/care coordination assessment. RN CM introduced self and role at [facility]. Patient lying in bed, alert and oriented. Patient willing to participate in assessment and is able to answer all questions appropriately. Care providers, pharmacy, and demographics verified. Strata: 3 PCP: Rebecca Specialists: Stephy, oncology Preferred Pharmacy: [facility] Insurance: [facility] Dual Prescription Benefit: yes Living Will/HPOA: none LNOK: step son, niece Living Arrangements: Patient lives alone in a single story home with 6 steps and railing to enter the home. Patient states he is independent for self care. Son and DIL live next door and provide help when needed. Transportation: son, H Van DME/HHC: Patient has shower chair at home. Patient states he has all of his tube feeds and supplies. No previous HHC or SNF. Patient would benefit from walker at discharge, green sheet placed on chart. Patient wishes to discharge home, denies need for home health at this time. Patient states he has no further needs or concerns at this time. CM to follow for discharge planning needs that may arise. Disposition Plan: Patient to discharge home with family support and follow-up plans in place. Gloria PERRIN, RN, CM
--- NOTE | 2025-06-18 15:05 | CHAPLAIN ---
Type of Pastoral Visit _x__ Initial Visit ___ Follow-up Visit ___ On-call Visit ___ General Patient Visit ___ Spiritual Assessment ___ Family Conference ___ Bereavement ___ Rapid Response ___ Code Blue ___ Other (describe below) Pastoral Care Referral From _x__ Patient ___ Family ___ Nurse ___ Physician ___ Digital Printer Operator ___ Street Superintendent ___ Other (describe below) Sacrament/Intervention _x__ Active listening ___ Anointing ___ Christian ___ Bereavement ___ Communion _x__ Genet exploration ___ ___ Life review _x__ Prayer ___ Reconciliation ___ Sacrament of Sick _x__ Supportive presence ___ Wedding ___ Other (describe below) Pastoral Comments patient had a procedure done earlier and is now returned to his room; pt is awake and states that he is feeling better now; pt says that he is hopeful; pt is offered time to talk, have presence, and a prayer
[2025-06-18] MEDS: FLU VACCINE HIGH DOSE 25-26(65YR UP) 180 MCG/0.5 ML SYRINGE IM (15:51)
--- NOTE | 2025-06-18 16:04 | POSTOPAN2_ITS ---
Anesthesia Postop Eval I Sum Postop Eval Completion status Anesthesia document: Postop Eval 1 completed: Yes Anesthesia Postop Eval I Summary Anesthesia Postop Eval I Summary: Anesthesia Postop Eval I: Assessment Summary Airway patent Yes 06/18/25 12:08 ENVIRONMENTAL SERVICES MANAGER.AMOSOBRomulo Spontaneous unlabored Yes 06/18/25 12:08 ENVIRONMENTAL SERVICES MANAGER.GUMARO respirations Mental status Awake,Calm 06/18/25 12:08 ENVIRONMENTAL SERVICES MANAGER.GUMARO nausea No 06/18/25 12:08 ENVIRONMENTAL SERVICES MANAGER.GUMARO Vomiting No 06/18/25 12:08 ENVIRONMENTAL SERVICES MANAGER.GUMARO Anesthesia Postop Eval I: Fluid Summary Crystalloid volume administer 50 06/18/25 12:08 ENVIRONMENTAL SERVICES MANAGER.AMOSOBRomulo (ml) Colloids volume administered ( ml) Blood Product volume administered (ml) Total IV fluid infused 50 06/18/25 12:08 ENVIRONMENTAL SERVICES MANAGER.GUMARO Anesthesia Postop Eval I: Summary Notes Anesthesia Complication No 06/18/25 12:08 ENVIRONMENTAL SERVICES MANAGERDEVYN Anesthesia Complication Comment: Post-operative progress note Anesthesia: Postop Eval II Evaluation Mental status: Awake Pain Level: 0 nausea: No Vomiting: No Complications Anesthesia Complication: No
--- NOTE | 2025-06-18 16:04 | PCM.POSTANE2 ---
Anesthesia Postop Eval I Sum Postop Eval Completion status Anesthesia document: Postop Eval 1 completed: Yes Anesthesia Postop Eval I Summary Anesthesia Postop Eval I Summary: Anesthesia Postop Eval I: Assessment Summary Airway patent Yes 06/18/25 12:08 COMPLIANCE QUALITY PERFORMANCE ANALYST.AMOSOBRomulo Spontaneous unlabored Yes 06/18/25 12:08 COMPLIANCE QUALITY PERFORMANCE ANALYST.GUMARO respirations Mental status Awake,Calm 06/18/25 12:08 COMPLIANCE QUALITY PERFORMANCE ANALYST.GUMARO nausea No 06/18/25 12:08 COMPLIANCE QUALITY PERFORMANCE ANALYST.GUMARO Vomiting No 06/18/25 12:08 COMPLIANCE QUALITY PERFORMANCE ANALYST.GUMARO Anesthesia Postop Eval I: Fluid Summary Crystalloid volume administer 50 06/18/25 12:08 COMPLIANCE QUALITY PERFORMANCE ANALYST.AMOSOBRomulo (ml) Colloids volume administered ( ml) Blood Product volume administered (ml) Total IV fluid infused 50 06/18/25 12:08 COMPLIANCE QUALITY PERFORMANCE ANALYST.GUMARO Anesthesia Postop Eval I: Summary Notes Anesthesia Complication No 06/18/25 12:08 COMPLIANCE QUALITY PERFORMANCE ANALYSTDEVYN Anesthesia Complication Comment: Post-operative progress note Anesthesia: Postop Eval II Evaluation Mental status: Awake Pain Level: 0 nausea: No Vomiting: No Complications Anesthesia Complication: No
[2025-06-18] MEDS: Jevity 1.5. 1,000 ML Bottle 225 ML GT ×2 (16:53→22:12)
[2025-06-18] MEDS: Vancomycin HCl 1,000 MG in 0.9% Normal Saline (250mL Bag) 250 ML 250 MG IV (21:58)
[2025-06-18] MEDS: 0.9% Normal Saline (250mL Bag) 250 ML 15 ML IV (22:06)
[2025-06-19] VITALS (8 sets, daily range): BP systolic 136–165; BP diastolic 55–82; PULSE 79–95; RESP 16–20; TEMP 36.8–37.2; O2SAT 91–97; BMI 27.2
[2025-06-19] MEDS: BRIMONIDINE 0.2% 5ML BOTTLE 1 DRP OPHTHALMIC ×3 (06:42→22:12)
[2025-06-19] MEDS: Jevity 1.5. 1,000 ML Bottle 225 ML GT ×4 (06:43→15:28)
[2025-06-19 06:44] LABS: Hematocrit 31.1 % (40-54); Hemoglobin 9.9 g/dL (13.0-16.5); Immature Granulocytes Count 0.020 X10^3/uL (0.0-0.0); Mean Corp Hgb Conc 31.8 g/dL (32-36); Mean Corpuscular Volume 87.6 fL (80-94); Mean Platelet Vol. 10.0 fl (6.2-12.0); NRBC Flagged by Analyzer 0 % (0-5); POSITIVE DIFFERENTIAL YES; Platelet Count 165 K/mm3 (150-450); RBC Distribution Width CV 15.6 % (11.6-14.6); RBC Distribution Width SD 48.0 fl (35.1-43.9); Red Blood Count 3.55 M/mm3 (4.6-6.2); White Blood Count 2.3 K/mm3 (4.4-11.0)
[2025-06-19] MEDS: Dorzolamide HCL/Timolol 10 ml Bottle 1 DRP OPHTHALMIC ×2 (06:55→22:12)
[2025-06-19] MEDS: BMX LIQUID 180 ML 15 ML PO ×5 (06:59→23:16)
[2025-06-19 07:08] LABS: Anion Gap 7 (5-15); BUN 14 mg/dL (4-19); BUN/Creat Ratio 15.1 RATIO (10-20); Calcium,Total 9.1 mg/dL (7.6-11.0); Carbon Dioxide 27.3 mmol/L (21.0-32.0); Chloride 101 mmol/L (98-108); Estimated Creatinine Clearance 69.38 ml/min (50-250); Glucose 113 mg/dL (70-99); Potassium 4.4 mmol/L (3.3-5.1)
--- NOTE | 2025-06-19 08:04 | PCM.PN.SRG ---
Subjective Subjective Patient seen and examined during AM rounds. He is found in bed working diligently with his Pep valve. Nursing denies any awareness of issues related to administering feeds via new PEG tube which began yesterday. Patient denies any pain but expresses eagerness to be out of the hospital. Objective Data Objective Data Vital Signs: Vital Signs Temp Pulse Resp BP Pulse Ox O2 Del Method O2 Flow Rate 98.9 F 95 18 165/55 H 91 Room Air 2 06/19/25 04:00 06/19/25 06:58 06/19/25 06:58 06/19/25 04:00 06/19/25 06:58 06/19/25 07:42 06/18/25 12:32 Oxygen Flow Rate (L/min) 2 Oxygen Delivery Method Room Air Weight: 184 lb 4.903 oz Body Mass Index (BMI) 27.2 Intake & Output: Intake and Output for Last 24 Hours 06/17/25 06/18/25 06/19/25 23:59 23:59 23:59 Intake Total 1150 / 1550 4430 / 4430 385 / 385 Output Total 600 / 600 5 / 5 Balance 550 / 950 4425 / 4425 385 / 385 Medical Nutrition Assessment Dietitian: Malnutrition Criteria Met Start: 06/18/25 13:46 Freq: Status: Active Protocol: Document 06/18/25 13:46 [email or web address] (Rec: 06/18/25 13:46 [id number]) Nutrition Malnutrition Evidence of Yes Malnutrition Exists Malnutrition (severe Chronic ): Evidenced By Suboptimal Energy Intake (Severe),Weight Loss (Severe) Intake Problem Inadequate Oral Intake Etiology related to dysphagia and increased energy expenditure Signs/Symptoms as evidenced by need for enteral nutrition to meet estimated nutrition needs. 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 Advanced diet as tolerated to Regular with texture/ consistency per LOG DRIVER for pleasure feeds. Lab / Micro Data 06/19/25 06:10 06/19/25 06:10 Labs: Laboratory Results - last 24 hr 06/18/25 14:13: POC Glucose 121 H 06/18/25 16:50: POC Glucose 107 H 06/18/25 22:56: POC Glucose 108 H 06/19/25 06:10: WBC 2.3 L, RBC 3.55 L, Hgb 9.9 L, Hct 31.1 L, MCV 87.6, MCH 27.9, MCHC 31.8 L, RDW Std Deviation 48.0 H, RDW Coeff of Tashia 15.6 H, Plt Count 165, MPV 10.0, Immature Gran % (Auto) 0.900, Neut % (Auto) 59.1, Lymph % (Auto) 16.0 L, [place] % (Auto) 23.1 H, Eos % (Auto) 0.0, Baso % (Auto) 0.9, Absolute Neuts (auto) 1.3 L, Absolute Lymphs (auto) 0.36 L, Nucleated RBC % 0, Sodium 135, Potassium 4.4, Chloride 101, Carbon Dioxide 27.3, Anion Gap 7, BUN 14, Creatinine 0.92, Estim Creat Clear Calc 69.38, Est GFR (MDRD) Non-Af 86, BUN/Creatinine Ratio 15.1, Glucose 113 H, Calcium 9.1 06/19/25 06:41: POC Glucose 106 Micro: Microbiology 06/17/25 12:20 Blood Culture (Wb) - Anticubital Right Bacteria Detection (PCR) - Final Staphylococcus epidermidis 06/17/25 12:20 Blood Culture (Wb) - Anticubital Right Blood Culture - Preliminary Coag Negative Staph 06/18/25 02:48 Sputum, Expectorated/Coughed Gram Stain - Final 06/17/25 19:00 Nasal Secretion MRSA (PCR) - Final 06/17/25 17:21 Mucosa - Nasopharyngeal Respiratory Panel (PCR) - Final 06/17/25 17:30 Urine, Clean Catch Legionella Antigen - Final 06/17/25 17:30 Urine, Clean Catch Streptococcus pneumoniae Antigen (M - Final 06/17/25 12:28 Mucosa - Nose SARS-CoV-2, Influenza & RSV (PCR) - Final Radiography Diagnostic Testing: Radiology Impression Echocardiogram 06/18/25 08:58 Interpretation Summary Normal LV size. The left ventricular ejection fraction is 65 %. Stage 1 diastolic dysfunction. Mild focal aortic valve calcification. Ordering Physician: Rylie Jackson Performed By: Rea Curtis RDCS Physical Exam Const oriented x3 and no apparent distress Resp normal respiratory effort GI GI Narrative: Overweight, left upper quadrant PEG tube with old PEG tube site inferior lateral to new site beneath a abdominal binder. Both dressing around new PEG tube and old PEG tube site are saturated with feeds. There is slight erythema of the abdominal wall owing to local irritation. Assessment & Plan Assessment/Plan (1) History of throat cancer: PLAN: Patient had dislodgment of his PEG tube and is now status post PEG tube replacement. Current tube is reportedly functioning well but feeds are draining from old PEG tube site. Nursing states this was accentuated when they attempted reposition following bolus feeding. They also have some questions related to the amount of feeds prescribed. I deferred this answer to dietary. Regarding the leakage of feeds, this is expected to resolve spontaneously with spontaneous closure of patient's old PEG tube site. However, given the reports of the large volume of drainage we will plan for outpatient follow-up with surgery. Hospitalist service notified to direct patient to general surgery clinic and 1.5 to 2 weeks following discharge. For the meantime we will have to be diligent about changing dressings as they become saturated to not incur wounds to the abdominal wall. Ranjith Venegas MD General Surgery Endocrine Surgery Pager: [facility] [address] [place] [address], [address] [place] [address] Office: [phone] Charges/Coding Visit Charges Inpatient E&M: 43654 Subs Hosp L2
[2025-06-19] MEDS: Vancomycin HCl 1,000 MG in 0.9% Normal Saline (250mL Bag) 250 ML 250 MG IV ×2 (08:54→21:49)
--- NOTE | 2025-06-19 09:36 | NURSING ---
Called [phone] in pt advertising intern to have them revaluate his quantity and amount he is getting for his tube feedings.
[2025-06-19] MEDS: levoFLOXacin IV 750 MG/150 ML BAG 100 MG IV (10:11)
[2025-06-19] MEDS: 0.9% Normal Saline (250mL Bag) 250 ML 15 ML IV (18:13)
--- NOTE | 2025-06-19 18:30 | PCM.PN.HOSP ---
Reason for Visit Chief Complaint: Fatigue, malaise, cough, dyspnea. Subjective Subjective SOB, feeling anxious which worsens his breathing. Reports he can't see because his glasses broke so he is wearing readers but they don't adequately correct his vision so he's having difficulty using his phone which is causing anxiety, continues to have cough Objective Data Objective Data Vital Signs: Vital Signs Temp Pulse Resp BP Pulse Ox O2 Del Method O2 Flow Rate 98.6 F 85 16 144/82 H 97 Room Air 2 06/19/25 14:00 06/19/25 15:01 06/19/25 15:01 06/19/25 14:00 06/19/25 15:01 06/19/25 15:01 06/18/25 12:32 Oxygen Flow Rate (L/min) 2 Oxygen Delivery Method Room Air Weight: 83.6 kg Body Mass Index (BMI) 27.2 Intake & Output: Intake and Output for Last 24 Hours 06/17/25 06/18/25 06/19/25 23:59 23:59 23:59 Intake Total 1150 / 1550 4430 / 4430 2210 / 2210 Output Total 600 / 600 5 / 5 Balance 550 / 950 4425 / 4425 2210 / 2210 Medical Nutrition Assessment Dietitian: Malnutrition Criteria Met Start: 06/18/25 13:46 Freq: Status: Active Protocol: Document 06/18/25 13:46 FABRICIO (Rec: 06/18/25 13:46 [id number]) Nutrition Malnutrition Evidence of Yes Malnutrition Exists Malnutrition (severe Chronic ): Evidenced By Suboptimal Energy Intake (Severe),Weight Loss (Severe) Intake Problem Inadequate Oral Intake Etiology related to dysphagia and increased energy expenditure Signs/Symptoms as evidenced by need for enteral nutrition to meet estimated nutrition needs. 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 Advanced diet as tolerated to Regular with texture/ consistency per ONCOLOGY RESEARCH RN for pleasure feeds. Lab / Micro Data 06/19/25 06:10 06/19/25 06:10 Labs: Laboratory Results - last 24 hr 06/18/25 22:56: POC Glucose 108 H 06/19/25 06:10: WBC 2.3 L, RBC 3.55 L, Hgb 9.9 L, Hct 31.1 L, MCV 87.6, MCH 27.9, MCHC 31.8 L, RDW Std Deviation 48.0 H, RDW Coeff of Tashia 15.6 H, Plt Count 165, MPV 10.0, Immature Gran % (Auto) 0.900, Neut % (Auto) 59.1, Lymph % (Auto) 16.0 L, [place] % (Auto) 23.1 H, Eos % (Auto) 0.0, Baso % (Auto) 0.9, Absolute Neuts (auto) 1.3 L, Absolute Lymphs (auto) 0.36 L, Nucleated RBC % 0, Sodium 135, Potassium 4.4, Chloride 101, Carbon Dioxide 27.3, Anion Gap 7, BUN 14, Creatinine 0.92, Estim Creat Clear Calc 69.38, Est GFR (MDRD) Non-Af 86, BUN/Creatinine Ratio 15.1, Glucose 113 H, Calcium 9.1 06/19/25 06:41: POC Glucose 106 06/19/25 11:31: POC Glucose 137 H 06/19/25 15:41: POC Glucose 115 H Micro: Microbiology 06/17/25 13:00 Blood Culture (Wb) - Anticubital Right Blood Culture - Preliminary No growth in 48 hours. 06/17/25 12:20 Blood Culture (Wb) - Anticubital Right Bacteria Detection (PCR) - Final Staphylococcus epidermidis 06/17/25 12:20 Blood Culture (Wb) - Anticubital Right Blood Culture - Preliminary Coag Negative Staph 06/18/25 02:48 Sputum, Expectorated/Coughed Gram Stain - Final 06/17/25 19:00 Nasal Secretion MRSA (PCR) - Final 06/17/25 17:21 Mucosa - Nasopharyngeal Respiratory Panel (PCR) - Final 06/17/25 17:30 Urine, Clean Catch Legionella Antigen - Final 06/17/25 17:30 Urine, Clean Catch Streptococcus pneumoniae Antigen (M - Final 06/17/25 12:28 Mucosa - Nose SARS-CoV-2, Influenza & RSV (PCR) - Final Physical Exam Narrative General: Alert HEENT: Atraumatic, normocephalic Eyes: Anicteric, normal conjunctiva, extraocular movements grossly intact Neck: Supple Respiratory: Slightly tachypneic with increased respiratory effort but very anxious, coarse diffusely Cardiovascular: Regular rate and rhythm GI: Soft, nontender, nondistended Extremities: No significant peripheral pitting edema Musculoskeletal: Moving all extremities Neuro: No overt focal neurological deficits Skin: Has some residual radiation burn on right side of neck Psych: Anxious Assessment & Plan Assessment/Plan (1) Pneumonia: PLAN: Plan 75 y/o male w/ hx of COPD, DMII, CAD, throat cancer s/p chemo and radiation that finished about a week ago presented to [facility] ED 06/17/25 with shortness of breath and general malaise. In the ED temp 99.1, heart rate 92, respiratory rate 16, blood pressure 161/70 and pulse ox decreased to 86% on room air requiring 2 L of nasal cannula to maintain sats. White count 2.7, hemoglobin 10.1. BUN of 20 and creatinine 1.06. CTA with left lower lobe air space disease. Additionally percutaneous gastrostomy tube has balloon pulled out and located in anterior abdominal wall. Hospitalist contacted for admission for hypoxia due to pneumonia and dislodged PEG tube. # Acute hypoxia secondary to left lower lobe pneumonia -CTA consistent with a left lower lobe pneumonia -Patient able to produce sputum sample, awaiting culture and sensitivities -Respiratory panels negative -Patient on Levaquin -Continue nebs -1 blood culture was growing gram-positive cocci in clusters however this is resulted in a staph epi in 1 of 2 so suspect this is contaminant however culture from port also obtained to verify -Echocardiogram also obtained due to it being unclear if this was a pathologic infection and it was unremarkable -Will follow cultures - Infectious disease following # Supraglottis cancer with dislodged PEG tube -Recently finished chemoradiation -CTA on presentation demonstrated that PEG tube was dislodged -This was replaced 06/18 -There was some leakage of tube feeds out of other PEG site, discussed with surgery, and it is expected that this will spontaneously close but will need to follow-up in the general surgery clinic in 1-1/2 to 2 weeks -Continue dressing changes #Hx COPD -Continue nebs as above -Incentive spirometer #Hx of CAD -w/ previous CABG - Does not appear to have any cardiac medications on home med list, will need to clarify #DVT ppx:SCDs Shayna Mathis MD Charges/Coding Visit Charges Inpatient E&M: 16665 Subs Hosp L2
[2025-06-19 21:23] LABS: Vancomycin, Trough Level 15.2 ug/mL (5.0-15.0)
--- NOTE | 2025-06-19 21:29 | PCM.RX.CS ---
Consult Antibiotic Management Pharmacy has been consulted to manage selected antibiotic: Vancomycin Type of Intervention Type of Consult: Follow-up Labs Labs: Sodium 135 mmol/L (133-145) 06/19/25 06:10 Potassium 4.4 mmol/L (3.3-5.1) 06/19/25 06:10 Chloride 101 mmol/L (98-108) 06/19/25 06:10 Carbon Dioxide 27.3 mmol/L (21.0-32.0) 06/19/25 06:10 Anion Gap 7 (5-15) 06/19/25 06:10 BUN 14 mg/dL (4-19) 06/19/25 06:10 Creatinine 0.92 mg/dL (0.70-1.20) 06/19/25 06:10 Est GFR (MDRD) Non-Af 86 (>60) 06/19/25 06:10 BUN/Creatinine Ratio 15.1 RATIO (10-20) 06/19/25 06:10 Glucose 113 mg/dL (70-99) H 06/19/25 06:10 Vancomycin Trough 15.2 ug/mL (5.0-15.0) H 06/19/25 20:28 Microbiology Microbiology: Microbiology 06/17/25 13:00 Blood Culture (Wb) - Anticubital Right Blood Culture - Preliminary No growth in 48 hours. 06/17/25 12:20 Blood Culture (Wb) - Anticubital Right Bacteria Detection (PCR) - Final Staphylococcus epidermidis 06/17/25 12:20 Blood Culture (Wb) - Anticubital Right Blood Culture - Preliminary Coag Negative Staph 06/18/25 02:48 Sputum, Expectorated/Coughed Gram Stain - Final 06/17/25 19:00 Nasal Secretion MRSA (PCR) - Final 06/17/25 17:21 Mucosa - Nasopharyngeal Respiratory Panel (PCR) - Final 06/17/25 17:30 Urine, Clean Catch Legionella Antigen - Final 06/17/25 17:30 Urine, Clean Catch Streptococcus pneumoniae Antigen (M - Final 06/17/25 12:28 Mucosa - Nose SARS-CoV-2, Influenza & RSV (PCR) - Final Goal Trough Goal Trough: 15-20 mcg/mL Pharmacy Plan for Drug Dosing Pharmacy Plan for Drug Dosing: Pharmacy Service will continue to monitor and adjust dosing as required. TROUGH 15.2 @ 11.5 HOURS. NO CHANGES, FOLLOW UP TROUGH IN 2 DAYS Follow-Up Labs Follow-Up Labs: Trough: Vancomycin Date/Time Labs Ordered Labs to be done on [date and time ordered]: 06/21 @ 2030
[2025-06-19] MEDS: Acetaminophen 650 MG/20 ML UDC GT (22:07)
[2025-06-19] MEDS: MELATONIN 3 MG TABLET GT (23:12)
[2025-06-19] MEDS: Senna/Docusate Sodium 1 Tablet 2 TABLET GT (23:33)
[2025-06-20] VITALS (11 sets, daily range): BP systolic 121–165; BP diastolic 48–83; PULSE 69–94; RESP 16–26; TEMP 36.6–37; O2SAT 92–98; BMI 27.6
[2025-06-20 05:41] LABS: Hematocrit 29.3 % (40-54); Hemoglobin 9.4 g/dL (13.0-16.5); Immature Granulocytes Count 0.020 X10^3/uL (0.0-0.0); Mean Corp Hgb Conc 32.1 g/dL (32-36); Mean Corpuscular Volume 86.9 fL (80-94); Mean Platelet Vol. 10.4 fl (6.2-12.0); NRBC Flagged by Analyzer 0 % (0-5); POSITIVE DIFFERENTIAL YES; Platelet Count 169 K/mm3 (150-450); RBC Distribution Width CV 15.5 % (11.6-14.6); RBC Distribution Width SD 47.8 fl (35.1-43.9); Red Blood Count 3.37 M/mm3 (4.6-6.2); White Blood Count 2.0 K/mm3 (4.4-11.0)
[2025-06-20] MEDS: BMX LIQUID 180 ML 15 ML PO ×4 (05:53→23:12)
[2025-06-20] MEDS: Acetaminophen 650 MG/20 ML UDC GT ×2 (05:53→19:55)
[2025-06-20] MEDS: BRIMONIDINE 0.2% 5ML BOTTLE 1 DRP OPHTHALMIC ×3 (05:54→20:00)
[2025-06-20] MEDS: Jevity 1.5. 1,000 ML Bottle 225 ML GT ×3 (05:57→15:20)
[2025-06-20 06:15] LABS: Anion Gap 12 (5-15); BUN 12 mg/dL (4-19); BUN/Creat Ratio 14.3 RATIO (10-20); Calcium,Total 8.6 mg/dL (7.6-11.0); Carbon Dioxide 23.1 mmol/L (21.0-32.0); Chloride 99 mmol/L (98-108); Estimated Creatinine Clearance 78.80 ml/min (50-250); Glucose 109 mg/dL (70-99); Potassium 4.3 mmol/L (3.3-5.1)
[2025-06-20] MEDS: Vancomycin HCl 1,000 MG in 0.9% Normal Saline (250mL Bag) 250 ML 250 MG IV (10:25)
[2025-06-20] MEDS: levoFLOXacin IV 750 MG/150 ML BAG 100 MG IV (11:27)
[2025-06-20] MEDS: Dorzolamide HCL/Timolol 10 ml Bottle 1 DRP OPHTHALMIC ×2 (11:57→20:09)
--- NOTE | 2025-06-20 12:45 | CASEMGMT ---
Discharge Planning A list of HH providers including quality and resource use data and consistent with the patient's preferred geographic region, medical needs, and insurance network was created in [facility] Guide.? This list was provided to the RN JUDIE. Candice Booker, Discharge Planning Asst.
--- NOTE | 2025-06-20 12:50 | ST.MBS ---
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 CT scan neck on 01/21/2025 showed 3.8 cm mass involving epiglottis aryepiglottic folds bilateral vocal cords, anterior commissure, anterior-most bilateral vocal cords. Pt completed chemoradiation treatment from 04/28/2025 to 06/13/2025. Unfortunately, he was admitted to [facility] 06/17/2025 for management of PEG tube malfunction, neutropenia, and PNA. ST consulted as part of acute work up due to ongoing dysphagia. Dysphagia Hx: PEG tube placed on 04/25/2025. BSE completed 05/01/2025 recommending Easy to Chew textures / FFWP and MBSS. MBSS 05/02/2025 revealed moderate-severe oropharyngeal dysphagia w/ aspiration of thin and thickened liquids and recommended the following diet and aspiration precautions: Easy to Chew Textures and Thin Liquids (Recommend consuming liquids via Free Painting Water Protocol [FFWP]. AUDIOPROSTHOLOGIST educated increased risk for aspiration-related illness, such as PNA, w/ liquids consumed outside of FFWP.) Comment: Recommend puree wash if sensation of food feels caught in throat. AUDIOPROSTHOLOGIST recommends holding water until after meals. Complete oral care, wait 30min, then have water by itself using small sips, throat clear and re-swallow after each sip. Compensatory Strategies: Small Bites (Double swallows), Small Sips, Slow Rate, Sitting upright and Remain sitting upright for 30 minutes after PO intake. Pt has required much education during his chemoradiation treatment re: aspiration precautions and recommended diet textures, and he was observed to be drinking thin liquids (pepsi) outside of FFWP, as well as liquids w/ solids (soups) during treatment. Pt was last seen by OP ST 06/13/2025 consuming majority of food/liquid intake via PEG. AUDIOPROSTHOLOGIST recommended purees by mouth as tolerated w/ water via FFWP. BSE 06/19/2025 during acute stay for PNA recommended the patient NPO, limited sips and chips after oral care, and MBSS to re-assess swallow function and aspiration risk. 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 Atrophy and small-vessel disease upper limits of normal for age. Negative for intracranial metastatic disease. Medical History Encounter for chemotherapy management Constipation Cancer related pain Encounter for education Type 2 diabetes mellitus PVD (peripheral vascular disease) History of pleural effusion Depression CKD stage 3 due to type 2 diabetes mellitus CAD (coronary artery disease) Wears glasses Wears dentures Cancer Marijuana use Arthritis Difficulty swallowing Heartburn Gastric reflux Shortness of breath on exertion Chronic cough Smoker Cardiology follow-up encounter COPD (chronic obstructive pulmonary disease) Acid reflux High cholesterol Hypertension Diabetes Blindness of right eye Current Diet Ordered: NPO, sips/chips sparingly Dentition: Edentulous Mental Status: WNL Respiratory Status: Oxygenating on Room Air Penetration-Aspiration Scale Penetration-Aspiration Scale: OBJECTIVE ASSESSMENT OF SWALLOW FUNCTION (QUANTITATIVE ? PER TRIAL): PENETRATION / ASPIRATION SCALE (NICHOLAS): 1 = does not enter airway 2 = enters airway/above vocal folds/ejected 3 = enters airway/above vocal folds/not ejected 4 = enters airway/contacts vocal folds/ejected 5 = enters airway/contacts vocal folds/not ejected 6 = enters airway/below vocal folds/ejected 7 = enters airway/below vocal folds/not ejected despite effort 8 = enters airway/below vocal folds/no effort VIDEOFLOROSCOPIC SCALE SCORE (NICHOLAS): Grade I = aspiration of material that has penetrated into the laryngeal vestibule, intact cough reflex Grade II = aspiration < 10 % of the bolus, intact cough reflex Grade III = aspiration of < 10 % of the bolus, reduced cough reflex or aspiration of > 10 % of the bolus, intact cough reflex Grade IV = aspiration of > 10 % of the bolus, reduced cough reflex Penetration-Aspiration Scale Score Thin Liquid via teaspoon: Result: 7= enters airways/below vocal folds/not ejected despite effort [place] Thick Liquid via teaspoon: Result: 8= enters airway/below vocal folds/no effort Comment: Cued cough = somewhat effective. Pudding via teaspoon: Result: 2= enter airway/above vocal folds/ejected Comment: Post prandial laryngeal penetration of mildly/nectar thick residues to the vocal folds Pudding via teaspoon Trial 2: Result: 2= enter airway/above vocal folds/ejected [place] Thick Liquid via teaspoon: Result: 7= enters airways/below vocal folds/not ejected despite effort Oral Phase Labial Seal: No Labial Escape Tongue Control During Bolus Hold: Posterior escape of greater than half of bolus Bolus Transport/Lingual Motion: Repetitive/disorganized tongue motion Oral Residue: Majority of bolus remaining (Piecemeal deglutition of pudding) Pharyngeal Phase Initiation of Pharyngeal Swallow: Bolus head at posterior laryngeal surgace of epiglottis Soft Palate Elevation: Trace column of contrast/air between soft palate and pharyngeal wall Laryngeal Elevation: Partial superior movement thyroid cart/partial apprx aryt-epig petiole Anterior Hyoid Excursion: Partial anterior movement Epiglottic Movement: Partial inversion (Minimal) Laryngeal Vestibule Closure at Height of Swallow: Incomplete; narrow column of air/contrast in laryngeal vestibule Pharyngeal Stripping Wave: Present - diminished Pharyngoesophageal Segment Opening: Parital distension and partial duration; parital obstruction of flow Tongue Base Retraction: Wide column of contrast between tongue base & post. pharyngeal wall Pharyngeal Residue: Majority of contrast within or on pharyngeal structures Diagnosis/Impression Diagnosis: Severe oropharyngeal dysphagia R13.12 MBS Impressions: The oral phase is primarily marked by... -Decreased bolus control w/ premature posterior loss of >1/2 of bolus to the vallecula and posterior surface of the epiglottis prior to swallow onset. -Lingual pumping for A-P transport of pudding. -Piecemeal deglutition of pudding. -Did not assess cookie due to deficits in pharyngeal motility and concern for increased choking risk w/ solids. The pharyngeal phase is primarily marked by... -Decreased pharyngeal motility due to decreased TB retraction and pharyngeal stripping wave w/ moderate-severe pharyngeal residue of pudding, which mostly cleared w/ a independent use of multiple swallows. -Decreased airway closure during the swallow due to decreased anterior hyoid excursion, minimal epiglottic inversion, and decreased laryngeal elevation. Pt presented w/ silent aspiration of nectar/mildly thick liquids via tsp and overt aspiration of thin liquids and honey/moderately thick liquids via tsp. Cued cough helped to somewhat reduce risk for aspiration by expelling contrast from the laryngeal vestibule; however, pt could not cough out aspirated barium. Recommendations Diet: Puree Textures (NO LIQUIDS) Comment: PEG tube to meet primary nutritional and hydration needs Ok for ice chips sparingly after oral care for pt comfort Compensatory Strategies: Small Bites, Slow Rate (Finish one bite before taking the next), Multiple Swallows and Sitting upright Supervision: Distant Supervision Recommend Repeat Modified Barium Swallow: Yes (3 month s/p completion of chemoradiation treatment to re-assess risk for aspiration and determine LRD textures. Sooner if poor diet tolerance or if re-assessment of liquids is recommended.) Need for Skilled Speech Therapy Services: Yes Comment: Continue ST POC during acute stay. Please resume OP ST upon discharge. Next ST session is scheduled for 06/25/2025. Education Completed: 1. Described result of evaluation., 2. Pt understands evaluation & agrees with goals and treatment plan., 4. Family/caregivers understand evaluation & agree w/ goals & tx plan. and 7. Pt requires further education on strategies & risks. Comment: AUDIOPROSTHOLOGIST educated pt, pt's son, pt's daughter in law, RN, and Dr. Mathis of results and recommendations of MBSS. Status Active ST Patient: Active Contact Information [facility] Speech Therapy:: Riri Mensah M.A. [facility]-AUDIOPROSTHOLOGIST Speech-Language Pathologist [facility] [address] [place] [address] [email or web address] [phone]
--- NOTE | 2025-06-20 13:10 | CASEMGMT ---
Addendum entered by Laura Bourgeois 06/20/25 17:01: MADHAVI DIMAS into pt room, pt called dil while MADHAVI DIMAS present, she states she has not been able to get ahold of pt son yet. She will attempt again after 5pm. Pt is aware that [facility] has accepted him and will see him either Monday or Monday. He is aware that his TF supplies are from [facility]. Pt states he feels comfortable going home with this added [facility] and they will continue to work on his son coming to stay with him. Green sheet on chart for HHC, FWW and O2 if pt qualifies. Pt denies further needs as well as dtr in law. Addendum entered by Laura Bourgeois 06/20/25 16:02: 1430- MADHAVI DIMAS into pt room, pt lying in bed with jocelin and his Monserrat present, discussed dc planning. Pt dtr in law is having surgery on Jul 03 and states she is not able to assist pt after that for some time. Pt son works and states that he is able to help limited. Pt states he sleeps alot and does not give his feedings. Discussed setting an alarm to wake him up for feedings. Pt states he has a son in [place] that may be able to come and stay with him to help. Pt dil to call pt son. Pt is agreeable to this. Pt is aware that he is active with [facility]. Pt then recalled this. Pt is not sure who his TF supplier is. Addendum entered by Laura Buorgeois 06/20/25 15:54: Pt accepted by [facility] and can start services on Monday or Monday pending reaching pt PCP. Addendum entered by Laura Bourgeois 06/20/25 13:42: Received email back that Palliative with [facility] is active with patient and they have seen him for the initial visit on 06/06/25. Original Note: MADHAVI DIMAS into pt room, pt sitting up in bed in no distress. Discussed with pt home situation and if pt is able to manage at home. Pt states he has been managing since his passed indep. Discussed pt vision and if he is able to perform his TF with his limited vision. Pt states he can do this. Pt states his main issue is that he cannot find all of his meds. Pt states as long as he keeps up with his eye drops, he can see. He read clock to RN JUDIE and was correct. Pt states his stepson and dtr live next door. He states he would be agreeable to their assistance. Pt statesif they were able to get his meds in one place and where he knows what he needs to take, he could manage better at home. He is agreeable for this RN CM to call and discuss this with them. Also spoke to pt about HHC. Provided pt with a list of options created by dc administrative personal assistant. RN CM read pt the names, star ratings and location to the patient. He states he prefers the highest rated agency. He is aware that RN CM will send referral in that order. Pt states that his oncologist set him up with someone who is assisting with his meds but he does not know the name of the agency. TC to 's office, left requesting this information. Per records in [employer] it appears pt was set up with Palliative care. Email to palliative care [facility] to see if pt is active. Requested dc administrative personal assistant send referral to [facility] as first choice followed by [facility]. TC to pt jocelin, he states that he or Monserrat can assist pt with gathering meds once he gets home to make sure pt is aware of where they are. He states they are on their way in. RN CM to meet with them and pt once pt is back from [facility] [place].
--- NOTE | 2025-06-20 13:26 | RAD_ITS ---
PROCEDURE: SWALLOWING FUNCTION W/VIDEO 06/20/2025 REASON FOR EXAM: ASSESS RISK/PRESENCE OF ASPIRATION TECHNIQUE: SWALLOWING FUNCTION W/VIDEO FLUOROSCOPIC TIME: 1 minute 53 seconds Exposure: 37.4 mGy. FINDINGS: This study was performed on of the supervision of a certified speech pathologist. RAD/Swallowing Function w/Video IMPRESSION: Please refer to the speech pathologist's report for details. Reading Location: [id number]
--- NOTE | 2025-06-20 14:04 | CASEMGMT ---
Addendum entered by Candice Booker 06/20/25 14:09: [facility] declined d/t being at capacity with payor. Original Note: Discharge Planning Referral sent via [facility] to [facility]. Candice Booker DC Planning Asst.
--- NOTE | 2025-06-20 14:09 | CASEMGMT ---
Addendum entered by Candice Booker 06/20/25 14:38: [facility] declined. Reason given was [id number] (they are listed as providers on website). Original Note: Discharge Planning [facility]. Candice Booker DC Planning Asst.
--- NOTE | 2025-06-20 14:38 | CASEMGMT ---
Addendum entered by Candice Booker 06/20/25 16:15: [facility] accepted. SOC Monday/Monday. They need to be able to confirm PCP and most offices are closed today. RN CM aware. Candice Booker DC Planning Asst. Original Note: Discharge Planning HH referral sent via [facility] to [facility].
--- NOTE | 2025-06-20 16:14 | PCM.PN.HOSP ---
Reason for Visit Chief Complaint: Fatigue, malaise, cough, dyspnea. Subjective Subjective Feels his breathing is steadily improving, still has a cough but overall feeling better, main complaint is feeling claustrophobic and he is anxious to go home Objective Data Objective Data Vital Signs: Vital Signs Temp Pulse Resp BP Pulse Ox O2 Del Method O2 Flow Rate 98 F 88 20 H 137/83 H 93 Room Air 2 06/20/25 15:17 06/20/25 15:36 06/20/25 15:36 06/20/25 15:17 06/20/25 15:17 06/20/25 15:20 06/18/25 12:32 Oxygen Flow Rate (L/min) 2 Oxygen Delivery Method Room Air Weight: 84.6 kg Body Mass Index (BMI) 27.6 Intake & Output: Intake and Output for Last 24 Hours 06/18/25 06/19/25 06/20/25 23:59 23:59 23:59 Intake Total 4430 / 4430 2780 / 2780 1575.83 / 1575.83 Output Total 5 / 5 Balance 4425 / 4425 2780 / 2780 1575.83 / 1575.83 Medical Nutrition Assessment Dietitian: Malnutrition Criteria Met Start: 06/18/25 13:46 Freq: Status: Active Protocol: Document 06/18/25 13:46 LO (Rec: 06/18/25 13:46 LO [id number]) Nutrition Malnutrition Evidence of Yes Malnutrition Exists Malnutrition (severe Chronic ): Evidenced By Suboptimal Energy Intake (Severe),Weight Loss (Severe) Intake Problem Inadequate Oral Intake Etiology related to dysphagia and increased energy expenditure Signs/Symptoms as evidenced by need for enteral nutrition to meet estimated nutrition needs. 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 Advanced diet as tolerated to Regular with texture/ consistency per PALEONTOLOGICAL HELPER for pleasure feeds. Lab / Micro Data 06/20/25 04:54 06/20/25 04:54 Labs: Laboratory Results - last 24 hr 06/19/25 20:28: Vancomycin Trough 15.2 H 06/19/25 21:48: POC Glucose 109 H 06/20/25 04:54: WBC 2.0 L, RBC 3.37 L, Hgb 9.4 L, Hct 29.3 L, MCV 86.9, MCH 27.9, MCHC 32.1, RDW Std Deviation 47.8 H, RDW Coeff of Tashia 15.5 H, Plt Count 169, MPV 10.4, Immature Gran % (Auto) 1.000 H, Neut % (Auto) 60.1, Lymph % (Auto) 17.2 L, [place] % (Auto) 21.2 H, Eos % (Auto) 0.0, Baso % (Auto) 0.5, Absolute Neuts (auto) 1.2 L, Absolute Lymphs (auto) 0.34 L, Nucleated RBC % 0, Sodium 134, Potassium 4.3, Chloride 99, Carbon Dioxide 23.1, Anion Gap 12, BUN 12, Creatinine 0.81, Estim Creat Clear Calc 78.80, Est GFR (MDRD) Non-Af 92, BUN/Creatinine Ratio 14.3, Glucose 109 H, Calcium 8.6 06/20/25 06:01: POC Glucose 104 06/20/25 11:56: POC Glucose 134 H Micro: Microbiology 06/18/25 13:33 Blood Culture (Wb) - Right Hand Blood Culture - Preliminary No growth in 48 hours. 06/18/25 02:48 Sputum, Expectorated/Coughed Gram Stain - Final 06/18/25 02:48 Sputum, Expectorated/Coughed Respiratory Culture - Final Mixed normal respiratory teto. No Streptococcus pneumoniae, beta-hemolytic Streptococcus or Staphylococcus aureus isolated. 06/17/25 12:20 Blood Culture (Wb) - Anticubital Right Bacteria Detection (PCR) - Final Staphylococcus epidermidis 06/17/25 12:20 Blood Culture (Wb) - Anticubital Right Blood Culture - Final Coag Negative Staph 06/17/25 13:00 Blood Culture (Wb) - Anticubital Right Blood Culture - Preliminary No growth in 48 hours. 06/17/25 19:00 Nasal Secretion MRSA (PCR) - Final 06/17/25 17:21 Mucosa - Nasopharyngeal Respiratory Panel (PCR) - Final 06/17/25 17:30 Urine, Clean Catch Legionella Antigen - Final 06/17/25 17:30 Urine, Clean Catch Streptococcus pneumoniae Antigen (M - Final 06/17/25 12:28 Mucosa - Nose SARS-CoV-2, Influenza & RSV (PCR) - Final Physical Exam Narrative General: Alert HEENT: Atraumatic, normocephalic Eyes: Anicteric, normal conjunctiva, extraocular movements grossly intact Neck: Supple Respiratory: Sill somewhat coarse but seems to have some transmitted upper airway sounds, less tachypneic and has improved respiratory effort Cardiovascular: Regular rate and rhythm GI: Soft, nontender, nondistended Extremities: No significant peripheral pitting edema Musculoskeletal: Moving all extremities Neuro: No overt focal neurological deficits Skin: Has some residual radiation burn on right side of neck Psych: Cooperative but anxious Assessment & Plan Assessment/Plan (1) Pneumonia: PLAN: Plan 75 y/o male w/ hx of COPD, DMII, CAD, throat cancer s/p chemo and radiation that finished about a week ago presented to [facility] ED 06/17/25 with shortness of breath and general malaise. In the ED temp 99.1, heart rate 92, respiratory rate 16, blood pressure 161/70 and pulse ox decreased to 86% on room air requiring 2 L of nasal cannula to maintain sats. White count 2.7, hemoglobin 10.1. BUN of 20 and creatinine 1.06. CTA with left lower lobe air space disease. Additionally percutaneous gastrostomy tube has balloon pulled out and located in anterior abdominal wall. Hospitalist contacted for admission for hypoxia due to pneumonia and dislodged PEG tube. # Acute hypoxia secondary to left lower lobe pneumonia -CTA consistent with a left lower lobe pneumonia -Patient able to produce sputum sample, awaiting culture and sensitivities -Respiratory panels negative -Patient on Levaquin -Continue nebs -1 blood culture was growing gram-positive cocci in clusters however this is resulted in a staph epi in 1 of 2 so suspect this is contaminant however culture from port also obtained to verify -Echocardiogram also obtained due to it being unclear if this was a pathologic infection and it was unremarkable -Will follow cultures - Infectious disease following -06/20: Vanco stopped, blood culture contaminant, will plan on 3 more days of Levaquin, continue respiratory support, likely DC home tomorrow if stable # Supraglottis cancer with dislodged PEG tube -Recently finished chemoradiation -CTA on presentation demonstrated that PEG tube was dislodged -This was replaced 06/18 -There was some leakage of tube feeds out of other PEG site, discussed with surgery, and it is expected that this will spontaneously close but will need to follow-up in the general surgery clinic in 1-1/2 to 2 weeks -Continue dressing changes -06/20: Patient underwent MBSS, discussed with speech and pur?ed only was recommended with tube feeds as primary nutrition and hydration needs. Patient intends to go home with family, likely DC over the weekend if he is tolerating tube feeds and respiratory status stable Chronic medical problems and/or problems not being actively addressed during today's encounter: #Hx COPD -Continue nebs as above -Incentive spirometer #Hx of CAD -w/ previous CABG - Does not appear to have any cardiac medications on home med list, will need to clarify #DVT ppx:SCDs Shayna Mathis MD Charges/Coding Visit Charges Inpatient E&M: 53697 Subs Hosp L2
[2025-06-20] MEDS: MELATONIN 3 MG TABLET GT (19:55)
[2025-06-20] MEDS: hydrOXYzine PAM 25 MG Capsule 50 MG GT (23:17)
[2025-06-21] VITALS (7 sets, daily range): BP systolic 132–153; BP diastolic 55–70; PULSE 75–81; RESP 16–26; TEMP 36.5–37.2; O2SAT 89–97; BMI 27.6
[2025-06-21] MEDS: Acetaminophen 650 MG/20 ML UDC GT ×2 (02:19→07:25)
[2025-06-21 05:30] LABS: Hematocrit 29.8 % (40-54); Hemoglobin 9.7 g/dL (13.0-16.5); Immature Granulocytes Count 0.040 X10^3/uL (0.0-0.0); Mean Corp Hgb Conc 32.6 g/dL (32-36); Mean Corpuscular Volume 85.9 fL (80-94); Mean Platelet Vol. 10.5 fl (6.2-12.0); NRBC Flagged by Analyzer 0 % (0-5); POSITIVE DIFFERENTIAL YES; Platelet Count 156 K/mm3 (150-450); RBC Distribution Width CV 15.9 % (11.6-14.6); RBC Distribution Width SD 48.3 fl (35.1-43.9); Red Blood Count 3.47 M/mm3 (4.6-6.2); White Blood Count 2.1 K/mm3 (4.4-11.0)
[2025-06-21 05:36] LABS: Differential Indicated SCAN CRITERIA MET
[2025-06-21 05:56] LABS: Anion Gap 8 (5-15); BUN 11 mg/dL (4-19); BUN/Creat Ratio 14.1 RATIO (10-20); Calcium,Total 9.0 mg/dL (7.6-11.0); Carbon Dioxide 26.8 mmol/L (21.0-32.0); Chloride 100 mmol/L (98-108); Estimated Creatinine Clearance 79.78 ml/min (50-250); Glucose 112 mg/dL (70-99); Potassium 4.4 mmol/L (3.3-5.1)
[2025-06-21] MEDS: BRIMONIDINE 0.2% 5ML BOTTLE 1 DRP OPHTHALMIC ×2 (06:18→14:32)
[2025-06-21] MEDS: BMX LIQUID 180 ML 15 ML PO ×2 (06:25→12:16)
[2025-06-21 06:47] LABS: Differential Comment SCANNED
[2025-06-21] MEDS: Jevity 1.5. 1,000 ML Bottle 225 ML GT ×4 (07:25→15:57)
[2025-06-21] MEDS: Dorzolamide HCL/Timolol 10 ml Bottle 1 DRP OPHTHALMIC (10:20)
[2025-06-21] MEDS: levoFLOXacin IV 750 MG/150 ML BAG 100 MG IV (10:26)
[2025-06-21] MEDS: 0.9% Saline Lock 10 ML Syringe IV ×2 (10:26→15:48)
--- NOTE | 2025-06-21 14:18 | DCINST_ITS ---
Discharge Instructions DC O2, CPAP, BIPAP needs Home O2 Discharge instructions: No Dressing / Incision Discharge Activity: Use Walker Dressing / Incision Call your doctor if your incision/area has: Continuous Slow Oozing, Increased Pain/ Swelling, Increased Redness, Foul Smelling Discharge and Swelling at the incision site Call your doctor if you observe: Fever of 101 or Higher Follow Up Care Test Results: Test results from this visit will be discussed in further detail at your follow- up appointment, if applicable. Discharge Plan Admission Admit Date/Time: 06/17/25 15:17 Primary Reason for Your Visit: Fatigue, cough, dyspnea Attending Provider: Shayna Mathis Primary Care Provider: Pramod Fernandez Consulting Providers: Geo Ly; Angelina Jordan; Tim Siegel; Rylie Jackson Instructions Patient Instructions: Feeding Tube Additional Instructions / Restrictions: DISCHARGE INSTRUCTIONS PLEASE READ *Please take this with you to your next doctors appointment* -It will be important to only take in pureed texture foods by mouth, you will get your main nutrition and hydration -Please follow up with Dr. Perez, the surgeon who placed your new feeding tube, in 1.5 weeks to reevaluate your feeding tube and verify the old your previous area is closing up appropriately. You will need to call the office upon discharge to schedule this appointment - You will need 3 more days of an antibiotic, levofloxacin, to finish treatment for your pneumonia -Please call your primary care provider's office upon discharge to schedule a hospital follow up within 1 week. -For any concerning signs or symptoms please call 911 or proceed to the nearest emergency department Discharge Orders/Prescriptions Prescriptions: New levofloxacin 750 mg tablet 750 mg PO DAILY 3 Days Qty: 3 0RF Jevity 1.5 Viraj 0.06 gram-1.5 kcal/mL Liquid 225 ml G-tube 6X/DAY Qty: 0 0RF Continued brimonidine 0.2 % drops 1 drp ophthalmic (eye) TID Rx Instructions: left eye dorzolamide-timolol [Cosopt] 22.3-6.8 mg/mL drops 1 drp ophthalmic (eye) BID famotidine 20 mg tablet 20 mg PO QDAY metformin 500 mg tablet 500 mg PO BID umeclidinium-vilanterol [Anoro Ellipta] 62.5-25 mcg/actuation blister with device 1 inh inhalation QDAY ondansetron 8 mg tablet,disintegrating 8 mg PO Q8H PRN (Reason: nausea and vomiting) Qty: 30 1RF lidocaine-prilocaine 2.5-2.5 % cream 1 applic topical ONCE PRN (Reason: port access) 30 Days Qty: 30 2RF MAGIC MOUTH WASH (BMX) 180 mL suspension 15 ml PO .Q6HR Qty: 180 5RF Rx Instructions: diphenhydramine 12.5 mg/5 mL oral liquid 60 mL; aluminum-mag hydroxide- simethicone 400 mg-400 mg-40 mg/5 mL oral susp 60 mL; Lidocaine Viscous 2 % mucosal solution 60 mL; Per 180 mL oxycodone 5 mg tablet 5 mg PO Q8H PRN (Reason: pain) 3 Days Qty: 12 0RF diphenhydramine HCl 12.5 mg/5 mL liquid 12.5 mg PO Q6H PRN (Reason: mouth) Patient Comments: SWISH AND SWALLOW 1CTABLESPOONFUL BY MOUTH FOUR TIMES A DAY NEEDED Referrals / Follow Up: Pramod Fernandez DO [Primary Care Provider, Family Practice] - Within 1 Week Howie Perez MD [Med Staff - Active Staff, General Surgery] - Within 2 Weeks Referral Note: -Please follow up with Dr. Perez, the surgeon who placed your new feeding tube, in 1.5 weeks to reevaluate your feeding tube and verify the old your previous area is closing up appropriately. You will need to call the office upon discharge to schedule this appointment Disposition Disposition (needs filled in before D/C Order can be placed): Home Health Service
--- NOTE | 2025-06-21 14:30 | PCM.DC.SUM ---
Providers Date of Admission: 06/17/25 Date of Discharge: 06/21/25 Primary Care Physician: Dr. Pramod Fernandez, Consultations 06/17/25 16:38 Consult: General Surgery Routine Consulting Provider: Geo Ly Reason for Consult: Malfx PEG, not in correct place EMERGENT Consult: No Notified: Yes Date Notified: 06/17/25 Time Notified: 15:18 Method of Notification: Text 06/18/25 08:58 Consult: Infectious Disease Routine Consulting Provider: Tim Siegel Reason for Consult: bacteremia EMERGENT Consult: No Notified: Yes Date Notified: 06/18/25 Time Notified: 09:00 Method of Notification: Text Reason For Visit: HYPOXIA, LL PNA, MALFX PEG Diagnosis Discharge Diagnosis (1) Pneumonia: Status: Acute Code(s): J18.9 - Pneumonia, unspecified organism (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 Plan # Acute hypoxia secondary to left lower lobe pneumonia # Supraglottis cancer with dislodged PEG tube #Hx COPD #Hx of CAD Medications at Discharge Home Medications brimonidine 0.2 % eye drops 1 drp ophthalmic (eye) TID 04/07/25 dorzolamide 22.3 mg-timolol 6.8 mg/mL eye drops (Cosopt) 1 drp ophthalmic (eye) BID 04/07/25 famotidine 20 mg tablet 20 mg PO QDAY 04/07/25 metformin 500 mg tablet 500 mg PO BID 04/07/25 umeclidinium 62.5 mcg-vilanterol 25 mcg/actuation powdr for inhalation (Anoro Ellipta) 1 inh inhalation QDAY 04/07/25 MAGIC MOUTH WASH (BMX) 180 mL suspension 15 ml PO .Q6HR #180 mL 04/23/25 lidocaine-prilocaine 2.5 %-2.5 % topical cream 1 applic topical ONCE PRN port access 30 days #30 grams 04/23/25 ondansetron 8 mg disintegrating tablet 8 mg PO Q8H PRN nausea and vomiting #30 tabs 04/23/25 oxycodone 5 mg tablet 5 mg PO Q8H PRN pain 3 days #12 tabs 06/04/25 diphenhydramine HCl 12.5 mg/5 mL oral liquid 12.5 mg PO Q6H PRN mouth 06/17/25 lactose-reduced food with fiber 0.06 gram-1.5 kcal/mL oral liquid (Jevity 1.5 Viraj) 225 ml G-tube 6X/DAY #0 mL 06/21/25 levofloxacin 750 mg tablet 750 mg PO DAILY 3 days #3 tabs 06/21/25 Hospital Course Operations - (PEG tube removal and replacement) Summary of Care Provided Minutes Spent on Discharge: 33 Hospital Course: 75 y/o male w/ hx of COPD, DMII, CAD, throat cancer s/p chemo and radiation that finished about a week ago presented to [facility] ED 06/17/25 with shortness of breath and general malaise. In the ED temp 99.1, heart rate 92, respiratory rate 16, blood pressure 161/70 and pulse ox decreased to 86% on room air requiring 2 L of nasal cannula to maintain sats. White count 2.7, hemoglobin 10.1. BUN of 20 and creatinine 1.06. CTA with left lower lobe air space disease. Additionally percutaneous gastrostomy tube has balloon pulled out and located in anterior abdominal wall. Hospitalist contacted for admission for hypoxia due to pneumonia and dislodged PEG tube. Patient started on antibiotics with improvement in his breathing. Also had PEG tube replaced 06/[address] Mercer, there is some leakage of tube feeds out the other site but after discussing with surgery it is expected to spontaneously close the patient will need follow-up with general surgery in the clinic to verify closure. Did have patient undergo MBSS to assess what he is able to safely take by mouth versus PEG tube and it was recommended.'s only. On day of discharge patient feeling much better, still mildly short of breath and a little bit of a cough but significantly improved and patient would like to be discharged which seems to be reasonable. No new or acute complaints. Discharge instructions as follows: -It will be important to only take in pureed texture foods by mouth, you will get your main nutrition and hydration -Please follow up with Dr. Perez, the surgeon who placed your new feeding tube, in 1.5 weeks to reevaluate your feeding tube and verify the old your previous area is closing up appropriately. You will need to call the office upon discharge to schedule this appointment - You will need 3 more days of an antibiotic, levofloxacin, to finish treatment for your pneumonia -Please call your primary care provider's office upon discharge to schedule a hospital follow up within 1 week. -For any concerning signs or symptoms please call 911 or proceed to the nearest emergency department Physical Exam Narrative General: Alert HEENT: Atraumatic, normocephalic Eyes: Anicteric, normal conjunctiva, extraocular movements grossly intact Neck: Supple Respiratory: No respiratory distress, not tachypneic, primarily transmitted upper airway sounds that clear with cough, still some residual in the bases but significantly improved Cardiovascular: Regular rate and rhythm GI: Soft, nontender, nondistended Extremities: No significant peripheral pitting edema Musculoskeletal: Moving all extremities Neuro: No overt focal neurological deficits Skin: Has some residual radiation burn on right side of neck Psych: Cooperative but anxious Medical Records Data Medical Nutrition Assessment Dietitian: Malnutrition Criteria Met Start: 06/18/25 13:46 Freq: Status: Active Protocol: Document 06/18/25 13:46 LO (Rec: 06/18/25 13:46 [id number]) Nutrition Malnutrition Evidence of Yes Malnutrition Exists Malnutrition (severe Chronic ): Evidenced By Suboptimal Energy Intake (Severe),Weight Loss (Severe) Intake Problem Inadequate Oral Intake Etiology related to dysphagia and increased energy expenditure Signs/Symptoms as evidenced by need for enteral nutrition to meet estimated nutrition needs. 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 Advanced diet as tolerated to Regular with texture/ consistency per PRODUCT INFO SPECIALIST for pleasure feeds. Weight / BMI Weight Weight: 84.822 kg Body Mass Index (BMI) 27.6 ABG / Lab / Microbiology Data 06/21/25 04:42 06/21/25 04:42 Laboratory: Laboratory Results - last 24 hr 06/20/25 20:21: POC Glucose 125 H 06/21/25 04:42: WBC 2.1 L, RBC 3.47 L, Hgb 9.7 L, Hct 29.8 L, MCV 85.9, MCH 28.0, MCHC 32.6, RDW Std Deviation 48.3 H, RDW Coeff of Tashia 15.9 H, Plt Count 156, MPV 10.5, Immature Gran % (Auto) 2.000 H, Neut % (Auto) 56.0, Lymph % (Auto) 21.5, [place] % (Auto) 20.0 H, Eos % (Auto) 0.0, Baso % (Auto) 0.5, Absolute Neuts (auto) 1.2 L, Absolute Lymphs (auto) 0.44 L, Nucleated RBC % 0, Differential Comment SCANNED, Sodium 135, Potassium 4.4, Chloride 100, Carbon Dioxide 26.8, Anion Gap 8, BUN 11, Creatinine 0.79, Estim Creat Clear Calc 79.78, Est GFR (MDRD) Non-Af 93, BUN/Creatinine Ratio 14.1, Glucose 112 H, Calcium 9.0 06/21/25 06:17: POC Glucose 94 06/21/25 11:44: POC Glucose 177 H 06/21/25 15:41: POC Glucose 98 Microbiology: Microbiology 06/18/25 13:33 Blood Culture (Wb) - Right Hand Blood Culture - Preliminary No growth in 48 hours. 06/18/25 02:48 Sputum, Expectorated/Coughed Gram Stain - Final 06/18/25 02:48 Sputum, Expectorated/Coughed Respiratory Culture - Final Mixed normal respiratory teto. No Streptococcus pneumoniae, beta-hemolytic Streptococcus or Staphylococcus aureus isolated. 06/17/25 12:20 Blood Culture (Wb) - Anticubital Right Bacteria Detection (PCR) - Final Staphylococcus epidermidis 06/17/25 12:20 Blood Culture (Wb) - Anticubital Right Blood Culture - Final Coag Negative Staph 06/17/25 13:00 Blood Culture (Wb) - Anticubital Right Blood Culture - Preliminary No growth in 48 hours. 06/17/25 19:00 Nasal Secretion MRSA (PCR) - Final 06/17/25 17:21 Mucosa - Nasopharyngeal Respiratory Panel (PCR) - Final 06/17/25 17:30 Urine, Clean Catch Legionella Antigen - Final 06/17/25 17:30 Urine, Clean Catch Streptococcus pneumoniae Antigen (M - Final 06/17/25 12:28 Mucosa - Nose SARS-CoV-2, Influenza & RSV (PCR) - Final D/C Instructions Call your doctor if your incision/area has: Continuous Slow Oozing, Increased Pain/ Swelling, Increased Redness, Foul Smelling Discharge and Swelling at the incision site Call your doctor if you observe: Fever of 101 or Higher DC O2, CPAP, BIPAP Needs Home O2 Discharge instructions: No DC home with Oxygen: No Meaningful Use Info Meaningful Use Meaningful Use Diagnoses (Choose all that apply): None applicable Discharge Plan Admission Admit Date/Time: 06/17/25 15:17 Primary Reason for Your Visit: Fatigue, cough, dyspnea Attending Provider: Shayna Mathis Primary Care Provider: Pramod Fernandez Consulting Providers: Geo Ly; Angelina Jordan; Tim Siegel; Rylie Jackson Instructions Patient Instructions: Feeding Tube Additional Instructions / Restrictions: DISCHARGE INSTRUCTIONS PLEASE READ *Please take this with you to your next doctors appointment* -It will be important to only take in pureed texture foods by mouth, you will get your main nutrition and hydration -Please follow up with Dr. Perez, the surgeon who placed your new feeding tube, in 1.5 weeks to reevaluate your feeding tube and verify the old your previous area is closing up appropriately. You will need to call the office upon discharge to schedule this appointment - You will need 3 more days of an antibiotic, levofloxacin, to finish treatment for your pneumonia -Please call your primary care provider's office upon discharge to schedule a hospital follow up within 1 week. -For any concerning signs or symptoms please call 911 or proceed to the nearest emergency department Discharge Orders/Prescriptions Prescriptions: New levofloxacin 750 mg tablet 750 mg PO DAILY 3 Days Qty: 3 0RF Jevity 1.5 Viraj 0.06 gram-1.5 kcal/mL Liquid 225 ml G-tube 6X/DAY Qty: 0 0RF Continued brimonidine 0.2 % drops 1 drp ophthalmic (eye) TID Rx Instructions: left eye dorzolamide-timolol [Cosopt] 22.3-6.8 mg/mL drops 1 drp ophthalmic (eye) BID famotidine 20 mg tablet 20 mg PO QDAY metformin 500 mg tablet 500 mg PO BID umeclidinium-vilanterol [Anoro Ellipta] 62.5-25 mcg/actuation blister with device 1 inh inhalation QDAY ondansetron 8 mg tablet,disintegrating 8 mg PO Q8H PRN (Reason: nausea and vomiting) Qty: 30 1RF lidocaine-prilocaine 2.5-2.5 % cream 1 applic topical ONCE PRN (Reason: port access) 30 Days Qty: 30 2RF MAGIC MOUTH WASH (BMX) 180 mL suspension 15 ml PO .Q6HR Qty: 180 5RF Rx Instructions: diphenhydramine 12.5 mg/5 mL oral liquid 60 mL; aluminum-mag hydroxide-simethicone 400 mg-400 mg-40 mg/5 mL oral susp 60 mL; Lidocaine Viscous 2 % mucosal solution 60 mL; Per 180 mL oxycodone 5 mg tablet 5 mg PO Q8H PRN (Reason: pain) 3 Days Qty: 12 0RF diphenhydramine HCl 12.5 mg/5 mL liquid 12.5 mg PO Q6H PRN (Reason: mouth) Patient Comments: SWISH AND SWALLOW 1CTABLESPOONFUL BY MOUTH FOUR TIMES A DAY NEEDED Referrals / Follow Up: Pramod Fernandez DO [Primary Care Provider, Family Practice] - Within 1 Week Howie Perez MD [Med Staff - Active Staff, General Surgery] - Within 2 Weeks Referral Note: -Please follow up with Dr. Perez, the surgeon who placed your new feeding tube, in 1.5 weeks to reevaluate your feeding tube and verify the old your previous area is closing up appropriately. You will need to call the office upon discharge to schedule this appointment Disposition Disposition (needs filled in before D/C Order can be placed): Home Health Service Charges/Coding Visit Charges Inpatient E&M: 92721 Disch Hosp >30min
== END 2025-06-21 17:07 | disposition home health service (06) | DRG 177 ==
LOC: ED 15:46 → MS3 16:03
PROVIDERS: Student in an Organized Health Care Education/Training Program; Surgery; Admitting Provider Family Medicine; Emergency Provider Emergency Medicine; PCP Family Medicine; Visit Provider Internal Medicine
PROC: 0DJ08ZZ Inspection of Upper Intestinal Tract, Via Natural or Artificial Opening Endoscopic (ICD-10-PCS; CPT 43235; principal; 2025-06-18 08:55)
DX: J69.0 Pneumonitis due to inhalation of food and vomit (principal); E43 Unspecified severe protein-calorie malnutrition; R78.81 Bacteremia; D61.818 Other pancytopenia; K94.23 Gastrostomy malfunction; J44.0 Chronic obstructive pulmonary disease with (acute) lower respiratory infection; D70.9 Neutropenia, unspecified; D63.1 Anemia in chronic kidney disease; C32.1 Malignant neoplasm of supraglottis; E11.51 Type 2 diabetes mellitus with diabetic peripheral angiopathy without gangrene; I12.9 Hypertensive chronic kidney disease with stage 1 through stage 4 chronic kidney disease, or unspecified chronic kidney disease; F32.A Depression, unspecified; D63.0 Anemia in neoplastic disease; E78.00 Pure hypercholesterolemia, unspecified; I25.10 Atherosclerotic heart disease of native coronary artery without angina pectoris; K21.9 Gastro-esophageal reflux disease without esophagitis; N18.2 Chronic kidney disease, stage 2 (mild); E11.22 Type 2 diabetes mellitus with diabetic chronic kidney disease; Z82.5 Family history of asthma and other chronic lower respiratory diseases; Z92.3 Personal history of irradiation; Z92.21 Personal history of antineoplastic chemotherapy; Z79.84 Long term (current) use of oral hypoglycemic drugs; R53.1 Weakness; Z87.891 Personal history of nicotine dependence; B96.89 Other specified bacterial agents as the cause of diseases classified elsewhere; Z95.1 Presence of aortocoronary bypass graft; Z68.26 Body mass index [BMI] 26.0-26.9, adult
CPT/HCPCS: 36415; 71045; 71275; 74230; 80048; 80053; 80202; 82962; 83735; 84100; 84484; 85025; 85379; 87040; 87070; 87149; 87205; 87449; 87631; 87633; 87641; 92526; 92610; 92611; 93005; 93306; 94640; 94668; 97110; 97162; 97166; 97530; 97802; 97803; 99283; Q9967; A4216; J2405

== ENCOUNTER 2025-07-01 15:00 | Outpatient (RCR) | payer MEDICARE, MEDICAID, SELFPAY | END 2025-07-23 23:59 | LOC: NS 15:00 | PROVIDERS: PCP Family Medicine; Visit Provider Student in an Organized Health Care Education/Training Program | DX: Z71.3 Dietary counseling and surveillance (principal); C32.9 Malignant neoplasm of larynx, unspecified | CPT/HCPCS: 97803 ==

== ENCOUNTER 2025-07-08 11:30 | Outpatient (RCR) | payer MEDICARE, MEDICAID, SELFPAY ==
--- NOTE | 2025-05-01 14:22 | HP.SP.EVAL ---
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 CT scan neck on 01/21/2025 showed 3.8 cm mass involving epiglottis aryepiglottic folds bilateral vocal cords, anterior commissure, anterior-most bilateral vocal cords. Dysphagia Hx: PEG tube placed on 04/25/2025. Certain foods get caught and he has to cuogh it up quickly. Beef, lettuce, and other hard meats and veggies give him the most difficulty. Pt doesn't wear bottom teeth due to them being ill fitting. Swallowing difficulty onset just this week. Pt reports some coughing w/ liquids, especially when they are warm (coffee). Pt reports coughing up thick, clotted blood intermittently. Hoarse vocal quality. Xerostomia managed w/ dry mouth lozenges throughout the day. Taste: WNL. Odynophagia: N/A. PEG tube intake: N/A, just flushing. 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 Atrophy and small-vessel disease upper limits of normal for age. Negative for intracranial metastatic disease. Medical History Encounter for chemotherapy management Constipation Cancer related pain Encounter for education Type 2 diabetes mellitus PVD (peripheral vascular disease) History of pleural effusion Depression CKD stage 3 due to type 2 diabetes mellitus CAD (coronary artery disease) Wears glasses Wears dentures Cancer Marijuana use Arthritis Difficulty swallowing Heartburn Gastric reflux Shortness of breath on exertion Chronic cough Smoker Cardiology follow-up encounter COPD (chronic obstructive pulmonary disease) Acid reflux High cholesterol Hypertension Diabetes Blindness of right eye Smoking Status: Current every day smoker Pain Is pain an issue with your current prescribed condition?: No Personal Preferred language: Maori Patient Allergies Allergies Allergies: Allergies lisinopril Allergy (Verified 04/28/25 09:21) Angioedema Objective Dysphagia Administered by Administered by: Self Thin Liquids Administred via: Cup and Spoon Bolus clearance: fully cleared Cough: immediate, delayed, weak reflexive cough and non-productive Pharyngeal phase: immediate laryngeal elevation Comments: Consistent coughing w/ liquids via sequential cup, single cup, and tsp sips. Trialed effortful swallow, but pt had persistent coughing. Cueing pt for neutral head position (naturally tucking chin somewhat) decreased coughing w/ tsp sips somewhat, but pt still had coughing w/ >50% of trials by tsp. Pureed Oral Preparation: WNL Oral Transit: WNL Comments: No overt s/s of aspiration or sensation of pharyngeal retention Regular Comments: Easy to Chew cookie and Regular textured Ritz and cheese crackers consumed w/ timely mastication, no overt s/s of aspiration, no sensation of pharyngeal retention Impact Impact on Safety & Functioning: Risk for Aspiration and Risk for Inadequate Nutrition/Hydration Recommendations Modified Barium Swallow/Cookie Swallow Recommended: Yes Swallowing Treatment: Yes Diet Texture Recommendations Solids: Easy to Chew (Level 7) Other liquids: FFWP Painting free water Protocol: Yes Other: Puree wash if sensation of pharyngeal retention w/ solids, Small bites/sips, Slow rate, Sitting upright during and 30min after meals. 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 V Trigeminal Nerve V Trigeminal Nerve Response: Intact VII Facial Nerve VII Facial Nerve Result: Intact X Vagus Nerve X Vagus Nerve Result: Impaired Comment:: No gag reflex, but palatal sensation in tact bilaterally XII Hypoglossal Nerve XII Hypoglossal Nerve Result: Impaired Comment:: Mild lingual weakness in all directions Swallowing Performance Scale Swallowing Performance Scale Swallowing Performance Scale Result: 5 Moderate Reference: Neuro-QoL instrument Radiation Oncology Patient FOIS Functional Oral Intake Scale Total oral diet with multiple consistencies, but requiring special preparation or compensations: Level 5 Other Other EAT-10: -: Eating Assessment Tool (EAT-10) ? Score = 19 Score of 3 or more indicates there may be a swallowing problem or dysphagia. For patients with head and neck cancer, researchers found a cut-off value of 19 to be helpful in detecting presence of post-swallow pharyngeal residue. 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 The patient is at risk for worsening dysphagia during and following treatment. Speech therapy POC to include education and training re: oropharyngeal exercise program, diet texture recommendations, and compensatory strategies to decrease risk for aspiration. Additionally, will provide ongoing assessment of diet tolerance during and post chemoradiation treatment. POC to also include routine MBSS to monitor swallow function during and after cancer treatment. First MBSS planned tomorrow, 05/02/2025. Without skilled ST services, the patient is at increased risk for worsening dysphagia, aspiration, weight loss, dehydration, and malnutrition. Recommendations Treatment Warranted: Yes Treatment Warranted: Dysphagia Progress Prognosis: Good Frequency Frequency: 1x/Week Duration: 12 Months Patient/Family Goal Patient/Family Goal: Eat/drink safely Goals that are Established Determination:: Goals will be added/modified as deemed necessary and appropriate. Therapy will be discontinued when results of re-evaluation indicate therapy is no longer needed or lack of progress has been documented. Goal #1-5 Goal #1: The patient will consume least restrictive diet textures without overt s/s of aspiration with 90% acc with minimal verbal cues for use of strategies to facilitate safe po intake. Goal #2: The patient will complete an oropharyngeal exercise program during and post chemoradiation treatment independently to improve and maintain strength, ROM, and coordination of swallowing mechanism (X10 repetitions, 3-5X daily). Goal #3: The patient will participate in ongoing education re: short-term and long-term effects of chemoradiation treatment on swallow function and management strategies for toxicities that contribute to dysphagia. Goal #4: The patient will participate in routine instrumental assessment of swallowing to objectively assess swallow function and provide recommendations for safest, least restrictive diet and compensatory strategies to reduce risk for aspiration. Education Patient has Indicated that the Following Identified Educational Needs: Hearing/Vision/Speech Impaired Other Educational Needs: Impaired vision, benefits from bold lettering in reading materials The Patient has indicated that they have no educational or learning abilities that may effect their care.: No Patient Instruction Patient Education: Diagnosis, Treatment Plan, Safety Precautions and Diet Level Other Education: Educated the patient re: short-term and long-term effects of chemoradiation treatment that increase his risk for worsening dysphagia, such as mucositis, odynophagia, xerostomia, hypo/dysgeusia, disuse atrophy, and radiation fibrosis. 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 Person Taught: Patient and Family Teaching Method: Discussion and Handout Response to teaching: Verbalize Understanding and Reinforcement Needed
--- NOTE | 2025-07-29 12:39 | HP.SP.DC_ITS ---
ST Discharge Summary Discharged: Discharge: The patient participated in bedside swallow evaluation 05/01/2025 w/ dysphagia POC initiated secondary to pt's hx of HNC. He followed closely w/ ST during and following his cancer treatment. POC included two MBSS (05/02/2025 and 06/20/2025). MBSS 06/20/2025 revealed severe oropharyngeal dysphagia and recommended purees only (no liquids). He continued to follow w/ ST and diet was advanced to soft and bite size textures / no liquids by mouth w/ exception of water via Painting Free Water Protocol. The patient's OP ST POC is being discharged at this time d/t the patient requiring ST services. Please re- consult for continued dysphagia evaluation and treatment following completion of Home Health ST POC if pt has persisting dysphagia.
== END 2025-07-08 19:00 | disposition home or self-care (01) ==
LOC: SP 11:30
PROVIDERS: PCP Family Medicine; Referring Provider Student in an Organized Health Care Education/Training Program; Visit Provider Student in an Organized Health Care Education/Training Program
DX: C32.9 Malignant neoplasm of larynx, unspecified (principal)
CPT/HCPCS: 77386; 92526; 92610